=== PATIENT | male | born 1955 | race Caucasian/White ===

== ENCOUNTER 2017-08-08 20:40 | Inpatient (IN) | payer OTHER ==
[2017-08-08 21:00] VITALS: BP 143/86; PULSE 98; RESP 16; TEMP 98; O2SAT 95
[2017-08-08] MEDS: SODIUM CHLOR 0.9% 1000 ML INJ 1,000 ML IV SCH (21:39)
[2017-08-08] MEDS ORDERED: oxyCODONE/ACETAMINOPHEN 5 MG/325 MG TAB PO PRN (21:45)
[2017-08-08] MEDS ORDERED: ONDANSETRON HCL 4 MG/2 ML VIAL IV PUSH PRN (21:45)
[2017-08-08] MEDS ORDERED: SODIUM CHLORIDE 0.9% FLUSH 10 ML FLUSH IV FLUSH PRN (21:45)
[2017-08-08] MEDS ORDERED: SENNOSIDES 8.6 MG TAB PO PRN (21:45)
[2017-08-08] MEDS ORDERED: CHLORHEXIDINE GLUCONATE 2 % 1 PACK (2 CLOTHS) TOP PRN (21:45)
[2017-08-08] MEDS ORDERED: MAGNESIUM HYDROXIDE SUSP 30 ML CUP PO PRN (21:45)
[2017-08-08] MEDS ORDERED: RESP: ALBUTEROL 2.5 MG/IPRATROPIUM 0.5 MG NEB (PRN) INH (21:45)
[2017-08-08] MEDS ORDERED: METOCLOPRAMIDE HCL 10 MG/2 ML VIAL IV PUSH PRN (21:45)
[2017-08-08] MEDS ORDERED: MISCELLANEOUS NURSING INFORMATION XX SCH (21:45)
[2017-08-08] MEDS ORDERED: LACTULOSE SYRUP 20 GM/30 ML CUP PO PRN (21:45)
[2017-08-08 22:00] VITALS: PULSE 100
--- NOTE | 2017-08-08 22:28 | HHI.HP ---
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 Patient was just evaluated at [facility] on 08/05/17 and received Ktruda. He developed worsening weakness involving the left lower extremity since then over the next 3 days and presented to the ER at [facility] on 08/[address] without contrast revealed intracerebral hemorrhage involving right frontal parietal region with right subdural hemorrhage and minimal midline shift. [facility] was contacted however did not have any beds hence patient was accepted for transfer at [facility] and patient was transferred to the ICU at [place]. I evaluated the patient on being notified about his arrival. At that time he was complaining of a headache for out of 10 in intensity otherwise did not have any other complaints. He had just had a seizure prior to transfer around 4:30 PM for which she received 1 mg of Ativan IV as well as 1 g of IV Keppra at [facility]. Patient is on 3 anticonvulsants at home including Vimpat, Keppra, Dilantin. He gets at least one seizure once a week involving the left side of his body. He denies any fevers or chills. Denies any shortness of breath, nausea, vomiting, abdominal pain, melena or rectal bleeding. He has been having some dribbling of his urine for the last 1 week. Review of Systems ROS As per history of present illness Past Family Social History Allergies: Coded Allergies: No Known Drug Allergies (Verified Allergy, 08/08/17) Past Medical History Malignant Melanoma, seizures Past Surgical History Right parietal craniectomy for removal of metastatic lesion from melanoma on , lumbar discectomy, 11 inches of small bowel removed for malignancy with axillary lymph node removal. Reported Medications Dexamethasone 2 mg by mouth 3 times a day, Keppra 1500 mg by mouth twice a day, phenytoin 300 mg by mouth daily at bedtime, Vimpat 150 mg by mouth twice a day, potassium chloride 10 and V/Q by mouth daily Family History Noncontributory at this time Social History No history of tobacco abuse or any other substance abuse Physical Exam Vital Signs Vital Signs Date Time Temp Pulse Resp B/P (MAP) Pulse Ox O2 Delivery O2 Flow Rate FiO2 08/08/17 21:00 98 Room Air Physical Exam HEENT/Neuro: No pallor or icterus, tongue moist, VERONIKA, Awake alert oriented 3 , grade 0 power in left upper and lower extremity, grade 5 power right upper and lower extremity Neck: No JVD Chest/pulmonary: CTA bilaterally Cardiovascular: S1-S2 regular no gallop or murmur GI/abdomen: Soft, nontender, bowel sounds present Extremities: Warm bilaterally, no edema Laboratory Labs time at [facility] on 08/07/2017 at 1848 hrs. White count 8.7, hemoglobin 15.2, hematocrit 45.2, platelets 289 Sodium 144, potassium 3.4, chloride 105, bicarbonate 25, BUN 9, creatinine 0.64 , glucose 95 INR 1.0, PTT 28 seconds, calcium 9.6, magnesium 2.2, TSH 5.57, Imaging Head CT done on 07/09/2017: Large area of intracerebral hemorrhage and right frontal and parietal region with obliteration of cerebral sulci on the right side secondary to edema, minimal midline shift, compression of right lateral ventricle him a right frontal and temporal acute subdural hematomas Head CT done on 08/07/2017: Intracerebral hemorrhages in right frontal and parietal region, acute subdural hematoma than right frontal and temporal regions compression of right lateral ventricle and slight midline shift Caprini VTE Risk Assessment Caprini VTE Risk Assessment: Mod/High Risk (score >= 2) VTE Pharm Contraindication: Intracranial lesions Caprini Risk Assessment Model Point Value = 1 Point Value = 2 Point Value = 3 Point Value = 5 Age 41-60 Minor surgery BMI > 25 kg/m2 Swollen legs Varicose veins or History of unexplained or recurrent spontaneous Oral contraceptives or hormone replacement Sepsis (< 1 month) Serious lung disease, including pneumonia (< 1 month) Abnormal pulmonary function Acute myocardial infarction Congestive heart failure (< 1 month) History of inflammatory bowel disease Medical patient at bed rest Age 61-74 Arthroscopic surgery Major open surgery (> 45 min) Laparoscopic surgery (> 45 min) Malignancy Confined to bed (> 72 hours) Immobilizing plaster cast Central venous access Age >= 75 History of VTE Family history of VTE Factor V Leiden Prothrombin [id number] Lupus anticoagulant Anticardiolipin antibodies Elevated serum homocysteine Heparin-induced thrombocytopenia Other congenital or acquired thrombophilia Stroke (< 1 month) Elective arthroplasty Hip, pelvis, or leg fracture Acute spinal cord injury (< 1 month) Prophylaxis Regimen Total Risk Factor Score Risk Level Prophylaxis Regimen 0-1 Low Early ambulation 2 Moderate Order ONE of the following: *Sequential Compression Device (SCD) *Heparin 5000 units SQ BID 3-4 Higher Order ONE of the following medications: *Heparin 5000 units SQ TID *Enoxaparin/Lovenox 40 mg SQ daily (WT < 150 kg, CrCl > 30 mL/min) *Enoxaparin/Lovenox 30 mg SQ daily (WT < 150 kg, CrCl > 10-29 mL/min) *Enoxaparin/Lovenox 30 mg SQ BID (WT < 150 kg, CrCl > 30 mL/min) AND/OR *Sequential Compression Device (SCD) 5 or more Highest Order ONE of the following medications: *Heparin 5000 units SQ TID (Preferred with Epidurals) *Enoxaparin/Lovenox 40 mg SQ daily (WT < 150 kg, CrCl > 30 mL/min) *Enoxaparin/Lovenox 30 mg SQ daily (WT < 150 kg, CrCl > 10-29 mL/min) *Enoxaparin/Lovenox 30 mg SQ BID (WT < 150 kg, CrCl > 30 mL/min) AND *Sequential Compression Device (SCD) Assessment and Plan Assessment and Plan 62-year-old male with: Metastatic melanoma with brain metastases status post previous right parietal rhinectomy Right sided subdural hemorrhage with intracerebral hemorrhage and cerebral edema Seizures Left hemiplegia Hypertension Plan: Neuro: Continue neuro checks per ICU protocol. Neurosurgery consulted and discussed with Dr. Smalls. No emergent neurosurgical intervention indicated at this time following review of CAT scans done at [facility]. Plan to continue Decadron 4 mg IV every 6 hourly. Will change Keppra to 1500 mg IV every 12 hourly, Dilantin 150 mg IV every 12 hourly, continue by mouth Vimpat. Obtain MRI brain for further evaluation. Repeat head CT to be decided by neurosurgery. Seizure precautions. Ativan when necessary for breakthrough seizures as needed. Cardiovascular: Hydralazine 10 mg IV every 2 hourly when necessary for SBP greater than 150 mmHg. Pulmonary: Protecting airway adequately at this time. Supplemental O2 as needed. Bronchiolitis when necessary. GI/liver: By mouth diet as tolerated needed Renal/: IV hydration, strict intake output, monitor and replete electrolytes, follow BUN/creatinine. ID: No indication for antibiotics at this time Heme onc: Obtain medical records from [facility] regarding melanoma treatment and status. Consult oncology. Coags normal at [facility]. Endocrine: Watch for hyperglycemia, SSI for glycemic control if needed. Prophylaxis: Pepcid, SCDs. No subcutaneous heparin in view of intracerebral hemorrhage/subdural hemorrhage. Discussed with neurosurgery, discussed with patient and his at bedside. Condition critical. Patient at high risk for deterioration from worsening intracerebral hemorrhage and cerebral edema. Time spent on critical care excluding procedures 45 minutes Raf Carpenter MD Aug 08, 2017 22:27
[2017-08-08] MEDS ORDERED: DEXTROSE 50% IN WATER 50 ML VIAL(D50) IV PRN (22:30)
[2017-08-08] MEDS ORDERED: GLUCAGON 1 MG/ML VIAL IM/SQ PRN (22:30)
[2017-08-08] MEDS ORDERED: DEXA2TAB PO (22:48)
[2017-08-08] MEDS ORDERED: LEVE500T8 PO (22:48)
[2017-08-08] MEDS ORDERED: VIMP150T PO (22:48)
[2017-08-08] MEDS ORDERED: POTA10TA2 PO (22:48)
[2017-08-08] MEDS ORDERED: PHEN300C3 PO (22:48)
--- NOTE | 2017-08-08 23:19 | HHI.NSPN ---
History Chief Complaint: Left sided weakness Interval History 62-year-old male patient with history of melanoma metastatic to the brain. Transferred from [facility] because of intracranial hemorrhage patient reports increasing weakness on the left side System Review Comments See consult Exam Results Vital Signs Date Time Temp Pulse Resp B/P (MAP) Pulse Ox O2 Delivery O2 Flow Rate FiO2 08/08/17 22:00 100 08/08/17 21:58 21 08/08/17 21:00 98.0 16 143/86 (105) 95 08/08/17 21:00 Room Air Physical Examination Alert and awake follows commands well. Fluent speech. Oriented 3. Affect normal. Cranial nerves intact Motor exam left hemiparesis arm is 1+/5 leg is 2-3+/5 See consult for further details Lab, Micro, Other Results Review of CT from 08/07 shows evidence of acute subdural hematoma on the right, small, with extension along the falx. Evidence of a low-density lesion with hemorrhage in the right parietal area. Compression of the ventricle on the right. Marked edema. CT scan of 08/08 show similar appearance Medical Decision Making Impression and Plan Impression: Probable recurrent metastatic lesion. Acute subdural hematoma small. There is some information indicating that the lesion in the parietal area was present on a scan of June 2017 Recommendations: Continue Dilantin, Keppra and Vimpat Consider MRI of the brain with and without contrast Decadron 4 mg IV every 6 hours Seizure precautions Oncology consult Consider transfer to [facility] for further care Cezar Smalls MD Aug 08, 2017 23:19
[2017-08-08] MEDS: PHENYTOIN INJ 100 MG/2 ML VIAL IV PUSH SCH (23:22)
[2017-08-08] MEDS: DEXAMETHASONE SOD PHOS 4 MG/ML VIAL IV PUSH SCH (23:23)
[2017-08-09] VITALS (13 sets, daily range): BP systolic 133–167; BP diastolic 72–94; PULSE 83–130; RESP 15–24; TEMP 96.6–98.3; O2SAT 93–97
[2017-08-09] MEDS: CHLORHEXIDINE GLUCONATE 2 % 1 PACK (2 CLOTHS) TOP SCH (04:00)
[2017-08-09] MEDS ORDERED: LORazepam 2 MG/ML VIAL ONE (04:01)
[2017-08-09] MEDS: DEXAMETHASONE SOD PHOS 4 MG/ML VIAL IV PUSH SCH ×5 (04:07→23:12)
[2017-08-09] MEDS ORDERED: LORazepam 2 MG/ML VIAL IV PUSH ONE (04:15)
--- NOTE | 2017-08-09 04:29 | RADRPT ---
EXAM DATE/TIME: 08/09/2017 03:04 [facility] COMPARISON: No previous studies available for comparison. INDICATIONS : Evaluate for infiltrate MEDICAL HISTORY : None. SURGICAL HISTORY : None. ENCOUNTER: Initial ACUITY: 1 day PAIN SCORE: 7/10 LOCATION: Bilateral chest FINDINGS: A single view of the chest demonstrates mild basilar atelectasis. No effusion. No pneumothorax. Surgi leeann clips in left axillary region. Cardiomegaly. CONCLUSION: 1. Mild basilar atelectasis. No effusion or pneumothorax. Large calcified mediastinal lymph node. Liz gical clips left axilla. Charly Wagner MD on August 09, 2017 at 4:27 Board Certified Radiologist. This report was verified electronically.
[2017-08-09 04:35] LABS: AUTOMATED NEUTROPHIL # 7.8 TH/MM3 (1.8-7.7); BASOPHIL # 0.1 TH/MM3 (0-0.2); BASOPHIL % 0.5 % (0.0-2.0); EOSINOPHIL % 0.2 % (0.0-4.0); HEMATOCRIT 42.9 % (39.0-51.0); HEMOGLOBIN 14.9 GM/DL (13.0-17.0); LYMPH % 13.7 % (9.0-44.0); LYMPHOCYTE # 1.3 TH/MM3 (1.0-4.8); MEAN CELL VOLUME 85.6 FL (80.0-100.0); MEAN CORPUSCULAR HEMOGLOBIN 29.7 PG (27.0-34.0); MEAN CORPUSCULAR HGB CONC 34.7 % (32.0-36.0); MONO % 5.3 % (0.0-8.0); MONOCYTE # 0.5 TH/MM3 (0-0.9); NEUT % 80.3 % (16.0-70.0); PLATELET COUNT 294 TH/MM3 (150-450); RED BLOOD COUNT 5.01 MIL/MM3 (4.50-5.90); RED CELL DISTRIBUTION WIDTH 16.2 % (11.6-17.2); WHITE BLOOD COUNT 9.8 TH/MM3 (4.0-11.0)
[2017-08-09 05:00] LABS: ALBUMIN 3.8 GM/DL (3.4-5.0); AST (GOT) 20 U/L (15-37); BICARBONATE 25.8 MEQ/L (21.0-32.0); BLOOD UREA NITROGEN 13 MG/DL (7-18); CALCIUM 8.8 MG/DL (8.5-10.1); CHLORIDE 106 MEQ/L (98-107); CREATININE 0.75 MG/DL (0.60-1.30); GLOMERULAR FILTRATION RATE 105 ML/MIN (>89); GLUCOSE,RANDOM 113 MG/DL (74-106); MAGNESIUM 2.6 MG/DL (1.5-2.5); SODIUM (NA) 140 MEQ/L (136-145)
[2017-08-09 05:03] LABS: ALKALINE PHOSPHATASE 91 U/L (45-117); ALT (GPT) 29 U/L (12-78); TOTAL BILIRUBIN ADULT 0.4 MG/DL (0.2-1.0); TOTAL PROTEIN 6.7 GM/DL (6.4-8.2)
[2017-08-09] MEDS: hydrALAZINE HCL 20 MG/ML VIAL IV PUSH PRN (06:02)
--- NOTE | 2017-08-09 06:44 | MB ---
cc: CAROLANN NOVA MD DATE OF CONSULTATION: 08/08/2017 CHIEF COMPLAINT: Transfer from [facility] due to brain hemorrhage. HISTORY OF PRESENT ILLNESS: This is a 62 year-old male patient with history of malignant melanoma with metastasis to the brain. The patient initially was diagnosed in August of 2016 after small bowel resection. The patient was seen in [facility] where he was followed and eventually was noted to have a metastatic lesion to the brain which was treated with radiosurgery. The patient continued to have problems despite the treatment and in May of 2017 he underwent right parietal surgery with what appears to be incomplete resection of the lesion. He again was treated with radiation and was also receiving Keytruda for treatment of his systemic melanoma. Because of continued problems and because of continued weakness on the left side which pre-dated the initial surgery, the patient has been under observation. He was also noted to have intermittent seizures which he reports about a week to two weeks apart which initially involved the leg, and then the arm and leg as well. For the past few days, the patient noted increasing weakness on the left side and because of this, he presented to [facility] where CT scan of the brain was performed showing abnormal intercerebral hemorrhage and because of continued problems, they decided to transfer the patient to this center. The patient insists that he probably wants to return to [facility] for continued care but is willing to undergo treatment here if necessary. PAST MEDICAL HISTORY: 1. Seizures. 2. Malignant melanoma. PAST SURGICAL HISTORY: 1. Right parietal craniectomy with removal of metastatic lesion. 2. Past history of lumbar diskectomy with residual weakness and numbness of the left leg. PREVIOUS MEDICATIONS 1. Dexamethasone. 2. Keppra. 3. Diabetes mellitus. 4. Vimpat because of seizures. FAMILY HISTORY: Noncontributory. SOCIAL HISTORY: Reveals no history of tobacco abuse or any other substance abuse. PHYSICAL EXAMINATION: VITAL SIGNS: Saturation of 98, pulse 80, blood pressure of 140/80. HEENT: Shows evidence of a previous surgical procedure on the right parietal area. NECK: Supple with good carotid pulses bilaterally. CHEST: Symmetric. LUNGS: Clear. ABDOMEN: Soft, nontender. EXTREMITIES: Clear. NEUROLOGIC: The patient is alert and awake. He follows commands well. Speech is fluent. He tends to drift off at times. He is oriented x3. Cranial nerves II through XII intact. He appears to have mild ptosis on the left. Motor exam: 5+/5 on the right side. The left arm is about 1+/5, and the left leg is about 2+ to 3/5. Sensory exam shows decreased touch throughout the left arm and left leg, and facial area. Deep tendon reflexes are 1+ on the right side, trace in the left upper extremity and 1+ in the left leg. IMAGING STUDIES: Review of CT scan of the brain 08/07 shows what appears to be an acute small subdural hematoma on the right side with involvement of the falx. There also appears to be a large low density lesion in the right frontoparietal area with marked edema and compression of the ventricle on that side. CT on 08/08 is similar in appearance to the one on 08/07. OVERALL IMPRESSION: That of recurrent malignant melanoma with metastasis to the brain, acute subdural hematoma, small. RECOMMENDATIONS: Continue neurological observation. No surgical intervention is emergent at the present time. The patient should continue on his Keppra, Dilantin and Vimpat. Dilantin level should be performed. He should have an MRI of the brain with and without contrast to further delineate the lesion. Findings have been discussed with the patient and his . At this point they may want to return to [facility] for continued care and we will make sure that he is stable enough if they want to proceed. MD JUAN JOSE Walter/NIRALI /11:02 PM /6:23 AM CAROLYN
[2017-08-09] MEDS ORDERED: DEXMEDETOMIDINE INJ 200 MCG in SODIUM CHLORIDE 0.9% INJ 50 ML IV PRN (07:45)
[2017-08-09] MEDS ORDERED: LORazepam 2 MG/ML VIAL IV PUSH PRN (07:45)
[2017-08-09] MEDS: INSULIN ASPART SUPPLEMENTAL SCALE SQ SCH ×4 (08:00→20:24)
[2017-08-09] MEDS ORDERED: FOSPHENYTOIN SODIUM 100 MG PE/2 ML VIAL IV ONE (08:15)
--- NOTE | 2017-08-09 08:21 | HHI.CCPN ---
Subjective Remarks/Hospital Course 62-year-old male with a history of malignant melanoma metastasized to the brain status post right parietal craniectomy on June 09, 2017 at [facility] followed by 5 radiation treatments being followed by oncologist at [facility]. Patient was just evaluated at [facility] on 08/05/17 and received Ktruda. He developed worsening weakness involving the left lower extremity since then over the next 3 days and presented to the ER at [facility] on 08/[address] without contrast revealed intracerebral hemorrhage involving right frontal parietal region with right subdural hemorrhage and minimal midline shift. [facility] was contacted however did not have any beds hence patient was accepted for transfer at [facility] and patient was transferred to the ICU at [place]. I evaluated the patient on being notified about his arrival. At that time he was complaining of a headache for out of 10 in intensity otherwise did not have any other complaints. He had just had a seizure prior to transfer around 4:30 PM for which she received 1 mg of Ativan IV as well as 1 g of IV Keppra at [facility]. Patient is on 3 anticonvulsants at home including Vimpat, Keppra, Dilantin. He gets at least one seizure once a week involving the left side of his body. He denies any fevers or chills. Denies any shortness of breath, nausea, vomiting, abdominal pain, melena or rectal bleeding. He has been having some dribbling of his urine for the last 1 week. 08/09: Discussed in detail with patient and at the bedside. Left side weakness persists. Speech is clear, O X 3, conversant, alert. Dilantin level 6; will rebolus and continue 150 mg iv bid. Will continue to attempt transfer to [facility]. Objective Vital Signs Date Time Temp Pulse Resp B/P (MAP) Pulse Ox O2 Delivery O2 Flow Rate FiO2 08/09/17 06:00 97 08/09/17 04:00 98.0 21 167/94 (118) 94 08/08/17 21:58 21 08/08/17 21:00 Room Air Intake and Output 08/09/17 08/09/17 08/10/17 08:00 16:00 00:00 Intake Total 50 ml Output Total 400 ml Balance -350 ml Result Diagram: 08/09/17 0355 08/09/[address] done on 07/09/2017: Large area of intracerebral hemorrhage and right frontal and parietal region with obliteration of cerebral sulci on the right side secondary to edema, minimal midline shift, compression of right lateral ventricle him a right frontal and temporal acute subdural hematomas Head CT done on 08/07/2017: Intracerebral hemorrhages in right frontal and parietal region, acute subdural hematoma than right frontal and temporal regions compression of right lateral ventricle and slight midline shift Objective Remarks HEENT/Neuro: No pallor or icterus, tongue moist, VERONIKA, Awake alert oriented 3 , grade 0 power in left upper and lower extremity, grade 5 power right upper and lower extremity. Conversant. Speech clear. Neck: Airway widely patent. Chest/pulmonary: CTA bilaterally, comfortable pattern. No adventitious sounds. Cardiovascular: S1-S2 regular no gallop or murmur GI/abdomen: Soft, nontender, bowel sounds present. No guarding. Extremities: Warm bilaterally, no edema A/P Assessment and Plan 62-year-old male with: Metastatic melanoma with brain metastases status post previous right parietal rhinectomy Right sided subdural hemorrhage with intracerebral hemorrhage and cerebral edema Seizures Left hemiplegia Hypertension Plan: Neuro: Continue neuro checks per ICU protocol. Neurosurgery consulted and discussed with Dr. Smalls. No emergent neurosurgical intervention indicated at this time following review of CAT scans done at [facility]. Plan to continue Decadron 4 mg IV every 6 hourly. Will change Keppra to 1500 mg IV every 12 hourly, Dilantin 150 mg IV every 12 hourly, continue by mouth Vimpat. Obtain MRI brain for further evaluation. Repeat head CT to be decided by neurosurgery. Seizure precautions. Ativan when necessary for breakthrough seizures as needed. Cardiovascular: Hydralazine 10 mg IV every 2 hourly when necessary for SBP greater than 150 mmHg. Pulmonary: Protecting airway adequately at this time. Supplemental O2 as needed. Bronchiolitis when necessary. GI/liver: By mouth diet as tolerated needed Renal/: IV hydration, strict intake output, monitor and replete electrolytes, follow BUN/creatinine. ID: No indication for antibiotics at this time Heme onc: Obtain medical records from [facility] regarding melanoma treatment and status. Consult oncology. Coags normal at [facility]. Endocrine: Watch for hyperglycemia, SSI for glycemic control if needed. Prophylaxis: Pepcid, SCDs. No subcutaneous heparin in view of intracerebral hemorrhage/subdural hemorrhage. Discussed with neurosurgery, discussed with patient and his at bedside. Overall impression: Critically ill and at high risk for continued deterioration from intracerebral hemorrhage and cerebral edema. Critical Care 46 mins Feliciano Guidry MD Aug 09, 2017 08:21
[2017-08-09] MEDS: levETIRAcetam INJ 500 MG in SODIUM CHLORIDE 0.9% INJ 100 ML IV SCH ×2 (08:43→20:22)
[2017-08-09] MEDS: DOCUSATE SODIUM 50 MG/SENNA 8.6 MG TAB PO SCH ×2 (08:46→20:24)
[2017-08-09] MEDS: FAMOTIDINE 20 MG TAB PO SCH ×2 (08:46→20:23)
[2017-08-09] MEDS: SODIUM CHLORIDE 0.9% FLUSH 10 ML FLUSH IV FLUSH SCH ×2 (08:47→20:25)
[2017-08-09] MEDS: PHENYTOIN INJ 100 MG/2 ML VIAL IV PUSH SCH (08:47)
[2017-08-09] MEDS ORDERED: levETIRAcetam INJ 100 ML IV SCH (09:00)
[2017-08-09] MEDS: ACETAMINOPHEN 325 MG TAB PO PRN (10:54)
[2017-08-09] MEDS: LACOSAMIDE 50 MG TAB PO SCH ×2 (10:54→20:24)
--- NOTE | 2017-08-09 11:40 | HHI.NSPN ---
History Chief Complaint: Left sided weakness Interval History 62-year-old male patient with history of melanoma metastatic to the brain. Transferred from [facility] because of intracranial hemorrhage patient reports increasing weakness on the left side Patient has some seizure activity last night involving the legs. Controlled with Ativan. Patient has had seizures in the past Exam Results Vital Signs Date Time Temp Pulse Resp B/P (MAP) Pulse Ox O2 Delivery O2 Flow Rate FiO2 08/09/17 07:00 96 Room Air 08/09/17 06:00 97 08/09/17 04:00 98.0 21 167/94 (118) 08/08/17 21:58 21 Intake and Output 08/09/17 08/09/17 08/10/17 08:00 16:00 00:00 Intake Total 50 ml Output Total 400 ml Balance -350 ml Physical Examination Alert and awake follows commands well. Fluent speech. Oriented 3. Affect normal. Cranial nerves intact Motor exam left hemiparesis arm is 1+/5 leg is 2-3+/5 Lab, Micro, Other Results Dilantin level 6 Medical Decision Making Impression and Plan Impression: Probable recurrent metastatic lesion. Acute subdural hematoma small. There is some information indicating that the lesion in the parietal area was present on a scan of June 2017 Status again discussed with patient and . Possibility of surgical intervention discussed. They want to proceed with transfer to [facility]. Recommendations: Increase Dilantin to 200 mg twice a day because of low Dilantin level Consider PT and OT consult. Proceed with possible transfer to [facility] Cezar Smalls MD Aug 09, 2017 11:40
[2017-08-09] MEDS: traMADol HCL 50 MG TAB PO PRN (13:00)
--- NOTE | 2017-08-09 13:01 | RADRPT ---
EXAM DATE/TIME: 08/09/2017 11:43 [facility] COMPARISON: No previous studies available for comparison. INDICATIONS : Metastatic disease. Seizures. CONTRAST: 18 cc Omniscan (gadodiamide) IV MEDICAL HISTORY : Metastatic, brain. Carcinoma, colon. Seizures. Carcinoma, melanoma SURGICAL HISTORY : Craniotomy. Colon resection. Discectomy, lumbar. ENCOUNTER: Initial ACUITY: 1 week PAIN SCORE: 4/10 LOCATION: cranial TECHNIQUE: Multiplanar, multisequence MRI of the brain was performed both prior to and following the administrat ion of paramagnetic contrast. FINDINGS: CEREBRUM: There has been a right high parietal craniotomy with a significant amount of underlying vasogenic andrade ma. There is an area of low signal on the flair and T1 postcontrast images likely a residual hematoma the area measures 3.4 cm across. There is abnormal edema although a tooth within the flores matter vinita ng the edges of the craniotomy tract. WHITE MATTER: There is significant vasogenic edema throughout the right parietal lobe and frontal lobes. POSTERIOR FOSSA: The cerebellum and brainstem are intact. The 4th ventricle is midline. The cerebellopontine angle is unremarkable. The cerebellar tonsils are normal in position. DIFFUSION IMAGING: No focal areas of restricted diffusion are seen. No evidence of acute infarction. EXTRACRANIAL: The visualized portions of the orbits and paranasal sinuses are unremarkable. POST-CONTRAST: There is a minimal enhancement in the flores matter underneath craniotomy site. CONCLUSION: Status post right-sided carotid craniotomy with significant residual vasogenic edema and a 3.4 cm res idual postoperative parenchymal seroma. Slight mass effect upon the septum pellucidum from right to l eft. Marcos Beard MD on August 09, 2017 at 12:55 Board Certified Radiologist. This report was verified electronically.
[2017-08-09] MEDS ORDERED: GADODIAMIDE PF 287 MG/ML 20 ML VIAL (for RAD MRI) IVCONTRAST ONE (14:15)
--- NOTE | 2017-08-09 15:28 | MB ---
cc: EVARISTO TOLBERT MD, RUBY ANNE E. M.D. DATE OF CONSULTATION: 08/09/2017 REASON FOR CONSULTATION: Dr. Tolbert requested a consultation for Mr. Johnson with metastatic malignant melanoma to SOIL EXPERT with a new intracranial hemorrhage. REFERRING PHYSICIAN: Dr. Tolbert. HISTORY OF PRESENT ILLNESS Mr. Johnson is a 62-year-old man with history of metastatic malignant melanoma. He was diagnosed in the early part of last year. He was placed on Keytruda with good response. He was not aware of SOIL EXPERT metastatic disease. During the course of his treatment with the checkpoint inhibitor, he was noted to have a response. He has tolerated treatment well. He was noticing increasing fatigue. This prompted SOIL EXPERT evaluation, and he was found to have a right-sided metastatic lesion. He has been receiving his care at [facility]. He was referred to the radiation oncologist and neurosurgeon. They have elected to proceed with stereotactic radiosurgery on treatment to the lesion. He had no response and progressive symptoms. From the 's story, MRI shortly after the radiation therapy shows progression of disease. He was referred to neurosurgery for a definitive resection. He had SOIL EXPERT surgery in May of 2017. He had a right parietal craniotomy. He tolerated treatment well. He had post craniotomy radiation treatments of five doses to the surgical bed. He recovered very well. He was walking and was feeling well. On a consultation with the [facility] medical oncologist on 08/05/2017, he returned to receive Keytruda. Since then, he has had progressive symptoms of weakness of the left side. Initial evaluation at the local medical center at [place] showed CT without contrast showing intracranial hemorrhage involving the right frontoparietal region. There is a right subdural hemorrhage and minimal midline shift. He transferred to the [facility] ICU. He was evaluated by the spinning frame cleaner and neurosurgery. In the meantime, arrangements were made to transfer him to [facility]. Over the last 24 hours, Mr. Johnson noticed some progression. He has a twitching focalized seizure. He is on anti-seizure medications. He has noticed twitching on the right side as well. He has weakness on the left side, which was not improved. He has occasional headaches. His Decadron dose is 4 mg every 6 hours optimized from his previous dose of 2 mg every 12 hours. MRI at our center showed status post right-sided parotid craniotomy with significant residual vasogenic edema and a 3.4 cm residual postoperative parenchymal seroma. There is slight mass effect from right to left. Mr. Johnson and his have been discussing options for transfer with case management. He is intent on continuing his care at [facility]. The rest of his review of systems is negative. PAST MEDICAL HISTORY: 1. Metastatic malignant melanoma. 2. Intracranial hemorrhage. 3. Left-sided weakness. 4. Focal seizures. PAST SURGICAL HISTORY: 1. Right-sided craniotomy. 2. Lumbar discectomy. 3. Bowel surgery. 4. Axillary node surgery. FAMILY HISTORY: No family history of cancer. SOCIAL HISTORY: He is and lives with his who has breast cancer. He denies any tobacco, alcohol or illicit drug use. ALLERGIES: NO KNOWN DRUG ALLERGIES. CURRENT MEDICATIONS: 1. Famotidine. 2. Celena-Colace. 3. Keppra. 4. Vimpat. 5. Ultram. 6. Lorazepam. 7. Dilantin. 8. Decadron. 9. Hydralazine PRN. PHYSICAL EXAMINATION: VITAL SIGNS: Temperature is 98.0, heart rate 97, respiratory rate 21, blood pressure 167/94, saturation 96%. GENERAL: Mr. Johnson is a well-developed, well-nourished man lying in bed. His is at the bedside. He has left-sided weakness. HEAD, EYES, EARS, NOSE, THROAT: Pupils are round and reactive to light and accommodation. Oropharynx is clear. NECK: Neck is supple. LUNGS: Lungs were clear anteriorly. CARDIOVASCULAR: Exam reveals mild tachycardia. ABDOMEN: The abdomen is benign. EXTREMITIES: Lower extremities with weakness of the left leg. His right leg is moving freely. LABORATORY DATA: CBC and comprehensive metabolic panel are essentially normal. ASSESSMENT AND PLAN: Mr. Johnson is a 62-year-old man with metastatic malignant melanoma who developed SOIL EXPERT metastatic disease. He has had a recent craniotomy and radiation. He has recovered from that and resumed his checkpoint inhibitor treatment with Keytruda. I discussed with Mr. Johnson and his the possibility of an induced response post radiation therapy and checkpoint inhibitor. Nonetheless, the surgical management of his ____ is preferred at [facility] by the patient. He is well-known to their team. His transfer is being coordinated by case management. He has already been accepted by Dr. Padilla. EVAC form has been filled out. We await for a bed availability at [facility] to proceed with transfer. And Mrs. Johnson are eager to proceed there. In the meantime, he will be kept stable. He does not appear to have any other toxicity associated with his Keytruda. The most pressing issue is his SOIL EXPERT change, whether a postsurgical complication or induced by Keytruda. Mr. Johnson's questions were answered to his satisfaction. Ashley Stephens MD RAD/JCC /2:33 PM /3:10 PM
[2017-08-09] MEDS: PHENYTOIN INJ 250 MG/5 ML VIAL IV SCH (20:23)
[2017-08-09] MEDS: SODIUM CHLOR 0.9% 1000 ML INJ 1,000 ML IV SCH (21:56)
[2017-08-10] VITALS (13 sets, daily range): BP systolic 142–175; BP diastolic 73–92; PULSE 102–130; RESP 14–30; TEMP 98–99.2; O2SAT 92–97
[2017-08-10] MEDS: hydrALAZINE HCL 20 MG/ML VIAL IV PUSH PRN ×2 (00:49→03:25)
[2017-08-10] MEDS: LABETALOL HCL 100 MG/20 ML VIAL IV PUSH PRN (01:56)
[2017-08-10] MEDS: CHLORHEXIDINE GLUCONATE 2 % 1 PACK (2 CLOTHS) TOP SCH (03:44)
[2017-08-10] MEDS: ACETAMINOPHEN 325 MG TAB PO PRN ×2 (04:53→14:23)
[2017-08-10] MEDS: DEXAMETHASONE SOD PHOS 4 MG/ML VIAL IV PUSH SCH ×4 (05:16→23:46)
[2017-08-10 05:36] LABS: BICARBONATE 21.8 MEQ/L (21.0-32.0); CALCIUM 8.9 MG/DL (8.5-10.1); CREATININE 0.76 MG/DL (0.60-1.30)
[2017-08-10] MEDS: traMADol HCL 50 MG TAB PO PRN (05:52)
[2017-08-10] MEDS ORDERED: MAGNESIUM OXIDE 400 MG TAB PO PRN (06:30)
[2017-08-10] MEDS ORDERED: SODIUM PHOSPHATE INJ 30 MMOL in SODIUM CHLOR 0.9% 250 ML INJ 240 ML IV PRN (06:30)
[2017-08-10] MEDS ORDERED: MAGNESIUM SULFATE INJ 2 GM in SODIUM CHLORIDE 0.9% INJ 96 ML IV PRN (06:30)
[2017-08-10] MEDS ORDERED: MAGNESIUM SULFATE INJ 4 GM in SODIUM CHLORIDE 0.9% INJ 92 ML IV PRN (06:30)
[2017-08-10] MEDS ORDERED: POTASSIUM PHOSPHATE MONOBASIC 500 MG TAB PO PRN (06:30)
[2017-08-10] MEDS ORDERED: POTASSIUM PHOSPHATE MONOBASIC 500 MG TAB PO/TUBE PRN (06:30)
[2017-08-10] MEDS ORDERED: POTASSIUM CHLORIDE 25 MEQ EFFERVESCENT TAB PO PRN (06:30)
[2017-08-10] MEDS ORDERED: POTASSIUM CHLOR 40 MEQ PREMIX 100 ML IV PRN ×2 (06:30)
[2017-08-10] MEDS ORDERED: POTASSIUM PHOSPHATE INJ 30 MMOL in SODIUM CHLOR 0.9% 250 ML INJ 250 ML IV PRN (06:30)
[2017-08-10] MEDS ORDERED: POTASSIUM CHLOR 20 MEQ PREMIX 100 ML IV PRN (06:30)
[2017-08-10] MEDS: POTASSIUM CHLOR 20 MEQ PREMIX 100 ML IV PRN ×3 (06:31→12:34)
--- NOTE | 2017-08-10 06:59 | HHI.CCPN ---
Subjective Remarks/Hospital Course 62-year-old male with a history of malignant melanoma metastasized to the brain status post right parietal craniectomy on June 09, 2017 at [facility] followed by 5 radiation treatments being followed by oncologist at [facility]. Patient was just evaluated at [facility] on 08/05/17 and received Ktruda. He developed worsening weakness involving the left lower extremity since then over the next 3 days and presented to the ER at [facility] on 08/[address] without contrast revealed intracerebral hemorrhage involving right frontal parietal region with right subdural hemorrhage and minimal midline shift. [facility] was contacted however did not have any beds hence patient was accepted for transfer at [facility] and patient was transferred to the ICU at [place]. I evaluated the patient on being notified about his arrival. At that time he was complaining of a headache for out of 10 in intensity otherwise did not have any other complaints. He had just had a seizure prior to transfer around 4:30 PM for which she received 1 mg of Ativan IV as well as 1 g of IV Keppra at [facility]. Patient is on 3 anticonvulsants at home including Vimpat, Keppra, Dilantin. He gets at least one seizure once a week involving the left side of his body. He denies any fevers or chills. Denies any shortness of breath, nausea, vomiting, abdominal pain, melena or rectal bleeding. He has been having some dribbling of his urine for the last 1 week. 08/09: Discussed in detail with patient and at the bedside. Left side weakness persists. Speech is clear, O X 3, conversant, alert. Dilantin level 6; will re-bolus and continue 150 mg iv bid. Will continue to attempt transfer to [facility]. 08/10: MRI reveals a 3-4 cm seroma and diffuse edema (vasogenic and cytotoxic) involving the right hemisphere. Small subdural hematoma right side, superior location as well. Some twitching in facial and limb muscles. Dilantin re-bolused , continue vimpat and keppra. Will try low dose precedex to reduce his constant removal of leads and devices. Protects airway well. Continuing attempts to transfer to [facility] when a bed is available. Objective Vital Signs Date Time Temp Pulse Resp B/P (MAP) Pulse Ox O2 Delivery O2 Flow Rate FiO2 08/10/17 06:00 130 08/10/17 04:00 98.0 23 144/73 (96) 95 08/09/17 20:45 21 08/09/17 19:00 Room Air Intake and Output 08/10/17 08/10/17 08/11/17 08:00 16:00 00:00 Intake Total 480 ml Output Total 1050 ml Balance -570 ml Result Diagram: 08/09/17 0355 08/10/[address] done on 07/09/2017: Large area of intracerebral hemorrhage and right frontal and parietal region with obliteration of cerebral sulci on the right side secondary to edema, minimal midline shift, compression of right lateral ventricle him a right frontal and temporal acute subdural hematomas Head CT done on 08/07/2017: Intracerebral hemorrhages in right frontal and parietal region, acute subdural hematoma than right frontal and temporal regions compression of right lateral ventricle and slight midline shift Objective Remarks HEENT/Neuro: No pallor or icterus, tongue moist, VERONIKA, Awake alert oriented 3 , grade 0 power in left upper and lower extremity, grade 5 power right upper and lower extremity. Conversant. Speech clear. Fidgety. Neck: Airway widely patent. Swallows without choking. Chest/pulmonary: Clear bilaterally, comfortable pattern. No adventitious sounds. Cardiovascular: S1-S2 regular no gallop or murmur GI/abdomen: Soft, nontender, bowel sounds present. No guarding. Extremities: Warm bilaterally, no edema A/P Assessment and Plan 62-year-old male with: Metastatic melanoma with brain metastases status post previous right parietal rhinectomy Right sided subdural hemorrhage with intracerebral hemorrhage and cerebral edema Seizures Left hemiplegia Hypertension Plan: Neuro: Continue neuro checks per ICU protocol. Neurosurgery consulted and discussed with Dr. Smalls. No emergent neurosurgical intervention indicated at this time following review of CAT scans done at [facility]. Plan to continue Decadron 4 mg IV every 6 hourly. Will change Keppra to 1500 mg IV every 12 hourly, Dilantin 150 mg IV every 12 hourly, continue by mouth Vimpat. Obtain MRI brain for further evaluation. Repeat head CT to be decided by neurosurgery. Seizure precautions. Ativan when necessary for breakthrough seizures as needed. Cardiovascular: Hydralazine 10 mg IV every 2 hourly when necessary for SBP greater than 150 mmHg. Pulmonary: Protecting airway adequately at this time. Supplemental O2 as needed. Bronchiolitis when necessary. GI/liver: By mouth diet as tolerated needed Renal/: IV hydration, strict intake output, monitor and replete electrolytes, follow BUN/creatinine. ID: No indication for antibiotics at this time Heme onc: Obtain medical records from [facility] regarding melanoma treatment and status. Consult oncology. Coags normal at [facility]. Endocrine: Watch for hyperglycemia, SSI for glycemic control if needed. Prophylaxis: Pepcid, SCDs. No subcutaneous heparin in view of intracerebral hemorrhage/subdural hemorrhage. Discussed with neurosurgery, discussed with patient and his at bedside. Dr. Luong from Oncology has seen. Overall impression: Critically ill and at high risk for continued deterioration from intracerebral hemorrhage and cerebral edema. Critical Care 36 mins Feliciano Guidry MD Aug 10, 2017 06:59
[2017-08-10] MEDS ORDERED: HYDROmorphone HCL PF 2 MG/ML VIAL IV PUSH ONE (07:00)
[2017-08-10] MEDS ORDERED: DEXMEDETOMIDINE INJ 200 MCG in SODIUM CHLORIDE 0.9% INJ 50 ML IV SCH (07:45)
[2017-08-10] MEDS: INSULIN ASPART SUPPLEMENTAL SCALE SQ SCH ×4 (08:00→20:55)
[2017-08-10] MEDS: levETIRAcetam INJ 500 MG in SODIUM CHLORIDE 0.9% INJ 100 ML IV SCH ×2 (08:33→20:28)
[2017-08-10] MEDS: DOCUSATE SODIUM 50 MG/SENNA 8.6 MG TAB PO SCH ×2 (08:34→20:28)
[2017-08-10] MEDS: SODIUM CHLORIDE 0.9% FLUSH 10 ML FLUSH IV FLUSH SCH ×2 (08:34→20:54)
[2017-08-10] MEDS: FAMOTIDINE 20 MG TAB PO SCH ×2 (08:34→20:28)
[2017-08-10] MEDS: LACOSAMIDE 50 MG TAB PO SCH ×2 (08:34→20:28)
[2017-08-10] MEDS: POTASSIUM CHLORIDE 10 MEQ CONTROLLED RELEASE TAB PO SCH ×2 (08:34→21:05)
[2017-08-10] MEDS: PHENYTOIN INJ 250 MG/5 ML VIAL IV SCH ×2 (08:35→20:30)
[2017-08-10] MEDS: SODIUM CHLOR 0.9% 1000 ML INJ 1,000 ML IV SCH ×2 (08:36→22:26)
--- NOTE | 2017-08-10 11:39 | HHI.NSPN ---
(Fran Mcclelland) History Chief Complaint: Left sided weakness (Fran Mcclelland) Interval History 62-year-old male patient with history of melanoma metastatic to the brain. Transferred from [facility] because of intracranial hemorrhage patient reports increasing weakness on the left side Patient has some seizure activity last night involving the legs. Controlled with Ativan. Patient has had seizures in the past 08/10: Pt awakens to voice. Complains of frontal headaches and behind his eyes. He denies nausea this morning and states he is hungry. He has periods of confusion and disorientation. He has a dense left hemiparesis. Discussed with pt and his at bedside after chart reviewed. Pt has previously had surgery at [facility] for his right sided brain mass and would like to go back there for evaluation and treatment. Reportedly [facility] has not had any beds available and once they do pt will be transferred there per pt and family's request. Currently resting in bed and appears comfortable although some periods of confusion. (Fran Mcclelland) Review of Systems General: Negative for: fever, chills, insomnia Respiratory: Negative for: shortness of breath, cough, sputum Cardiovascular: Negative for: chest pain Gastrointestinal: Negative for: nausea, vomitting, diarrhea, constipation ( Fran Mcclelland) Exam Results Vital Signs Date Time Temp Pulse Resp B/P (MAP) Pulse Ox O2 Delivery O2 Flow Rate FiO2 08/10/17 10:00 118 08/10/17 08:00 98.6 20 142/85 (104) 92 08/10/17 07:00 Room Air 08/09/17 20:45 21 Intake and Output 08/10/17 08/10/17 08/11/17 08:00 16:00 00:00 Intake Total 480 ml Output Total 1050 ml Balance -570 ml (Fran Mcclelland) Physical Examination General: Pt resting in bed and appears comfortable with stable vitals. Eyes: Pupils equal and sclera anicteric. Resp: CTA bilaterally Heart: NSR no murmurs Abd: Soft positive bs Skin: No cyanosis or erythema. Muscle: Left dense hemiparesis. Moves right side well. Neuro: Pt awakens to voice. Pupils 3mm bilaterally reactive bilaterally. Follows commands well. Speech clear but has periods of confusion and disorientation. He has decreased sensation in the LUE and LLE to light touch compared to the right side. (Fran Mcclelland) Lab, Micro, Other Results Last Impressions Chest X-Ray 08/09/17 0000 Signed Impressions: Service Date/Time: Wednesday, August 09, 2017 03:04 - CONCLUSION: 1. Mild basilar atelectasis. No effusion or pneumothorax. Large calcified mediastinal lymph node. Surgical clips left axilla. Charly Wagner MD Brain MRI 08/09/17 0000 Signed Impressions: Service Date/Time: Wednesday, August 09, 2017 11:43 - CONCLUSION: Status post right-sided carotid craniotomy with significant residual vasogenic edema and a 3.4 cm residual postoperative parenchymal seroma. Slight mass effect upon the septum pellucidum from right to left. Marcos Beard MD Laboratory Tests Test 08/10/17 04:43 Blood Urea Nitrogen 10 MG/DL Creatinine 0.76 MG/DL Random Glucose 112 MG/DL Calcium Level 8.9 MG/DL Sodium Level 142 MEQ/L Potassium Level 3.1 MEQ/L Chloride Level 108 MEQ/L Carbon Dioxide Level 21.8 MEQ/L Anion Gap 12 MEQ/L Estimat Glomerular Filtration Rate 104 ML/MIN (Fran Mcclelland) Medical Decision Making Impression and Plan A: Per medical record, 62-year-old male with a history of malignant melanoma metastasized to the brain status post right parietal craniectomy on May at [facility] followed by 5 radiation treatments being followed by oncologist at [facility]. Patient was just evaluated at [facility] on and received Ktruda. He developed worsening weakness involving the left lower extremity since then over the next 3 days and presented to the ER at [facility] on 08/[address] without contrast revealed intracerebral hemorrhage involving right frontal parietal region with right subdural hemorrhage and minimal midline shift. [facility] was contacted however did not have any beds hence patient was accepted for transfer at [facility] and patient was transferred to the ICU at [place]. He also has a history of seizures and is on several antiepileptic medications. P: Continue with neuro checks. Pts family has stated they would like to be transferred to [facility] when they have a bed available for further evaluation. (Fran Mcclelland) Attending Statement The exam, history, and the medical decision-making described in the above note were completed with the assistance of the mid-level provider. I reviewed and agree with the findings presented. I attest that I had a [id number] encounter with the patient on the same day, and personally performed and documented my assessment and findings in the medical record. MRI scan the brain with postoperative changes. [facility] declined transfer as nothing urgent is needed per them. At this point if his seizures are controlled then he can be discharged to rehabilitation and follow up with neurology and a neurosurgeon at [facility] in outpatient setting. Discussed with the patient and were in agreement. Instructed director case to plan rehabilitation placement. Discussed with pulverizer feeder Dr. Guidry. (Paco Bland MD) Fran Mcclelland Aug 10, 2017 11:39 Paco Bland MD Aug 11, 2017 14:15
[2017-08-10] MEDS ORDERED: FUROSEMIDE 20 MG/2 ML VIAL IV PUSH ONE (16:45)
[2017-08-10] MEDS ORDERED: POTASSIUM CHLOR 20 MEQ PREMIX 100 ML IV ONE (17:00)
--- NOTE | 2017-08-10 18:23 | PD.CONS ---
Consult Service Palliative Care . Consult Requested By Dr. Guidry . Primary Care Physician Unknown . Reason for Consultation a. To assist with evaluation and management of symptoms including: headache ; confusion b. To assist medical decision maker(s) with: better understanding of current medical conditions; weighing benefits/burdens of medical treatment options; making medical treatment decisions. . HPI History of Present Illness Mr. Johnson is a 62-year-old male with known malignant melanoma metastatic to liver, lungs, and brain, who was transferred to this facility from [facility] in [facility], to have access to the neurosurgical service. The patient was first diagnosed with melanoma back in 2010 when a lesion was excised from his left shoulder. He had a positive node at the time of sentinel node biopsy and has been followed at the [facility] since that time. He was initially in a clinical trial and was in the placebo arm. He did well for approximately 4-1/2 years at which time he noted a number of gastrointestinal complaints area. Evaluation at that time revealed tumor in the small bowel, liver, and lung. He underwent a small bowel resection in 2016. He was started on Keytruda and apparently had a good response. He did reasonably well until early January 2017 when he began having headaches. Imaging revealed a brain lesion and he underwent a single radiation treatment on 02/17/2017. He had difficulty tolerating steroids post radiation. He stopped the Keytruda. He did reasonably well but became symptomatic again in early May. An MRI on 05/26/17 showed an enlarged brain lesion. He underwent right parietal craniotomy on 06/09/2017. The tumor apparently surrounded blood vessels and only a partial resection could take place. The patient was sent for 5 more radiation treatments which she tolerated well. He was ultimately placed back on the Keytruda. He missed June but received a treatment on 08/05/17. Within days, the patient noted increasing weakness on his left side and he became unable to walk or use his left arm. There were also increasing headaches. He was also noted to have increasing seizures that initially just involved the right side but ultimately now have involved the left. The patient presented to [facility]. There, CT imaging showed abnormal intracerebral hemorrhage. Family wanted to be transferred back to [facility] where he is known to the physicians. Unfortunately a bed was not available. He was transferred here to have access to our neurosurgical service. The patient was seen in neurosurgical consultation by Dr. Smalls on 08/08/17. He felt there was no reason for emergent surgical intervention and recommended ongoing medical treatment while continuing to wait for a bed to open up at [facility]. MRI ordered by Dr. Long showed evidence of the patient's recent right sided parietal craniotomy now with significant residual vasogenic edema and a 3.4 cm residual postoperative parenchymal seroma with slight mass effect from right to left. The patient was also seen by Dr. Stephens in medical oncology consultation. She did not feel any significant change in medical therapy was necessary at this time as we were waiting for bed availability at [facility]. At time of my visit, patient easily awakens to voice and exam. He is able to smile and joke with the examiner. He reports having some headache earlier on which responded well to 0.2 mg of parenteral hydromorphone. Nurses have noted pain levels in the #4 to #8 range, patient denies shortness of breath. . Function/Cognitive Trajectory Patient had some weakness on the left side since his craniotomy but has been able to ambulate. Up until the rapidly progressive left-sided weakness which began days before this hospitalization, patient was able to take care of all of his ADLs and get out of the house. . Review of Systems Constitutional: COMPLAINS OF: Fatigue, Change in appetite (appetite is been good probably due to steroids), Pain, DENIES: Fever, Weight gain, Weight loss Endocrine: DENIES: Polyuria, Polyphagia Eyes: DENIES: Eye pain, Vision loss Ears, nose, mouth, throat: DENIES: Hearing loss, Vertigo, Epistaxis Respiratory: DENIES: Apneas, Cough, Snoring, Hemoptysis, Sputum production Cardiovascular: COMPLAINS OF: Lower Extremity Edema, DENIES: Chest pain, Palpitations, Syncope, Dyspnea on Exertion, Claudication Gastrointestinal: DENIES: Abdominal pain, Black stools, Bloody stools, Constipation, Diarrhea, Nausea, Vomiting, Anorexia, Dyspepsia or heartburn Genitourinary: DENIES: Urinary frequency, Urinary incontinence, Urgency, Hematuria, Dysuria, Decreased stream Musculoskeletal: COMPLAINS OF: Muscle aches (reports some achiness from prolonged bedbound status), DENIES: Joint pain, Neck pain Integumentary: COMPLAINS OF: Tumors, DENIES: Rash Hematologic/Lymphatics: DENIES: Bruising, Lymphadenopathy Immunologic/Allergic: DENIES: Eczema Neurologic: COMPLAINS OF: Abnormal gait, Headache, Localized weakness, Seizures , DENIES: Tremor Psychiatric: COMPLAINS OF: Confusion, Agitation, DENIES: Anxiety, Depression Past Family Social History Coded Allergies: No Known Drug Allergies (Verified Allergy, Unknown, 08/08/17) Past Medical History * Malignant melanoma with known metastases to liver, lung, and brain. * Seizure disorder secondary to above * Lumbar disc disease . Past Surgical History * Lumbar disc surgery * Right parietal craniotomy * Small bowel resection for melanoma * Axillary node surgery for melanoma * Excision of melanoma lesion on right shoulder in 2010 . Reported Medications Prehospital medications included the following: * Dexamethasone 2 mg by mouth 3 times daily * Levetiracetam 1500 mg by mouth twice daily * Phenytoin 300 mg by mouth at bedtime * Vimpat 150 mg by mouth twice daily * Potassium chloride 10 mEq by mouth daily . Current Medications Medications (Trade) Dose Ordered Sig/Karina Route Start Time Stop Time Status Last Admin (NS Flush) 2 ml UNSCH PRN IV FLUSH 08/08/17 21:45 (NS Flush) 2 ml BID IV FLUSH 08/09/17 09:00 08/10/17 08:34 (Pepcid) 20 mg Q12HR PO 08/09/17 09:00 08/10/17 08:34 (Zofran Inj) 4 mg Q6H PRN IV PUSH 08/08/17 21:45 (Reglan Inj) 10 mg Q6H PRN IV PUSH 08/08/17 21:45 (Duoneb Neb) 1 ampule Q4HR NEB PRN INH 08/08/17 21:45 Miscellaneous Information 1 Q361D XX 08/08/17 21:45 (Chlorhexidine 2% Cloth) 3 pack Taper DAILY@04 TOP 08/09/17 04:00 08/05/18 03:59 (Chlorhexidine 2% Cloth) 3 pack UNSCH PRN TOP 08/08/17 21:45 (Celena-Colace) 1 tab BID PO 08/09/17 09:00 08/10/17 08:34 (Milk Of Magnesia Liq) 30 ml Q12H PRN PO 08/08/17 21:45 (Senokot) 17.2 mg Q12H PRN PO 08/08/17 21:45 (Lactulose Liq) 30 ml DAILY PRN PO 08/08/17 21:45 Levetriacetam 500 mg/Sodium Chloride 105 ml @ 420 mls/hr Q12HR IV 08/09/17 09:00 08/10/17 08:33 (Vimpat) 150 mg BID PO 08/09/17 09:00 08/10/17 08:34 (Apresoline Inj) 10 mg Q2HR PRN IV PUSH 08/08/17 22:30 08/10/17 03:25 (Trandate Inj) 10 mg Q4H PRN IV PUSH 08/08/17 22:30 08/10/17 01:56 (NovoLOG SUPPLEMENTAL SCALE) 1 ACHS SQ 08/09/17 08:00 (D50w (Vial) Inj) 25 ml UNSCH PRN IV 08/08/17 22:30 (Glucagon Inj) 1 mg UNSCH PRN IM/SQ 08/08/17 22:30 (Ativan Inj) 1 mg Q15M PRN IV PUSH 08/09/17 07:45 (Tylenol) 650 mg Q4H PRN PO 08/09/17 08:00 08/10/17 14:23 (Ultram) 50 mg Q6H PRN PO 08/09/17 08:15 08/10/17 05:52 (Dilantin Inj) 200 mg BID IV 08/09/17 21:00 08/10/17 08:35 Potassium Chloride 100 ml @ 50 mls/hr Q2H PRN IV 08/10/17 06:30 Potassium Chloride 100 ml @ 50 mls/hr Q2H PRN IV 08/10/17 06:30 08/10/17 12:34 (K-Lyte Cl Eff) 50 meq UNSCH PRN PO 08/10/17 06:30 Potassium Chloride 100 ml @ 25 mls/hr UNSCH PRN IV 08/10/17 06:30 Potassium Chloride 100 ml @ 50 mls/hr Q2H PRN IV 08/10/17 06:30 Magnesium Sulfate 4 gm/Sodium Chloride 100 ml @ 50 mls/hr UNSCH PRN IV 08/10/17 06:30 (Mag-Ox) 800 mg UNSCH PRN PO 08/10/17 06:30 Magnesium Sulfate 2 gm/Sodium Chloride 100 ml @ 50 mls/hr UNSCH PRN IV 08/10/17 06:30 (K-Phos) 2,000 mg Q4H PRN PO 08/10/17 06:30 Sodium Phosphate 30 mmol/Sodium Chloride 250 ml @ 42 mls/hr UNSCH PRN IV 08/10/17 06:30 (K-Phos) 2,000 mg UNSCH PRN PO/TUBE 08/10/17 06:30 Potassium Phosphate 30 mmol/ Sodium Chloride 260 ml @ 42 mls/hr UNSCH PRN IV 08/10/17 06:30 (KCl) 30 meq Q12HR PO 08/10/17 09:00 08/10/17 21:01 08/10/17 08:34 Dexmedetomidine HCl 200 mcg/ Sodium Chloride 52 ml @ 4.82 mls/hr TITRATE IV 08/10/17 07:45 (Ultram) 100 mg Q6H PRN PO 08/10/17 07:00 (Dilaudid Pf Inj) 0.2 mg Q4H PRN IV PUSH 08/10/17 12:15 (Decadron Inj) 6 mg Q6HR IV PUSH 08/10/17 18:00 08/10/17 17:26 Potassium Chloride 100 ml @ 50 mls/hr BOLUS ONCE IV 08/10/17 17:00 08/10/17 18:59 . Family History There is no family history of melanoma or other cancers. . Substance Use Tobacco: Patient smoked but quit in 1995. Alcohol: History of social alcohol consumption. No history of abuse. No alcohol consumption for approximately one year Prescription med abuse: No history of prescription medication abuse Illicits: No known use of illicits . Psychosocial History Patient is originally from [place], [place]. He has lived in [place] since 1957. Patient completed some college. 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 No experience. Patient has been twice. He has been to his current for 29 years. They raised 3 children together -- 2 were hers, one was his, all are daughters. One lives near them in [place], [place]. One lives in [place]. One lives in [facility]. . Spiritual/Cultural Factors Jainism and spirituality have not been an important part of her life. They do consider themselves more spiritual. They have never been confucianism goers. . Living Will: Never completed Health Care Surrogate: Never completed Durable Power of Oracle Applications Developer: Never completed Date completed: Advance directives have not been completed. . Health Care Surrogate(s): Patient has verbally designated his to be his health care surrogate. No written designation of a surrogate at this point. . Documented care wishes: No written documentation of healthcare wishes or preferences. . Today's verbally stated goals: Since patient had a good response to Keytruda in the past, he is hoping to survive this episode and get back on Keytruda. Patient and spouse let me know that their oncologists in [facility] feels he has a reasonable chance of having additional quality of life if he can back on the Keytruda. Patient wishes to have aggressive care for now. He indicates he would want cardiopulmonary resuscitation. However he tells me he and his that if he is resuscitated and on machines and the doctors do not feel he has a good chance of improving he would like to be allowed to . Family/friends goals: The patient's spouse is supportive of the patient's stated goals. . Ethical and Legal Issues At time of my visit patient is awake, alert, and has good insight into his own disease. However, there are periods of intermittent confusion. For that reason , I recommend shared decision-making with his spouse for major health care decisions. Patient has verbally designated his to be his health care surrogate. I am providing paperwork for them to complete to designate this in writing. No other known apical or legal issues. . Physical Exam Vital Signs Date Time Temp Pulse Resp B/P (MAP) Pulse Ox O2 Delivery O2 Flow Rate FiO2 08/10/17 16:00 99.2 104 19 175/88 (117) 93 08/10/17 16:00 104 08/10/17 14:00 110 08/10/17 12:03 92 08/10/17 12:00 105 08/10/17 12:00 98.6 105 14 161/86 (111) 92 08/10/17 10:00 118 08/10/17 08:00 114 08/10/17 08:00 98.6 115 20 142/85 (104) 92 08/10/17 07:00 92 Room Air 08/10/17 06:00 130 08/10/17 04:00 98.0 126 23 144/73 (96) 95 08/10/17 04:00 126 08/10/17 02:00 105 08/10/17 00:00 98.7 102 14 159/92 (114) 97 08/10/17 00:00 102 08/09/17 22:00 116 08/09/17 20:45 93 21 08/09/17 20:00 98.3 104 15 162/93 (116) 94 08/09/17 20:00 104 08/09/17 19:00 96 Room Air . Exam CONSTITUTIONAL/GENERAL: This is an adequately nourished patient, awake, alert, and able to smile in a surgical ICU bed. His left upper and lower extremity is flaccid. TUBES/LINES/DRAINS: Peripheral IV. SKIN: No jaundice, rashes, or lesions. No wounds seen anteriorly. Skin temperature appropriate. Not diaphoretic. HEAD: Atraumatic. Normocephalic. EYES: Pupils equal and round and reactive. Extraocular motions intact. No scleral icterus. No injection or drainage. Fundi not examined. ENT: Hearing grossly normal. Nose without bleeding or purulent drainage. Throat without visible erythema, exudates, masses, or lesions. NECK: Trachea midline. Supple, nontender. No palpable thyroid enlargement or nodularity. CARDIOVASCULAR: Regular rate and rhythm without murmurs, gallops, or rubs. No JVD. Peripheral pulses symmetric. RESPIRATORY/CHEST: Symmetric, unlabored respirations. Clear to auscultation. Breath sounds equal bilaterally. No wheezes, rales, or rhonchi. GASTROINTESTINAL: Abdomen soft, non-tender, nondistended. No hepato-splenomegaly , or palpable masses. No guarding. Bowel sounds present. GENITOURINARY: Without palpable bladder distension. MUSCULOSKELETAL: Extremities without clubbing, cyanosis. There is mild edema in the left sided extremities. No joint tenderness or effusion noted. No calf tenderness. No mottling . LYMPHATICS: No palpable cervical or supraclavicular adenopathy. NEUROLOGICAL: Awake and alert. Able to slightly move left lower extremity. No real movement in the right upper extremity. Cranial nerves appear intact. Follows commands. Cognitively sharp. No seizure activity noted at time of my visit. PSYCHIATRIC: No obvious anxiety/depression. No apparent hallucinations or other psychotic thought process. . Diagnostic Tests Laboratory Laboratory Tests Test 08/08/17 20:55 08/09/17 03:55 08/10/17 04:43 Nasal Screen MRSA (PCR) MRSA NOT DETECTED (NOT White Blood Count 9.8 TH/MM3 (4.0-11.0) Red Blood Count 5.01 MIL/MM3 (4.50-5.90) Hemoglobin 14.9 GM/DL (13.0-17.0) Hematocrit 42.9 % (39.0-51.0) Mean Corpuscular Volume 85.6 FL (80.0-100.0) Mean Corpuscular Hemoglobin 29.7 PG (27.0-34.0) Mean Corpuscular Hemoglobin Concent 34.7 % (32.0-36.0) Red Cell Distribution Width 16.2 % (11.6-17.2) Platelet Count 294 TH/MM3 (150-450) Mean Platelet Volume 7.0 FL (7.0-11.0) Neutrophils (%) (Auto) 80.3 % (16.0-70.0) Lymphocytes (%) (Auto) 13.7 % (9.0-44.0) Monocytes (%) (Auto) 5.3 % (0.0-8.0) Eosinophils (%) (Auto) 0.2 % (0.0-4.0) Basophils (%) (Auto) 0.5 % (0.0-2.0) Neutrophils # (Auto) 7.8 TH/MM3 (1.8-7.7) Lymphocytes # (Auto) 1.3 TH/MM3 (1.0-4.8) Monocytes # (Auto) 0.5 TH/MM3 (0-0.9) Eosinophils # (Auto) 0.0 TH/MM3 (0-0.4) Basophils # (Auto) 0.1 TH/MM3 (0-0.2) CBC Comment DIFF FINAL Differential Comment Blood Urea Nitrogen 13 MG/DL (7-18) 10 MG/DL (7-18) Creatinine 0.75 MG/DL (0.60-1.30) 0.76 MG/DL (0.60-1.30) Random Glucose 113 MG/DL (74-106) 112 MG/DL (74-106) Total Protein 6.7 GM/DL (6.4-8.2) Albumin 3.8 GM/DL (3.4-5.0) Calcium Level 8.8 MG/DL (8.5-10.1) 8.9 MG/DL (8.5-10.1) Phosphorus Level 4.0 MG/DL (2.5-4.9) Magnesium Level 2.6 MG/DL (1.5-2.5) Alkaline Phosphatase 91 U/L (45-117) Aspartate Amino Transf (AST/SGOT) 20 U/L (15-37) Alanine Aminotransferase (ALT/SGPT) 29 U/L (12-78) Total Bilirubin 0.4 MG/DL (0.2-1.0) Sodium Level 140 MEQ/L (136-145) 142 MEQ/L (136-145) Potassium Level 3.5 MEQ/L (3.5-5.1) 3.1 MEQ/L (3.5-5.1) Chloride Level 106 MEQ/L (98-107) 108 MEQ/L (98-107) Carbon Dioxide Level 25.8 MEQ/L (21.0-32.0) 21.8 MEQ/L (21.0-32.0) Anion Gap 8 MEQ/L (5-15) 12 MEQ/L (5-15) Estimat Glomerular Filtration Rate 105 ML/MIN (>89) 104 ML/MIN (>89) Phenytoin (Dilantin) Level 6.0 MCG/ML (10.0-20.0) . Result Diagram: 08/09/17 0355 08/10/17 0443 Imaging Last Impressions Chest X-Ray 08/09/17 0000 Signed Impressions: Service Date/Time: Wednesday, August 09, 2017 03:04 - CONCLUSION: 1. Mild basilar atelectasis. No effusion or pneumothorax. Large calcified mediastinal lymph node. Surgical clips left axilla. Charly Wagner MD Brain MRI 08/09/17 0000 Signed Impressions: Service Date/Time: Wednesday, August 09, 2017 11:43 - CONCLUSION: Status post right-sided carotid craniotomy with significant residual vasogenic edema and a 3.4 cm residual postoperative parenchymal seroma. Slight mass effect upon the septum pellucidum from right to left. Marcos Beard MD . Patient/Family Conference Present at Family Conference: Patient and spouse . Family Conference Time (mins): 45 Family Conference Location: Bedside Issues Discussed: * Palliative care role, purpose, approach * Additional medical, psychosocial, and spiritual history * Patients general health, functional status, and cognitive changes in the months leading up to the current hospitalization * Patient/family understanding of the current medical problems * Patient/family understanding of prognosis * Patients goals of care . * Current medical treatment options and benefits/burdens of those options * Questions answered to the best of my ability * Palliative care contact information provided . Assessment and Plan Disease Oriented Problem List: (1) Malignant melanoma (2) Metastatic melanoma to liver (3) Metastatic melanoma to lung (4) Malignant melanoma metastatic to brain (5) Seizure (6) Left-sided weakness (7) Intracranial hematoma Symptom Scale: (1) Pain 0-10 Scale: 0 Comment: Patient's pain is primarily headache. He also has some general muscle stiffness from prolonged bedbound status. Pain scores noted by nurses in the #4 to #8 range. Pain is relieved with parenteral hydromorphone. . (2) Confusion 0-10 Scale: 0 Comment: Confusion is intermittent and most likely due to the increased intracranial pressure. No particular exacerbating or mitigating factors. . Pertinent Non-Medical Issues Psychosocial: Very well supported by and daughters. Spiritual: Consider themselves spiritual but do not belong to a local vesta group. Legal: No written advance directives but they're wanting to complete those forms. Ethical issues impacting care: Patient appears capacitated to make his own healthcare decisions most of the time. Because of intermittent confusion recommend that there'll be shared decision making for major decisions with his spouse. . Important Contacts * Yaima Johnson (spouse) -- [phone] . Prognosis It is feasible based on his prior response to the medication that if he can safely get back on the Keytruda he might be able to gain some quality time. Until such time and even while on the Keytruda, he remains at very high risk of seizures, further intracranial bleeding, and declined. At this point, it is unclear to what extent the metastatic disease in the liver and lungs is an issue. Given the widespread nature of his metastatic disease, at such time that he no longer wants to seek aggressive cancer directed therapies, he would be quite appropriate for hospice care. . Code Status: Full Code Plan == Code Status : FULL CODE == Decision making: At time of my visit patient is awake, alert, and has good insight into his own disease. However, there are periods of intermittent confusion. For that reason, I recommend shared decision-making with his spouse for major health care decisions. Patient has verbally designated his to be his health care surrogate. I am providing paperwork for them to complete to designate this in writing. == Goals of medical treatment: Since patient had a good response to Keytruda in the past, he is hoping to survive this episode and get back on Keytruda. Patient and spouse let me know that their oncologists in [facility] feels he has a reasonable chance of having additional quality of life if he can back on the Keytruda. Patient wishes to have aggressive care for now. He indicates he would want cardiopulmonary resuscitation. However he tells me he and his that if he is resuscitated and on machines and the doctors do not feel he has a good chance of improving he would like to be allowed to . == Symptoms * Pain: As noted above, most of patient's pain is headache which is most likely due to the increased intracranial pressure. There are no particular exacerbating features. He is helped by the parenteral hydromorphone. He also has some generalized muscle aches/pains from his prolonged bedbound status. * Confusion: This is intermittent in nature. Once again this is probably due to the tumor and increased intracranial pressure. Patient is currently on high- dose dexamethasone which may be helping. * Seizures: Relatively well-controlled on multiple antiseizure meds per neurosurgery == Disposition: Patient wants to be transferred to [facility]. We await a bed opening. == I have ordered hydromorphone 0.2 mg IV every 4 hours as needed for pain or shortness of breath == Per family request, I am asking nurses to provide them with a living will form to complete. == Hopefully, a bed will open at [facility] shortly and patient can be transferred quickly. During the time here, palliative care we'll follow to help assist with symptom management and to further clarify goals of medical treatment as the clinical course evolves. . Time Spent Total Floor Time (mins): 80 (Total floor time included chart review; patient examination; review of imaging; and above referenced family conference at bedside.) Face to Face Time (mins): 60 >50% Counseling/Coord of Care: Yes Thank you for the opportunity to participate in the care of Mr. Johnson. . Attestation To help prompt me to consider important information that might be impacting today's encounter and assessment, information from prior notes written by myself or my colleagues may have been "brought forward" into today's note. My signature on this note, however, is an attestation that I personally performed the exam, history, and/or decision-making noted today, and, unless otherwise indicated, the interactions with patient, family, and staff as well as the review of records all occurred today. I also attest that the listed assessment and stated plan reflect my best clinical judgment today based on the combination of historical information, prior notes, and today's exam/ interactions. When time spent is documented, it refers only to time spent today by the signer, or if indicated, combined time spent today by collaborating physician/nurse practitioner. . Familia Jay MD Aug 10, 2017 18:22
[2017-08-10] MEDS: HYDROmorphone HCL PF 2 MG/ML VIAL IV PUSH PRN (20:29)
[2017-08-11] VITALS (10 sets, daily range): BP systolic 120–165; BP diastolic 62–88; PULSE 87–126; RESP 12–27; TEMP 98–98.9; O2SAT 93–95
[2017-08-11] MEDS: LABETALOL HCL 100 MG/20 ML VIAL IV PUSH PRN (00:15)
[2017-08-11] MEDS: hydrALAZINE HCL 20 MG/ML VIAL IV PUSH PRN (01:21)
[2017-08-11] MEDS: ACETAMINOPHEN 325 MG TAB PO PRN (01:33)
[2017-08-11] MEDS: CHLORHEXIDINE GLUCONATE 2 % 1 PACK (2 CLOTHS) TOP SCH (03:52)
[2017-08-11 04:31] LABS: BICARBONATE 22.1 MEQ/L (21.0-32.0); CALCIUM 8.7 MG/DL (8.5-10.1); CREATININE 0.67 MG/DL (0.60-1.30)
[2017-08-11 04:33] LABS: PHENYTOIN (DILANTIN) 7.1 MCG/ML (10.0-20.0)
[2017-08-11] MEDS: traMADol HCL 50 MG TAB PO PRN (05:29)
[2017-08-11] MEDS: DEXAMETHASONE SOD PHOS 4 MG/ML VIAL IV PUSH SCH ×2 (06:15→11:52)
[2017-08-11] MEDS: INSULIN ASPART SUPPLEMENTAL SCALE SQ SCH ×4 (08:00→21:00)
[2017-08-11] MEDS ORDERED: SODIUM CHLORIDE 0.9% INJ 50 ML ONE (08:49)
[2017-08-11] MEDS: HYDROmorphone HCL PF 2 MG/ML VIAL IV PUSH PRN ×3 (08:58→21:38)
[2017-08-11] MEDS: LACOSAMIDE 50 MG TAB PO SCH ×2 (08:58→21:38)
[2017-08-11] MEDS: DOCUSATE SODIUM 50 MG/SENNA 8.6 MG TAB PO SCH ×2 (09:00→21:39)
[2017-08-11] MEDS: FAMOTIDINE 20 MG TAB PO SCH ×2 (09:00→21:39)
[2017-08-11] MEDS: PHENYTOIN INJ 250 MG/5 ML VIAL IV SCH (09:00)
[2017-08-11] MEDS: levETIRAcetam INJ 500 MG in SODIUM CHLORIDE 0.9% INJ 100 ML IV SCH (09:01)
[2017-08-11] MEDS: SODIUM CHLORIDE 0.9% FLUSH 10 ML FLUSH IV FLUSH SCH ×2 (09:01→21:39)
--- NOTE | 2017-08-11 09:59 | HHI.CCPN ---
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 Patient was just evaluated at [facility] on 08/05/17 and received Ktruda. He developed worsening weakness involving the left lower extremity since then over the next 3 days and presented to the ER at [facility] on 08/[address] without contrast revealed intracerebral hemorrhage involving right frontal parietal region with right subdural hemorrhage and minimal midline shift. [facility] was contacted however did not have any beds hence patient was accepted for transfer at [facility] and patient was transferred to the ICU at [place]. I evaluated the patient on being notified about his arrival. At that time he was complaining of a headache for out of 10 in intensity otherwise did not have any other complaints. He had just had a seizure prior to transfer around 4:30 PM for which she received 1 mg of Ativan IV as well as 1 g of IV Keppra at [facility]. Patient is on 3 anticonvulsants at home including Vimpat, Keppra, Dilantin. He gets at least one seizure once a week involving the left side of his body. He denies any fevers or chills. Denies any shortness of breath, nausea, vomiting, abdominal pain, melena or rectal bleeding. He has been having some dribbling of his urine for the last 1 week. 08/09: Discussed in detail with patient and at the bedside. Left side weakness persists. Speech is clear, O X 3, conversant, alert. Dilantin level 6; will re-bolus and continue 150 mg iv bid. Will continue to attempt transfer to [facility]. 08/10: MRI reveals a 3-4 cm seroma and diffuse edema (vasogenic and cytotoxic) involving the right hemisphere. Small subdural hematoma right side, superior location as well. Some twitching in facial and limb muscles. Dilantin re-bolused , continue vimpat and keppra. Will try low dose precedex to reduce his constant removal of leads and devices. Protects airway well. Continuing attempts to transfer to [facility] when a bed is available. 08/11: Appreciate Palliative Care input. We won't be able to restart Keytruda monoclonal antibody therapy while he is on present high dose steroids. Dilantin level low after additional bolus; will increase dose tid. Patient is not returning to [facility]; looking at rehab placement. Objective Vital Signs Date Time Temp Pulse Resp B/P (MAP) Pulse Ox O2 Delivery O2 Flow Rate FiO2 08/11/17 08:00 123 08/11/17 08:00 98.6 14 146/88 (107) 94 08/11/17 07:00 Room Air 08/09/17 20:45 21 Intake and Output 08/11/17 08/11/17 08/12/17 08:00 16:00 00:00 Intake Total 820 ml Output Total 1900 ml Balance -1080 ml Result Diagram: 08/09/17 0355 08/11/[address] done on 07/09/2017: Large area of intracerebral hemorrhage and right frontal and parietal region with obliteration of cerebral sulci on the right side secondary to edema, minimal midline shift, compression of right lateral ventricle him a right frontal and temporal acute subdural hematomas Head CT done on 08/07/2017: Intracerebral hemorrhages in right frontal and parietal region, acute subdural hematoma than right frontal and temporal regions compression of right lateral ventricle and slight midline shift Objective Remarks HEENT/Neuro: No pallor or icterus, tongue moist, VERONIKA, Awake alert oriented 3 , grade 0 power in left upper and lower extremity, grade 5 power right upper and lower extremity. Conversant. Speech clear. Fidgety. Neck: Airway widely patent. Swallows without choking. Chest/pulmonary: Clear bilaterally, comfortable pattern. No adventitious sounds. Cardiovascular: S1-S2 regular no gallop or murmur GI/abdomen: Soft, nontender, bowel sounds present. No guarding. Extremities: Warm bilaterally, no edema A/P Assessment and Plan 62-year-old male with: Metastatic melanoma with brain metastases status post previous right parietal rhinectomy Right sided subdural hemorrhage with intracerebral hemorrhage and cerebral edema Seizures Left hemiplegia Hypertension Plan: Neuro: Neurosurgery consulted and discussed with Dr. Smalls. No emergent neurosurgical intervention indicated at this time following review of CAT scans done at [facility]. Plan to continue Decadron 4 mg po qid. Will change Keppra to 1500 mg IV every 12 hour, Dilantin 300 mg po every 12 hourly, continue by mouth Vimpat. Cardiovascular: Hydralazine 10 mg IV every 2 hourly when necessary for SBP greater than 150 mmHg. Pulmonary: Protecting airway adequately at this time. Supplemental O2 as needed. GI/liver: By mouth diet as tolerated needed Renal/: IV hydration, strict intake output, monitor and replete electrolytes, follow BUN/creatinine. ID: No indication for antibiotics at this time Heme onc: Coags normal at [facility]. Endocrine: Watch for hyperglycemia, SSI for glycemic control if needed. Prophylaxis: Pepcid, SCDs. No subcutaneous heparin in view of intracerebral hemorrhage/subdural hemorrhage. Discussed with neurosurgery, discussed with patient and his at bedside. Dr. Luong from Oncology has seen. Overall impression: New left sided weakness associated with vasogenic edema right hemisphere. No Oncologic or surgical interventions indicated at this time. Continue PO steroids and AEDs as ordered. Working on rehab placement. Feliciano Guidry MD Aug 11, 2017 09:59
[2017-08-11] MEDS: PHENYTOIN SODIUM 100 MG CAP PO SCH ×3 (11:00→21:39)
--- NOTE | 2017-08-11 12:00 | HHI.HCSW ---
Strickler Attendant Visit Advance Directive Palliative care supportive visit for follow-up regarding completion of advance directives and ongoing emotional/social support. Mr. Johnson is currently resting comfortably in bed, at bedside. RN in room providing care. inquires about transfer to [facility], requested CM speak with patient and family to provide update. Denies any other questions or concerns at this time. Gently discussed and reviewed health care surrogate and living will paperwork. states they will review and possibly complete while here at [place]. Provided palliative care contact information and contact information. Will continue to follow and obtain copies of advanced directives should Mr. Johnson wish to complete. . Rhianna Adames FOX FARMER, CORE CUTTER Aug 11, 2017 12:00
[2017-08-11] MEDS ORDERED: diphenhydrAMINE HCL 50 MG/ML VIAL IV PUSH PRN (15:15)
[2017-08-11] MEDS: DEXAMETHASONE 4 MG TAB PO SCH (16:57)
--- NOTE | 2017-08-11 18:47 | HHI.HCPN ---
Reason for visit a. To assist with evaluation and management of symptoms including: headache ; confusion b. To assist medical decision maker(s) with: better understanding of current medical conditions; weighing benefits/burdens of medical treatment options; making medical treatment decisions. . Subjective/Interval History Patient still having occasional headaches. Pain scores primarily in the #4 to # 8 range. He is using occasional tramadol and occasional hydromorphone (IV). He feels he gets approximately equal relief from both. We talked about using primarily the oral medications to help with the transition to rehab. Patient denies SOB, nausea. He has not noticed and improvement in left sided weakness. No seizure activity noted by patient or (who has been at bedside). Patient was transferred out of SICU to a med-surg floor today. Patient was declined by [facility] as they feel they have nothing to offer that won 't be offered here. Patient and are hoping they will be accepted by [place] for rehab.. They understand that they have to be able to taper down steroids before re-starting Keytruda. Palliative care social work case manager visited earlier today to assist with completion of advance directives. Patient and want to review documents again before completing. . Family/friend interactions at bedside. She asked questions about rehab. She expressed disappointment that [facility] would not accept her but was indicated she was very happy with the care her has been receiving here. . Advance Directives Living Will: Never completed Health Care Surrogate: Never completed Durable Power of Scrap Shear Operator: Never completed Advance Directive Specifics Date completed: Advance directives have not been completed. . Health Care Surrogate(s): Patient has verbally designated his to be his health care surrogate. No written designation of a surrogate at this point. . Documented care wishes: No written documentation of healthcare wishes or preferences. . Objective Vital Signs Date Time Temp Pulse Resp B/P (MAP) Pulse Ox O2 Delivery O2 Flow Rate FiO2 08/11/17 16:34 98.1 101 18 165/81 (109) 93 08/11/17 14:00 120 08/11/17 12:00 95 08/11/17 12:00 98.7 95 12 138/68 (91) 93 08/11/17 10:00 123 08/11/17 08:00 123 08/11/17 08:00 98.6 87 14 146/88 (107) 94 08/11/17 07:00 94 Room Air 08/11/17 06:00 108 08/11/17 04:00 98.9 96 14 154/85 (108) 94 08/11/17 04:00 96 08/11/17 02:00 111 08/11/17 00:00 126 08/11/17 00:00 98.3 94 27 120/62 (81) 95 08/10/17 22:00 128 08/10/17 20:00 98.3 122 30 142/87 (105) 92 08/10/17 20:00 122 08/10/17 19:00 93 Room Air Intake & Output 08/11/17 08/11/17 07:00 19:00 Intake Total 1925 ml Output Total 1900 ml Balance 25 ml Intake Oral 820 ml IV Total 1105 ml Output Urine Total 1900 ml # Bowel Movements 0 . Physical Exam CONSTITUTIONAL/GENERAL: This is an adequately nourished patient, awake, alert, and able to smile in a surgical ICU bed. His left upper and lower extremity is flaccid. TUBES/LINES/DRAINS: Peripheral IV. SKIN: Skin temperature appropriate. Not diaphoretic. HEAD: Atraumatic. Normocephalic. ENT: Hearing grossly normal. Nose without bleeding or purulent drainage. Throat without visible erythema, exudates, masses, or lesions. CARDIOVASCULAR: Regular rate and rhythm without murmurs, gallops, or rubs. No JVD. RESPIRATORY/CHEST: Symmetric, unlabored respirations. Clear to auscultation. GASTROINTESTINAL: Abdomen soft, non-tender, nondistended. No hepato-splenomegaly , or palpable masses. No guarding. Bowel sounds present. MUSCULOSKELETAL: Extremities without clubbing, cyanosis. There is mild edema in the left sided extremities. NEUROLOGICAL: Awake and alert. Able to slightly move left lower extremity. No real movement in the right upper extremity. Cranial nerves appear intact. Follows commands. Cognitively sharp. No seizure activity noted at time of my visit. PSYCHIATRIC: No obvious anxiety/depression. No apparent hallucinations or other psychotic thought process. . Diagnostic Tests Laboratory Laboratory Tests Test 08/08/17 20:55 08/09/17 03:55 08/10/17 04:43 08/10/17 17:52 Nasal Screen MRSA (PCR) MRSA NOT DETECTED (NOT White Blood Count 9.8 TH/MM3 (4.0-11.0) Red Blood Count 5.01 MIL/MM3 (4.50-5.90) Hemoglobin 14.9 GM/DL (13.0-17.0) Hematocrit 42.9 % (39.0-51.0) Mean Corpuscular Volume 85.6 FL (80.0-100.0) Mean Corpuscular Hemoglobin 29.7 PG (27.0-34.0) Mean Corpuscular Hemoglobin Concent 34.7 % (32.0-36.0) Red Cell Distribution Width 16.2 % (11.6-17.2) Platelet Count 294 TH/MM3 (150-450) Mean Platelet Volume 7.0 FL (7.0-11.0) Neutrophils (%) (Auto) 80.3 % (16.0-70.0) Lymphocytes (%) (Auto) 13.7 % (9.0-44.0) Monocytes (%) (Auto) 5.3 % (0.0-8.0) Eosinophils (%) (Auto) 0.2 % (0.0-4.0) Basophils (%) (Auto) 0.5 % (0.0-2.0) Neutrophils # (Auto) 7.8 TH/MM3 (1.8-7.7) Lymphocytes # (Auto) 1.3 TH/MM3 (1.0-4.8) Monocytes # (Auto) 0.5 TH/MM3 (0-0.9) Eosinophils # (Auto) 0.0 TH/MM3 (0-0.4) Basophils # (Auto) 0.1 TH/MM3 (0-0.2) CBC Comment DIFF FINAL Differential Comment Blood Urea Nitrogen 13 MG/DL (7-18) 10 MG/DL (7-18) Creatinine 0.75 MG/DL (0.60-1.30) 0.76 MG/DL (0.60-1.30) Random Glucose 113 MG/DL (74-106) 112 MG/DL (74-106) Total Protein 6.7 GM/DL (6.4-8.2) Albumin 3.8 GM/DL (3.4-5.0) Calcium Level 8.8 MG/DL (8.5-10.1) 8.9 MG/DL (8.5-10.1) Phosphorus Level 4.0 MG/DL (2.5-4.9) Magnesium Level 2.6 MG/DL (1.5-2.5) Alkaline Phosphatase 91 U/L (45-117) Aspartate Amino Transf (AST/SGOT) 20 U/L (15-37) Alanine Aminotransferase (ALT/SGPT) 29 U/L (12-78) Total Bilirubin 0.4 MG/DL (0.2-1.0) Sodium Level 140 MEQ/L (136-145) 142 MEQ/L (136-145) Potassium Level 3.5 MEQ/L (3.5-5.1) 3.1 MEQ/L (3.5-5.1) 3.7 MEQ/L (3.5-5.1) Chloride Level 106 MEQ/L (98-107) 108 MEQ/L (98-107) Carbon Dioxide Level 25.8 MEQ/L (21.0-32.0) 21.8 MEQ/L (21.0-32.0) Anion Gap 8 MEQ/L (5-15) 12 MEQ/L (5-15) Estimat Glomerular Filtration Rate 105 ML/MIN (>89) 104 ML/MIN (>89) Phenytoin (Dilantin) Level 6.0 MCG/ML (10.0-20.0) Test 08/11/17 03:48 Blood Urea Nitrogen 9 MG/DL (7-18) Creatinine 0.67 MG/DL (0.60-1.30) Random Glucose 116 MG/DL (74-106) Calcium Level 8.7 MG/DL (8.5-10.1) Sodium Level 140 MEQ/L (136-145) Potassium Level 3.7 MEQ/L (3.5-5.1) Chloride Level 108 MEQ/L (98-107) Carbon Dioxide Level 22.1 MEQ/L (21.0-32.0) Anion Gap 10 MEQ/L (5-15) Estimat Glomerular Filtration Rate 120 ML/MIN (>89) Phenytoin (Dilantin) Level 7.1 MCG/ML (10.0-20.0) . Result Diagram: 08/09/17 0355 08/11/17 0348 Imaging Last Impressions Chest X-Ray 08/09/17 0000 Signed Impressions: Service Date/Time: Wednesday, August 09, 2017 03:04 - CONCLUSION: 1. Mild basilar atelectasis. No effusion or pneumothorax. Large calcified mediastinal lymph node. Surgical clips left axilla. Charly Wagner MD Brain MRI 08/09/17 0000 Signed Impressions: Service Date/Time: Wednesday, August 09, 2017 11:43 - CONCLUSION: Status post right-sided carotid craniotomy with significant residual vasogenic edema and a 3.4 cm residual postoperative parenchymal seroma. Slight mass effect upon the septum pellucidum from right to left. Marcos Beard MD . Assessment and Plan Disease Oriented Problem List: (1) Malignant melanoma (2) Metastatic melanoma to liver (3) Metastatic melanoma to lung (4) Malignant melanoma metastatic to brain (5) Seizure (6) Left-sided weakness (7) Intracranial hematoma Symptom Scale: (1) Pain 0-10 Scale: 0 Comment: Patient's pain is primarily headache. He also has some general muscle stiffness from prolonged bedbound status. Pain is relieved with parenteral hydromorphone and/or tramadol . . (2) Confusion 0-10 Scale: 0 Comment: Confusion is intermittent and most likely due to the increased intracranial pressure. No particular exacerbating or mitigating factors. . Pertinent Non-Medical Issues Psychosocial: Very well supported by and daughters. Spiritual: Consider themselves spiritual but do not belong to a local vesta group. Legal: No written advance directives but they're wanting to complete those forms. Ethical issues impacting care: Patient appears capacitated to make his own healthcare decisions most of the time. Because of intermittent confusion recommend that there'll be shared decision making for major decisions with his spouse. . Important Contacts * Yaima Johnson (spouse) -- [phone] . Prognosis It is feasible based on his prior response to the medication that if he can safely get back on the Keytruda he might be able to gain some quality time. Until such time and even while on the Keytruda, he remains at very high risk of seizures, further intracranial bleeding, and decline. At this point, it is unclear to what extent the metastatic disease in the liver and lungs is an issue. Given the widespread nature of his metastatic disease, at such time that he no longer wants to seek aggressive cancer directed therapies, he would be quite appropriate for hospice care. . Code Status: Full Code Plan == Code Status : FULL CODE == Decision making: At time of my visit patient is awake, alert, and has good insight into his own disease. However, there are periods of intermittent confusion. For that reason, I recommend shared decision-making with his spouse for major health care decisions. Patient has verbally designated his to be his health care surrogate. I am providing paperwork for them to complete to designate this in writing. == Goals of medical treatment: Since patient had a good response to Keytruda in the past, he is hoping to survive this episode and get back on Keytruda. Patient and spouse let me know that their oncologists in [facility] feels he has a reasonable chance of having additional quality of life if he can back on the Keytruda. Patient wishes to have aggressive care for now. He indicates he would want cardiopulmonary resuscitation. However he tells me he and his that if he is resuscitated and on machines and the doctors do not feel he has a good chance of improving he would like to be allowed to . == Symptoms * Pain: As noted above, most of patient's pain is headache which is most likely due to the increased intracranial pressure. There are no particular exacerbating features. He is helped by the parenteral hydromorphone and tramadol. He also has some generalized muscle aches/pains from his prolonged bedbound status. * Confusion: This is intermittent in nature. Once again this is probably due to the tumor and increased intracranial pressure. Patient is currently on high- dose dexamethasone which may be helping. * Seizures: Relatively well-controlled on multiple anti-seizure meds per neurosurgery == Disposition: Patient had wanted to be transferred to [facility] [place] but [facility] declined to accept the patient. Plan now is to have patient go to rehab to try and gain strength. Once steroids can be safely tapered, they want to resume Keytruda. == I have urged patient to use primarily oral medications for pain going forward to help transition to rehab. == They will complete advance directives. Palliative care social work case manager will follow up. == Palliative care we'll follow to help assist with symptom management and to further clarify goals of medical treatment as the clinical course evolves. . Attestation To help prompt me to consider important information that might be impacting today's encounter and assessment, information from prior notes written by myself or my colleagues may have been "brought forward" into today's note. My signature on this note, however, is an attestation that I personally performed the exam, history, and/or decision-making noted today, and, unless otherwise indicated, the interactions with patient, family, and staff as well as the review of records all occurred today. I also attest that the listed assessment and stated plan reflect my best clinical judgment today based on the combination of historical information, prior notes, and today's exam/ interactions. When time spent is documented, it refers only to time spent today by the signer, or if indicated, combined time spent today by collaborating physician/nurse practitioner. Familia Jay MD Aug 11, 2017 18:47
--- NOTE | 2017-08-11 20:20 | HHI.PR ---
Subjective Remarks NOT SEEN Objective Vitals Vital Signs Date Time Temp Pulse Resp B/P (MAP) Pulse Ox O2 Delivery O2 Flow Rate FiO2 08/11/17 16:34 98.1 101 18 165/81 (109) 93 08/11/17 14:00 120 08/11/17 12:00 95 08/11/17 12:00 98.7 95 12 138/68 (91) 93 08/11/17 10:00 123 08/11/17 08:00 123 08/11/17 08:00 98.6 87 14 146/88 (107) 94 08/11/17 07:00 94 Room Air 08/11/17 06:00 108 08/11/17 04:00 98.9 96 14 154/85 (108) 94 08/11/17 04:00 96 08/11/17 02:00 111 08/11/17 00:00 126 08/11/17 00:00 98.3 94 27 120/62 (81) 95 08/10/17 22:00 128 I/O 08/10/17 08/10/17 08/10/17 08/11/17 08/11/17 08/11/17 07:00 15:00 23:00 07:00 15:00 23:00 Intake Total 480 ml 1585 ml 820 ml Output Total 1050 ml 700 ml 1900 ml Balance -570 ml 885 ml -1080 ml Intake Oral 480 ml 480 ml 820 ml IV Total 1105 ml Output Urine Total 1050 ml 700 ml 1900 ml # Bowel Movements 0 0 0 Result Diagram: 08/09/17 0355 08/11/17 0348 Imaging Last Impressions Chest X-Ray 08/09/17 0000 Signed Impressions: Service Date/Time: Wednesday, August 09, 2017 03:04 - CONCLUSION: 1. Mild basilar atelectasis. No effusion or pneumothorax. Large calcified mediastinal lymph node. Surgical clips left axilla. Charly Wagner MD Brain MRI 08/09/17 0000 Signed Impressions: Service Date/Time: Wednesday, August 09, 2017 11:43 - CONCLUSION: Status post right-sided carotid craniotomy with significant residual vasogenic edema and a 3.4 cm residual postoperative parenchymal seroma. Slight mass effect upon the septum pellucidum from right to left. Marcos Beard MD Procedures none A/P Problem List: (1) Malignant melanoma ICD Code: C43.9 - Malignant melanoma of skin, unspecified Status: Acute (2) Seizure ICD Code: R56.9 - Unspecified convulsions Status: Acute (3) Left-sided weakness ICD Code: R53.1 - Weakness Status: Acute Assessment and Plan 62-year-old male with: Right sided subdural hemorrhage with intracerebral hemorrhage and cerebral edema and left hemiplegia hx Metastatic melanoma with brain metastases status post previous right parietal craniectomy. Neurosurgery consulted. No emergent neurosurgical intervention indicated at this time following review of CAT scans done at [facility]. Continue Decadron 4 mg po qid Seizures. Sz precautions ct AED Keppra, DFilantin and Vimpat Hypertension. BP control Prophylaxis: Pepcid, SCDs. No chemical prophylaxis in view of intracerebral hemorrhage/subdural hemorrhage. Working on rehab placement. Darin Chanel MD Aug 11, 2017 20:20
[2017-08-11] MEDS: levETIRAcetam 500 MG TAB PO SCH (21:38)
[2017-08-12] VITALS (11 sets, daily range): BP systolic 157–179; BP diastolic 79–105; PULSE 82–126; RESP 18–24; TEMP 97.5–98.4; O2SAT 93–96
[2017-08-12] MEDS: CHLORHEXIDINE GLUCONATE 2 % 1 PACK (2 CLOTHS) TOP SCH (00:39)
[2017-08-12] MEDS: DEXAMETHASONE 4 MG TAB PO SCH ×4 (00:39→16:18)
[2017-08-12] MEDS ORDERED: cloNIDine HCL 0.1 MG TAB PO ONE (02:15)
[2017-08-12] MEDS ORDERED: cloNIDine HCL 0.1 MG TAB PO PRN (02:15)
[2017-08-12] MEDS: ACETAMINOPHEN 325 MG TAB PO PRN ×3 (06:13→14:01)
[2017-08-12] MEDS: INSULIN ASPART SUPPLEMENTAL SCALE SQ SCH ×4 (08:00→21:00)
[2017-08-12] MEDS ORDERED: ENALAPRILAT 1.25 MG/ML VIAL IV PUSH PRN (08:30)
[2017-08-12] MEDS: LACOSAMIDE 50 MG TAB PO SCH ×2 (09:37→20:36)
[2017-08-12] MEDS: levETIRAcetam 500 MG TAB PO SCH ×2 (09:38→20:40)
[2017-08-12] MEDS: FAMOTIDINE 20 MG TAB PO SCH ×2 (09:38→20:36)
[2017-08-12] MEDS: PHENYTOIN SODIUM 100 MG CAP PO SCH ×2 (09:38→20:36)
[2017-08-12] MEDS: DOCUSATE SODIUM 50 MG/SENNA 8.6 MG TAB PO SCH ×2 (09:38→20:36)
[2017-08-12] MEDS: SODIUM CHLORIDE 0.9% FLUSH 10 ML FLUSH IV FLUSH SCH ×2 (09:39→21:00)
[2017-08-12] MEDS: traMADol HCL 50 MG TAB PO PRN ×2 (10:08→20:40)
--- NOTE | 2017-08-12 11:07 | HHI.PR ---
Subjective Remarks Follow-up intracranial hemorrhage. Complaining of right-sided headaches 6 out of 10 which according to patient and is improving. Aware she is a risk with tramadol, patient not able to tolerate Dilaudid causing confusion, Percocet with itching and o hydrocodone with sedation. Discuss with neurology, increase Keppra to 1500 mg twice a day home dose stable for discharge to rehab when arranged Objective Vitals Vital Signs Date Time Temp Pulse Resp B/P (MAP) Pulse Ox O2 Delivery O2 Flow Rate FiO2 08/12/17 10:38 18 08/12/17 10:38 18 08/12/17 08:04 105 08/12/17 08:01 98.4 82 20 161/89 (113) 95 08/12/17 04:00 98.0 105 24 161/84 (109) 94 08/12/17 02:04 93 08/12/17 00:00 98.0 126 22 179/105 (129) 96 08/11/17 20:00 98.0 114 21 163/82 (109) 95 08/11/17 19:00 Room Air 21 08/11/17 16:34 98.1 101 18 165/81 (109) 93 08/11/17 14:00 120 08/11/17 12:00 95 08/11/17 12:00 98.7 95 12 138/68 (91) 93 I/O 08/11/17 08/11/17 08/11/17 08/12/17 08/12/17 08/12/17 07:00 15:00 23:00 07:00 15:00 23:00 Intake Total 820 ml Output Total 1900 ml Balance -1080 ml Intake Oral 820 ml Output Urine Total 1900 ml # Voids 1 # Bowel Movements 0 0 Result Diagram: 08/09/17 0355 08/11/17 0348 Imaging Last Impressions Chest X-Ray 08/09/17 0000 Signed Impressions: Service Date/Time: Wednesday, August 09, 2017 03:04 - CONCLUSION: 1. Mild basilar atelectasis. No effusion or pneumothorax. Large calcified mediastinal lymph node. Surgical clips left axilla. Charly Wagner MD Brain MRI 08/09/17 0000 Signed Impressions: Service Date/Time: Wednesday, August 09, 2017 11:43 - CONCLUSION: Status post right-sided carotid craniotomy with significant residual vasogenic edema and a 3.4 cm residual postoperative parenchymal seroma. Slight mass effect upon the septum pellucidum from right to left. Marcos Beard MD Objective Remarks GENERAL: Well-developed, well-nourished in no distress SKIN: Warm and dry. CARDIOVASCULAR: Regular rate and rhythm. RESPIRATORY: No accessory muscle use. Clear to auscultation. Breath sounds equal bilaterally. GASTROINTESTINAL: Abdomen soft, non-tender, nondistended. MUSCULOSKELETAL: Extremities without clubbing, cyanosis, or edema. No obvious deformities. NEUROLOGICAL: Awake and alert. Left-sided weakness with decreased sensation. Normal speech. PSYCHIATRIC: Appropriate mood and affect; insight and judgment normal. . Procedures none A/P Problem List: (1) Malignant melanoma ICD Code: C43.9 - Malignant melanoma of skin, unspecified Status: Acute (2) Seizure ICD Code: R56.9 - Unspecified convulsions Status: Acute (3) Left-sided weakness ICD Code: R53.1 - Weakness Status: Acute Assessment and Plan 62-year-old male with: Right sided subdural hemorrhage with intracerebral hemorrhage and cerebral edema and left hemiplegia hx Metastatic melanoma with brain metastases status post previous right parietal craniectomy. Neurosurgery consulted. No emergent neurosurgical intervention indicated at this time following review of CAT scans done at [facility]. Continue Decadron 4 mg po qid and pain management with tramadol. Seizures. Sz precautions ct AED Keppra, Dilantin and Vimpat. EEG repeated. Aware rates of seizure with tramadol however patient intolerant to narcotics ( Dilaudid, hydrocodone and oxycodone) Hypertension. BP control Prophylaxis: Pepcid, SCDs. No chemical prophylaxis in view of intracerebral hemorrhage/subdural hemorrhage. Working on rehab placement. Discharge Planning Stable for discharge to rehab when arranged Darin Chanel MD Aug 12, 2017 11:07
--- NOTE | 2017-08-12 11:08 | MB ---
cc: LAURITA DAILEY M.D. DATE OF CONSULTATION 08/12/2017 DATE OF 1955, [id number] REASON FOR CONSULTATION Seizure HISTORY The patient a pleasant 62-year-old man with a history of metastatic melanoma diagnosed in the earlier part of the year. He was placed on Keytruda at [facility] in [place]. I am asked to evaluate him for seizures. After surgery he had, what his describes as, myoclonus and was placed on Dilantin with the idea that after a month or so he was to get off of the medicine, but he had some residual possible seizures and was seen by an epileptologist who put him on Keppra 1500 mg twice a day and Vimpat 150 mg twice a day. He has had radiation treatment as well of the brain mass and stereotactic radiosurgery. I believe last week he had a Keytruda infusion, had been ambulatory and the next day he no longer could move his left arm or leg. He takes tramadol because he has post craniotomy pain and headache. He is very intolerant of any other medication causing him to be confused and sedated. He has some twitching that may be focal seizures as well. He is on Decadron 4 mg q. six. He did have an MRI of the brain that showed post right-sided craniotomy with residual edema of 3.4 cm, postop seroma and slight mass effect from the right to the left. PAST MEDICAL HISTORY Metastatic malignant melanoma with intracranial hemorrhage, left-sided weakness and focal seizures. PAST SURGICAL HISTORY 1. Lumbar diskectomy 2 Right craniotomy 3. Bowel surgery 4. Axillary nodes surgery FAMILY HISTORY Noncontributory SOCIAL HISTORY , lives with his . Denies any tobacco, drugs or alcohol. CURRENT MEDICINES 1. Keppra 2. Vimpat 3. Ultram 4. Dilantin 5. Decadron 6. Lorazepam 7. Famotidine 8. Colace 9. Hydralazine p.r.n. EXAMINATION VITAL SIGNS: His temperature is 98.4, heart rate 105, respiratory rate 16, blood pressure 161/89. GENERAL: He is awake and alert. NEUROLOGIC: Pupils are reactive. His visual epperson seem full to my confrontational exam. He does exhibit left hemiplegia. He can feel temperature and light touch on the left arm and leg, but he cannot move his arms nor leg on the left. He has sustained clonus on the left, nonsustained on the right. Left toe is upgoing. Right side is intact. Gait cannot be assessed. We will defer to PT. LABORATORY DATA Labs were reviewed. His CBC is really unremarkable. Chemistries, glucose 116. Toxicology, his Dilantin level yesterday was 7.1. IMAGING STUDIES Discussed IMPRESSION Seizure in a patient with right craniotomy for malignant melanoma. The last Dilantin level was low. His dosing was changed to 300 mg twice a day. Continue Dilantin 300 mg b.i.d. Monitor his levels, try not to get it above 15. His Vimpat should stay at 150 mg b.i.d. and change Keppra to 1500 mg b.i.d. we will get an EEG and I did discuss the issue of tramadol, however, we certainly could try another pain medication whatever he can tolerate due to the risk of seizures with tramadol. He is ready for rehab if no other issues and he is doing well today or tomorrow. Certainly rehab is an option at [facility]. MD PATY Hastings/FABRIZIO /10:40 AM /10:57 AM
--- NOTE | 2017-08-12 14:21 | HHI.HCPN ---
Supportive visit with Mr. Johnson and , Yaima, at bedside. Mr. Johnson is alert, oriented, and able to make his needs known. He appears comfortable, verbalizes headache (pain 2-3) nurse in providing meds. Yaima inquires about [facility] acceptance status. Per [facility] has not assessed patient yet, also working with insurance to determine coverage. Mr. Johnson appreciative of information and remains hopeful he will be accepted for inpatient rehab. Long- term goal is for Mr. Johnson to be able to get strong enough to go home with . Mr. Johnson inquires about medication change. He verbalizes desire to come off "harder" medications. Asks about extra strength Tylenol instead of Dilaudid and tramadol. Informed Dr. Jay of request. Mr. Johnson reports ice packs on his head have really helped with his headaches. Currently has one now. Mr. Johnson has not completed advanced directives at this time. Yaima reports they have not have time to really discuss it due to staff coming in and out of his room along with the demands of therapy assessments and medications making him drowsy. Plan to complete when he is more alert. In absence of advanced directives, health care proxy decision making would fall to , Yaima. Palliative care will continue to follow throughout hospitalization. Rhianna Adames, SHELL FISHERMAN Aug 12, 2017 14:21
[2017-08-12] MEDS ORDERED: DEXA4TAB PO (14:52)
[2017-08-12] MEDS ORDERED: FAMO20TA2 PO (14:52)
[2017-08-12] MEDS ORDERED: TRAM50 PO (14:52)
[2017-08-12] MEDS ORDERED: DILA100C PO (14:52)
--- NOTE | 2017-08-12 14:53 | HHI.DCPOC ---
Discharge Care Plan Diagnosis: (1) Left-sided weakness (2) Intracranial hematoma (3) Malignant melanoma Your Health Problems Are: Difficulty with ADL Exercise Tolerance Goals to Promote Your Health * To prevent worsening of your condition and complications * To maintain your health at the optimal level Directions to Meet Your Goals Take your medications as prescribed Follow your dietary instruction Follow activity as directed Keep your appointments as scheduled Take your immunizations and boosters as scheduled If your symptoms worsen call your PCP, if no PCP go to Urgent Care Center or Emergency Room Smoking is Dangerous to Your Health. Avoid second hand smoke Call the 24-hour hour crisis hotline for domestic abuse at Darin Chanel MD Aug 12, 2017 14:53
--- NOTE | 2017-08-12 18:46 | MG ---
cc: GINGER ZAMORA M.D. Sex: M REQUESTING PHYSICIAN: Dr. Hudson. DATE OF STUDY: 08/12/2017 INTRODUCTION: An EEG was obtained on this 62 year-old patient with history of right craniotomy for brain mets. MEDICATIONS: Vimpat. Dilantin. Keppra. DESCRIPTION: This EEG study shows continuous right hemisphere slower rhythms characterized by theta with some delta activity. There are beta rhythms bilaterally and more alpha on the left than right. Intermittently there is awakening and artifact and possible sharp discharges right frontotemporal. At times some of these EEG changes are almost rhythmic even raising the possibility of ongoing right hemisphere focal seizure. Photic stimulation was unremarkable. INTERPRETATION Abnormal EEG because of continuous right hemispheric slowing. There are some intermittent EEG changes almost rhythmic on the right that is not definitive but raises the possibility of being some focal seizure. Clinical correlation. Ginger Zamora MD [facility] /6:27 PM /6:35 PM
[2017-08-12] MEDS ORDERED: ACETAMINOPHEN 500 MG CPLT PO PRN (19:00)
--- NOTE | 2017-08-12 19:25 | HHI.HCPN ---
Reason for visit a. To assist with evaluation and management of symptoms including: headache ; confusion b. To assist medical decision maker(s) with: better understanding of current medical conditions; weighing benefits/burdens of medical treatment options; making medical treatment decisions. . Subjective/Interval History Headache has been less today and the pain has been managed with the acetaminophen and tramadol. They would like to Dc the order for hydromorphone. Patient participated in OT, PT today and sat up in bed and stood with assistance. He felt good that he was able to do this. However, no change in flaccid left side. No seizure activity reported. Appetite fair. Bowels moved today. No other complaints. Patient has been accepted by [facility], but waiting for insurance approval from [facility]. Depending on insurance, it appears he will either be here at [facility] or at a facility in [place]. . Family/friend interactions at [facility] and present for discussion. . Advance Directives Living Will: Never completed Health Care Surrogate: Never completed Durable Power of Geospatial Analyst: Never completed Advance Directive Specifics Date completed: Advance directives have not been completed. . Health Care Surrogate(s): Patient has verbally designated his to be his health care surrogate. No written designation of a surrogate at this point. . Documented care wishes: No written documentation of healthcare wishes or preferences. . Objective Vital Signs Date Time Temp Pulse Resp B/P (MAP) Pulse Ox O2 Delivery O2 Flow Rate FiO2 08/12/17 17:49 94 21 08/12/17 15:48 93 08/12/17 15:39 98.4 95 20 158/86 (110) 94 08/12/17 14:50 16 08/12/17 12:11 96 08/12/17 12:00 101 08/12/17 12:00 98.3 101 20 157/93 (114) 96 08/12/17 10:38 18 08/12/17 08:04 105 08/12/17 08:01 98.4 82 20 161/89 (113) 95 08/12/17 07:00 95 Room Air 08/12/17 04:00 98.0 105 24 161/84 (109) 94 08/12/17 02:04 93 08/12/17 00:00 98.0 126 22 179/105 (129) 96 08/11/17 20:00 98.0 114 21 163/82 (109) 95 . Physical Exam CONSTITUTIONAL/GENERAL: This is an adequately nourished patient, awake, alert, and able to smile in a med-surg bed. His left upper and lower extremity is flaccid. TUBES/LINES/DRAINS: Peripheral IV. SKIN: Skin temperature appropriate. Not diaphoretic. HEAD: Atraumatic. Normocephalic. ENT: Hearing grossly normal. Nose without bleeding or purulent drainage. Throat without visible erythema, exudates, masses, or lesions. CARDIOVASCULAR: Regular rate and rhythm without murmurs, gallops, or rubs. No JVD. RESPIRATORY/CHEST: Symmetric, unlabored respirations. Clear to auscultation. GASTROINTESTINAL: Abdomen soft, non-tender, nondistended. No hepato-splenomegaly , or palpable masses. No guarding. Bowel sounds present. MUSCULOSKELETAL: Extremities without clubbing, cyanosis. There is mild edema in the left sided extremities. NEUROLOGICAL: Awake and alert. . No real movement in the right upper or lower extremity. Cranial nerves appear intact. Follows commands. Cognitively sharp. No seizure activity noted at time of my visit. PSYCHIATRIC: No obvious anxiety/depression. No apparent hallucinations or other psychotic thought process. . Diagnostic Tests Laboratory Laboratory Tests Test 08/10/17 04:43 08/10/17 17:52 08/11/17 03:48 Blood Urea Nitrogen 10 MG/DL (7-18) 9 MG/DL (7-18) Creatinine 0.76 MG/DL (0.60-1.30) 0.67 MG/DL (0.60-1.30) Random Glucose 112 MG/DL (74-106) 116 MG/DL (74-106) Calcium Level 8.9 MG/DL (8.5-10.1) 8.7 MG/DL (8.5-10.1) Sodium Level 142 MEQ/L (136-145) 140 MEQ/L (136-145) Potassium Level 3.1 MEQ/L (3.5-5.1) 3.7 MEQ/L (3.5-5.1) 3.7 MEQ/L (3.5-5.1) Chloride Level 108 MEQ/L (98-107) 108 MEQ/L (98-107) Carbon Dioxide Level 21.8 MEQ/L (21.0-32.0) 22.1 MEQ/L (21.0-32.0) Anion Gap 12 MEQ/L (5-15) 10 MEQ/L (5-15) Estimat Glomerular Filtration Rate 104 ML/MIN (>89) 120 ML/MIN (>89) Phenytoin (Dilantin) Level 7.1 MCG/ML (10.0-20.0) . Result Diagram: 08/09/17 0355 08/11/17 0348 Imaging Last Impressions Chest X-Ray 08/09/17 0000 Signed Impressions: Service Date/Time: Wednesday, August 09, 2017 03:04 - CONCLUSION: 1. Mild basilar atelectasis. No effusion or pneumothorax. Large calcified mediastinal lymph node. Surgical clips left axilla. Charly Wagner MD Brain MRI 08/09/17 0000 Signed Impressions: Service Date/Time: Wednesday, August 09, 2017 11:43 - CONCLUSION: Status post right-sided carotid craniotomy with significant residual vasogenic edema and a 3.4 cm residual postoperative parenchymal seroma. Slight mass effect upon the septum pellucidum from right to left. Marcos Beard MD . Assessment and Plan Disease Oriented Problem List: (1) Malignant melanoma (2) Metastatic melanoma to liver (3) Metastatic melanoma to lung (4) Malignant melanoma metastatic to brain (5) Seizure (6) Left-sided weakness (7) Intracranial hematoma Symptom Scale: (1) Pain 0-10 Scale: 0 Comment: Patient's pain is primarily headache. He also has some general muscle stiffness from prolonged bedbound status. Pain is relieved with acetaminophen and tramadol. . (2) Confusion 0-10 Scale: 0 Comment: Confusion is intermittent and most likely due to the increased intracranial pressure. No particular exacerbating or mitigating factors. . Pertinent Non-Medical Issues Psychosocial: Very well supported by and daughters. Spiritual: Consider themselves spiritual but do not belong to a local vesta group. Legal: No written advance directives but they're wanting to complete those forms. Ethical issues impacting care: Patient appears capacitated to make his own healthcare decisions most of the time. Because of intermittent confusion recommend that there'll be shared decision making for major decisions with his spouse. . Important Contacts * Yaima Johnson (spouse) -- [phone] . Prognosis It is feasible based on his prior response to the medication that if he can safely get back on the Keytruda he might be able to gain some quality time. Until such time and even while on the Keytruda, he remains at very high risk of seizures, further intracranial bleeding, and decline. At this point, it is unclear to what extent the metastatic disease in the liver and lungs is an issue. Given the widespread nature of his metastatic disease, at such time that he no longer wants to seek aggressive cancer directed therapies, he would be quite appropriate for hospice care. . Code Status: Full Code Plan == Code Status : FULL CODE == Decision making: At time of my visit patient is awake, alert, and has good insight into his own disease. However, there are periods of intermittent confusion. For that reason, I recommend shared decision-making with his spouse for major health care decisions. Patient has verbally designated his to be his health care surrogate. I am providing paperwork for them to complete to designate this in writing. == Goals of medical treatment: Since patient had a good response to Keytruda in the past, he is hoping to survive this episode and get back on Keytruda. Patient and spouse let me know that their oncologists in [facility] feels he has a reasonable chance of having additional quality of life if he can back on the Keytruda. Patient wishes to have aggressive care for now. He indicates he would want cardiopulmonary resuscitation. However he tells me he and his that if he is resuscitated and on machines and the doctors do not feel he has a good chance of improving he would like to be allowed to . == Symptoms * Pain: As noted above, most of patient's pain is headache which is most likely due to the increased intracranial pressure. There are no particular exacerbating features. He is helped adequately now by acetaminophen and tramadol. He does not feel he needs parenteral opiates any longer. Neurologist has mentioned concern about tramadol possibly lowering seizure threshold. He also has some generalized muscle aches/pains from his prolonged bedbound status. * Confusion: This is intermittent in nature. Once again this is probably due to the tumor and increased intracranial pressure. Patient is currently on high- dose dexamethasone which may be helping. * Seizures: Relatively well-controlled on multiple anti-seizure meds per neurosurgery == Disposition: Patient had wanted to be transferred to [facility] but [facility] declined to accept the patient. Plan now is to have patient go to rehab to try and gain strength. Once steroids can be safely tapered and patient regains some strenth, they want to resume Keytruda. == I have urged patient to use primarily oral medications for pain going forward to help transition to rehab. They now want to discontinue parenteral hydromorphone. I will increase acetaminophen dosage to 1000mg. == They will complete advance directives. Palliative care high school social studies teacher will follow up. == Palliative care will follow to help assist with symptom management and to further clarify goals of medical treatment as the clinical course evolves. . Attestation To help prompt me to consider important information that might be impacting today's encounter and assessment, information from prior notes written by myself or my colleagues may have been "brought forward" into today's note. My signature on this note, however, is an attestation that I personally performed the exam, history, and/or decision-making noted today, and, unless otherwise indicated, the interactions with patient, family, and staff as well as the review of records all occurred today. I also attest that the listed assessment and stated plan reflect my best clinical judgment today based on the combination of historical information, prior notes, and today's exam/ interactions. When time spent is documented, it refers only to time spent today by the signer, or if indicated, combined time spent today by collaborating physician/nurse practitioner. Familia Jay MD Aug 12, 2017 19:25
[2017-08-13] VITALS (7 sets, daily range): BP systolic 149–161; BP diastolic 79–89; PULSE 85–99; RESP 18–20; TEMP 97.5–98.4; O2SAT 94–96
[2017-08-13] MEDS: traMADol HCL 50 MG TAB PO PRN ×3 (00:47→14:04)
[2017-08-13] MEDS: DEXAMETHASONE 4 MG TAB PO SCH ×3 (00:47→11:41)
[2017-08-13] MEDS: CHLORHEXIDINE GLUCONATE 2 % 1 PACK (2 CLOTHS) TOP SCH (02:06)
[2017-08-13] MEDS: INSULIN ASPART SUPPLEMENTAL SCALE SQ SCH ×2 (07:57→11:40)
[2017-08-13] MEDS: SODIUM CHLORIDE 0.9% FLUSH 10 ML FLUSH IV FLUSH SCH (07:58)
[2017-08-13] MEDS: levETIRAcetam 500 MG TAB PO SCH (07:59)
[2017-08-13] MEDS: PHENYTOIN SODIUM 100 MG CAP PO SCH (07:59)
[2017-08-13] MEDS: FAMOTIDINE 20 MG TAB PO SCH (08:00)
[2017-08-13] MEDS: LACOSAMIDE 50 MG TAB PO SCH (08:00)
[2017-08-13] MEDS: DOCUSATE SODIUM 50 MG/SENNA 8.6 MG TAB PO SCH (08:00)
--- NOTE | 2017-08-13 11:39 | HHI.DS ---
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 Patient was just evaluated at [facility] on 08/05/17 and received Ktruda. He developed worsening weakness involving the left lower extremity since then over the next 3 days and presented to the ER at [facility] on 08/[address] without contrast revealed intracerebral hemorrhage involving right frontal parietal region with right subdural hemorrhage and minimal midline shift. [facility] was contacted however did not have any beds hence patient was accepted for transfer at [facility] and patient was transferred to the ICU at [place]. I evaluated the patient on being notified about his arrival. At that time he was complaining of a headache for out of 10 in intensity otherwise did not have any other complaints. He had just had a seizure prior to transfer around 4:30 PM for which she received 1 mg of Ativan IV as well as 1 g of IV Keppra at [facility]. Patient is on 3 anticonvulsants at home including Vimpat, Keppra, Dilantin. He gets at least one seizure once a week involving the left side of his body. He denies any fevers or chills. Denies any shortness of breath, nausea, vomiting, abdominal pain, melena or rectal bleeding. He has been having some dribbling of his urine for the last 1 week. CBC/BMP: 08/09/17 0355 08/11/17 0348 Significant Findings Laboratory Tests Test 08/10/17 17:52 08/11/17 03:48 Random Glucose 116 MG/DL (74-106) Chloride Level 108 MEQ/L (98-107) Phenytoin (Dilantin) Level 7.1 MCG/ML (10.0-20.0) Imaging Last Impressions Chest X-Ray 08/09/17 0000 Signed Impressions: Service Date/Time: Wednesday, August 09, 2017 03:04 - CONCLUSION: 1. Mild basilar atelectasis. No effusion or pneumothorax. Large calcified mediastinal lymph node. Surgical clips left axilla. Charly Wagner MD Brain MRI 08/09/17 0000 Signed Impressions: Service Date/Time: Wednesday, August 09, 2017 11:43 - CONCLUSION: Status post right-sided carotid craniotomy with significant residual vasogenic edema and a 3.4 cm residual postoperative parenchymal seroma. Slight mass effect upon the septum pellucidum from right to left. Marcos Beard MD PE at Discharge GENERAL: Well-developed, well-nourished in no distress SKIN: Warm and dry. CARDIOVASCULAR: Regular rate and rhythm. RESPIRATORY: No accessory muscle use. Clear to auscultation. Breath sounds equal bilaterally. GASTROINTESTINAL: Abdomen soft, non-tender, nondistended. MUSCULOSKELETAL: Extremities without clubbing, cyanosis, or edema. No obvious deformities. NEUROLOGICAL: Awake and alert. Left-sided weakness with decreased sensation. Normal speech. PSYCHIATRIC: Appropriate mood and affect; insight and judgment normal. . Hospital Course 62-year-old male with: Right sided subdural hemorrhage with intracerebral hemorrhage and cerebral edema and left hemiplegia hx Metastatic melanoma with brain metastases status post previous right parietal craniectomy. Neurosurgery consulted. No emergent neurosurgical intervention indicated at this time following review of CAT scans done at [facility]. Continue Decadron 4 mg po qid and pain management with tramadol. Seizures. Sz precautions ct AED Keppra, Dilantin and Vimpat. Aware risk of seizure with tramadol however patient intolerant to narcotics (Dilaudid, hydrocodone and oxycodone) Hypertension. BP control Prophylaxis: Pepcid, SCDs. No chemical prophylaxis in view of intracerebral hemorrhage/subdural hemorrhage. Pt Condition on Discharge: Stable Discharge Disposition: Rehab Inpatient Discharge Time: > 30 minutes Discharge Instructions DIET: Follow Instructions for: Heart Healthy Diet Activities you can perform: Regular-No Restrictions Activities to Avoid: Driving Follow up Referrals: Neurology - 1 Week Neurosurgery - 1 Week Oncology - 1 Week PCP Follow-up - 1 Week New Medications: Dexamethasone (Dexamethasone) 4 Mg Tab 4 MG PO Q6HR for Control Inflammation, #100 TAB Famotidine (Famotidine) 20 Mg Tab 20 MG PO Q12HR for Manage Heartburn, #60 TAB Phenytoin Extended (Dilantin) 100 Mg Cap 300 MG PO BID for Control Seizures, #60 CAP Tramadol (Ultram) 50 Mg Tab 50 MG PO Q6H PRN for pain, #12 TAB Continued Medications: Lacosamide (Vimpat) 150 Mg Tab 150 MG PO BID for Control Seizures, #60 TAB 0 Refills Levetiracetam (Levetiracetam) 500 Mg Tab 1500 MG PO BID for Control Seizures, #60 TAB 0 Refills Potassium Chloride ER (Potassium Chloride ER) 10 Meq Tab 10 MEQ PO DAILY for Electrolyte Replacement, #30 TAB 0 Refills Discontinued Medications: Dexamethasone (Dexamethasone) 2 Mg Tab 2 MG PO TID, #60 TAB 0 Refills Phenytoin Extended (Phenytoin Extended) 300 Mg Cap 300 MG PO HS for Control Seizures, #90 CAP 0 Refills Darin Chanel MD Aug 13, 2017 11:39
[2017-08-14] MEDS ORDERED: HYDR-3799 PO (19:58)
[2017-08-14] MEDS ORDERED: PERI PO (19:58)
[2017-08-14] MEDS ORDERED: CLON.1 PO (19:58)
== END 2017-08-13 15:39 | DRG 64 ==
LOC: N03B 20:40 → OBSVTOIN 21:50 → N05B 08-11 16:12
PROVIDERS: ADMIT Internal Medicine; ATTEND Internal Medicine
DX: I62.01 Nontraumatic acute subdural hemorrhage (principal); G93.6 Cerebral edema; C78.00 Secondary malignant neoplasm of unspecified lung; C78.7 Secondary malignant neoplasm of liver and intrahepatic bile duct; C79.31 Secondary malignant neoplasm of brain; G81.91 Hemiplegia, unspecified affecting right dominant side; G40.89 Other seizures; I61.9 Nontraumatic intracerebral hemorrhage, unspecified; Z79.52 Long term (current) use of systemic steroids; I10 Essential (primary) hypertension; Z85.820 Personal history of malignant melanoma of skin; Z92.3 Personal history of irradiation; Z87.891 Personal history of nicotine dependence
CPT/HCPCS: 70553; 71045; 76937; 80048; 80053; 80185; 82948; 83735; 84100; 84132; 85025; 87641; 95819; A9579; J0360; J1100; J1165; J1170; J1200; J1940; J1953; J2060; J2405; J3480; J7030; J8540; Q2009

== ENCOUNTER 2017-08-14 20:25 | Inpatient (IN) | payer OTHER ==
[~2017-08-14] VITALS: Ht 180.3 cm; Wt 98.0 kg
[~2017-08-14 20:25] MED LIST: CLON.1 PO; DEXA4TAB PO; DILA100C PO; FAMO20TA2 PO; HYDR-3799 PO; LEVE500T8 PO; PERI PO; POTA10TA2 PO; TRAM50 PO; VIMP150T PO
[2017-08-14 21:00] VITALS: BP 161/76; PULSE 89; RESP 14; TEMP 98.5; O2SAT 93
[2017-08-14 22:00] VITALS: PULSE 89
[2017-08-14] MEDS: HYDROmorphone HCL PF 2 MG/ML VIAL IV PRN (22:39)
[2017-08-14] MEDS: DEXAMETHASONE 4 MG TAB PO SCH (22:40)
[2017-08-14] MEDS ORDERED: MAGNESIUM HYDROXIDE SUSP 30 ML CUP PO PRN (23:15)
[2017-08-14] MEDS ORDERED: LACTULOSE SYRUP 20 GM/30 ML CUP PO PRN (23:15)
[2017-08-14] MEDS ORDERED: CHLORHEXIDINE GLUCONATE 2 % 1 PACK (2 CLOTHS) TOP PRN (23:15)
[2017-08-14] MEDS ORDERED: TEMAZEPAM 15 MG CAP PO PRN (23:15)
[2017-08-14] MEDS ORDERED: MISCELLANEOUS NURSING INFORMATION XX SCH (23:15)
[2017-08-14] MEDS ORDERED: BISACODYL 10 MG SUPP RECTAL PRN (23:15)
[2017-08-14] MEDS ORDERED: ONDANSETRON HCL 4 MG/2 ML VIAL IV PUSH PRN (23:15)
[2017-08-14] MEDS ORDERED: SODIUM CHLORIDE 0.9% FLUSH 10 ML FLUSH IV FLUSH PRN (23:15)
[2017-08-14] MEDS ORDERED: ACETAMINOPHEN 325 MG TAB PO PRN (23:15)
[2017-08-14] MEDS ORDERED: SENNOSIDES 8.6 MG TAB PO PRN (23:15)
--- NOTE | 2017-08-14 23:22 | HHI.HP ---
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 Patient was just evaluated at [facility] on 08/05/17 and received Ktruda. He developed worsening weakness involving the left lower extremity since then over the next 3 days and presented to the ER at [facility] on 08/[address] without contrast revealed intracerebral hemorrhage involving right frontal parietal region with right subdural hemorrhage and minimal midline shift. [facility] was contacted however did not have any beds hence patient was accepted for transfer at [facility] and patient was transferred to the ICU at [place]. He was treated neurosurgically with decompression and clot evacuation and was transferred to [facility]. Just after the transfer patient became more weak on the left side and the MRI brain was performed that showed postsurgical features of right high parietal craniotomy with enlarging hematoma in the operative bed now measuring approximately 5 cm in comparison to 3.4 cm on prior exam, and also interval development of small subdural collection measuring up to 8 mm in the anterior right frontal region. This results in increased [id number] subfalcine shift. For this the patient has been transferred back to the ICU under critical care service admission. Review of Systems Constitutional: DENIES: Diaphoretic episodes, Fatigue, Fever, Weight gain, Weight loss, Chills, Dizziness, Change in appetite, Night Sweats Endocrine: DENIES: Heat/cold intolerance, Polydipsia, Polyuria, Polyphagia Eyes: DENIES: Blurred vision, Diplopia, Eye inflammation, Eye pain, Vision loss , Photosensitivity, Double Vision Ears, nose, mouth, throat: DENIES: Tinnitus, Hearing loss, Vertigo, Nasal discharge, Oral lesions, Throat pain, Hoarseness, Ear Pain, Running Nose, Epistaxis, Sinus Pain, Toothache, Odynophagia Respiratory: DENIES: Apneas, Cough, Snoring, Wheezing, Hemoptysis, Sputum production, Shortness of breath Cardiovascular: DENIES: Chest pain, Palpitations, Syncope, Dyspnea on Exertion , PND, Lower Extremity Edema, Orthopnea, Claudication Gastrointestinal: DENIES: Abdominal pain, Black stools, Bloody stools, Constipation, Diarrhea, Nausea, Vomiting, Difficulty Swallowing, Anorexia Genitourinary: DENIES: Sexual dysfunction, Urinary frequency, Urinary incontinence, Urgency, Hematuria, Dysuria, Nocturia, Penile Discharge, Testicular Pain, Testicular Swelling Musculoskeletal: DENIES: Joint pain, Muscle aches, Stiffness, Joint Swelling, Back pain, Neck pain Integumentary: DENIES: Abnormal pigmentation, Nail changes, Pruritus, Rash Hematologic/lymphatic: DENIES: Bruising, Lymphadenopathy Immunologic/allergic: DENIES: Eczema, Urticaria Neurologic: COMPLAINS OF: Localized weakness, DENIES: Abnormal gait, Headache, Paresthesias, Seizures, Speech Problems, Tremor, Poor Balance Psychiatric: DENIES: Anxiety, Confusion, Mood changes, Depression, Hallucinations, Agitation, Suicidal Ideation, Homicidal Ideation, Delusions Past Family Social History Allergies: Coded Allergies: No Known Drug Allergies (Verified Allergy, Unknown, 08/08/17) Past Medical History Malignant Melanoma, seizures Past Surgical History Right parietal craniectomy for removal of metastatic lesion from melanoma on , lumbar discectomy, 11 inches of small bowel removed for malignancy with axillary lymph node removal. Reported Medications Reported Meds & Active Scripts Active Catapres (Clonidine) 0.1 Mg Tab 0.1 Mg PO Q6H PRN Hydralazine HCl 25 Mg Tablet 25 Mg PO Q8HR Gnp Senna Plus 8.6-50 mg (Sennosides-Docusate Sodium) 8.6 Mg-50 Mg Tab 1 Tab PO BID 1 Days Dexamethasone 4 Mg Tab 4 Mg PO Q6HR Famotidine 20 Mg Tab 20 Mg PO Q12HR Dilantin (Phenytoin Extended) 100 Mg Cap 300 Mg PO BID Ultram (Tramadol HCl) 50 Mg Tab 50 Mg PO Q6H PRN Reported Potassium Chloride ER (Potassium Chloride) 10 Meq Tab 10 Meq PO DAILY Levetiracetam 500 Mg Tab 1,500 Mg PO BID Vimpat (Lacosamide) 150 Mg Tab 150 Mg PO BID Active Ordered Medications Current Medications Medications (Trade) Dose Ordered Sig/Karina Route PRN Reason Start Time Stop Time Status Last Admin Dose Admin Hydromorphone HCl (Dilaudid Pf Inj) 1 mg Q4H PRN IV PAIN SCALE 5 TO 10 08/14/17:45 08/14/17 22:39 Clonidine (Catapres) 0.1 mg Q6H PRN PO SBP>180, DBP>110 08/14/17 22:30 Dexamethasone (Decadron) 4 mg Q6HR PO 08/15/17 00:00 08/14/17 22:40 Hydralazine HCl (Apresoline) 25 mg Q8HR PO 08/15/17 06:00 Lacosamide (Vimpat) 150 mg BID PO 08/15/17 09:00 Levetriacetam (Keppra) 1,500 mg BID PO 08/15/17 09:00 Phenytoin (Dilantin) 300 mg BID PO 08/15/17 09:00 Sodium Chloride 1,000 ml @ 84 mls/hr [id number] IV 08/14/17 23:14 08/15/17 00:28 Sodium Chloride (NS Flush) 2 ml UNSCH PRN IV FLUSH FLUSH AFTER USING IV ACCESS 08/14/17 23:15 Sodium Chloride (NS Flush) 2 ml BID IV FLUSH 08/15/17 09:00 Acetaminophen (Tylenol) 650 mg Q6H PRN PO PAIN 1-4 AND/OR FEVER >101F 08/14/17 23:15 Famotidine (Pepcid Inj) 20 mg Q12HR IV PUSH 08/15/17 09:00 Ondansetron HCl (Zofran Inj) 4 mg Q6H PRN IV PUSH NAUSEA OR VOMITING 08/14/17 23:15 Temazepam (Restoril) 15 mg HS PRN PO INSOMNIA 08/14/17 23:15 Albuterol/ Ipratropium (Duoneb Neb) 1 ampule Q2HR NEB PRN INH WHEEZING 08/14/17 23:15 Miscellaneous Information 1 [id number] XX 08/14/17 23:15 Chlorhexidine Gluconate (Chlorhexidine 2% Cloth) 3 pack Taper DAILY@04 TOP 08/15/17 04:00 08/11/18 03:59 Chlorhexidine Gluconate (Chlorhexidine 2% Cloth) 3 pack UNSCH PRN TOP HYGIENIC CARE 08/14/17 23:15 Senna/Docusate Sodium (Celena-Colace) 1 tab BID PO 08/15/17 09:00 Magnesium Hydroxide (Milk Of Magnesia Liq) 30 ml Q12H PRN PO Mild constipation 08/14/17 23:15 Sennosides (Senokot) 17.2 mg Q12H PRN PO Moderate constipation 08/14/17 23:15 Bisacodyl (Dulcolax Supp) 10 mg DAILY PRN RECTAL SEVERE CONSITIPATION 08/14/17 23:15 Lactulose (Lactulose Liq) 30 ml DAILY PRN PO SEVERE CONSITIPATION 08/14/17 23:15 Family History No family history significant of malignancy Social History No history of tobacco abuse or any other substance abuse Physical Exam Physical Exam GENERAL: Well-nourished, well-developed patient. SKIN: Warm and dry. HEAD: Normocephalic. EYES: No scleral icterus. No injection or drainage. NECK: Supple, trachea midline. No JVD or lymphadenopathy. CARDIOVASCULAR: Regular rate and rhythm without murmurs, gallops, or rubs. RESPIRATORY: Breath sounds equal bilaterally. No accessory muscle use. GASTROINTESTINAL: Abdomen soft, non-tender, nondistended. MUSCULOSKELETAL: No cyanosis, or edema. BACK: Nontender without obvious deformity. NEURO EXAM: GCS: 15; Awake alert oriented 3, grade 0 power in left upper and lower extremity, grade 5 power right upper and lower extremity Imaging 1. Redemonstration of postsurgical features of right high parietal craniotomy with enlarging hematoma in the operative bed now measuring approximately 5 cm in comparison to 3.4 cm on prior exam. There has also been interval development of small subdural collection measuring up to 8 mm in the anterior right frontal region. This results in increased [id number] subfalcine shift of approximately 1.4 cm in comparison to 8 cm in prior exam. No evidence for downward herniation at this time. Septic Shock Reassessment Septic shock perfusion: reassessment completed Caprini VTE Risk Assessment Caprini VTE Risk Assessment: Mod/High Risk (score >= 2) VTE Pharm Contraindication: Hemorrhage Caprini Risk Assessment Model Point Value = 1 Point Value = 2 Point Value = 3 Point Value = 5 Age 41-60 Minor surgery BMI > 25 kg/m2 Swollen legs Varicose veins or History of unexplained or recurrent spontaneous Oral contraceptives or hormone replacement Sepsis (< 1 month) Serious lung disease, including pneumonia (< 1 month) Abnormal pulmonary function Acute myocardial infarction Congestive heart failure (< 1 month) History of inflammatory bowel disease Medical patient at bed rest Age 61-74 Arthroscopic surgery Major open surgery (> 45 min) Laparoscopic surgery (> 45 min) Malignancy Confined to bed (> 72 hours) Immobilizing plaster cast Central venous access Age >= 75 History of VTE Family history of VTE Factor V Leiden Prothrombin [id number] Lupus anticoagulant Anticardiolipin antibodies Elevated serum homocysteine Heparin-induced thrombocytopenia Other congenital or acquired thrombophilia Stroke (< 1 month) Elective arthroplasty Hip, pelvis, or leg fracture Acute spinal cord injury (< 1 month) Prophylaxis Regimen Total Risk Factor Score Risk Level Prophylaxis Regimen 0-1 Low Early ambulation 2 Moderate Order ONE of the following: *Sequential Compression Device (SCD) *Heparin 5000 units SQ BID 3-4 Higher Order ONE of the following medications: *Heparin 5000 units SQ TID *Enoxaparin/Lovenox 40 mg SQ daily (WT < 150 kg, CrCl > 30 mL/min) *Enoxaparin/Lovenox 30 mg SQ daily (WT < 150 kg, CrCl > 10-29 mL/min) *Enoxaparin/Lovenox 30 mg SQ BID (WT < 150 kg, CrCl > 30 mL/min) AND/OR *Sequential Compression Device (SCD) 5 or more Highest Order ONE of the following medications: *Heparin 5000 units SQ TID (Preferred with Epidurals) *Enoxaparin/Lovenox 40 mg SQ daily (WT < 150 kg, CrCl > 30 mL/min) *Enoxaparin/Lovenox 30 mg SQ daily (WT < 150 kg, CrCl > 10-29 mL/min) *Enoxaparin/Lovenox 30 mg SQ BID (WT < 150 kg, CrCl > 30 mL/min) AND *Sequential Compression Device (SCD) Assessment and Plan Assessment and Plan Subdural hematoma Intraparenchymal bleed Metastatic disease - Continue neuro checks per ICU protocol - Neurosurgery consulted and discussed with Dr. Smalls - continue Decadron 4 mg IV every 6 hourly - Continue Keppra to 1500 mg IV every 12 hourly, Dilantin 150 mg IV every 12 hourly, continue by mouth Vimpat. - Seizure precautions - Ativan when necessary for breakthrough seizures as needed - Further per neurosurgery Hypertension - Hydralazine 10 mg IV every 2 hourly when necessary for SBP greater than 150 mmHg Melanoma - Prostatic disease - Palliative care consultation DVT GI prophylaxis - Teds SCDs - No pharmacological DVT prophylaxis due to ICH - Pepcid Critical Care: The total critical care time was 35 minutes. Time to perform other separately billable procedures was not included in the critical care time. Tiago Saunders MD Aug 14, 2017 11:22 pm
[2017-08-15] VITALS (12 sets, daily range): BP systolic 158–204; BP diastolic 73–95; PULSE 61–104; RESP 14–18; TEMP 98.2–99; O2SAT 93–97
[2017-08-15] MEDS: SODIUM CHLOR 0.9% 1000 ML INJ 1,000 ML IV SCH ×3 (00:28→23:04)
[2017-08-15 00:55] LABS: AUTOMATED NEUTROPHIL # 8.1 TH/MM3 (1.8-7.7); BASOPHIL % 0.5 % (0.0-2.0); EOSINOPHIL # 0.1 TH/MM3 (0-0.4); HEMATOCRIT 42.8 % (39.0-51.0); HEMOGLOBIN 14.6 GM/DL (13.0-17.0); LYMPH % 14.1 % (9.0-44.0); LYMPHOCYTE # 1.5 TH/MM3 (1.0-4.8); MEAN CELL VOLUME 85.8 FL (80.0-100.0); MEAN CORPUSCULAR HEMOGLOBIN 29.3 PG (27.0-34.0); MEAN CORPUSCULAR HGB CONC 34.2 % (32.0-36.0); MEAN PLATELET VOLUME 6.9 FL (7.0-11.0); MONO % 9.1 % (0.0-8.0); NEUT % 75.3 % (16.0-70.0); PLATELET COUNT 286 TH/MM3 (150-450); RED BLOOD COUNT 4.99 MIL/MM3 (4.50-5.90); RED CELL DISTRIBUTION WIDTH 15.9 % (11.6-17.2); WHITE BLOOD COUNT 10.8 TH/MM3 (4.0-11.0)
[2017-08-15 01:17] LABS: ALBUMIN 3.5 GM/DL (3.4-5.0); ALT (GPT) 36 U/L (12-78); AST (GOT) 20 U/L (15-37); BICARBONATE 25.2 MEQ/L (21.0-32.0); BLOOD UREA NITROGEN 13 MG/DL (7-18); CALCIUM 8.7 MG/DL (8.5-10.1); CHLORIDE 107 MEQ/L (98-107); CREATININE 0.61 MG/DL (0.60-1.30); GLOMERULAR FILTRATION RATE 134 ML/MIN (>89); GLUCOSE,RANDOM 96 MG/DL (74-106); MAGNESIUM 2.4 MG/DL (1.5-2.5); PHOSPHORUS 3.6 MG/DL (2.5-4.9); SODIUM (NA) 140 MEQ/L (136-145)
[2017-08-15 01:20] LABS: ALKALINE PHOSPHATASE 98 U/L (45-117); TOTAL BILIRUBIN ADULT 0.3 MG/DL (0.2-1.0); TOTAL PROTEIN 6.5 GM/DL (6.4-8.2)
[2017-08-15 01:35] LABS: PROTHROMBIN TIME - PATIENT 10.3 SEC (9.8-11.6)
[2017-08-15] MEDS: HYDROmorphone HCL PF 2 MG/ML VIAL IV PRN ×2 (02:11→02:12)
[2017-08-15] MEDS: CHLORHEXIDINE GLUCONATE 2 % 1 PACK (2 CLOTHS) TOP SCH (04:00)
[2017-08-15] MEDS: hydrALAZINE HCL 25 MG TAB PO SCH ×3 (04:59→20:23)
[2017-08-15] MEDS: DEXAMETHASONE 4 MG TAB PO SCH ×2 (04:59→11:42)
[2017-08-15] MEDS: SODIUM CHLORIDE 0.9% FLUSH 10 ML FLUSH IV FLUSH SCH ×2 (09:00→21:19)
[2017-08-15] MEDS: PHENYTOIN SODIUM 100 MG CAP PO SCH ×2 (09:21→20:27)
[2017-08-15] MEDS: cloNIDine HCL 0.1 MG TAB PO PRN ×2 (09:21→21:19)
[2017-08-15] MEDS: levETIRAcetam 500 MG TAB PO SCH ×2 (09:21→20:27)
[2017-08-15] MEDS: DOCUSATE SODIUM 50 MG/SENNA 8.6 MG TAB PO SCH ×2 (09:21→20:27)
[2017-08-15] MEDS: FAMOTIDINE 20 MG/2 ML VIAL IV PUSH SCH ×2 (09:22→20:23)
--- NOTE | 2017-08-15 11:25 | HHI.CCPN ---
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 Patient was just evaluated at [facility] on 08/05/17 and received Ktruda. He developed worsening weakness involving the left lower extremity since then over the next 3 days and presented to the ER at [facility] on 08/[address] without contrast revealed intracerebral hemorrhage involving right frontal parietal region with right subdural hemorrhage and minimal midline shift. [facility] was contacted however did not have any beds hence patient was accepted for transfer at [facility] and patient was transferred to the ICU at [place]. He was treated non-surgically with decadron and was transferred to [facility]. Just after the transfer patient became more weak on the left side and the MRI brain was performed that showed postsurgical features of right high parietal craniotomy with enlarging hematoma in the operative bed now measuring approximately 5 cm in comparison to 3.4 cm on prior exam, and also interval development of small subdural collection measuring up to 8 mm in the anterior right frontal region. This results in increased [id number]-[id number] subfalcine shift. For this the patient has been transferred back to the ICU under critical care service admission. Objective Vital Signs Date Time Temp Pulse Resp B/P (MAP) Pulse Ox O2 Delivery O2 Flow Rate FiO2 08/15/17 10:00 71 08/15/17 08:00 98.5 14 194/92 (126) 96 08/15/17 07:00 Room Air 08/15/17 00:00 2.00 Intake and Output 08/15/17 08/15/17 08/16/17 08:00 16:00 00:00 Intake Total 60 ml Balance 60 ml Result Diagram: 08/15/17 0044 08/15/17 0044 Imaging 1. Redemonstration of postsurgical features of right high parietal craniotomy with enlarging hematoma in the operative bed now measuring approximately 5 cm in comparison to 3.4 cm on prior exam. There has also been interval development of small subdural collection measuring up to 8 mm in the anterior right frontal region. This results in increased xaxfw-pr-[id number] subfalcine shift of approximately 1.4 cm in comparison to 8 cm in prior exam. No evidence for downward herniation at this time. Objective Remarks GENERAL: Well-nourished, well-developed patient. SKIN: Warm and dry. HEAD: Normocephalic. EYES: No scleral icterus. No injection or drainage. NECK: Supple, trachea midline. Airway widely patent. CARDIOVASCULAR: Regular rate and rhythm without murmurs, gallops, or rubs. No JVD. RESPIRATORY: Breath sounds equal bilaterally. Clear, no adventitious sounds. GASTROINTESTINAL: Abdomen soft, non-tender, nondistended. MUSCULOSKELETAL: No cyanosis, or edema. Well perfused. NEURO EXAM: GCS: 15; Awake alert oriented 3, grade 0/5 power in left upper and lower extremity, grade 5/5 power right upper and lower extremity A/P Assessment and Plan Subdural hematoma Intraparenchymal bleed Metastatic disease - Continue neuro checks per ICU protocol - Neurosurgery consulted and discussed - continue Decadron 4 mg IV every 6 hourly - Continue Keppra to 1500 mg IV every 12 hourly, Dilantin 150 mg IV every 12 hourly, continue by mouth Vimpat. - Seizure precautions - Ativan when necessary for breakthrough seizures as needed - Further per neurosurgery Hypertension - Hydralazine 10 mg IV every 2 hourly when necessary for SBP greater than 150 mmHg Melanoma - Prostatic disease - Palliative care consultation DVT GI prophylaxis - Teds SCDs - No pharmacological DVT prophylaxis due to ICH - Pepcid Overall impression: Stable respiratory and hemodynamic function. Feliciano Guidry MD Aug 15, 2017 11:25
[2017-08-15] MEDS: LACOSAMIDE 50 MG TAB PO SCH ×2 (11:42→20:23)
[2017-08-15 12:39] LABS: BASOPHIL % 0.2 % (0.0-2.0); EOSINOPHIL % 0.4 % (0.0-4.0); HEMATOCRIT 43.1 % (39.0-51.0); HEMOGLOBIN 14.7 GM/DL (13.0-17.0); LYMPHOCYTE # 1.4 TH/MM3 (1.0-4.8); MEAN CELL VOLUME 85.6 FL (80.0-100.0); MEAN CORPUSCULAR HEMOGLOBIN 29.1 PG (27.0-34.0); MEAN PLATELET VOLUME 7.1 FL (7.0-11.0); MONO % 7.7 % (0.0-8.0); NEUT % 80.7 % (16.0-70.0); PLATELET COUNT 293 TH/MM3 (150-450); RED BLOOD COUNT 5.04 MIL/MM3 (4.50-5.90); RED CELL DISTRIBUTION WIDTH 15.7 % (11.6-17.2); WHITE BLOOD COUNT 12.4 TH/MM3 (4.0-11.0)
[2017-08-15 13:00] LABS: ALBUMIN 3.5 GM/DL (3.4-5.0); ALT (GPT) 32 U/L (12-78); AST (GOT) 24 U/L (15-37); BICARBONATE 24.2 MEQ/L (21.0-32.0); BLOOD UREA NITROGEN 12 MG/DL (7-18); CALCIUM 8.4 MG/DL (8.5-10.1); CHLORIDE 106 MEQ/L (98-107); CREATININE 0.53 MG/DL (0.60-1.30); GLOMERULAR FILTRATION RATE 157 ML/MIN (>89); GLUCOSE,RANDOM 90 MG/DL (74-106); MAGNESIUM 2.2 MG/DL (1.5-2.5); PHOSPHORUS 3.3 MG/DL (2.5-4.9); SODIUM (NA) 141 MEQ/L (136-145)
[2017-08-15 13:03] LABS: ALKALINE PHOSPHATASE 96 U/L (45-117); TOTAL BILIRUBIN ADULT 0.4 MG/DL (0.2-1.0); TOTAL PROTEIN 6.4 GM/DL (6.4-8.2)
--- NOTE | 2017-08-15 13:09 | HHI.NSPN ---
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 He underwent right craniotomy for motor cortex metastatic melanoma resection at [facility] in [place] in May 2016 with subsequent 5 rounds of radiation treatment to the brain which he completed in early July. Transferred from [facility] because of intracranial hemorrhage patient reports increasing weakness on the left side. Patient has some seizure activity last night involving the legs. Controlled with Ativan and anticonvulsants with neurology following. Patient has had seizures in the past. Initially patient and wanted to be transferred to [facility] but they did not accept the patient and related that the he could be treated locally. He was transferred to acute rehabilitation facility but complained of nausea and worsening headaches with initiation of therapy. Follow-up MRI scan of the brain was obtained which reveals postoperative changes with a moderate right subdural hemorrhage as well as cystic hemorrhagic component and posterior frontal parietal lobe at the resection site. There has been increase in the intracerebral and subdural hemorrhage with edema and midline shift despite being on Decadron 4 mg every 6 since the MRI scan from last week. He was readmitted to the intensive surgical care unit to [facility] and the librarian head and neurosurgical consultation requested. The patient and his relate that there would like to pursue further treatment locally. Review of Systems General: Negative for: fever, chills, insomnia Respiratory: Negative for: shortness of breath, cough, sputum Cardiovascular: Negative for: chest pain, palpitations, orthopnea Gastrointestinal: Positive for: nausea Genitourinary: Negative for: urinary burning, urinary frequency, urinary urgency Exam Results Vital Signs Date Time Temp Pulse Resp B/P (MAP) Pulse Ox O2 Delivery O2 Flow Rate FiO2 08/15/17 10:00 71 08/15/17 08:00 98.5 14 194/92 (126) 96 08/15/17 07:00 Room Air 08/15/17 00:00 2.00 Intake and Output 08/15/17 08/15/17 08/16/17 08:00 16:00 00:00 Intake Total 60 ml Balance 60 ml Physical Examination GENERAL: Well-nourished, well-developed patient laying in bed in no acute distress. SKIN: Warm and dry. HEAD: Normocephalic with well-healed right craniotomy incision. EYES: No scleral icterus. No injection or drainage. NECK: Supple, trachea midline. Airway widely patent. CARDIOVASCULAR: Regular rate and rhythm without murmurs, gallops, or rubs. No JVD. RESPIRATORY: Breath sounds equal bilaterally. GASTROINTESTINAL: Abdomen soft, non-tender, nondistended. No hepatosplenomegaly MUSCULOSKELETAL: No cyanosis, or edema. Well perfused. NEURO EXAM: GCS: 15; Awake alert oriented 3, speech is fluent, strength 0/5 in left upper and lower extremity, grade 5/5 strength in right upper and lower extremity. Lab, Micro, Other Results Laboratory Tests Test 08/15/17 00:44 08/15/17 11:44 White Blood Count 10.8 12.4 Red Blood Count 4.99 5.04 Hemoglobin 14.6 14.7 Hematocrit 42.8 43.1 Mean Corpuscular Volume 85.8 85.6 Mean Corpuscular Hemoglobin 29.3 29.1 Mean Corpuscular Hemoglobin Concent 34.2 34.0 Red Cell Distribution Width 15.9 15.7 Platelet Count 286 293 Mean Platelet Volume 6.9 7.1 Neutrophils (%) (Auto) 75.3 80.7 Lymphocytes (%) (Auto) 14.1 11.0 Monocytes (%) (Auto) 9.1 7.7 Eosinophils (%) (Auto) 1.0 0.4 Basophils (%) (Auto) 0.5 0.2 Neutrophils # (Auto) 8.1 10.0 Lymphocytes # (Auto) 1.5 1.4 Monocytes # (Auto) 1.0 1.0 Eosinophils # (Auto) 0.1 0.0 Basophils # (Auto) 0.0 0.0 CBC Comment DIFF FINAL DIFF FINAL Differential Comment Prothrombin Time 10.3 Prothromb Time International Ratio 1.0 Blood Urea Nitrogen 13 12 Creatinine 0.61 0.53 Random Glucose 96 90 Total Protein 6.5 6.4 Albumin 3.5 3.5 Calcium Level 8.7 8.4 Phosphorus Level 3.6 3.3 Magnesium Level 2.4 2.2 Alkaline Phosphatase 98 96 Aspartate Amino Transf (AST/SGOT) 20 24 Alanine Aminotransferase (ALT/SGPT) 36 32 Total Bilirubin 0.3 0.4 Sodium Level 140 141 Potassium Level 4.2 3.5 Chloride Level 107 106 Carbon Dioxide Level 25.2 24.2 Anion Gap 8 11 Estimat Glomerular Filtration Rate 134 157 Medical Decision Making Impression and Plan 62-year-old gentleman with a history of right motor cortex metastatic melanoma resection in May 2016 at [facility] in [place] with subsequent radiation treatment and chemotherapy. Unfortunately he has a left hemiplegia and recurrent seizures which is this point are controlled with antiepileptic medications. Postoperative imaging studies reveals a right small subdural hemorrhage with hematoma in the evacuation bed and possible residual/recurrent disease along with edema and mass effect/midline shift. These areas of intraparenchymal and associated edema along with subdural hemorrhage have progressed since the MRI scan last week despite steroid use. also relates that he doesn't usually complain of headaches and is now complaining of worsening headaches. Accordingly we will increase his Decadron to 6 mg every 6 hours and continue with antiepileptic medications along with resuming rehabilitation as tolerated. Follow-up CT scan the head tomorrow morning. We discussed the option of redo right craniotomy for subdural hemorrhage and intraparenchymal hemorrhage evacuation if the follow-up imaging studies do not show any improvement and they are in agreement. Paco Bland MD Aug 15, 2017 13:09
[2017-08-15] MEDS: DEXMEDETOMIDINE INJ 200 MCG in SODIUM CHLORIDE 0.9% INJ 50 ML IV PRN (14:14)
[2017-08-15] MEDS ORDERED: traMADol HCL 50 MG TAB PO PRN (14:15)
[2017-08-15] MEDS: DEXAMETHASONE 6 MG TAB PO SCH ×2 (17:32→23:24)
[2017-08-15] MEDS: traMADol HCL 50 MG TAB PO PRN (17:32)
[2017-08-15] MEDS: LABETALOL HCL 100 MG/20 ML VIAL IV PRN (20:47)
[2017-08-15] MEDS: niCARdipine 25 MG/NS 250 ML Vial2Bag or IV room IV PRN ×2 (23:26)
[2017-08-16] VITALS (20 sets, daily range): BP systolic 112–156; BP diastolic 64–82; PULSE 85–120; RESP 14–29; TEMP 97.4–97.8; O2SAT 95–100
[2017-08-16] MEDS ORDERED: MIDAZOLAM HCL 5 MG/ML VIAL (1 ML) ONE (00:56)
[2017-08-16] MEDS: PROPOFOL 1000 MG/100 ML IV PRN ×4 (01:10→12:32)
[2017-08-16] MEDS ORDERED: PROPOFOL 1000 MG/100 ML INJ 100 ML ONE (01:10)
--- NOTE | 2017-08-16 02:17 | RADRPT ---
EXAM DATE/TIME: 08/16/2017 00:45 [place] COMPARISON: MRI BRAIN W/O CONTRAST, August 14, 2017, 17:42. INDICATIONS : Follow up subdural hematoma. Neuro status change. RADIATION DOSE: 69.15 CTDIvol (mGy) MEDICAL HISTORY : Metastatic, brain. Metastatic, liver. Metastatic, colon. Melanoma SURGICAL HISTORY : Colon resection. Craniotomy.Discectomy, lumbar. ENCOUNTER: Subsequent ACUITY: 1 day PAIN SCALE: 0/10 LOCATION: cranial TECHNIQUE: Multiple contiguous axial images were obtained of the head. Using automated exposure control and adj ustment of the mA and/or kV according to patient size, radiation dose was kept as low as reasonably a chievable to obtain optimal diagnostic quality images. DICOM format image data is available electro nically for review and comparison. FINDINGS: Right posterior parietal craniotomy changes are noted. Multiloculated intraparenchymal hemorrhage see n in the right parietal lobe measuring approximately 4.5 x 6.1 cm in greatest transaxial dimension. A t least some of the blood appears acute or subacute in age. There is a surrounding area of cerebral e polo measuring 7.2 x 9.9 cm across and contributing to 16 mm of leftward midline shift and is similar to my measurement on the comparison MRI. An acute or subacute appearing right frontal subdural hematoma is present measuring approximatel y 7 mm in maximal thickness. No left-sided bleed or mass lesion. No evidence of an acute ischemic event. CONCLUSION: 1. Large parenchymal hemorrhage and surrounding cerebral edema the right parietal lobe with 16 mm of midline shift again noted and not significantly changed from the MRI. 2. Right frontal acute/subacute subdural hematoma measures approximate 7 mm in maximal thickness, als o not significantly changed. Omar Noland MD on August 16, 2017 at 1:00 Board Certified Radiologist. This report was verified electronically.
[2017-08-16] MEDS: CHLORHEXIDINE GLUCONATE 2 % 1 PACK (2 CLOTHS) TOP SCH (04:00)
[2017-08-16] MEDS ORDERED: MIDAZOLAM HCL 2 MG/2 ML VIAL IV ONE (05:15)
[2017-08-16] MEDS ORDERED: SUCCINYLCHOLINE CHLORIDE 200 MG/10 ML VIAL IV PUSH ONE (05:15)
[2017-08-16] MEDS ORDERED: SUCCINYLCHOLINE CHLORIDE 100 MG/5 ML SYRINGE IV PUSH ONE (05:15)
[2017-08-16] MEDS: hydrALAZINE HCL 25 MG TAB PO SCH ×4 (05:33→21:59)
[2017-08-16] MEDS: DEXAMETHASONE 6 MG TAB PO SCH ×3 (05:33→18:21)
[2017-08-16] MEDS: traMADol HCL 50 MG TAB PO PRN (05:33)
[2017-08-16] MEDS: levETIRAcetam 500 MG TAB PO SCH ×3 (08:28→20:50)
[2017-08-16] MEDS: FAMOTIDINE 20 MG/2 ML VIAL IV PUSH SCH ×3 (08:28→20:50)
[2017-08-16] MEDS: SODIUM CHLORIDE 0.9% FLUSH 10 ML FLUSH IV FLUSH SCH ×2 (08:29→20:51)
[2017-08-16] MEDS: DOCUSATE SODIUM 50 MG/SENNA 8.6 MG TAB PO SCH ×3 (08:29→20:50)
[2017-08-16] MEDS: PHENYTOIN SODIUM 100 MG CAP PO SCH ×3 (08:29→20:50)
[2017-08-16] MEDS: LACOSAMIDE 50 MG TAB PO SCH ×3 (08:29→20:50)
[2017-08-16] MEDS ORDERED: MANNITOL INJ 50 ML ONE (08:39)
[2017-08-16] MEDS ORDERED: MANNITOL 12.5 GM/50 ML VIAL IV ONE (08:45)
[2017-08-16] MEDS ORDERED: THROMBIN (TOPICAL) 5,000 UNIT VIAL ONE (08:55)
[2017-08-16] MEDS ORDERED: BUPIVACAINE/EPINEPHRINE 0.5% PF 30 ML VIAL ONE (08:56)
[2017-08-16] MEDS ORDERED: GELFOAM SIZE 100 ONE (08:56)
[2017-08-16] MEDS ORDERED: GENTAMICIN SULFATE 80 MG/2 ML VIAL ONE (08:56)
[2017-08-16] MEDS ORDERED: VANCOMYCIN HCL 1000 MG VIAL ONE (08:58)
[2017-08-16] MEDS ORDERED: SODIUM CHLOR 0.9% 250 ML INJ 250 ML ONE (08:59)
--- NOTE | 2017-08-16 09:34 | HHI.NSPN ---
History Chief Complaint: Intubated and sedated. 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 He underwent right craniotomy for motor cortex metastatic melanoma resection at [facility] in [place] in May 2016 with subsequent 5 rounds of radiation treatment to the brain which he completed in early July. Transferred from [facility] because of intracranial hemorrhage patient reports increasing weakness on the left side. Patient has some seizure activity last night involving the legs. Controlled with Ativan and anticonvulsants with neurology following. Patient has had seizures in the past. Initially patient and wanted to be transferred to [facility] but they did not accept the patient and related that the he could be treated locally. He was transferred to acute rehabilitation facility but complained of nausea and worsening headaches with initiation of therapy. Follow-up MRI scan of the brain was obtained which reveals postoperative changes with a moderate right subdural hemorrhage as well as cystic hemorrhagic component and posterior frontal parietal lobe at the resection site. There has been increase in the intracerebral and subdural hemorrhage with edema and midline shift despite being on Decadron 4 mg every 6 since the MRI scan from last week. He was readmitted to the intensive surgical care unit to [facility] and the data governance analyst and neurosurgical consultation requested. The patient and his relate that there would like to pursue further treatment locally. 08/16/17: Pt sedated and intubated. Pt now with acute pupil changes. Discussed with RN no new medication started that would cause pupillary changes and pupils had been 3 or 4 mm overnight. With pain in upper chest pt flexes right side and extending left side. Neurosurgeon called. Pt given Mannitol 50grams and instructed to get pt ready to go to OR for emergent right crani for hematoma evacuation. Called pts and updated her and she gave me consent over the phone that was witnessed by Anika Godwin RN. Exam Results Vital Signs Date Time Temp Pulse Resp B/P (MAP) Pulse Ox O2 Delivery O2 Flow Rate FiO2 08/16/17 07:31 96 30 08/16/17 06:00 116 08/16/17 06:00 170/87 08/16/17 04:00 97.8 14 08/15/17 19:00 Room Air 08/15/17 00:00 2.00 Intake and Output 08/16/17 08/16/17 08/17/17 08:00 16:00 00:00 Intake Total 135 ml Output Total 525 ml Balance -390 ml Physical Examination GENERAL: Pt is sedated and intubated. HEAD: Normocephalic with well-healed right craniotomy incision. EYES: Initially right pupil 6 left 7mm NR bilaterally. Rechecked after call and right 6mm left 3. CARDIOVASCULAR: Regular rate and rhythm without murmurs, gallops, or rubs. No JVD. RESPIRATORY: Breath sounds equal bilaterally. GASTROINTESTINAL: Abdomen soft, non-tender, nondistended. No hepatosplenomegaly MUSCULOSKELETAL: No cyanosis, or edema. Well perfused. NEURO: Pt sedated and intubated. Not opening eyes. Right pupil 6mm NR left 4mm NR. Pt flexes on right and extends on left. Not following commands. Lab, Micro, Other Results Last Impressions Head CT 08/16/17 0600 Signed Impressions: Service Date/Time: Wednesday, August 16, 2017 00:45 - CONCLUSION: 1. Large parenchymal hemorrhage and surrounding cerebral edema the right parietal lobe with 16 mm of midline shift again noted and not significantly changed from the MRI. 2. Right frontal acute/subacute subdural hematoma measures approximate 7 mm in maximal thickness, also not significantly changed. Omar Noland MD Laboratory Tests Test 08/15/17 11:44 08/16/17 05:53 White Blood Count 12.4 TH/MM3 Red Blood Count 5.04 MIL/MM3 Hemoglobin 14.7 GM/DL Hematocrit 43.1 % Mean Corpuscular Volume 85.6 FL Mean Corpuscular Hemoglobin 29.1 PG Mean Corpuscular Hemoglobin Concent 34.0 % Red Cell Distribution Width 15.7 % Platelet Count 293 TH/MM3 Mean Platelet Volume 7.1 FL Neutrophils (%) (Auto) 80.7 % Lymphocytes (%) (Auto) 11.0 % Monocytes (%) (Auto) 7.7 % Eosinophils (%) (Auto) 0.4 % Basophils (%) (Auto) 0.2 % Neutrophils # (Auto) 10.0 TH/MM3 Lymphocytes # (Auto) 1.4 TH/MM3 Monocytes # (Auto) 1.0 TH/MM3 Eosinophils # (Auto) 0.0 TH/MM3 Basophils # (Auto) 0.0 TH/MM3 CBC Comment DIFF FINAL Differential Comment Blood Urea Nitrogen 12 MG/DL Creatinine 0.53 MG/DL Random Glucose 90 MG/DL Total Protein 6.4 GM/DL Albumin 3.5 GM/DL Calcium Level 8.4 MG/DL Phosphorus Level 3.3 MG/DL Magnesium Level 2.2 MG/DL Alkaline Phosphatase 96 U/L Aspartate Amino Transf (AST/SGOT) 24 U/L Alanine Aminotransferase (ALT/SGPT) 32 U/L Total Bilirubin 0.4 MG/DL Sodium Level 141 MEQ/L Potassium Level 3.5 MEQ/L Chloride Level 106 MEQ/L Carbon Dioxide Level 24.2 MEQ/L Anion Gap 11 MEQ/L Estimat Glomerular Filtration Rate 157 ML/MIN Blood Gas Puncture Site RT RADIAL Blood Gas Patient Temperature 98.6 Blood Gas HCO3 25 mmol/L Blood Gas Base Excess 1.4 mmol/L Blood Gas Oxygen Saturation 98 % Arterial Blood pH 7.47 Arterial Blood Partial Pressure CO2 34 mmHg Arterial Blood Partial Pressure O2 223 mmHg Arterial Blood Oxygen Content 20.1 Vol % Arterial Blood Carboxyhemoglobin 1.1 % Arterial Blood Methemoglobin 0.8 % Blood Gas Hemoglobin 14.2 G/DL Oxygen Delivery Device VENTILATOR Blood Gas Ventilator Setting PRVC/AC Blood Gas Inspired Oxygen 50 % Medical Decision Making Impression and Plan A: 62-year-old gentleman with a history of right motor cortex metastatic melanoma resection in May 2016 at [facility] in [place] with subsequent radiation treatment and chemotherapy. Unfortunately he has a left hemiplegia and recurrent seizures which is this point are controlled with antiepileptic medications. Postoperative imaging studies reveals a right small subdural hemorrhage with hematoma in the evacuation bed and possible residual/ recurrent disease along with edema and mass effect/midline shift. These areas of intraparenchymal and associated edema along with subdural hemorrhage have progressed since the MRI scan last week despite steroid use. also relates that he doesn't usually complain of headaches and is now complaining of worsening headaches. Accordingly we will increase his Decadron to 6 mg every 6 hours and continue with antiepileptic medications along with resuming rehabilitation as tolerated. Follow-up CT scan the head tomorrow morning. We discussed the option of redo right craniotomy for subdural hemorrhage and intraparenchymal hemorrhage evacuation if the follow-up imaging studies do not show any improvement and they are in agreement. CT head was stable this morning but pt clinically had signs of impending herniation with pupillary changes and decorticate posturing on the right and decerebrate posturing on the left. P: Pt emergently being taken to the OR. He was given Mannitol 50grams IV stat. Pts was called and updated on his acute changes. She gave phone consent for the right craniotomy for hematoma evacuation which was witnessed by Anika Godwin RN. I informed her that this was potentially a life saving procedure given his changes and there are no guarantees. Risks of surgery include but not limited to bleeding, infection, seizures, increased brain edema , among others but he is actively herniating and without surgery he will likely not survive. Even despite surgery there is a possibly he may not survive and she understands this and gives informed consent. Fran Mcclelland Aug 16, 2017 9:33 am
[2017-08-16] MEDS ORDERED: PHENYTOIN INJ 100 MG/2 ML VIAL ONE (09:38)
[2017-08-16] MEDS ORDERED: levETIRAcetam 500 MG/5 ML VIAL IV ONE (09:45)
[2017-08-16] MEDS ORDERED: PHENYTOIN INJ 250 MG/5 ML VIAL IV ONE (09:45)
[2017-08-16] MEDS ORDERED: PHENYTOIN INJ 1,000 MG in SODIUM CHLORIDE 0.9% INJ 100 ML IV ONE (10:00)
[2017-08-16] MEDS ORDERED: levETIRAcetam INJ 1,500 MG in SODIUM CHLORIDE 0.9% INJ 100 ML IV ONE (10:00)
[2017-08-16 10:13] LABS: AUTOMATED NEUTROPHIL # 16.3 TH/MM3 (1.8-7.7); BASOPHIL % 0.2 % (0.0-2.0); EOSINOPHIL % 0.1 % (0.0-4.0); HEMATOCRIT 40.9 % (39.0-51.0); HEMOGLOBIN 14.2 GM/DL (13.0-17.0); LYMPH % 5.7 % (9.0-44.0); LYMPHOCYTE # 1.1 TH/MM3 (1.0-4.8); MEAN CELL VOLUME 84.7 FL (80.0-100.0); MEAN CORPUSCULAR HEMOGLOBIN 29.5 PG (27.0-34.0); MEAN CORPUSCULAR HGB CONC 34.8 % (32.0-36.0); MEAN PLATELET VOLUME 7.3 FL (7.0-11.0); MONO % 8.1 % (0.0-8.0); MONOCYTE # 1.6 TH/MM3 (0-0.9); NEUT % 85.9 % (16.0-70.0); PLATELET COUNT 303 TH/MM3 (150-450); RED BLOOD COUNT 4.83 MIL/MM3 (4.50-5.90); RED CELL DISTRIBUTION WIDTH 15.9 % (11.6-17.2)
[2017-08-16] MEDS ORDERED: VECURONIUM BROMIDE 20 MG VIAL ONE (10:23)
[2017-08-16 10:29] LABS: PROTHROMBIN TIME - PATIENT 10.6 SEC (9.8-11.6)
[2017-08-16 10:48] LABS: BICARBONATE 26.8 MEQ/L (21.0-32.0); CREATININE 0.45 MG/DL (0.60-1.30); PHENYTOIN (DILANTIN) 4.6 MCG/ML (10.0-20.0)
[2017-08-16] MEDS ORDERED: POTASSIUM CHLOR 20 MEQ PREMIX 200 ML ONE (10:53)
--- NOTE | 2017-08-16 10:58 | HHI.CCPN ---
Subjective Remarks/Hospital Course 62-year-old male with a history of malignant melanoma metastasized to the brain status post right parietal craniectomy on June 09, 2017 at [facility] followed by 5 radiation treatments being followed by oncologist at [facility]. Patient was just evaluated at [facility] on 08/05/17 and received Ktruda. He developed worsening weakness involving the left lower extremity since then over the next 3 days and presented to the ER at [facility] on 08/[address] without contrast revealed intracerebral hemorrhage involving right frontal parietal region with right subdural hemorrhage and minimal midline shift. [facility] was contacted however did not have any beds hence patient was accepted for transfer at [facility] and patient was transferred to the ICU at [place]. He was treated non-surgically with decadron and was transferred to [facility]. Just after the transfer patient became more weak on the left side and the MRI brain was performed that showed postsurgical features of right high parietal craniotomy with enlarging hematoma in the operative bed now measuring approximately 5 cm in comparison to 3.4 cm on prior exam, and also interval development of small subdural collection measuring up to 8 mm in the anterior right frontal region. This results in increased [id number] subfalcine shift. For this the patient has been transferred back to the ICU under critical care service admission. 08/16: Clinical deterioration overnight requiring intubation and mechanical ventilation. Left pupil has dilated and right remains enlarged. He has known intraparenchymal hematoma/seroma which has expanded. He received mannitol bolus and was taken straight to the OR for decompression/evacuation hematoma. Objective Vital Signs Date Time Temp Pulse Resp B/P (MAP) Pulse Ox O2 Delivery O2 Flow Rate FiO2 08/16/17 07:31 96 30 08/16/17 07:15 Mechanical Ventilator 08/16/17 06:00 116 08/16/17 06:00 170/87 08/16/17 04:00 97.8 14 08/15/17 00:00 2.00 Intake and Output 08/16/17 08/16/17 08/17/17 08:00 16:00 00:00 Intake Total 135 ml Output Total 525 ml Balance -390 ml Result Diagram: 08/16/17 0932 08/15/17 1144 Other Results Laboratory Tests Test 08/16/17 05:53 08/16/17 09:47 Blood Gas Puncture Site RT RADIAL DRAWN IN OR Blood Gas Patient Temperature 98.6 98.6 Blood Gas HCO3 25 mmol/L (22-26) 24 mmol/L (22-26) Blood Gas Base Excess 1.4 mmol/L (-2-2) 0.0 mmol/L (-2-2) Blood Gas Oxygen Saturation 98 % (90-100) 97 % (90-100) Arterial Blood pH 7.47 (7.380-7.420) 7.38 (7.380-7.420) Arterial Blood Partial Pressure CO2 34 mmHg (38-42) 42 mmHg (38-42) Arterial Blood Partial Pressure O2 223 mmHg (61-120) 178 mmHg (61-120) Arterial Blood Oxygen Content 20.1 Vol % (12.0-20.0) 19.2 Vol % (12.0-20.0) Arterial Blood Carboxyhemoglobin 1.1 % (0-4) 1.1 % (0-4) Arterial Blood Methemoglobin 0.8 % (0-2) 1.4 % (0-2) Blood Gas Hemoglobin 14.2 G/DL (12.0-16.0) 13.9 G/DL (12.0-16.0) Oxygen Delivery Device VENTILATOR OR Blood Gas Ventilator Setting PRVC/AC Blood Gas Inspired Oxygen 50 % Imaging 1. Redemonstration of postsurgical features of right high parietal craniotomy with enlarging hematoma in the operative bed now measuring approximately 5 cm in comparison to 3.4 cm on prior exam. There has also been interval development of small subdural collection measuring up to 8 mm in the anterior right frontal region. This results in increased [id number]-tf-[id number] subfalcine shift of approximately 1.4 cm in comparison to 8 cm in prior exam. No evidence for downward herniation at this time. Objective Remarks GENERAL: Well-nourished, well-developed patient. SKIN: Warm and dry. HEAD: Normocephalic. EYES: No scleral icterus. No injection or drainage. NECK: Supple, trachea midline. Orally intubated. CARDIOVASCULAR: Regular rate and rhythm without murmurs, gallops, or rubs. No JVD. RESPIRATORY: Breath sounds equal bilaterally. Clear, no adventitious sounds. GASTROINTESTINAL: Abdomen soft, non-tender, nondistended. No guarding. MUSCULOSKELETAL: No cyanosis, or edema. Well perfused. NEURO EXAM: Unresponsive. Pupils dilated, right about 6, left about 7. Overall impression:Decreased LOC requiring intubation and mechanical ventilation caused by expansion of brain parenchymal hematoma and vasogenic edema. He is critically ill and undergoing emergency craniotomy shortly. Critical care 37 mins A/P Assessment and Plan Subdural hematoma Intraparenchymal bleed Metastatic disease - Continue neuro checks per ICU protocol - Neurosurgery consulted and discussed - continue Decadron 4 mg IV every 6 hourly - Continue Keppra to 1500 mg IV every 12 hourly, Dilantin 150 mg IV every 12 hourly, continue by mouth Vimpat. - Seizure precautions - Ativan when necessary for breakthrough seizures as needed - Further per neurosurgery Hypertension - Hydralazine 10 mg IV every 2 hourly when necessary for SBP greater than 150 mmHg Melanoma - Prostatic disease - Palliative care consultation DVT GI prophylaxis - Teds SCDs - No pharmacological DVT prophylaxis due to ICH - Pepcid Overall impression: Stable respiratory and hemodynamic function. Feliciano Guidry MD Aug 16, 2017 10:58
--- NOTE | 2017-08-16 11:26 | PD.OP ---
Operative Report Date of Surgery: Aug 16, 2017 Preoperative Diagnosis: Right frontoparietal lobe hemorrhage with right frontal small subdural hemorrhage; history of metastatic melanoma resection with associated edema Postoperative Diagnosis: Same Procedure: Right frontotemporal parietal craniotomy for cerebral and subdural hemorrhage evacuation; right decompressive hemicraniectomy with expansive patch graft duraplasty; right frontal ventriculostomy placement; microsurgical technique Anesthesia: Gen. endotracheal by Sona saravia Surgeon: Paco Bland M.D. Loan Administrator(s): Tushar Weldon Operation and Findings: Following initiation of a general endotracheal anesthesia the patient had invasive lines and Phipps catheter in place along with the sequential compression device. A gram of vancomycin, Keppra 1500 mg and Dilantin 1000 mg was administered intravenously and he was positioned supine and head secured on a horseshoe headrest and turned 45 to the left side. The right frontal temporal and parietal areas shaved and prepped with ChloraPrep and sterilely draped in the usual sterile fashion. Previous right parietal incision was evident with a 2 cm area of eschar and wound dehiscence was debrided. A curvilinear reverse question kriss incision site was then made after infiltrating the scalp was 0.5% Marcaine with epinephrine solution a skin incision made extending onto the galea. Emmanuel clips were used at the scalp edges for hemostasis and the flap retracted with fishhooks. With an automated automotive technician kj hole was made and with the craniotome the bone flap elevated along with removal of the previous right parietal bur hole covers and miniplates along with bone flap. The dura was opened in a cruciate format and significant brain swelling was noted. The right posterior frontal parietal lobe corticectomy was evident with Gelfoam and partially clotted and partially liquefied intraparenchymal blood was also evident which was evacuated and hemostasis she with bipolar cautery and Gelfoam and thrombin. A frontal subdural hemorrhage was also noted and evacuated. No active bleeding was noted. There is moderate persistent brain swelling noted in the bone flap was left out in a sterile container in the freezer and temporal decompressive craniectomy also undertaken. A ventriculostomy catheter was then passed into the right frontal horn and a depth of 7 cm clear CSF was encountered. The distal end was tunneled under the scalp and secured the exit site with a 2-0 nylon stitch. A 7 mm drain under the galea was also placed which was exited through a separate site and secured to the scalp. The durotomy was then covered with a large piece of DuraGen to allow for the brain swelling. The temporalis muscle and fascia along with the galea was then approximated using 2- 0 Vicryl Sutures and final scalp closure was with juanita. A sterile non- pressure dressing was then applied and the patient taken back to the intensive care unit. There were no intraoperative complications and all sponge and needle count was correct at the end of the procedure. Estimated blood loss about 200 cc. Paco Bland MD Aug 16, 2017 11:26
[2017-08-16] MEDS ORDERED: SODIUM CHLORID 0.9% 500 ML INJ 500 ML IV ONE (12:00)
[2017-08-16] MEDS ORDERED: PROPOFOL 200 MG/20 ML AMP IV ONE (12:00)
[2017-08-16] MEDS ORDERED: VECURONIUM BROMIDE 20 MG VIAL IV ONE (12:00)
[2017-08-16] MEDS ORDERED: PHENYLEPH/NS 1000 MCG/10 ML SYR IV ONE (12:00)
[2017-08-16] MEDS ORDERED: DEXAMETHASONE SOD PHOS 4 MG/ML VIAL IV ONE (12:00)
[2017-08-16] MEDS ORDERED: KETOROLAC TROMETHAMINE 30 MG/ML (IVP) VIAL IV PUSH ONE (12:00)
[2017-08-16] MEDS ORDERED: ROCURONIUM INJ 50 MG/5 ML SYRINGE IV PUSH ONE (12:00)
[2017-08-16] MEDS ORDERED: PHENYLEPHRINE HCL 10 MG/ML VIAL IV ONE (12:00)
[2017-08-16] MEDS ORDERED: ePHEDrine/NS 25 MG/5 ML SYRINGE IV ONE (12:00)
[2017-08-16] MEDS ORDERED: SODIUM CHLOR 0.9% 250 ML INJ 750 ML IV ONE (12:00)
[2017-08-16] MEDS: SODIUM CHLOR 0.9% 1000 ML INJ 1,000 ML IV SCH ×4 (13:00→23:46)
--- NOTE | 2017-08-16 13:47 | MB ---
cc: GINGER BOGGS M.D. DATE OF CONSULTATION: 08/16/2017. REASON FOR CONSULTATION: He is a 62-year-old seen in neurological consultation in regards to a seizure. HISTORY OF PRESENT ILLNESS: The patient was admitted on the . The history and physical describes all the history. I was unable to get any information as the patient is sedated "paralyzed". Neurology consult was called apparently because of a seizure yesterday and the patient had a follow up CT brain that showed increasing mass effect from hemorrhage. This is a hemorrhagic event causing a right subdural and also right intracranial parenchymal hemorrhage. 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 He has a history of parietal craniectomy in June 09, 2017 at [facility] followed by five radiation treatments. On 08/05/2017, he received Keytruda. He developed weakness of the left lower extremity. CT brain on 08/07 at [facility] showed intracerebral hemorrhage with subdural hematoma. He was transferred here to [place] and treated with decompression and clot evacuation and [facility] where he developed worsening of weakness yesterday. I saw him just a short period of time ago. He was just back from the OR where a decompression was again carried out. MEDICATIONS: He is on Keppra, dilantin and Vimpat. EXAMINATION: The exam is very limited as he is sedated and paralyzed. Exam is very limited, sedated and paralyzed. He is on Keppra, dilantin and Vimpat. The right pupil is still slightly larger than the left and both are poorly reactive at this point. Essentially flaccid throughout. Reflexes were trace at the knees, absent at the ankles, plantar responses none. ASSESSMENT: Large parenchymal hemorrhage with edema in the right parietal lobe and midline shift along with right frontal acute / subacute subdural hematoma. Seizure yesterday. He went back to the OR today and just came back to the unit where he was seen. RECOMMENDATIONS: 1. Continue the anticonvulsants. 2. We will follow the neurological course. 3. When more stable, obtain EEG. Thank you for asking us to assist in his care. Ginger Boggs MD [facility] /1:20 PM /1:37 PM
--- NOTE | 2017-08-16 14:34 | OTSOAPIP ---
TIME SESSION COMPLETED: TREATMENT TIME: 0 MINS. CHART REVIEWED. PATIENT WAS NOT AVAILABLE DUE TO BEING INVOLVED IN SURGICAL PROCEDURE FOR RIGHT FRONTOPARIETAL LOBE HEMORRHAGE WITH RIGHT FRONTAL SMALL SUBDURAL HEMORRHAGE. PLAN WILL SEE PATIENT NEXT TREATMENT DAY Therapist: RUPERT FRAGOSO/Cynthia Signature on file
[2017-08-16] MEDS: fentaNYL DRIP 250 ML IV PRN (14:51)
[2017-08-16] MEDS: 3% SALINE INJ 500 ML IV SCH (16:47)
[2017-08-16] MEDS: CHLORHEXIDINE 0.12% (ORAL KIT) 15 ML CUP MT SCH (20:51)
[2017-08-17] VITALS (17 sets, daily range): BP systolic 120–157; BP diastolic 53–61; PULSE 69–97; RESP 12–14; TEMP 97.2–99.3; O2SAT 94–100
[2017-08-17] MEDS: DEXAMETHASONE 6 MG TAB PO SCH ×4 (00:22→17:18)
[2017-08-17] MEDS: PROPOFOL 1000 MG/100 ML IV PRN ×4 (00:24→21:44)
[2017-08-17] MEDS ORDERED: NOREPINEPHRINE 4 MG/4 ML AMP ONE (00:42)
[2017-08-17] MEDS ORDERED: POTASSIUM PHOSPHATE MONOBASIC 500 MG TAB PO PRN (02:15)
[2017-08-17] MEDS ORDERED: POTASSIUM CHLOR 20 MEQ PREMIX 100 ML IV PRN ×2 (02:15)
[2017-08-17] MEDS ORDERED: POTASSIUM PHOSPHATE MONOBASIC 500 MG TAB PO/TUBE PRN (02:15)
[2017-08-17] MEDS ORDERED: POTASSIUM PHOSPHATE INJ 30 MMOL in SODIUM CHLOR 0.9% 250 ML INJ 250 ML IV PRN (02:15)
[2017-08-17] MEDS ORDERED: MAGNESIUM SULFATE INJ 2 GM in SODIUM CHLORIDE 0.9% INJ 96 ML IV PRN (02:15)
[2017-08-17] MEDS ORDERED: SODIUM PHOSPHATE INJ 30 MMOL in SODIUM CHLOR 0.9% 250 ML INJ 240 ML IV PRN (02:15)
[2017-08-17] MEDS ORDERED: POTASSIUM CHLORIDE 25 MEQ EFFERVESCENT TAB PO PRN (02:15)
[2017-08-17] MEDS: SODIUM CHLOR 0.9% 1000 ML INJ 1,000 ML IV ONE ×4 (02:15→03:03)
[2017-08-17] MEDS ORDERED: MAGNESIUM OXIDE 400 MG TAB PO PRN (02:15)
[2017-08-17] MEDS ORDERED: MAGNESIUM SULFATE INJ 4 GM in SODIUM CHLORIDE 0.9% INJ 92 ML IV PRN (02:15)
[2017-08-17] MEDS: CHLORHEXIDINE GLUCONATE 2 % 1 PACK (2 CLOTHS) TOP SCH (03:04)
[2017-08-17] MEDS ORDERED: SODIUM CHLORIDE 23.4% INJ 240 MEQ in SYRINGE/BAG 1 EA IV ONE (05:30)
[2017-08-17] MEDS: hydrALAZINE HCL 25 MG TAB PO SCH ×3 (05:42→22:00)
[2017-08-17] MEDS ORDERED: PHENYLEPHRINE INJ 40 MG in SODIUM CHLORID 0.9% 500 ML INJ 496 ML IV PRN (05:45)
[2017-08-17] MEDS ORDERED: TERBUTALINE INJ 1 MG/ML AMP SQ PRN ×2 (05:45→07:30)
[2017-08-17 05:53] LABS: PHOSPHORUS 2.4 MG/DL (2.5-4.9)
[2017-08-17] MEDS: NOREPINEPHRINE INJ 4 MG in SODIUM CHLOR 0.9% 250 ML INJ 246 ML IV PRN (07:00)
--- NOTE | 2017-08-17 07:25 | HHI.CCPN ---
Subjective Remarks/Hospital Course 62-year-old male with a history of malignant melanoma metastasized to the brain status post right parietal craniectomy on June 09, 2017 at [facility] followed by 5 radiation treatments being followed by oncologist at [facility]. Patient was just evaluated at [facility] on 08/05/17 and received Ktruda. He developed worsening weakness involving the left lower extremity since then over the next 3 days and presented to the ER at [facility] on 08/[address] without contrast revealed intracerebral hemorrhage involving right frontal parietal region with right subdural hemorrhage and minimal midline shift. [facility] was contacted however did not have any beds hence patient was accepted for transfer at [facility] and patient was transferred to the ICU at [place]. He was treated non-surgically with decadron and was transferred to [facility]. Just after the transfer patient became more weak on the left side and the MRI brain was performed that showed postsurgical features of right high parietal craniotomy with enlarging hematoma in the operative bed now measuring approximately 5 cm in comparison to 3.4 cm on prior exam, and also interval development of small subdural collection measuring up to 8 mm in the anterior right frontal region. This results in increased huhyc-fl-dmdm subfalcine shift. For this the patient has been transferred back to the ICU under critical care service admission. 08/16: Clinical deterioration overnight requiring intubation and mechanical ventilation. Left pupil has dilated and right remains enlarged. He has known intraparenchymal hematoma/seroma which has expanded. He received mannitol bolus and was taken straight to the OR for decompression/evacuation hematoma. 08/17: Back from OR last night, seen on arrival. ICP well controlled. Due to neurological instability he will be kept sedated and ventilated for 48 hours while efforts continue to control edema and ICP. Objective Vital Signs Date Time Temp Pulse Resp B/P (MAP) Pulse Ox O2 Delivery O2 Flow Rate FiO2 08/17/17 06:00 85 08/17/17 04:00 30 08/17/17 04:00 97 08/17/17 04:00 97.2 14 129/60 (83) 08/16/17 19:00 Mechanical Ventilator 08/15/17 00:00 2.00 Intake and Output 08/17/17 08/17/17 08/18/17 08:00 16:00 00:00 Intake Total 2000 ml Output Total 479 ml Balance 1521 ml Result Diagram: 08/16/17 0932 08/17/17 0518 Other Results Laboratory Tests Test 08/16/17 09:47 08/17/17 04:00 08/17/17 06:55 Blood Gas Puncture Site DRAWN IN OR RT RADIAL ART LINE Blood Gas Patient Temperature 98.6 98.6 98.6 Blood Gas HCO3 24 mmol/L (22-26) 17 mmol/L (22-26) 17 mmol/L (22-26) Blood Gas Base Excess 0.0 mmol/L (-2-2) -6.6 mmol/L (-2-2) -6.9 mmol/L (-2-2) Blood Gas Oxygen Saturation 97 % (90-100) 95 % (90-100) 95 % (90-100) Arterial Blood pH 7.38 (7.380-7.420) 7.43 (7.380-7.420) 7.39 (7.380-7.420) Arterial Blood Partial Pressure CO2 42 mmHg (38-42) 26 mmHg (38-42) 29 mmHg (38-42) Arterial Blood Partial Pressure O2 178 mmHg (61-120) 89 mmHg (61-120) 93 mmHg (61-120) Arterial Blood Oxygen Content 19.2 Vol % (12.0-20.0) 13.6 Vol % (12.0-20.0) 15.3 Vol % (12.0-20.0) Arterial Blood Carboxyhemoglobin 1.1 % (0-4) 1.4 % (0-4) 1.3 % (0-4) Arterial Blood Methemoglobin 1.4 % (0-2) 0.8 % (0-2) 0.8 % (0-2) Blood Gas Hemoglobin 13.9 G/DL (12.0-16.0) 10.1 G/DL (12.0-16.0) 11.3 G/DL (12.0-16.0) Oxygen Delivery Device OR VENT VENTILATOR Blood Gas Ventilator Setting SEE COMMENTS Blood Gas Inspired Oxygen 30 % 30 % Imaging 1. Redemonstration of postsurgical features of right high parietal craniotomy with enlarging hematoma in the operative bed now measuring approximately 5 cm in comparison to 3.4 cm on prior exam. There has also been interval development of small subdural collection measuring up to 8 mm in the anterior right frontal region. This results in increased csbid-ru-jyew subfalcine shift of approximately 1.4 cm in comparison to 8 cm in prior exam. No evidence for downward herniation at this time. Objective Remarks GENERAL: Well-nourished, well-developed patient. SKIN: Warm and dry. HEAD: Normocephalic. EYES: No scleral icterus. No injection or drainage. NECK: Supple, trachea midline. Orally intubated. CARDIOVASCULAR: Bradycardia, regular rate and rhythm without murmurs, gallops, or rubs. No JVD. RESPIRATORY: Breath sounds equal bilaterally. Clear, no adventitious sounds. GASTROINTESTINAL: Abdomen soft, non-tender, nondistended. No guarding. MUSCULOSKELETAL: No cyanosis, or edema. Well perfused. NEURO EXAM: Unresponsive. Pupils dilated, right about 6, left about 7. Overall impression: Decreased LOC requiring intubation and mechanical ventilation caused by expansion of brain parenchymal hematoma and vasogenic edema. He is critically ill and underwent emergency craniotomy for decompression and evacuation of blood. Remains unstable. Critical care 39 mins A/P Assessment and Plan Subdural hematoma Intraparenchymal bleed Metastatic disease - Continue neuro checks per ICU protocol - Neurosurgery consulted and discussed - continue Decadron 4 mg IV every 6 hourly - Continue Keppra to 1500 mg IV every 12 hourly, Dilantin 150 mg IV every 12 hourly, continue by mouth Vimpat. - Seizure precautions - Ativan when necessary for breakthrough seizures as needed - Further per neurosurgery Hypertension - Hydralazine 10 mg IV every 2 hourly when necessary for SBP greater than 150 mmHg Melanoma - Prostatic disease - Palliative care consultation DVT GI prophylaxis - Teds SCDs - No pharmacological DVT prophylaxis due to ICH - Pepcid Overall impression: Stable respiratory and hemodynamic function. Feliciano Guidry MD Aug 17, 2017 07:25
[2017-08-17] MEDS ORDERED: SODIUM BICARBONATE 8.4% INJ 50 MEQ/50 ML SYR IV PUSH ONE (08:00)
[2017-08-17] MEDS: CHLORHEXIDINE 0.12% (ORAL KIT) 15 ML CUP MT SCH ×2 (08:15→20:16)
[2017-08-17] MEDS: 3% SALINE INJ 500 ML IV SCH (09:16)
[2017-08-17] MEDS: SODIUM CHLORIDE 0.9% FLUSH 10 ML FLUSH IV FLUSH SCH ×2 (09:16→20:34)
[2017-08-17] MEDS: levETIRAcetam 500 MG TAB PO SCH ×2 (09:17→20:34)
[2017-08-17] MEDS: LACOSAMIDE 50 MG TAB PO SCH ×2 (09:17→20:34)
[2017-08-17] MEDS: PHENYTOIN SODIUM 100 MG CAP PO SCH ×2 (09:17→20:34)
[2017-08-17] MEDS: FAMOTIDINE 20 MG/2 ML VIAL IV PUSH SCH ×2 (09:17→20:34)
[2017-08-17] MEDS: DOCUSATE SODIUM 50 MG/SENNA 8.6 MG TAB PO SCH ×2 (09:18→20:34)
--- NOTE | 2017-08-17 11:02 | RADRPT ---
EXAM DATE/TIME: 08/17/2017 09:49 [place] COMPARISON: CT BRAIN W/O CONTRAST, August 16, 2017, 0:45. INDICATIONS : Evaluate intracerebral Hemorrhage RADIATION DOSE: 56.35 CTDIvol (mGy) ; Tabletop CT Head MEDICAL HISTORY : Non-responsive. SURGICAL HISTORY : Non-responsive. ENCOUNTER: Subsequent ACUITY: 1 day PAIN SCALE: Non-responsive LOCATION: cranial TECHNIQUE: Multiple contiguous axial images were obtained of the head. Using automated exposure control and adj ustment of the mA and/or kV according to patient size, radiation dose was kept as low as reasonably a chievable to obtain optimal diagnostic quality images. DICOM format image data is available electro nically for review and comparison. FINDINGS: There has been interval surgery with a right frontoparietal craniectomy. There is a drain along the c raniectomy defect with overlying skin juanita and there is a right frontal ventricular catheter in pl rod which traverses the ventricles and terminates in the region of the left thalamus and posterior li mb of the internal capsule. There is a right frontal parietal intra-axial area and there is extra-axial air in the right frontal area anteriorly. Scattered blood products are present in the right parietal high convexity with the l argest collection measuring 2.2 x 1.8 centimeters, significantly decreased from the prior examination . There is persistent surrounding vasogenic edema causing right to left midline shift measuring appro ximately 7 mm. This compares to 16 mm of midline shift previously. There is a small amount of extra-a xial fluid and blood products on the right. CONCLUSION: Interval right craniectomy with decreased amount of intra-axial blood products. There are persistent blood products and vasogenic edema in the right frontoparietal region. However, there is less midline shift currently measuring 7 mm compared to 16 mm previously. The right frontal ventricular catheter terminates in the region of the right thalamus. Omar Mariscal MD on August 17, 2017 at 10:55 Board Certified Radiologist. This report was verified electronically.
--- NOTE | 2017-08-17 11:24 | PD.CONS ---
Consult Service Palliative Care Consult Requested By Dr. Saunders . Primary Care Physician Unknown . Reason for Consultation a. To assist with evaluation and management of symptoms including: Encephalopathy, pain, seizures b. To assist medical decision maker(s) with: better understanding of current medical conditions; weighing benefits/burdens of medical treatment options; making medical treatment decisions. . HPI History of Present Illness This 62-year-old male was found to have a melanoma on his right shoulder in 2010 and had it excised. The patient has had excision of metastatic melanoma from his axilla, from small bowel, and was noted to have a good response to Keytruda treatment. Then in May 2017 he had radiosurgery and an operative subtotal resection of tumor in brain, and was able to return home to [place]. He presented to the emergency department in [place] on 08/08/17 with headache and neurologic symptoms and was noted to have intracerebral hemorrhage and subdural. [facility], where he had been receiving treatment, did not have a bed for him and he was transferred here to [facility], where the decision was made to treat him conservatively. He was noted to have a flaccid left arm and leg at that time, but he was alert and was determined to try to improve. He was transferred to [facility] on 08/13/17. However, the following day he had worsening headache and worsening neurologic symptoms, and he was transferred back to our [facility]. MRI at that time revealed an enlarging hematoma in the operative bed, and additional subdural hematoma with an increased right to left shift that was now 1.4 cm. The patient's neurologic condition continued to decline, he developed signs of impending herniation with an enlarged left pupil and decorticate posturing, and he was taken emergently to the operating room on 08/16/17. He underwent a craniotomy with right decompressive craniectomy and ventriculostomy. He has been mechanically ventilated and sedated since then. During his previous hospitalization here, Palliative Care had seen the patient and his , in the goals were aggressive at that time. Palliative Care was consulted now to evaluate and assist with symptom management, and to again enter into discussions with the patient/ regarding his current condition, the prognosis, and the benefits and burdens of the various treatment choices. . Function/Cognitive Trajectory The patient had a flaccid left arm and leg prior to the current hospitalization , but with assistance he had been able to stand a couple days before this admission here. He had some intermittent confusion, but was fairly clearheaded most of the time. . Review of Systems ROS Limitations: Clinical Condition (information from nursing staff and from ), Intubated Constitutional: COMPLAINS OF: Fatigue Endocrine: DENIES: Polyuria Eyes: DENIES: Eye inflammation Ears, nose, mouth, throat: DENIES: Epistaxis Respiratory: DENIES: Cough, Shortness of breath Cardiovascular: DENIES: Lower Extremity Edema Gastrointestinal: DENIES: Bloody stools, Vomiting, Vomiting blood Genitourinary: DENIES: Hematuria Musculoskeletal: DENIES: Joint Swelling Integumentary: DENIES: Rash Hematologic/Lymphatics: COMPLAINS OF: Bruising (arms) Immunologic/Allergic: DENIES: Urticaria Neurologic: COMPLAINS OF: Localized weakness (left side), Seizures Psychiatric: COMPLAINS OF: Confusion (intermittent in recent days) Past Family Social History Coded Allergies: No Known Drug Allergies (Verified Allergy, Unknown, 08/08/17) Past Medical History * Craniotomy/craniectomy for recurrent/worsening hemorrhage 08/16/17 * Melanoma, metastatic * Intracranial hemorrhage, subdural hematoma * History of glucose intolerance * Seizures . Past Surgical History * Lumbar disc surgery years ago * Right shoulder melanoma 2010 * Small bowel resection (melanoma) * Axillary node excision (melanoma) * Right craniotomy and subtotal resection of tumor 06/09/17 * Craniotomy/craniectomy/ventriculostomy 08/16/17 * . Reported Medications Reported Meds & Active Scripts Active Catapres (Clonidine) 0.1 Mg Tab 0.1 Mg PO Q6H PRN Hydralazine HCl 25 Mg Tablet 25 Mg PO Q8HR Gnp Senna Plus 8.6-50 mg (Sennosides-Docusate Sodium) 8.6 Mg-50 Mg Tab 1 Tab PO BID 1 Days Dexamethasone 4 Mg Tab 4 Mg PO Q6HR Famotidine 20 Mg Tab 20 Mg PO Q12HR Dilantin (Phenytoin Extended) 100 Mg Cap 300 Mg PO BID Ultram (Tramadol HCl) 50 Mg Tab 50 Mg PO Q6H PRN Reported Potassium Chloride ER (Potassium Chloride) 10 Meq Tab 10 Meq PO DAILY Levetiracetam 500 Mg Tab 1,500 Mg PO BID Vimpat (Lacosamide) 150 Mg Tab 150 Mg PO BID . Current Medications Medications (Trade) Dose Ordered Sig/Karina Route Start Time Stop Time Status Last Admin (Catapres) 0.1 mg Q6H PRN PO 08/14/17 22:30 08/15/17 21:19 (Apresoline) 25 mg Q8HR PO 08/15/17 06:00 08/16/17 14:51 (Vimpat) 150 mg BID PO 08/15/17 09:00 08/17/17 09:17 (Keppra) 1,500 mg BID PO 08/15/17 09:00 08/17/17 09:17 (Dilantin) 300 mg BID PO 08/15/17 09:00 08/17/17 09:17 Sodium Chloride 1,000 ml @ 84 mls/hr [id number] IV 08/14/17 23:14 08/16/17 22:45 (NS Flush) 2 ml UNSCH PRN IV FLUSH 08/14/17 23:15 (NS Flush) 2 ml BID IV FLUSH 08/15/17 09:00 08/17/17 09:16 (Pepcid Inj) 20 mg Q12HR IV PUSH 08/15/17 09:00 08/17/17 09:17 (Zofran Inj) 4 mg Q6H PRN IV PUSH 08/14/17 23:15 (Restoril) 15 mg HS PRN PO 08/14/17 23:15 08/15/17 21:19 (Duoneb Neb) 1 ampule Q2HR NEB PRN INH 08/14/17 23:15 Miscellaneous Information 1 [id number] XX 08/14/17 23:15 (Chlorhexidine 2% Cloth) 3 pack Taper DAILY@04 TOP 08/15/17 04:00 08/11/18 03:59 (Chlorhexidine 2% Cloth) 3 pack UNSCH PRN TOP 08/14/17 23:15 (Celena-Colace) 1 tab BID PO 08/15/17 09:00 08/17/17 09:18 (Milk Of Magnesia Liq) 30 ml Q12H PRN PO 08/14/17 23:15 (Senokot) 17.2 mg Q12H PRN PO 08/14/17 23:15 (Dulcolax Supp) 10 mg DAILY PRN RECTAL 08/14/17 23:15 (Lactulose Liq) 30 ml DAILY PRN PO 08/14/17 23:15 (Decadron) 6 mg Q6HR PO 08/15/17 18:00 08/17/17 06:30 Dexmedetomidine HCl 200 mcg/ Sodium Chloride 52 ml @ 4.62 mls/hr TITRATE PRN IV 08/15/17 13:45 08/15/17 14:14 (Ultram) 50 mg Q6H PRN PO 08/15/17 14:15 (Ultram) 100 mg Q6H PRN PO 08/15/17 14:15 08/16/17 05:33 (Tylenol) 650 mg Q6H PRN PO 08/15/17 14:15 (Trandate Inj) 20 mg Q4H PRN IV 08/15/17 18:45 08/15/17 20:47 Nicardipine HCl 25 mg/Sodium Chloride 250 ml @ 50 mls/hr TITRATE PRN IV 08/15/17 23:15 08/15/17 23:26 Propofol 100 ml @ 2.667 mls/ hr TITRATE PRN IV 08/16/17 04:45 08/17/17 05:00 (Peridex 0.12% Liq) 15 ml BID@08,20 MT 08/16/17 20:00 08/17/17 08:15 (fentaNYL INJ) 100 mcg Q2H PRN IV PUSH 08/16/17 14:45 Fentanyl Citrate 250 ml @ 5 mls/hr TITRATE PRN IV 08/16/17 14:45 08/16/17 14:51 Sodium Chloride 500 ml @ 30 mls/hr UNSCH IV 08/16/17 14:45 08/21/17 14:44 08/17/17 09:16 Potassium Chloride 100 ml @ 50 mls/hr Q2H PRN IV 08/17/17 02:15 Potassium Chloride 100 ml @ 50 mls/hr Q2H PRN IV 08/17/17 02:15 (K-Lyte Cl Eff) 50 meq UNSCH PRN PO 08/17/17 02:15 Potassium Chloride 100 ml @ 25 mls/hr UNSCH PRN IV 08/17/17 02:15 Potassium Chloride 100 ml @ 50 mls/hr Q2H PRN IV 08/17/17 02:15 Magnesium Sulfate 4 gm/Sodium Chloride 100 ml @ 50 mls/hr UNSCH PRN IV 08/17/17 02:15 (Mag-Ox) 800 mg UNSCH PRN PO 08/17/17 02:15 Magnesium Sulfate 2 gm/Sodium Chloride 100 ml @ 50 mls/hr UNSCH PRN IV 08/17/17 02:15 (K-Phos) 2,000 mg Q4H PRN PO 08/17/17 02:15 Sodium Phosphate 30 mmol/Sodium Chloride 250 ml @ 42 mls/hr UNSCH PRN IV 08/17/17 02:15 (K-Phos) 2,000 mg UNSCH PRN PO/TUBE 08/17/17 02:15 Potassium Phosphate 30 mmol/ Sodium Chloride 260 ml @ 42 mls/hr UNSCH PRN IV 08/17/17 02:15 Phenylephrine HCl 40 mg/Sodium Chloride 500 ml @ 30 mls/hr TITRATE PRN IV 08/17/17 05:45 (Brethine Inj) 1 mg UNSCH PRN SQ 08/17/17 05:45 Norepinephrine Bitartrate 4 mg/ Sodium Chloride 250 ml @ 7.5 mls/hr TITRATE PRN IV 08/17/17 07:30 08/17/17 07:00 (Brethine Inj) 1 mg UNSCH PRN SQ 08/17/17 07:30 Family History The patient's mother is alive at 87 years old, uses a walker for ambulation. His sister is living. The patient's father of complications of dementia. There is no family history of melanoma. . Substance Use Tobacco: None Alcohol: None Prescription med abuse: None Illicits: None . Psychosocial History The patient was originally from [place], [place], and moved to [place] in 8. He has been twice, currently for 29 years. Between the 2 of them they have 3 children, 2 of hers and one of his. 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 . Spiritual/Cultural Factors The patient is somewhat spiritual, but not connected with a particular denomination or taoist. . Living Will: Never completed Health Care Surrogate: Never completed Durable Power of Supervisor Spinning: Never completed Family/friends goals: At this time, the patient's is allowing some time to pass for healing from the surgery and for a hopeful decrease in edema, and wants to continue aggressive care. She understands that the patient would not want to "just be kept alive on machines" but she does note that he has always been very determined and motivated to try to get better. . Ethical and Legal Issues There are no ethical issues that would impact her care or decision-making at this time. At this time, the patient lacks capacity for decision-making, and it is uncertain as to whether he will regain that capacity. He had previously indicated that he would want his to be his surrogate decision maker, and she is serving as decision making proxy at this time. . Physical Exam Vital Signs Date Time Temp Pulse Resp B/P (MAP) Pulse Ox O2 Delivery O2 Flow Rate FiO2 08/17/17 09:40 100 100 08/17/17 07:27 96 30 08/17/17 07:00 65 140/56 08/17/17 06:00 85 08/17/17 04:00 30 08/17/17 04:00 97 30 08/17/17 04:00 85 08/17/17 04:00 97.2 69 14 129/60 (83) 97 08/17/17 02:00 87 08/17/17 00:00 98.8 87 14 120/53 (75) 97 08/17/17 00:00 30 08/17/17 00:00 87 08/16/17 23:40 99 30 08/16/17 22:00 98 08/16/17 20:50 97 30 08/16/17 20:00 35 08/16/17 20:00 98 08/16/17 20:00 97.7 98 14 132/65 (87) 96 08/16/17 19:00 97 Mechanical Ventilator 30 08/16/17 18:00 100 08/16/17 16:33 98 30 08/16/17 16:00 97.6 96 14 130/68 (88) 100 08/16/17 16:00 96 08/16/17 16:00 35 08/16/17 14:00 98 08/16/17 13:02 95 30 08/16/17 12:00 94 08/16/17 12:00 35 08/16/17 12:00 97.4 94 14 112/64 (80) 100 08/16/17 11:32 100 30 2/26/18 2/27/18 19:00 07:00 Intake Total 1284 ml Output Total 200 ml Balance 1084 ml IV Total 1284 ml Estimated Blood Loss 200 ml Exam CONSTITUTIONAL/GENERAL: This is an adequately nourished patient, in no apparent distress. Sedated, mechanically ventilated. TUBES/LINES/DRAINS: Endotracheal tube, drain from recent neurosurgery SKIN: No jaundice, rashes, or lesions. Ecchymoses on upper extremities bilateral. No wounds seen anteriorly. Skin temperature appropriate. Not diaphoretic. HEAD: Atraumatic. Normocephalic. EYES: Pupils equal and round but only about 1.5 mm and I can't tell if they are reactive. No scleral icterus. No injection or drainage. Fundi not examined. ENT: Nose without bleeding or purulent drainage. NECK: Trachea midline. Supple, nontender. No palpable thyroid enlargement or nodularity. CARDIOVASCULAR: Regular rate and rhythm without murmurs, gallops, or rubs. No JVD. Peripheral pulses symmetric. RESPIRATORY/CHEST: Symmetric, unlabored respirations. Clear to auscultation. Breath sounds equal bilaterally. No wheezes, rales, or rhonchi. GASTROINTESTINAL: Abdomen soft, non-tender, nondistended. No hepato-splenomegaly , or palpable masses. No guarding. Bowel sounds present. GENITOURINARY: Without palpable bladder distension. Phipps catheter in place. MUSCULOSKELETAL: Extremities without clubbing, cyanosis, or edema. No joint tenderness or effusion noted. No calf tenderness. No mottling or clubbing. LYMPHATICS: No palpable cervical or supraclavicular adenopathy. NEUROLOGICAL: Occasional spontaneous movement of right arm and foot, no movement on the left. Sedated and not awake or following commands PSYCHIATRIC: Unable to assess due to clinical condition . Diagnostic Tests Laboratory Laboratory Tests Test 08/15/17 00:44 08/15/17 11:44 08/16/17 05:53 08/16/17 09:32 White Blood Count 10.8 TH/MM3 (4.0-11.0) 12.4 TH/MM3 (4.0-11.0) 19.0 TH/MM3 (4.0-11.0) Red Blood Count 4.99 MIL/MM3 (4.50-5.90) 5.04 MIL/MM3 (4.50-5.90) 4.83 MIL/MM3 (4.50-5.90) Hemoglobin 14.6 GM/DL (13.0-17.0) 14.7 GM/DL (13.0-17.0) 14.2 GM/DL (13.0-17.0) Hematocrit 42.8 % (39.0-51.0) 43.1 % (39.0-51.0) 40.9 % (39.0-51.0) Mean Corpuscular Volume 85.8 FL (80.0-100.0) 85.6 FL (80.0-100.0) 84.7 FL (80.0-100.0) Mean Corpuscular Hemoglobin 29.3 PG (27.0-34.0) 29.1 PG (27.0-34.0) 29.5 PG (27.0-34.0) Mean Corpuscular Hemoglobin Concent 34.2 % (32.0-36.0) 34.0 % (32.0-36.0) 34.8 % (32.0-36.0) Red Cell Distribution Width 15.9 % (11.6-17.2) 15.7 % (11.6-17.2) 15.9 % (11.6-17.2) Platelet Count 286 TH/MM3 (150-450) 293 TH/MM3 (150-450) 303 TH/MM3 (150-450) Mean Platelet Volume 6.9 FL (7.0-11.0) 7.1 FL (7.0-11.0) 7.3 FL (7.0-11.0) Neutrophils (%) (Auto) 75.3 % (16.0-70.0) 80.7 % (16.0-70.0) 85.9 % (16.0-70.0) Lymphocytes (%) (Auto) 14.1 % (9.0-44.0) 11.0 % (9.0-44.0) 5.7 % (9.0-44.0) Monocytes (%) (Auto) 9.1 % (0.0-8.0) 7.7 % (0.0-8.0) 8.1 % (0.0-8.0) Eosinophils (%) (Auto) 1.0 % (0.0-4.0) 0.4 % (0.0-4.0) 0.1 % (0.0-4.0) Basophils (%) (Auto) 0.5 % (0.0-2.0) 0.2 % (0.0-2.0) 0.2 % (0.0-2.0) Neutrophils # (Auto) 8.1 TH/MM3 (1.8-7.7) 10.0 TH/MM3 (1.8-7.7) 16.3 TH/MM3 (1.8-7.7) Lymphocytes # (Auto) 1.5 TH/MM3 (1.0-4.8) 1.4 TH/MM3 (1.0-4.8) 1.1 TH/MM3 (1.0-4.8) Monocytes # (Auto) 1.0 TH/MM3 (0-0.9) 1.0 TH/MM3 (0-0.9) 1.6 TH/MM3 (0-0.9) Eosinophils # (Auto) 0.1 TH/MM3 (0-0.4) 0.0 TH/MM3 (0-0.4) 0.0 TH/MM3 (0-0.4) Basophils # (Auto) 0.0 TH/MM3 (0-0.2) 0.0 TH/MM3 (0-0.2) 0.0 TH/MM3 (0-0.2) CBC Comment DIFF FINAL DIFF FINAL DIFF FINAL Differential Comment Prothrombin Time 10.3 SEC (9.8-11.6) 10.6 SEC (9.8-11.6) Prothromb Time International Ratio 1.0 RATIO 1.0 RATIO Blood Urea Nitrogen 13 MG/DL (7-18) 12 MG/DL (7-18) 9 MG/DL (7-18) Creatinine 0.61 MG/DL (0.60-1.30) 0.53 MG/DL (0.60-1.30) 0.45 MG/DL (0.60-1.30) Random Glucose 96 MG/DL (74-106) 90 MG/DL (74-106) 113 MG/DL (74-106) Total Protein 6.5 GM/DL (6.4-8.2) 6.4 GM/DL (6.4-8.2) Albumin 3.5 GM/DL (3.4-5.0) 3.5 GM/DL (3.4-5.0) Calcium Level 8.7 MG/DL (8.5-10.1) 8.4 MG/DL (8.5-10.1) 8.0 MG/DL (8.5-10.1) Phosphorus Level 3.6 MG/DL (2.5-4.9) 3.3 MG/DL (2.5-4.9) Magnesium Level 2.4 MG/DL (1.5-2.5) 2.2 MG/DL (1.5-2.5) 2.0 MG/DL (1.5-2.5) Alkaline Phosphatase 98 U/L (45-117) 96 U/L (45-117) Aspartate Amino Transf (AST/SGOT) 20 U/L (15-37) 24 U/L (15-37) Alanine Aminotransferase (ALT/SGPT) 36 U/L (12-78) 32 U/L (12-78) Total Bilirubin 0.3 MG/DL (0.2-1.0) 0.4 MG/DL (0.2-1.0) Sodium Level 140 MEQ/L (136-145) 141 MEQ/L (136-145) 136 MEQ/L (136-145) Potassium Level 4.2 MEQ/L (3.5-5.1) 3.5 MEQ/L (3.5-5.1) 2.7 MEQ/L (3.5-5.1) Chloride Level 107 MEQ/L (98-107) 106 MEQ/L (98-107) 101 MEQ/L (98-107) Carbon Dioxide Level 25.2 MEQ/L (21.0-32.0) 24.2 MEQ/L (21.0-32.0) 26.8 MEQ/L (21.0-32.0) Anion Gap 8 MEQ/L (5-15) 11 MEQ/L (5-15) 8 MEQ/L (5-15) Estimat Glomerular Filtration Rate 134 ML/MIN (>89) 157 ML/MIN (>89) 190 ML/MIN (>89) Blood Gas Puncture Site RT RADIAL Blood Gas Patient Temperature 98.6 Blood Gas HCO3 25 mmol/L (22-26) Blood Gas Base Excess 1.4 mmol/L (-2-2) Blood Gas Oxygen Saturation 98 % (90-100) Arterial Blood pH 7.47 (7.380-7.420) Arterial Blood Partial Pressure CO2 34 mmHg (38-42) Arterial Blood Partial Pressure O2 223 mmHg (61-120) Arterial Blood Oxygen Content 20.1 Vol % (12.0-20.0) Arterial Blood Carboxyhemoglobin 1.1 % (0-4) Arterial Blood Methemoglobin 0.8 % (0-2) Blood Gas Hemoglobin 14.2 G/DL (12.0-16.0) Oxygen Delivery Device VENTILATOR Blood Gas Ventilator Setting PRVC/AC Blood Gas Inspired Oxygen 50 % Activated Partial Thromboplast Time 22.3 SEC (24.3-30.1) Phenytoin (Dilantin) Level 4.6 MCG/ML (10.0-20.0) Test 08/16/17 09:47 08/16/17 14:40 08/16/17 16:46 08/16/17 20:15 Blood Gas Puncture Site DRAWN IN OR Blood Gas Patient Temperature 98.6 Blood Gas HCO3 24 mmol/L (22-26) Blood Gas Base Excess 0.0 mmol/L (-2-2) Blood Gas Oxygen Saturation 97 % (90-100) Arterial Blood pH 7.38 (7.380-7.420) Arterial Blood Partial Pressure CO2 42 mmHg (38-42) Arterial Blood Partial Pressure O2 178 mmHg (61-120) Arterial Blood Oxygen Content 19.2 Vol % (12.0-20.0) Arterial Blood Carboxyhemoglobin 1.1 % (0-4) Arterial Blood Methemoglobin 1.4 % (0-2) Blood Gas Hemoglobin 13.9 G/DL (12.0-16.0) Oxygen Delivery Device OR Nasal Screen MRSA (PCR) MRSA NOT DETECTED (NOT Sodium Level 146 MEQ/L (136-145) Serum Osmolality 296 MOSM/KG (275-295) Test 08/16/17 23:30 08/17/17 04:00 08/17/17 05:18 08/17/17 06:55 Sodium Level 147 MEQ/L (136-145) 150 MEQ/L (136-145) Potassium Level 3.2 MEQ/L (3.5-5.1) Serum Osmolality 298 MOSM/KG (275-295) 302 MOSM/KG (275-295) Blood Gas Puncture Site RT RADIAL ART LINE Blood Gas Patient Temperature 98.6 98.6 Blood Gas HCO3 17 mmol/L (22-26) 17 mmol/L (22-26) Blood Gas Base Excess -6.6 mmol/L (-2-2) -6.9 mmol/L (-2-2) Blood Gas Oxygen Saturation 95 % (90-100) 95 % (90-100) Arterial Blood pH 7.43 (7.380-7.420) 7.39 (7.380-7.420) Arterial Blood Partial Pressure CO2 26 mmHg (38-42) 29 mmHg (38-42) Arterial Blood Partial Pressure O2 89 mmHg (61-120) 93 mmHg (61-120) Arterial Blood Oxygen Content 13.6 Vol % (12.0-20.0) 15.3 Vol % (12.0-20.0) Arterial Blood Carboxyhemoglobin 1.4 % (0-4) 1.3 % (0-4) Arterial Blood Methemoglobin 0.8 % (0-2) 0.8 % (0-2) Blood Gas Hemoglobin 10.1 G/DL (12.0-16.0) 11.3 G/DL (12.0-16.0) Oxygen Delivery Device VENT VENTILATOR Blood Gas Ventilator Setting SEE COMMENTS Blood Gas Inspired Oxygen 30 % 30 % Phosphorus Level 2.4 MG/DL (2.5-4.9) Result Diagram: 08/16/17 0932 08/17/17 0518 Imaging Last Impressions Head CT 08/16/17 0600 Signed Impressions: Service Date/Time: Wednesday, August 16, 2017 00:45 - CONCLUSION: 1. Large parenchymal hemorrhage and surrounding cerebral edema the right parietal lobe with 16 mm of midline shift again noted and not significantly changed from the MRI. 2. Right frontal acute/subacute subdural hematoma measures approximate 7 mm in maximal thickness, also not significantly changed. Omar Noland MD Procedures * INTUBATION 08/15/17 * Emergency craniotomy/craniectomy/ventriculostomy 08/16/17 . Patient/Family Conference Present at Family Conference: Patient's . Family Conference Time (mins): 39 Family Conference Location: Telephone Issues Discussed: * Palliative care role, purpose, approach * Additional medical, psychosocial, and spiritual history * Patients general health, functional status, and cognitive changes in the months leading up to the current hospitalization * Patient/family understanding of the current medical problems * Patient/family understanding of prognosis * Patients goals of care as best understood from advance directives and/or conversations and/or values * Current medical treatment options and benefits/burdens of those options * Likely scenarios comparing ongoing aggressive care with a transition to comfort measures only * Questions answered to the best of my ability * Palliative care contact information provided At this time, the patient's wants to continue aggressive goals. The ultimate hope is that he will recover enough to be able to return to [facility] to restart the Keytruda. She does say that he made her aware in recent weeks that he would not "just want to be kept alive indefinitely on machines." . 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 Spiritual: Somewhat spiritual but not affiliated with any taoist or denomination Legal: At this time, the patient lacks capacity for decision-making, and it is uncertain as to whether he will regain that capacity. He had previously indicated that he would want his to be his surrogate decision maker, and she is serving as decision making proxy at this time. Ethical issues impacting care: None . Important Contacts : Yaima Johnson, . Prognosis Overall, the patient's prognosis is guarded, as he has ongoing metastatic melanoma. . Code Status: Full Code Plan * FULL CODE * DECISION-MAKING: At this time, the patient lacks capacity for decision-making , and it is uncertain as to whether he will regain that capacity. He had previously indicated that he would want his to be his surrogate decision maker, and she is serving as decision making proxy at this time. * GOALS: At this time, the patient's wants to continue aggressive goals. The ultimate hope is that he will recover enough to be able to return to [facility] to restart the Keytruda. She does say that he made her aware in recent weeks that he would not "just want to be kept alive indefinitely on machines." * SYMPTOMS: At this time, pain and dyspnea are being managed with sedation and mechanical ventilation, and he remains on multiple antiseizure medications. I have no additional medication recommendations at this time. * The patient's is "taking care of lots of things at home that have been postponed in recent weeks," and she is planning on returning back up here in the day or 2. * Palliative Care will continue to follow the patient during this hospitalization. . Time Spent Total Floor Time (mins): 83 Face to Face Time (mins): 25 >50% Counseling/Coord of Care: Yes (d/w Dr. Guidry and with RN) Thank you for the opportunity to participate in the care of Mr. Johnson. Olive Garcia MD Aug 17, 2017 11:24
[2017-08-17 12:12] LABS: BICARBONATE 24.3 MEQ/L (21.0-32.0); CALCIUM 7.9 MG/DL (8.5-10.1); CREATININE 0.46 MG/DL (0.60-1.30); PHOSPHORUS 2.8 MG/DL (2.5-4.9)
--- NOTE | 2017-08-17 12:45 | HHI.NSPN ---
(Fran Mcclelland) The exam, history, and the medical decision-making described in the above note were completed with the assistance of the mid-level provider. I reviewed and agree with the findings presented. I attest that I had a [id number] encounter with the patient on the same day, and personally performed and documented my assessment and findings in the medical record. Follow-up CT scan with improved the mass effect and midline shift and ICPs remained normal. We' ll start weaning sedation and ventilator tomorrow morning if ICP stable overnight. (Paco Bland MD) History Chief Complaint: Intubated and sedated. 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 He underwent right craniotomy for motor cortex metastatic melanoma resection at [facility] in [place] in May 2016 with subsequent 5 rounds of radiation treatment to the brain which he completed in early July. Transferred from [facility] because of intracranial hemorrhage patient reports increasing weakness on the left side. Patient has some seizure activity last night involving the legs. Controlled with Ativan and anticonvulsants with neurology following. Patient has had seizures in the past. Initially patient and wanted to be transferred to [facility] but they did not accept the patient and related that the he could be treated locally. He was transferred to acute rehabilitation facility but complained of nausea and worsening headaches with initiation of therapy. Follow-up MRI scan of the brain was obtained which reveals postoperative changes with a moderate right subdural hemorrhage as well as cystic hemorrhagic component and posterior frontal parietal lobe at the resection site. There has been increase in the intracerebral and subdural hemorrhage with edema and midline shift despite being on Decadron 4 mg every 6 since the MRI scan from last week. He was readmitted to the intensive surgical care unit to [facility] and the obstetrics tech and neurosurgical consultation requested. The patient and his relate that there would like to pursue further treatment locally. 08/16/17: Pt sedated and intubated. Pt now with acute pupil changes. Discussed with RN no new medication started that would cause pupillary changes and pupils had been 3 or 4 mm overnight. With pain in upper chest pt flexes right side and extending left side. Neurosurgeon called. Pt given Mannitol 50grams and instructed to get pt ready to go to OR for emergent right crani for hematoma evacuation. Called pts and updated her and she gave me consent over the phone that was witnessed by Anika Godwin RN. 08/17/17: Pt sedated on Diprivan and Fentanyl drips. Intubated. Pupls now 3mm bilaterally slight reaction bilaterally. Not following commands. Ventriculostomy drain in place ICP 8. (Fran Mcclelland) System Review Comments Not able to obtain given clinical condition (Fran Mcclelland) Exam Results Vital Signs Date Time Temp Pulse Resp B/P (MAP) Pulse Ox O2 Delivery O2 Flow Rate FiO2 08/17/17 11:46 97 30 08/17/17 07:00 65 140/56 08/17/17 04:00 97.2 14 08/16/17 19:00 Mechanical Ventilator 08/15/17 00:00 2.00 Intake and Output 08/17/17 08/17/17 08/18/17 08:00 16:00 00:00 Intake Total 2284 ml 1000 ml Output Total 479 ml 200 ml Balance 1805 ml 800 ml (Fran Mcclelland) Physical Examination GENERAL: Pt is sedated and intubated. HEAD: Bandaged. Dry. EYES: Pupils 3mm bilaterally with slight reaction bilaterally. Sclera anicteric. CARDIOVASCULAR: Regular rate and rhythm without murmurs, gallops, or rubs. No JVD. RESPIRATORY: Intubated. Pressure controlled. FiO2 30%. Rate 12. Peep 5. CTA bilaterally. GASTROINTESTINAL: Abdomen soft, non-tender, nondistended. No hepatosplenomegaly. Diminished bs. Obese. MUSCULOSKELETAL: Not following commands for muscle testing. When sedation decreased he moves the right side some but not the left. NEURO: Pt sedated on Diprivan and Fentanyl drips. Not opening eyes. Pupils 3mm bilaterally with slight reaction bilaterally. Pt is no longer posturing to deep pain in upper chest. Not following commands. (Fran Mcclelland) Lab, Micro, Other Results Last Impressions Head CT 08/16/17 0600 Signed Impressions: Service Date/Time: Wednesday, August 16, 2017 00:45 - CONCLUSION: 1. Large parenchymal hemorrhage and surrounding cerebral edema the right parietal lobe with 16 mm of midline shift again noted and not significantly changed from the MRI. 2. Right frontal acute/subacute subdural hematoma measures approximate 7 mm in maximal thickness, also not significantly changed. Omar Noland MD Laboratory Tests Test 08/16/17 14:40 08/16/17 16:46 08/16/17 20:15 08/16/17 23:30 Nasal Screen MRSA (PCR) MRSA NOT DETECTED Sodium Level 146 MEQ/L 147 MEQ/L Serum Osmolality 296 MOSM/KG 298 MOSM/KG Potassium Level 3.2 MEQ/L Test 08/17/17 04:00 08/17/17 05:18 08/17/17 06:55 08/17/17 11:00 Blood Gas Puncture Site RT RADIAL ART LINE Blood Gas Patient Temperature 98.6 98.6 Blood Gas HCO3 17 mmol/L 17 mmol/L Blood Gas Base Excess -6.6 mmol/L -6.9 mmol/L Blood Gas Oxygen Saturation 95 % 95 % Arterial Blood pH 7.43 7.39 Arterial Blood Partial Pressure CO2 26 mmHg 29 mmHg Arterial Blood Partial Pressure O2 89 mmHg 93 mmHg Arterial Blood Oxygen Content 13.6 Vol % 15.3 Vol % Arterial Blood Carboxyhemoglobin 1.4 % 1.3 % Arterial Blood Methemoglobin 0.8 % 0.8 % Blood Gas Hemoglobin 10.1 G/DL 11.3 G/DL Oxygen Delivery Device VENT VENTILATOR Blood Gas Ventilator Setting SEE COMMENTS Blood Gas Inspired Oxygen 30 % 30 % Sodium Level 150 MEQ/L 157 MEQ/L Serum Osmolality 302 MOSM/KG 319 MOSM/KG Phosphorus Level 2.4 MG/DL 2.8 MG/DL Blood Urea Nitrogen 8 MG/DL Creatinine 0.46 MG/DL Random Glucose 92 MG/DL Calcium Level 7.9 MG/DL Magnesium Level 2.0 MG/DL Potassium Level 2.9 MEQ/L Chloride Level 125 MEQ/L Carbon Dioxide Level 24.3 MEQ/L Anion Gap 8 MEQ/L Estimat Glomerular Filtration Rate 185 ML/MIN 08/17/17 08/17/17 08/18/17 15:00 23:00 07:00 Intake Total 1284 ml Output Total 200 ml Balance 1084 ml IV Total 1284 ml Estimated Blood Loss 200 ml (Fran Mcclelland) Medical Decision Making Impression and Plan A: 62-year-old gentleman with a history of right motor cortex metastatic melanoma resection in May 2016 at [facility] in [place] with subsequent radiation treatment and chemotherapy. Unfortunately he has a left hemiplegia and recurrent seizures which is this point are controlled with antiepileptic medications. Postoperative imaging studies reveals a right small subdural hemorrhage with hematoma in the evacuation bed and possible residual/ recurrent disease along with edema and mass effect/midline shift. These areas of intraparenchymal and associated edema along with subdural hemorrhage have progressed since the MRI scan last week despite steroid use. Pt was complaining of worsening headaches. A follow up CT head was stable but pt had acute pupillary changes with posturing. He was taken emergently to the OR for a right frontotemporal parietal craniotomy for cerebral and subdural hemorrhage evacuation; right decompressive hemicraniectomy with expansive patch graft duraplasty; right frontal ventriculostomy placement on 08/16/17. P: Continue to monitor neuro exam Continue with critical care. (Fran Mcclelland) Fran Mcclelland Aug 17, 2017 12:45 Paco Bland MD Aug 17, 2017 17:55
[2017-08-17] MEDS: POTASSIUM CHLOR 40 MEQ PREMIX 100 ML IV PRN ×2 (13:19→15:19)
--- NOTE | 2017-08-17 15:58 | RADRPT ---
EXAM DATE/TIME: 08/16/2017 01:38 [place] COMPARISON: No previous studies available for comparison. INDICATIONS : ET tube and OG tube placement. MEDICAL HISTORY : Metastatic, brain. Metastatic, liver. Metastatic, colon. Melanoma SURGICAL HISTORY : Colon resection. Craniotomy.Discectomy, lumbar. ENCOUNTER: Initial ACUITY: 1 day PAIN SCORE: Non-responsive. LOCATION: Bilateral chest FINDINGS: A single view of the chest demonstrates the lungs to be symmetrically aerated without evidence of mas s, infiltrate or effusion. The cardiomediastinal contours are unremarkable. Osseous structures are intact. Endotracheal tube tip is approximately 11 mm above the angeles. There is a nasogastric tube coiled in the stomach. CONCLUSION: 1. No acute cardiopulmonary disease demonstrated. 2. Endotracheal tube tip is close to the angeles. 3. Nasogastric tube coiled in the stomach. Omar Noland MD on August 16, 2017 at 2:04 Board Certified Radiologist. This report was verified electronically.
[2017-08-17] MEDS: LABETALOL HCL 100 MG/20 ML VIAL IV PRN ×2 (16:28→19:59)
[2017-08-17] MEDS: SODIUM CHLOR 0.9% 1000 ML INJ 1,000 ML IV SCH (17:25)
[2017-08-17 18:33] LABS: BICARBONATE 23.5 MEQ/L (21.0-32.0); CALCIUM 8.2 MG/DL (8.5-10.1); CREATININE 0.47 MG/DL (0.60-1.30)
[2017-08-18] VITALS (18 sets, daily range): BP systolic 111–150; BP diastolic 56–69; PULSE 77–91; RESP 10–15; TEMP 98.8–99.5; O2SAT 94–98
[2017-08-18] MEDS: LABETALOL HCL 100 MG/20 ML VIAL IV PRN
[2017-08-18] MEDS: DEXAMETHASONE 6 MG TAB PO SCH ×5 (00:02→23:14)
[2017-08-18] MEDS ORDERED: FOSPHENYTOIN INJ 1,000 MGPE in SODIUM CHLORIDE 0.9% INJ 50 ML IV ONE (02:15)
[2017-08-18] MEDS: PROPOFOL 1000 MG/100 ML IV PRN ×4 (02:34→21:50)
[2017-08-18] MEDS: fentaNYL DRIP 250 ML IV PRN ×2 (03:21→12:30)
[2017-08-18] MEDS: CHLORHEXIDINE GLUCONATE 2 % 1 PACK (2 CLOTHS) TOP SCH (04:00)
[2017-08-18] MEDS: SODIUM CHLOR 0.9% 1000 ML INJ 1,000 ML IV SCH ×3 (04:15→16:38)
[2017-08-18 04:31] LABS: AUTOMATED NEUTROPHIL # 11.3 TH/MM3 (1.8-7.7); BASOPHIL # 0.1 TH/MM3 (0-0.2); BASOPHIL % 0.4 % (0.0-2.0); EOSINOPHIL % 0.2 % (0.0-4.0); HEMATOCRIT 32.7 % (39.0-51.0); HEMOGLOBIN 10.9 GM/DL (13.0-17.0); LYMPH % 9.5 % (9.0-44.0); LYMPHOCYTE # 1.3 TH/MM3 (1.0-4.8); MEAN CELL VOLUME 87.2 FL (80.0-100.0); MEAN CORPUSCULAR HGB CONC 33.2 % (32.0-36.0); MEAN PLATELET VOLUME 7.5 FL (7.0-11.0); MONO % 9.2 % (0.0-8.0); MONOCYTE # 1.3 TH/MM3 (0-0.9); NEUT % 80.7 % (16.0-70.0); PLATELET COUNT 249 TH/MM3 (150-450); RED BLOOD COUNT 3.75 MIL/MM3 (4.50-5.90)
[2017-08-18 04:55] LABS: BICARBONATE 21.8 MEQ/L (21.0-32.0); CALCIUM 8.4 MG/DL (8.5-10.1); CREATININE 0.5 MG/DL (0.60-1.30)
[2017-08-18] MEDS: POTASSIUM CHLOR 40 MEQ PREMIX 100 ML IV PRN (05:06)
[2017-08-18] MEDS: hydrALAZINE HCL 25 MG TAB PO SCH ×3 (05:06→21:19)
[2017-08-18] MEDS: CHLORHEXIDINE 0.12% (ORAL KIT) 15 ML CUP MT SCH ×2 (08:00→20:00)
[2017-08-18] MEDS: FAMOTIDINE 20 MG/2 ML VIAL IV PUSH SCH ×2 (08:15→20:16)
[2017-08-18] MEDS: DOCUSATE SODIUM 50 MG/SENNA 8.6 MG TAB PO SCH ×2 (08:15→20:15)
[2017-08-18] MEDS: SODIUM CHLORIDE 0.9% FLUSH 10 ML FLUSH IV FLUSH SCH ×2 (08:15→20:16)
[2017-08-18] MEDS: levETIRAcetam 500 MG TAB PO SCH ×2 (08:15→20:15)
[2017-08-18] MEDS: PHENYTOIN SODIUM 100 MG CAP PO SCH ×2 (08:15→20:15)
[2017-08-18] MEDS: LACOSAMIDE 50 MG TAB PO SCH ×2 (08:15→20:15)
--- NOTE | 2017-08-18 08:31 | HHI.CCPN ---
Subjective Remarks/Hospital Course 62-year-old male with a history of malignant melanoma metastasized to the brain status post right parietal craniectomy on June 09, 2017 at [facility] followed by 5 radiation treatments being followed by oncologist at [facility]. Patient was just evaluated at [facility] on 08/05/17 and received Ktruda. He developed worsening weakness involving the left lower extremity since then over the next 3 days and presented to the ER at [facility] on 08/[address] without contrast revealed intracerebral hemorrhage involving right frontal parietal region with right subdural hemorrhage and minimal midline shift. [facility] was contacted however did not have any beds hence patient was accepted for transfer at [facility] and patient was transferred to the ICU at [place]. He was treated non-surgically with decadron and was transferred to [facility]. Just after the transfer patient became more weak on the left side and the MRI brain was performed that showed postsurgical features of right high parietal craniotomy with enlarging hematoma in the operative bed now measuring approximately 5 cm in comparison to 3.4 cm on prior exam, and also interval development of small subdural collection measuring up to 8 mm in the anterior right frontal region. This results in increased [id number] subfalcine shift. For this the patient has been transferred back to the ICU under critical care service admission. 08/16: Clinical deterioration overnight requiring intubation and mechanical ventilation. Left pupil has dilated and right remains enlarged. He has known intraparenchymal hematoma/seroma which has expanded. He received mannitol bolus and was taken straight to the OR for decompression/evacuation hematoma. 08/17: Back from OR last night, seen on arrival. ICP well controlled. Due to neurological instability he will be kept sedated and ventilated for 48 hours while efforts continue to control edema and ICP. 08/18: S/P decompressive craniectomy right side and evacuation of parenchymal hematoma. Ventilator dependent. Objective Vital Signs Date Time Temp Pulse Resp B/P (MAP) Pulse Ox O2 Delivery O2 Flow Rate FiO2 08/18/17 08:05 95 30 08/18/17 06:00 84 08/18/17 04:00 98.8 12 128/62 (84) 08/17/17 19:00 Mechanical Ventilator 08/15/17 00:00 2.00 Intake and Output 08/18/17 08/18/17 08/19/17 08:00 16:00 00:00 Intake Total 350 ml Output Total 854 ml Balance -504 ml Result Diagram: 08/18/17 0400 08/18/17 0400 Other Results Laboratory Tests Test 08/18/17 05:44 Blood Gas Puncture Site ART LINE Blood Gas Patient Temperature 98.6 Blood Gas HCO3 19 mmol/L (22-26) Blood Gas Base Excess -5.0 mmol/L (-2-2) Blood Gas Oxygen Saturation 95 % (90-100) Arterial Blood pH 7.41 (7.380-7.420) Arterial Blood Partial Pressure CO2 31 mmHg (38-42) Arterial Blood Partial Pressure O2 88 mmHg (61-120) Arterial Blood Oxygen Content 14.1 Vol % (12.0-20.0) Arterial Blood Carboxyhemoglobin 1.4 % (0-4) Arterial Blood Methemoglobin 0.9 % (0-2) Blood Gas Hemoglobin 10.5 G/DL (12.0-16.0) Oxygen Delivery Device VENTILATOR Blood Gas Ventilator Setting Blood Gas Inspired Oxygen 30 % Imaging 1. Redemonstration of postsurgical features of right high parietal craniotomy with enlarging hematoma in the operative bed now measuring approximately 5 cm in comparison to 3.4 cm on prior exam. There has also been interval development of small subdural collection measuring up to 8 mm in the anterior right frontal region. This results in increased gcxwl-[id number] subfalcine shift of approximately 1.4 cm in comparison to 8 cm in prior exam. No evidence for downward herniation at this time. Objective Remarks GENERAL: Well-nourished, well-developed patient. SKIN: Warm and dry. HEAD: Normocephalic. EYES: No scleral icterus. No injection or drainage. NECK: Supple, trachea midline. Orally intubated. CARDIOVASCULAR: NL S1S2, regular rate and rhythm without murmurs, gallops, or rubs. No JVD. RESPIRATORY: Breath sounds equal bilaterally. Clear, no adventitious sounds. GASTROINTESTINAL: Abdomen soft, non-tender, nondistended. No guarding. BS present. MUSCULOSKELETAL: No cyanosis, or edema. Well perfused. NEURO EXAM: Unresponsive. Sedated, ventilated. Overall impression: Decreased LOC requiring intubation and mechanical ventilation caused by expansion of brain parenchymal hematoma and vasogenic edema. He is critically ill following emergency craniotomy for decompression and evacuation of blood. Remains unstable; attempt to lighten sedation soon. Critical care 35 mins A/P Assessment and Plan Subdural hematoma Intraparenchymal bleed Metastatic disease - Continue neuro checks per ICU protocol - Neurosurgery consulted and discussed - continue Decadron 4 mg IV every 6 hourly - Continue Keppra to 1500 mg IV every 12 hourly, Dilantin every 12 hourly, continue by mouth Vimpat. - Seizure precautions - Ativan when necessary for breakthrough seizures as needed - Further per neurosurgery Hypertension - Hydralazine 10 mg IV every 2 hourly when necessary for SBP greater than 150 mmHg Melanoma - Prostatic disease - Palliative care consultation DVT GI prophylaxis - Teds SCDs - No pharmacological DVT prophylaxis due to ICH - Pepcid Overall impression: Stable respiratory and hemodynamic function. Neuro status critical. Feliciano Guidry MD Aug 18, 2017 08:31
--- NOTE | 2017-08-18 10:47 | HHI.NSPN ---
(Fran Mcclelland) History Chief Complaint: Intubated and sedated. 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 He underwent right craniotomy for motor cortex metastatic melanoma resection at [facility] in [place] in May 2016 with subsequent 5 rounds of radiation treatment to the brain which he completed in early July. Transferred from [facility] because of intracranial hemorrhage patient reports increasing weakness on the left side. Patient has some seizure activity last night involving the legs. Controlled with Ativan and anticonvulsants with neurology following. Patient has had seizures in the past. Initially patient and wanted to be transferred to [facility] but they did not accept the patient and related that the he could be treated locally. He was transferred to acute rehabilitation facility but complained of nausea and worsening headaches with initiation of therapy. Follow-up MRI scan of the brain was obtained which reveals postoperative changes with a moderate right subdural hemorrhage as well as cystic hemorrhagic component and posterior frontal parietal lobe at the resection site. There has been increase in the intracerebral and subdural hemorrhage with edema and midline shift despite being on Decadron 4 mg every 6 since the MRI scan from last week. He was readmitted to the intensive surgical care unit to [facility] and the vocational nursing instructor and neurosurgical consultation requested. The patient and his relate that there would like to pursue further treatment locally. 08/16/17: Pt sedated and intubated. Pt now with acute pupil changes. Discussed with RN no new medication started that would cause pupillary changes and pupils had been 3 or 4 mm overnight. With pain in upper chest pt flexes right side and extending left side. Neurosurgeon called. Pt given Mannitol 50grams and instructed to get pt ready to go to OR for emergent right crani for hematoma evacuation. Called pts and updated her and she gave me consent over the phone that was witnessed by Anika Godwin RN. 08/17/17: Pt sedated on Diprivan and Fentanyl drips. Intubated. Pupils now 3mm bilaterally slight reaction bilaterally. Not following commands. Ventriculostomy drain in place ICP 8. 2/27/18: Pt sedated on Diprivan and Fentanyl drips. Intubated. Pupils 3mm bilaterally reactive bilaterally. Ventriculostomy drain in place draining well. (Fran Mcclelland) System Review Comments Not able to obtain given clinical condition. (Fran Mcclelland) Exam Results Vital Signs Date Time Temp Pulse Resp B/P (MAP) Pulse Ox O2 Delivery O2 Flow Rate FiO2 08/18/17 08:05 95 30 08/18/17 08:00 91 08/18/17 08:00 99.0 15 150/69 (96) 08/18/17 07:00 Mechanical Ventilator 08/15/17 00:00 2.00 Intake and Output 08/18/17 08/18/17 08/19/17 08:00 16:00 00:00 Intake Total 350 ml Output Total 854 ml Balance -504 ml (Fran Mcclelland) Physical Examination GENERAL: Pt is sedated and intubated. EYES: Pupils 3mm bilaterally with slight brisk reaction bilaterally. Sclera anicteric. CARDIOVASCULAR: Regular rate and rhythm without murmurs, gallops, or rubs. No JVD. RESPIRATORY: Intubated. Pressure controlled. FiO2 30%. Rate 12. Peep 5. CTA bilaterally. GASTROINTESTINAL: Abdomen soft, non-tender, nondistended. No hepatosplenomegaly. Diminished bs. Obese. SKIN: Incision clean and dry. No signs of infection. Craniectomy site full. MUSCULOSKELETAL: Not following commands for muscle testing. Keeping pt sedated this morning ICPs 18. NEURO: Pt sedated on Diprivan and Fentanyl drips. Not opening eyes. Pupils 3mm bilaterally with slight brisk reaction bilaterally. Pt is no longer posturing to deep pain in upper chest. Not following commands. Ventriculostomy drain in place at [id number] draining clear CSF. ICP 16-19 range. (Fran Mcclelland) Lab, Micro, Other Results Last Impressions Head CT 08/17/17 0600 Signed Impressions: Service Date/Time: Thursday, August 17, 2017 09:49 - CONCLUSION: Interval right craniectomy with decreased amount of intra-axial blood products. There are persistent blood products and vasogenic edema in the right frontoparietal region. However, there is less midline shift currently measuring 7 mm compared to 16 mm previously. The right frontal ventricular catheter terminates in the region of the right thalamus. Omar Mariscal MD Chest X-Ray 08/16/17 0000 Signed Impressions: Service Date/Time: Wednesday, August 16, 2017 01:38 - CONCLUSION: 1. No acute cardiopulmonary disease demonstrated. 2. Endotracheal tube tip is close to the angeles. 3. Nasogastric tube coiled in the stomach. Omar Noland MD Laboratory Tests Test 08/17/17 11:00 08/17/17 17:30 08/17/17 22:00 08/18/17 04:00 Blood Urea Nitrogen 8 MG/DL 8 MG/DL 8 MG/DL Creatinine 0.46 MG/DL 0.47 MG/DL 0.50 MG/DL Random Glucose 92 MG/DL 87 MG/DL 108 MG/DL Calcium Level 7.9 MG/DL 8.2 MG/DL 8.4 MG/DL Phosphorus Level 2.8 MG/DL Magnesium Level 2.0 MG/DL Sodium Level 157 MEQ/L 157 MEQ/L 154 MEQ/L 151 MEQ/L Potassium Level 2.9 MEQ/L 3.8 MEQ/L 3.3 MEQ/L Chloride Level 125 MEQ/L 126 MEQ/L 120 MEQ/L Carbon Dioxide Level 24.3 MEQ/L 23.5 MEQ/L 21.8 MEQ/L Anion Gap 8 MEQ/L 8 MEQ/L 9 MEQ/L Estimat Glomerular Filtration Rate 185 ML/MIN 180 ML/MIN 168 ML/MIN Serum Osmolality 319 MOSM/KG 315 MOSM/KG 308 MOSM/KG 310 MOSM/KG White Blood Count 14.0 TH/MM3 Red Blood Count 3.75 MIL/MM3 Hemoglobin 10.9 GM/DL Hematocrit 32.7 % Mean Corpuscular Volume 87.2 FL Mean Corpuscular Hemoglobin 29.0 PG Mean Corpuscular Hemoglobin Concent 33.2 % Red Cell Distribution Width 16.0 % Platelet Count 249 TH/MM3 Mean Platelet Volume 7.5 FL Neutrophils (%) (Auto) 80.7 % Lymphocytes (%) (Auto) 9.5 % Monocytes (%) (Auto) 9.2 % Eosinophils (%) (Auto) 0.2 % Basophils (%) (Auto) 0.4 % Neutrophils # (Auto) 11.3 TH/MM3 Lymphocytes # (Auto) 1.3 TH/MM3 Monocytes # (Auto) 1.3 TH/MM3 Eosinophils # (Auto) 0.0 TH/MM3 Basophils # (Auto) 0.1 TH/MM3 CBC Comment DIFF FINAL Differential Comment Test 08/18/17 05:44 Blood Gas Puncture Site ART LINE Blood Gas Patient Temperature 98.6 Blood Gas HCO3 19 mmol/L Blood Gas Base Excess -5.0 mmol/L Blood Gas Oxygen Saturation 95 % Arterial Blood pH 7.41 Arterial Blood Partial Pressure CO2 31 mmHg Arterial Blood Partial Pressure O2 88 mmHg Arterial Blood Oxygen Content 14.1 Vol % Arterial Blood Carboxyhemoglobin 1.4 % Arterial Blood Methemoglobin 0.9 % Blood Gas Hemoglobin 10.5 G/DL Oxygen Delivery Device VENTILATOR Blood Gas Ventilator Setting Blood Gas Inspired Oxygen 30 % (Fran Mcclelland) Medical Decision Making Impression and Plan A: 62-year-old gentleman with a history of right motor cortex metastatic melanoma resection in May 2016 at [facility] in [place] with subsequent radiation treatment and chemotherapy. Unfortunately he has a left hemiplegia and recurrent seizures which is this point are controlled with antiepileptic medications. Postoperative imaging studies reveals a right small subdural hemorrhage with hematoma in the evacuation bed and possible residual/ recurrent disease along with edema and mass effect/midline shift. These areas of intraparenchymal and associated edema along with subdural hemorrhage have progressed since the MRI scan last week despite steroid use. Pt was complaining of worsening headaches. A follow up CT head was stable but pt had acute pupillary changes with posturing. He was taken emergently to the OR for a right frontotemporal parietal craniotomy for cerebral and subdural hemorrhage evacuation; right decompressive hemicraniectomy with expansive patch graft duraplasty; right frontal ventriculostomy placement on 08/16/17. P: Continue to monitor neuro exam Continue with critical care. ICPs controlled with current treatment, continue to monitor. Addendum: The harpal exit site was cleaned with betadine. Lidocaine 2% with epi 2cc was used for local anesthesia. The suction was released on grenade. HARPLA was removed. 2 juanita were placed. There was no further drainage noted. Sterile technique was used. (Fran Mcclelland) Attending Statement The exam, history, and the medical decision-making described in the above note were completed with the assistance of the mid-level provider. I reviewed and agree with the findings presented. I attest that I had a [id number] encounter with the patient on the same day, and personally performed and documented my assessment and findings in the medical record. Neuro exam unchanged. ICPs normal. We will challenge ventriculostomy and wean sedation as tolerated. Discussed with nursing staff. (Paco Bland MD) Fran Mcclelland Aug 18, 2017 10:47 am Paco Bland MD Aug 18, 2017 12:42 pm
--- NOTE | 2017-08-18 11:01 | MG ---
cc: July Hudson MD EEG NUMBER: [id number] REFERRING PHYSICIAN: Dr. Bland TECHNIQUE: Room 1309, intubated on fentanyl 75 mcg, Diprivan 50 mcg with photic gun. Some eye fluttering by the restorative care technician noted and rhythmic shoulder movement per hourly shift manager. EEG 08/12 shows abnormality in the right hemisphere due to slowing. INDICATIONS: This is a 62-year-old male with a right frontotemporoparietal craniotomy for subdural hemorrhage. I believe he has a history of malignant melanoma and was on Keytruda. Currently antiepileptics are Vimpat, Keppra and Dilantin. DESCRIPTION OF RECORD: The patient exhibits background slowing predominantly of 2 hertz. Slower activity is seen on the right compared to the left, however between 1 to 2 hertz background activity. The Diprivan is at 50 mcg and fentanyl is at 75 mcg noted by restorative care technician. There is no epileptic activity. Photic stimulation, no driving response. IMPRESSION: Abnormal EEG due to moderately severe slowing, may be consistent with medication effect. The patient is on fentanyl and Diprivan; however, no epileptiform features are noted. Clinical correlation. July Hudson MD DF/DL/rr , 08:28 AM , 09:38 AM
[2017-08-18] MEDS ORDERED: LIDOCAINE 2%/EPINEPHrine 1:100,000 20ML MDV INFIL ONE (12:00)
[2017-08-18] MEDS: NOREPINEPHRINE INJ 4 MG in SODIUM CHLOR 0.9% 250 ML INJ 246 ML IV PRN (12:30)
--- NOTE | 2017-08-18 13:35 | HHI.HCPN ---
Reason for visit a. To assist with evaluation and management of symptoms including: Encephalopathy, pain, seizures b. To assist medical decision maker(s) with: better understanding of current medical conditions; weighing benefits/burdens of medical treatment options; making medical treatment decisions. . Subjective/Interval History INTERVAL NOTE: The patient remains sedated, mechanically ventilated. During some time of flight and sedation last night, the patient had some posturing but did not respond otherwise. The repeat CT scan revealed less blood, and less midline shift. There is apparently no plan for lightening sedation today . Family/friend interactions Discussed at length with patient's via telephone, updated, questions answered. . Advance Directives Living Will: Never completed Health Care Surrogate: Never completed Durable Power of Manager Of Pmo: Never completed Objective Vital Signs Date Time Temp Pulse Resp B/P (MAP) Pulse Ox O2 Delivery O2 Flow Rate FiO2 08/18/17 12:30 77 141/65 08/18/17 11:27 97 30 08/18/17 10:00 77 08/18/17 08:05 95 30 08/18/17 08:00 91 08/18/17 08:00 30 08/18/17 08:00 99.0 87 15 150/69 (96) 94 08/18/17 07:00 95 Mechanical Ventilator 30 08/18/17 06:00 84 08/18/17 04:00 30 08/18/17 04:00 79 08/18/17 04:00 98.8 78 12 128/62 (84) 98 08/18/17 03:10 96 30 08/18/17 02:00 85 08/18/17 00:32 97 30 08/18/17 00:00 30 08/18/17 00:00 99.1 81 12 117/61 (79) 97 08/18/17 00:00 79 08/17/17 22:00 97 08/17/17 20:00 89 08/17/17 20:00 30 08/17/17 20:00 99.3 86 12 144/61 (88) 94 08/17/17 19:53 95 30 08/17/17 19:00 96 Mechanical Ventilator 30 08/17/17 18:00 88 08/17/17 16:00 98.8 90 12 143/59 (87) 95 08/17/17 16:00 30 2/26/18 16:00 90 08/17/17 15:33 94 30 08/17/17 14:00 86 Intake & Output 08/18/17 08/18/17 07:00 19:00 Intake Total 450 ml Output Total 854 ml Balance -404 ml IV Total 270 ml Other 180 ml Output Urine Total 700 ml Gastric Drainage Total 50 ml Drainage Total 104 ml Physical Exam CONSTITUTIONAL/GENERAL: This is an adequately nourished patient, in no apparent distress. Sedated, mechanically ventilated. TUBES/LINES/DRAINS: Endotracheal tube, drain from recent neurosurgery EYES: Pupils equal and round but only about 1.5 mm and I can't tell if they are reactive. No scleral icterus. No injection or drainage. Fundi not examined. ENT: Nose without bleeding or purulent drainage. NECK: Trachea midline. Supple, nontender. No palpable thyroid enlargement or nodularity. CARDIOVASCULAR: Regular rate and rhythm without murmurs, gallops, or rubs. No JVD. Peripheral pulses symmetric. RESPIRATORY/CHEST: Symmetric, unlabored respirations. Clear to auscultation. Breath sounds equal bilaterally. No wheezes, rales, or rhonchi. GASTROINTESTINAL: Abdomen soft, non-tender, nondistended. No hepato-splenomegaly , or palpable masses. No guarding. Bowel sounds present. GENITOURINARY: Without palpable bladder distension. Phipps catheter in place. MUSCULOSKELETAL: Extremities without clubbing, cyanosis, or edema. No joint tenderness or effusion noted. No calf tenderness. No mottling or clubbing. LYMPHATICS: No palpable cervical or supraclavicular adenopathy. NEUROLOGICAL: Sedated, unresponsive. Pupils are 2 mm and react slightly PSYCHIATRIC: Unable to assess due to clinical condition . Diagnostic Tests Laboratory Laboratory Tests Test 08/16/17 05:53 08/16/17 09:32 08/16/17 09:47 08/16/17 14:40 Blood Gas Puncture Site RT RADIAL DRAWN IN OR Blood Gas Patient Temperature 98.6 98.6 Blood Gas HCO3 25 mmol/L (22-26) 24 mmol/L (22-26) Blood Gas Base Excess 1.4 mmol/L (-2-2) 0.0 mmol/L (-2-2) Blood Gas Oxygen Saturation 98 % (90-100) 97 % (90-100) Arterial Blood pH 7.47 (7.380-7.420) 7.38 (7.380-7.420) Arterial Blood Partial Pressure CO2 34 mmHg (38-42) 42 mmHg (38-42) Arterial Blood Partial Pressure O2 223 mmHg (61-120) 178 mmHg (61-120) Arterial Blood Oxygen Content 20.1 Vol % (12.0-20.0) 19.2 Vol % (12.0-20.0) Arterial Blood Carboxyhemoglobin 1.1 % (0-4) 1.1 % (0-4) Arterial Blood Methemoglobin 0.8 % (0-2) 1.4 % (0-2) Blood Gas Hemoglobin 14.2 G/DL (12.0-16.0) 13.9 G/DL (12.0-16.0) Oxygen Delivery Device VENTILATOR OR Blood Gas Ventilator Setting PRVC/AC Blood Gas Inspired Oxygen 50 % White Blood Count 19.0 TH/MM3 (4.0-11.0) Red Blood Count 4.83 MIL/MM3 (4.50-5.90) Hemoglobin 14.2 GM/DL (13.0-17.0) Hematocrit 40.9 % (39.0-51.0) Mean Corpuscular Volume 84.7 FL (80.0-100.0) Mean Corpuscular Hemoglobin 29.5 PG (27.0-34.0) Mean Corpuscular Hemoglobin Concent 34.8 % (32.0-36.0) Red Cell Distribution Width 15.9 % (11.6-17.2) Platelet Count 303 TH/MM3 (150-450) Mean Platelet Volume 7.3 FL (7.0-11.0) Neutrophils (%) (Auto) 85.9 % (16.0-70.0) Lymphocytes (%) (Auto) 5.7 % (9.0-44.0) Monocytes (%) (Auto) 8.1 % (0.0-8.0) Eosinophils (%) (Auto) 0.1 % (0.0-4.0) Basophils (%) (Auto) 0.2 % (0.0-2.0) Neutrophils # (Auto) 16.3 TH/MM3 (1.8-7.7) Lymphocytes # (Auto) 1.1 TH/MM3 (1.0-4.8) Monocytes # (Auto) 1.6 TH/MM3 (0-0.9) Eosinophils # (Auto) 0.0 TH/MM3 (0-0.4) Basophils # (Auto) 0.0 TH/MM3 (0-0.2) CBC Comment DIFF FINAL Differential Comment Prothrombin Time 10.6 SEC (9.8-11.6) Prothromb Time International Ratio 1.0 RATIO Activated Partial Thromboplast Time 22.3 SEC (24.3-30.1) Blood Urea Nitrogen 9 MG/DL (7-18) Creatinine 0.45 MG/DL (0.60-1.30) Random Glucose 113 MG/DL (74-106) Calcium Level 8.0 MG/DL (8.5-10.1) Magnesium Level 2.0 MG/DL (1.5-2.5) Sodium Level 136 MEQ/L (136-145) Potassium Level 2.7 MEQ/L (3.5-5.1) Chloride Level 101 MEQ/L (98-107) Carbon Dioxide Level 26.8 MEQ/L (21.0-32.0) Anion Gap 8 MEQ/L (5-15) Estimat Glomerular Filtration Rate 190 ML/MIN (>89) Phenytoin (Dilantin) Level 4.6 MCG/ML (10.0-20.0) Test 08/16/17 16:46 08/16/17 20:15 08/16/17 23:30 08/17/17 04:00 Nasal Screen MRSA (PCR) MRSA NOT DETECTED (NOT Sodium Level 146 MEQ/L (136-145) 147 MEQ/L (136-145) Serum Osmolality 296 MOSM/KG (275-295) 298 MOSM/KG (275-295) Potassium Level 3.2 MEQ/L (3.5-5.1) Blood Gas Puncture Site RT RADIAL Blood Gas Patient Temperature 98.6 Blood Gas HCO3 17 mmol/L (22-26) Blood Gas Base Excess -6.6 mmol/L (-2-2) Blood Gas Oxygen Saturation 95 % (90-100) Arterial Blood pH 7.43 (7.380-7.420) Arterial Blood Partial Pressure CO2 26 mmHg (38-42) Arterial Blood Partial Pressure O2 89 mmHg (61-120) Arterial Blood Oxygen Content 13.6 Vol % (12.0-20.0) Arterial Blood Carboxyhemoglobin 1.4 % (0-4) Arterial Blood Methemoglobin 0.8 % (0-2) Blood Gas Hemoglobin 10.1 G/DL (12.0-16.0) Oxygen Delivery Device VENT Blood Gas Ventilator Setting SEE COMMENTS Blood Gas Inspired Oxygen 30 % Test 08/17/17 05:18 08/17/17 06:55 08/17/17 11:00 08/17/17 17:30 Sodium Level 150 MEQ/L (136-145) 157 MEQ/L (136-145) 157 MEQ/L (136-145) Serum Osmolality 302 MOSM/KG (275-295) 319 MOSM/KG (275-295) 315 MOSM/KG (275-295) Phosphorus Level 2.4 MG/DL (2.5-4.9) 2.8 MG/DL (2.5-4.9) Blood Gas Puncture Site ART LINE Blood Gas Patient Temperature 98.6 Blood Gas HCO3 17 mmol/L (22-26) Blood Gas Base Excess -6.9 mmol/L (-2-2) Blood Gas Oxygen Saturation 95 % (90-100) Arterial Blood pH 7.39 (7.380-7.420) Arterial Blood Partial Pressure CO2 29 mmHg (38-42) Arterial Blood Partial Pressure O2 93 mmHg (61-120) Arterial Blood Oxygen Content 15.3 Vol % (12.0-20.0) Arterial Blood Carboxyhemoglobin 1.3 % (0-4) Arterial Blood Methemoglobin 0.8 % (0-2) Blood Gas Hemoglobin 11.3 G/DL (12.0-16.0) Oxygen Delivery Device VENTILATOR Blood Gas Ventilator Setting Blood Gas Inspired Oxygen 30 % Blood Urea Nitrogen 8 MG/DL (7-18) 8 MG/DL (7-18) Creatinine 0.46 MG/DL (0.60-1.30) 0.47 MG/DL (0.60-1.30) Random Glucose 92 MG/DL (74-106) 87 MG/DL (74-106) Calcium Level 7.9 MG/DL (8.5-10.1) 8.2 MG/DL (8.5-10.1) Magnesium Level 2.0 MG/DL (1.5-2.5) Potassium Level 2.9 MEQ/L (3.5-5.1) 3.8 MEQ/L (3.5-5.1) Chloride Level 125 MEQ/L (98-107) 126 MEQ/L (98-107) Carbon Dioxide Level 24.3 MEQ/L (21.0-32.0) 23.5 MEQ/L (21.0-32.0) Anion Gap 8 MEQ/L (5-15) 8 MEQ/L (5-15) Estimat Glomerular Filtration Rate 185 ML/MIN (>89) 180 ML/MIN (>89) Test 08/17/17 22:00 08/18/17 04:00 08/18/17 05:44 08/18/17 12:00 Sodium Level 154 MEQ/L (136-145) 151 MEQ/L (136-145) Serum Osmolality 308 MOSM/KG (275-295) 310 MOSM/KG (275-295) 305 MOSM/KG (275-295) White Blood Count 14.0 TH/MM3 (4.0-11.0) Red Blood Count 3.75 MIL/MM3 (4.50-5.90) Hemoglobin 10.9 GM/DL (13.0-17.0) Hematocrit 32.7 % (39.0-51.0) Mean Corpuscular Volume 87.2 FL (80.0-100.0) Mean Corpuscular Hemoglobin 29.0 PG (27.0-34.0) Mean Corpuscular Hemoglobin Concent 33.2 % (32.0-36.0) Red Cell Distribution Width 16.0 % (11.6-17.2) Platelet Count 249 TH/MM3 (150-450) Mean Platelet Volume 7.5 FL (7.0-11.0) Neutrophils (%) (Auto) 80.7 % (16.0-70.0) Lymphocytes (%) (Auto) 9.5 % (9.0-44.0) Monocytes (%) (Auto) 9.2 % (0.0-8.0) Eosinophils (%) (Auto) 0.2 % (0.0-4.0) Basophils (%) (Auto) 0.4 % (0.0-2.0) Neutrophils # (Auto) 11.3 TH/MM3 (1.8-7.7) Lymphocytes # (Auto) 1.3 TH/MM3 (1.0-4.8) Monocytes # (Auto) 1.3 TH/MM3 (0-0.9) Eosinophils # (Auto) 0.0 TH/MM3 (0-0.4) Basophils # (Auto) 0.1 TH/MM3 (0-0.2) CBC Comment DIFF FINAL Differential Comment Blood Urea Nitrogen 8 MG/DL (7-18) Creatinine 0.50 MG/DL (0.60-1.30) Random Glucose 108 MG/DL (74-106) Calcium Level 8.4 MG/DL (8.5-10.1) Potassium Level 3.3 MEQ/L (3.5-5.1) Chloride Level 120 MEQ/L (98-107) Carbon Dioxide Level 21.8 MEQ/L (21.0-32.0) Anion Gap 9 MEQ/L (5-15) Estimat Glomerular Filtration Rate 168 ML/MIN (>89) Blood Gas Puncture Site ART LINE Blood Gas Patient Temperature 98.6 Blood Gas HCO3 19 mmol/L (22-26) Blood Gas Base Excess -5.0 mmol/L (-2-2) Blood Gas Oxygen Saturation 95 % (90-100) Arterial Blood pH 7.41 (7.380-7.420) Arterial Blood Partial Pressure CO2 31 mmHg (38-42) Arterial Blood Partial Pressure O2 88 mmHg (61-120) Arterial Blood Oxygen Content 14.1 Vol % (12.0-20.0) Arterial Blood Carboxyhemoglobin 1.4 % (0-4) Arterial Blood Methemoglobin 0.9 % (0-2) Blood Gas Hemoglobin 10.5 G/DL (12.0-16.0) Oxygen Delivery Device VENTILATOR Blood Gas Ventilator Setting Blood Gas Inspired Oxygen 30 % Result Diagram: 08/18/17 0400 08/18/17 0400 Imaging Last Impressions Head CT 08/17/17 0600 Signed Impressions: Service Date/Time: Thursday, August 17, 2017 09:49 - CONCLUSION: Interval right craniectomy with decreased amount of intra-axial blood products. There are persistent blood products and vasogenic edema in the right frontoparietal region. However, there is less midline shift currently measuring 7 mm compared to 16 mm previously. The right frontal ventricular catheter terminates in the region of the right thalamus. Omar Mariscal MD Chest X-Ray 08/16/17 0000 Signed Impressions: Service Date/Time: Wednesday, August 16, 2017 01:38 - CONCLUSION: 1. No acute cardiopulmonary disease demonstrated. 2. Endotracheal tube tip is close to the [place]. 3. Nasogastric tube coiled in the stomach. Omar Noland MD Procedures * INTUBATION 08/15/17 * Emergency craniotomy/craniectomy/ventriculostomy 08/16/17 . 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 Spiritual: Somewhat spiritual but not affiliated with any protestant or denomination Legal: At this time, the patient lacks capacity for decision-making, and it is uncertain as to whether he will regain that capacity. He had previously indicated that he would want his to be his surrogate decision maker, and she is serving as decision making proxy at this time. Ethical issues impacting care: None . Important Contacts : Yaima Johnson, . Prognosis Overall, the patient's prognosis is guarded, as he has ongoing metastatic melanoma. . Code Status: Full Code Plan * FULL CODE * DECISION-MAKING: At this time, the patient lacks capacity for decision-making , and it is uncertain as to whether he will regain that capacity. He had previously indicated that he would want his to be his surrogate decision maker, and she is serving as decision making proxy at this time. * GOALS: At this time, the patient's wants to continue aggressive goals. The ultimate hope is that he will recover enough to be able to return to [facility] to restart the [facility]. She does say that he made her aware in recent weeks that he would not "just want to be kept alive indefinitely on machines." * SYMPTOMS: At this time, pain and dyspnea are being managed with sedation and mechanical ventilation, and he remains on multiple antiseizure medications. I have no additional medication recommendations at this time. * The patient's is "taking care of lots of things at home that have been postponed in recent weeks," and she is planning on returning back up here in the day or 2. * Palliative Care will continue to follow the patient during this hospitalization. . Time Spent Total Floor Time (mins): 39 Face to Face Time (mins): 13 >50% Counseling/Coord of Care: Yes Attestation To help prompt me to consider important information that might be impacting today's encounter and assessment, information from prior notes written by myself or my colleagues may have been "brought forward" into today's note. My signature on this note, however, is an attestation that I personally performed the exam, history, and/or decision-making noted today, and, unless otherwise indicated, the interactions with patient, family, and staff as well as the review of records all occurred today. I also attest that the listed assessment and stated plan reflect my best clinical judgment today based on the combination of historical information, prior notes, and today's exam/ interactions. When time spent is documented, it refers only to time spent today by the signer, or if indicated, combined time spent today by collaborating physician/nurse practitioner. Olive Garcia MD Aug 18, 2017 13:35
--- NOTE | 2017-08-18 17:18 | HHI.PR ---
Review/Management Daily Summary 08/18 no seoizures sedated diprivan and fentanyl monitor neuro after sedation d/félix Subjective Subjective Comments ventilator Active Medications Current Medications Medications (Trade) Dose Ordered Sig/Karina Route Start Time Stop Time Status Last Admin (Catapres) 0.1 mg Q6H PRN PO 08/14/17 22:30 08/15/17 21:19 (Apresoline) 25 mg Q8HR PO 08/15/17 06:00 08/18/17 14:00 (Vimpat) 150 mg BID PO 08/15/17 09:00 08/18/17 08:15 (Keppra) 1,500 mg BID PO 08/15/17 09:00 08/18/17 08:15 (Dilantin) 300 mg BID PO 08/15/17 09:00 08/18/17 08:15 Sodium Chloride 1,000 ml @ 84 mls/hr [id number] IV 08/14/17 23:14 08/18/17 16:38 (NS Flush) 2 ml UNSCH PRN IV FLUSH 08/14/17 23:15 (NS Flush) 2 ml BID IV FLUSH 08/15/17 09:00 08/18/17 08:15 (Pepcid Inj) 20 mg Q12HR IV PUSH 08/15/17 09:00 08/18/17 08:15 (Zofran Inj) 4 mg Q6H PRN IV PUSH 08/14/17 23:15 (Restoril) 15 mg HS PRN PO 08/14/17 23:15 08/15/17 21:19 (Duoneb Neb) 1 ampule Q2HR NEB PRN INH 08/14/17 23:15 Miscellaneous Information 1 [id number] XX 08/14/17 23:15 (Chlorhexidine 2% Cloth) 3 pack Taper DAILY@04 TOP 08/15/17 04:00 08/11/18 03:59 (Chlorhexidine 2% Cloth) 3 pack UNSCH PRN TOP 08/14/17 23:15 (Celena-Colace) 1 tab BID PO 08/15/17 09:00 08/18/17 08:15 (Milk Of Magnesia Liq) 30 ml Q12H PRN PO 08/14/17 23:15 (Senokot) 17.2 mg Q12H PRN PO 08/14/17 23:15 (Dulcolax Supp) 10 mg DAILY PRN RECTAL 08/14/17 23:15 (Lactulose Liq) 30 ml DAILY PRN PO 08/14/17 23:15 (Decadron) 6 mg Q6HR PO 08/15/17 18:00 08/18/17 12:00 Dexmedetomidine HCl 200 mcg/ Sodium Chloride 52 ml @ 4.62 mls/hr TITRATE PRN IV 08/15/17 13:45 08/15/17 14:14 (Ultram) 50 mg Q6H PRN PO 08/15/17 14:15 (Ultram) 100 mg Q6H PRN PO 08/15/17 14:15 08/16/17 05:33 (Tylenol) 650 mg Q6H PRN PO 08/15/17 14:15 (Trandate Inj) 20 mg Q4H PRN IV 08/15/17 18:45 08/18/17 00:00 Nicardipine HCl 25 mg/Sodium Chloride 250 ml @ 50 mls/hr TITRATE PRN IV 08/15/17 23:15 08/15/17 23:26 Propofol 100 ml @ 2.667 mls/ hr TITRATE PRN IV 08/16/17 04:45 08/18/17 15:15 (Peridex 0.12% Liq) 15 ml BID@08,20 MT 08/16/17 20:00 08/18/17 08:00 (fentaNYL INJ) 100 mcg Q2H PRN IV PUSH 08/16/17 14:45 Fentanyl Citrate 250 ml @ 5 mls/hr TITRATE PRN IV 08/16/17 14:45 08/18/17 12:30 Sodium Chloride 500 ml @ 30 mls/hr UNSCH IV 08/16/17 14:45 08/21/17 14:44 08/17/17 09:16 Potassium Chloride 100 ml @ 50 mls/hr Q2H PRN IV 08/17/17 02:15 08/17/17 15:19 Potassium Chloride 100 ml @ 50 mls/hr Q2H PRN IV 08/17/17 02:15 (K-Lyte Cl Eff) 50 meq UNSCH PRN PO 08/17/17 02:15 Potassium Chloride 100 ml @ 25 mls/hr UNSCH PRN IV 08/17/17 02:15 08/18/17 05:06 Potassium Chloride 100 ml @ 50 mls/hr Q2H PRN IV 08/17/17 02:15 Magnesium Sulfate 4 gm/Sodium Chloride 100 ml @ 50 mls/hr UNSCH PRN IV 08/17/17 02:15 (Mag-Ox) 800 mg UNSCH PRN PO 08/17/17 02:15 Magnesium Sulfate 2 gm/Sodium Chloride 100 ml @ 50 mls/hr UNSCH PRN IV 08/17/17 02:15 (K-Phos) 2,000 mg Q4H PRN PO 08/17/17 02:15 Sodium Phosphate 30 mmol/Sodium Chloride 250 ml @ 42 mls/hr UNSCH PRN IV 08/17/17 02:15 (K-Phos) 2,000 mg UNSCH PRN PO/TUBE 08/17/17 02:15 Potassium Phosphate 30 mmol/ Sodium Chloride 260 ml @ 42 mls/hr UNSCH PRN IV 08/17/17 02:15 Phenylephrine HCl 40 mg/Sodium Chloride 500 ml @ 30 mls/hr TITRATE PRN IV 08/17/17 05:45 (Brethine Inj) 1 mg UNSCH PRN SQ 08/17/17 05:45 Norepinephrine Bitartrate 4 mg/ Sodium Chloride 250 ml @ 7.5 mls/hr TITRATE PRN IV 08/17/17 07:30 08/18/17 12:30 (Brethine Inj) 1 mg UNSCH PRN SQ 08/17/17 07:30 Allergies Allergies Coded Allergies No Known Drug Allergies (Verified Allergy, Unknown, 08/08/17) Exam I&O / VS Vital Signs Date Time Temp Pulse Resp B/P (MAP) Pulse Ox O2 Delivery O2 Flow Rate FiO2 08/18/17 16:00 30 08/18/17 16:00 99.3 86 12 126/56 (79) 97 08/18/17 16:00 86 08/18/17 15:37 96 30 08/18/17 14:00 88 08/18/17 12:30 77 141/65 08/18/17 12:00 77 08/18/17 12:00 99.3 77 12 141/65 (90) 96 08/18/17 12:00 30 08/18/17 11:27 97 30 08/18/17 10:00 77 2/27/18 08:05 95 30 08/18/17 08:00 91 08/18/17 08:00 30 08/18/17 08:00 99.0 87 15 150/69 (96) 94 08/18/17 07:00 95 Mechanical Ventilator 30 08/18/17 06:00 84 08/18/17 04:00 30 08/18/17 04:00 79 08/18/17 04:00 98.8 78 12 128/62 (84) 98 08/18/17 03:10 96 30 08/18/17 02:00 85 08/18/17 00:32 97 30 08/18/17 00:00 30 08/18/17 00:00 99.1 81 12 117/61 (79) 97 08/18/17 00:00 79 08/17/17 22:00 97 08/17/17 20:00 89 08/17/17 20:00 30 08/17/17 20:00 99.3 86 12 144/61 (88) 94 08/17/17 19:53 95 30 08/17/17 19:00 96 Mechanical Ventilator 30 08/17/17 18:00 88 Respiratory: Lungs CTA, Non-labored respirations Cardiology: Normal rate, No edema, Regular Rhythm Musculoskeletal: No calf tenderness Objective Micro and Labs Laboratory Tests Test 08/17/17 17:30 08/17/17 22:00 08/18/17 04:00 08/18/17 05:44 Blood Urea Nitrogen 8 8 Creatinine 0.47 0.50 Random Glucose 87 108 Calcium Level 8.2 8.4 Sodium Level 157 154 151 Potassium Level 3.8 3.3 Chloride Level 126 120 Carbon Dioxide Level 23.5 21.8 Anion Gap 8 9 Estimat Glomerular Filtration Rate 180 168 Serum Osmolality 315 308 310 White Blood Count 14.0 Red Blood Count 3.75 Hemoglobin 10.9 Hematocrit 32.7 Mean Corpuscular Volume 87.2 Mean Corpuscular Hemoglobin 29.0 Mean Corpuscular Hemoglobin Concent 33.2 Red Cell Distribution Width 16.0 Platelet Count 249 Mean Platelet Volume 7.5 Neutrophils (%) (Auto) 80.7 Lymphocytes (%) (Auto) 9.5 Monocytes (%) (Auto) 9.2 Eosinophils (%) (Auto) 0.2 Basophils (%) (Auto) 0.4 Neutrophils # (Auto) 11.3 Lymphocytes # (Auto) 1.3 Monocytes # (Auto) 1.3 Eosinophils # (Auto) 0.0 Basophils # (Auto) 0.1 CBC Comment DIFF FINAL Differential Comment Blood Gas Puncture Site ART LINE Blood Gas Patient Temperature 98.6 Blood Gas HCO3 19 Blood Gas Base Excess -5.0 Blood Gas Oxygen Saturation 95 Arterial Blood pH 7.41 Arterial Blood Partial Pressure CO2 31 Arterial Blood Partial Pressure O2 88 Arterial Blood Oxygen Content 14.1 Arterial Blood Carboxyhemoglobin 1.4 Arterial Blood Methemoglobin 0.9 Blood Gas Hemoglobin 10.5 Oxygen Delivery Device VENTILATOR Blood Gas Ventilator Setting Blood Gas Inspired Oxygen 30 Test 08/18/17 12:00 Serum Osmolality 305 Melanie Boggs MD Aug 18, 2017 17:17
[2017-08-18] MEDS: ACETAMINOPHEN 325 MG TAB PO PRN (23:14)
[2017-08-19] VITALS (19 sets, daily range): BP systolic 108–159; BP diastolic 55–72; PULSE 70–100; RESP 10–20; TEMP 98–100; O2SAT 95–100
[2017-08-19] MEDS: fentaNYL DRIP 250 ML IV PRN (02:27)
[2017-08-19] MEDS: PROPOFOL 1000 MG/100 ML IV PRN ×3 (02:28→20:25)
[2017-08-19] MEDS: CHLORHEXIDINE GLUCONATE 2 % 1 PACK (2 CLOTHS) TOP SCH (04:00)
[2017-08-19] MEDS: DEXAMETHASONE 6 MG TAB PO SCH ×4 (05:31→23:50)
[2017-08-19] MEDS: hydrALAZINE HCL 25 MG TAB PO SCH ×3 (06:00→20:26)
--- NOTE | 2017-08-19 07:43 | HHI.CCPN ---
Subjective Remarks/Hospital Course 62-year-old male with a history of malignant melanoma metastasized to the brain status post right parietal craniectomy on June 09, 2017 at [facility] followed by 5 radiation treatments being followed by oncologist at [facility]. Patient was just evaluated at [facility] on 08/05/17 and received Ktruda. He developed worsening weakness involving the left lower extremity since then over the next 3 days and presented to the ER at [facility] on 08/[address] without contrast revealed intracerebral hemorrhage involving right frontal parietal region with right subdural hemorrhage and minimal midline shift. [facility] was contacted however did not have any beds hence patient was accepted for transfer at [facility] and patient was transferred to the ICU at [place]. He was treated non-surgically with decadron and was transferred to [facility]. Just after the transfer patient became more weak on the left side and the MRI brain was performed that showed postsurgical features of right high parietal craniotomy with enlarging hematoma in the operative bed now measuring approximately 5 cm in comparison to 3.4 cm on prior exam, and also interval development of small subdural collection measuring up to 8 mm in the anterior right frontal region. This results in increased [id number] subfalcine shift. For this the patient has been transferred back to the ICU under critical care service admission. 08/16: Clinical deterioration overnight requiring intubation and mechanical ventilation. Left pupil has dilated and right remains enlarged. He has known intraparenchymal hematoma/seroma which has expanded. He received mannitol bolus and was taken straight to the OR for decompression/evacuation hematoma. 08/17: Back from OR last night, seen on arrival. ICP well controlled. Due to neurological instability he will be kept sedated and ventilated for 48 hours while efforts continue to control edema and ICP. 08/18: S/P decompressive craniectomy right side and evacuation of parenchymal hematoma. Ventilator dependent. 08/19: ICP controlled. CSF drainage clear. Check ABG against EtCO2, confirm accuracy. Objective Vital Signs Date Time Temp Pulse Resp B/P (MAP) Pulse Ox O2 Delivery O2 Flow Rate FiO2 08/19/17 06:00 79 08/19/17 04:22 100 30 08/19/17 04:00 98.4 10 131/58 (82) 08/18/17 19:00 Mechanical Ventilator Intake and Output 08/19/17 08/19/17 08/20/17 08:00 16:00 00:00 Intake Total 100 ml Output Total 525 ml Balance -425 ml Result Diagram: 08/18/17 0400 08/19/17 0421 Imaging 1. Redemonstration of postsurgical features of right high parietal craniotomy with enlarging hematoma in the operative bed now measuring approximately 5 cm in comparison to 3.4 cm on prior exam. There has also been interval development of small subdural collection measuring up to 8 mm in the anterior right frontal region. This results in increased [id number] subfalcine shift of approximately 1.4 cm in comparison to 8 cm in prior exam. No evidence for downward herniation at this time. Objective Remarks GENERAL: Well-nourished, well-developed patient. SKIN: Warm and dry. HEAD: Normocephalic. EYES: No scleral icterus. No injection or drainage. NECK: Supple, trachea midline. Orally intubated. CARDIOVASCULAR: NL S1S2, regular rate and rhythm without murmurs, gallops, or rubs. No JVD. RESPIRATORY: Breath sounds equal bilaterally. Clear, no adventitious sounds. GASTROINTESTINAL: Abdomen soft, non-tender, nondistended. No guarding. BS present. MUSCULOSKELETAL: No cyanosis, or edema. Well perfused. NEURO EXAM: Unresponsive. Sedated, ventilated. A/P Assessment and Plan Subdural hematoma Intraparenchymal bleed Metastatic disease - Continue neuro checks per ICU protocol - Neurosurgery consulted and discussed - continue Decadron 4 mg IV every 6 hourly - Continue Keppra to 1500 mg IV every 12 hourly, Dilantin every 12 hourly, continue by mouth Vimpat. - Seizure precautions - Ativan when necessary for breakthrough seizures as needed - Further per neurosurgery Hypertension - Hydralazine 10 mg IV every 2 hourly when necessary for SBP greater than 150 mmHg Melanoma - Prostatic disease - Palliative care consultation DVT GI prophylaxis - Teds SCDs - No pharmacological DVT prophylaxis due to ICH - Pepcid Overall impression: Decreased LOC requiring intubation and mechanical ventilation caused by expansion of brain parenchymal hematoma and vasogenic edema. He remains critically ill following emergency craniotomy for decompression and evacuation of blood. Remains unstable; attempt to lighten sedation soon if we can control ICP, seizures. Check dilantin level. Critical care 39 mins Feliciano Guidry MD Aug 19, 2017 07:43
[2017-08-19] MEDS ORDERED: 3% SALINE INJ 250 ML IV ONE (07:45)
[2017-08-19] MEDS: levETIRAcetam 500 MG TAB PO SCH ×2 (08:28→20:26)
[2017-08-19] MEDS: DOCUSATE SODIUM 50 MG/SENNA 8.6 MG TAB PO SCH ×2 (08:28→20:26)
[2017-08-19] MEDS: LACOSAMIDE 50 MG TAB PO SCH ×2 (08:28→20:26)
[2017-08-19] MEDS: FAMOTIDINE 20 MG/2 ML VIAL IV PUSH SCH ×2 (08:28→20:25)
[2017-08-19] MEDS: PHENYTOIN SODIUM 100 MG CAP PO SCH ×2 (08:29→20:26)
[2017-08-19] MEDS: CHLORHEXIDINE 0.12% (ORAL KIT) 15 ML CUP MT SCH ×2 (08:29→20:27)
[2017-08-19] MEDS: LABETALOL HCL 100 MG/20 ML VIAL IV PRN ×3 (08:36→18:02)
[2017-08-19] MEDS: SODIUM CHLORIDE 0.9% FLUSH 10 ML FLUSH IV FLUSH SCH ×2 (10:04→20:27)
--- NOTE | 2017-08-19 10:28 | HHI.HCPN ---
Reason for visit a. To assist with evaluation and management of symptoms including: Encephalopathy, pain, seizures b. To assist medical decision maker(s) with: better understanding of current medical conditions; weighing benefits/burdens of medical treatment options; making medical treatment decisions. . Subjective/Interval History INTERVAL NOTE: The patient remains sedated, mechanically ventilated.....but the sedation has been turned down a bit and may be decreased again later today. His blood pressure is a little bit higher, systolic in the 150s, with the sedation turned down a step. Discussed with , see below . Family/friend interactions I discussed this again with the patient's by telephone. She is back at work again today, trying to keep her mind occupied and not wanting to just sit in the room while he is sedated. She will check with the nurse in a couple hours to see how the decreasing sedation is or is not affecting the patient. . Advance Directives Living Will: Never completed Health Care Surrogate: Never completed Durable Power of Grocery Clerk: Never completed Objective Vital Signs Date Time Temp Pulse Resp B/P (MAP) Pulse Ox O2 Delivery O2 Flow Rate FiO2 08/19/17 07:46 99 30 08/19/17 06:00 79 08/19/17 04:22 100 30 08/19/17 04:00 98.4 76 10 131/58 (82) 99 08/19/17 04:00 76 08/19/17 04:00 30 08/19/17 02:00 83 08/19/17 01:06 98 30 08/19/17 01:06 98 30 08/19/17 00:00 100.0 83 11 130/70 (90) 95 08/19/17 00:00 30 08/19/17 00:00 83 08/18/17 22:00 87 08/18/17 20:00 30 08/18/17 20:00 99.5 84 10 111/67 (82) 97 08/18/17 20:00 85 08/18/17 19:18 96 30 08/18/17 19:00 96 Mechanical Ventilator 30 08/18/17 18:00 84 08/18/17 16:00 30 08/18/17 16:00 99.3 86 12 126/56 (79) 97 08/18/17 16:00 86 08/18/17 15:37 96 30 08/18/17 14:00 88 2/27/18 12:30 77 141/65 08/18/17 12:00 77 08/18/17 12:00 99.3 77 12 141/65 (90) 96 08/18/17 12:00 30 08/18/17 11:27 97 30 Intake & Output 08/19/17 08/19/17 07:00 19:00 Intake Total 100 ml Output Total 525 ml Balance -425 ml Tube Irrigant 100 ml Output Urine Total 500 ml Gastric Drainage Total 0 ml Drainage Total 25 ml # Bowel Movements 0 Physical Exam CONSTITUTIONAL/GENERAL: This is an adequately nourished patient, in no apparent distress. Sedated, mechanically ventilated. TUBES/LINES/DRAINS: Endotracheal tube, drain from recent neurosurgery EYES: Pupils equal and round but only about 1.5 mm and I can't tell if they are reactive. No scleral icterus. No injection or drainage. Fundi not examined. ENT: Nose without bleeding or purulent drainage. NECK: Trachea midline. Supple, nontender. No palpable thyroid enlargement or nodularity. CARDIOVASCULAR: Regular rate and rhythm without murmurs, gallops, or rubs. No JVD. Peripheral pulses symmetric. RESPIRATORY/CHEST: Symmetric, unlabored respirations. Clear to auscultation. Breath sounds equal bilaterally. No wheezes, rales, or rhonchi. GASTROINTESTINAL: Abdomen soft, non-tender, nondistended. No hepato-splenomegaly , or palpable masses. No guarding. Bowel sounds present. GENITOURINARY: Without palpable bladder distension. Phipps catheter in place. MUSCULOSKELETAL: Extremities without clubbing, cyanosis, or edema. No joint tenderness or effusion noted. No calf tenderness. No mottling or clubbing. LYMPHATICS: No palpable cervical or supraclavicular adenopathy. NEUROLOGICAL: Sedated, unresponsive. Pupils are 2 mm and react slightly PSYCHIATRIC: Unable to assess due to clinical condition . Diagnostic Tests Laboratory Laboratory Tests Test 08/16/17 14:40 08/16/17 16:46 08/16/17 20:15 08/16/17 23:30 Nasal Screen MRSA (PCR) MRSA NOT DETECTED (NOT Sodium Level 146 MEQ/L (136-145) 147 MEQ/L (136-145) Serum Osmolality 296 MOSM/KG (275-295) 298 MOSM/KG (275-295) Potassium Level 3.2 MEQ/L (3.5-5.1) Test 08/17/17 04:00 08/17/17 05:18 08/17/17 06:55 08/17/17 11:00 Blood Gas Puncture Site RT RADIAL ART LINE Blood Gas Patient Temperature 98.6 98.6 Blood Gas HCO3 17 mmol/L (22-26) 17 mmol/L (22-26) Blood Gas Base Excess -6.6 mmol/L (-2-2) -6.9 mmol/L (-2-2) Blood Gas Oxygen Saturation 95 % (90-100) 95 % (90-100) Arterial Blood pH 7.43 (7.380-7.420) 7.39 (7.380-7.420) Arterial Blood Partial Pressure CO2 26 mmHg (38-42) 29 mmHg (38-42) Arterial Blood Partial Pressure O2 89 mmHg (61-120) 93 mmHg (61-120) Arterial Blood Oxygen Content 13.6 Vol % (12.0-20.0) 15.3 Vol % (12.0-20.0) Arterial Blood Carboxyhemoglobin 1.4 % (0-4) 1.3 % (0-4) Arterial Blood Methemoglobin 0.8 % (0-2) 0.8 % (0-2) Blood Gas Hemoglobin 10.1 G/DL (12.0-16.0) 11.3 G/DL (12.0-16.0) Oxygen Delivery Device VENT VENTILATOR Blood Gas Ventilator Setting SEE COMMENTS Blood Gas Inspired Oxygen 30 % 30 % Sodium Level 150 MEQ/L (136-145) 157 MEQ/L (136-145) Serum Osmolality 302 MOSM/KG (275-295) 319 MOSM/KG (275-295) Phosphorus Level 2.4 MG/DL (2.5-4.9) 2.8 MG/DL (2.5-4.9) Blood Urea Nitrogen 8 MG/DL (7-18) Creatinine 0.46 MG/DL (0.60-1.30) Random Glucose 92 MG/DL (74-106) Calcium Level 7.9 MG/DL (8.5-10.1) Magnesium Level 2.0 MG/DL (1.5-2.5) Potassium Level 2.9 MEQ/L (3.5-5.1) Chloride Level 125 MEQ/L (98-107) Carbon Dioxide Level 24.3 MEQ/L (21.0-32.0) Anion Gap 8 MEQ/L (5-15) Estimat Glomerular Filtration Rate 185 ML/MIN (>89) Test 08/17/17 17:30 08/17/17 22:00 08/18/17 04:00 08/18/17 05:44 Blood Urea Nitrogen 8 MG/DL (7-18) 8 MG/DL (7-18) Creatinine 0.47 MG/DL (0.60-1.30) 0.50 MG/DL (0.60-1.30) Random Glucose 87 MG/DL (74-106) 108 MG/DL (74-106) Calcium Level 8.2 MG/DL (8.5-10.1) 8.4 MG/DL (8.5-10.1) Sodium Level 157 MEQ/L (136-145) 154 MEQ/L (136-145) 151 MEQ/L (136-145) Potassium Level 3.8 MEQ/L (3.5-5.1) 3.3 MEQ/L (3.5-5.1) Chloride Level 126 MEQ/L (98-107) 120 MEQ/L (98-107) Carbon Dioxide Level 23.5 MEQ/L (21.0-32.0) 21.8 MEQ/L (21.0-32.0) Anion Gap 8 MEQ/L (5-15) 9 MEQ/L (5-15) Estimat Glomerular Filtration Rate 180 ML/MIN (>89) 168 ML/MIN (>89) Serum Osmolality 315 MOSM/KG (275-295) 308 MOSM/KG (275-295) 310 MOSM/KG (275-295) White Blood Count 14.0 TH/MM3 (4.0-11.0) Red Blood Count 3.75 MIL/MM3 (4.50-5.90) Hemoglobin 10.9 GM/DL (13.0-17.0) Hematocrit 32.7 % (39.0-51.0) Mean Corpuscular Volume 87.2 FL (80.0-100.0) Mean Corpuscular Hemoglobin 29.0 PG (27.0-34.0) Mean Corpuscular Hemoglobin Concent 33.2 % (32.0-36.0) Red Cell Distribution Width 16.0 % (11.6-17.2) Platelet Count 249 TH/MM3 (150-450) Mean Platelet Volume 7.5 FL (7.0-11.0) Neutrophils (%) (Auto) 80.7 % (16.0-70.0) Lymphocytes (%) (Auto) 9.5 % (9.0-44.0) Monocytes (%) (Auto) 9.2 % (0.0-8.0) Eosinophils (%) (Auto) 0.2 % (0.0-4.0) Basophils (%) (Auto) 0.4 % (0.0-2.0) Neutrophils # (Auto) 11.3 TH/MM3 (1.8-7.7) Lymphocytes # (Auto) 1.3 TH/MM3 (1.0-4.8) Monocytes # (Auto) 1.3 TH/MM3 (0-0.9) Eosinophils # (Auto) 0.0 TH/MM3 (0-0.4) Basophils # (Auto) 0.1 TH/MM3 (0-0.2) CBC Comment DIFF FINAL Differential Comment Blood Gas Puncture Site ART LINE Blood Gas Patient Temperature 98.6 Blood Gas HCO3 19 mmol/L (22-26) Blood Gas Base Excess -5.0 mmol/L (-2-2) Blood Gas Oxygen Saturation 95 % (90-100) Arterial Blood pH 7.41 (7.380-7.420) Arterial Blood Partial Pressure CO2 31 mmHg (38-42) Arterial Blood Partial Pressure O2 88 mmHg (61-120) Arterial Blood Oxygen Content 14.1 Vol % (12.0-20.0) Arterial Blood Carboxyhemoglobin 1.4 % (0-4) Arterial Blood Methemoglobin 0.9 % (0-2) Blood Gas Hemoglobin 10.5 G/DL (12.0-16.0) Oxygen Delivery Device VENTILATOR Blood Gas Ventilator Setting Blood Gas Inspired Oxygen 30 % Test 08/18/17 12:00 08/18/17 21:20 08/19/17 04:21 08/19/17 08:00 Serum Osmolality 305 MOSM/KG (275-295) 299 MOSM/KG (275-295) Sodium Level 148 MEQ/L (136-145) 149 MEQ/L (136-145) Phenytoin (Dilantin) Level 14.9 MCG/ML (10.0-20.0) Result Diagram: 08/18/17 0400 08/19/17 0421 Procedures * INTUBATION 08/15/17 * Emergency craniotomy/craniectomy/ventriculostomy 08/16/17 . 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 Spiritual: Somewhat spiritual but not affiliated with any temple or denomination Legal: At this time, the patient lacks capacity for decision-making, and it is uncertain as to whether he will regain that capacity. He had previously indicated that he would want his to be his surrogate decision maker, and she is serving as decision making proxy at this time. Ethical issues impacting care: None . Important Contacts : Yaima Johnson, . Prognosis Overall, the patient's prognosis is guarded, as he has ongoing metastatic melanoma. . Code Status: Full Code Plan * FULL CODE * DECISION-MAKING: At this time, the patient lacks capacity for decision-making , and it is uncertain as to whether he will regain that capacity. He had previously indicated that he would want his to be his surrogate decision maker, and she is serving as decision making proxy at this time. * GOALS: At this time, the patient's wants to continue aggressive goals. The ultimate hope is that he will recover enough to be able to return to [facility] to restart the Keytruda. She does say that he made her aware in recent weeks that he would not "just want to be kept alive indefinitely on machines." * SYMPTOMS: At this time, pain and dyspnea are being managed with sedation and mechanical ventilation, and he remains on multiple antiseizure medications. I have no additional medication recommendations at this time. * The patient's is back at work for a day or 2, and she is planning on returning back up here in the day or 2, or immediately if anything changes. * Palliative Care will continue to follow the patient during this hospitalization. . Time Spent Total Floor Time (mins): 38 Face to Face Time (mins): 14 >50% Counseling/Coord of Care: Yes (d/w RN) Attestation To help prompt me to consider important information that might be impacting today's encounter and assessment, information from prior notes written by myself or my colleagues may have been "brought forward" into today's note. My signature on this note, however, is an attestation that I personally performed the exam, history, and/or decision-making noted today, and, unless otherwise indicated, the interactions with patient, family, and staff as well as the review of records all occurred today. I also attest that the listed assessment and stated plan reflect my best clinical judgment today based on the combination of historical information, prior notes, and today's exam/ interactions. When time spent is documented, it refers only to time spent today by the signer, or if indicated, combined time spent today by collaborating physician/nurse practitioner. Olive Garcia MD Aug 19, 2017 10:28
[2017-08-19] MEDS: BENEPROTEIN POWDER 1 PACK G-TUBE SCH ×3 (10:45→18:02)
[2017-08-19] MEDS: SODIUM CHLOR 0.9% 1000 ML INJ 1,000 ML IV SCH (12:33)
--- NOTE | 2017-08-19 13:12 | HHI.NSPN ---
(Fran Mcclelland) History Chief Complaint: Intubated and sedated. 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 He underwent right craniotomy for motor cortex metastatic melanoma resection at [facility] in [place] in May 2016 with subsequent 5 rounds of radiation treatment to the brain which he completed in early July. Transferred from [facility] because of intracranial hemorrhage patient reports increasing weakness on the left side. Patient has some seizure activity last night involving the legs. Controlled with Ativan and anticonvulsants with neurology following. Patient has had seizures in the past. Initially patient and wanted to be transferred to [facility] but they did not accept the patient and related that the he could be treated locally. He was transferred to acute rehabilitation facility but complained of nausea and worsening headaches with initiation of therapy. Follow-up MRI scan of the brain was obtained which reveals postoperative changes with a moderate right subdural hemorrhage as well as cystic hemorrhagic component and posterior frontal parietal lobe at the resection site. There has been increase in the intracerebral and subdural hemorrhage with edema and midline shift despite being on Decadron 4 mg every 6 since the MRI scan from last week. He was readmitted to the intensive surgical care unit to [facility] and the title i assistant and neurosurgical consultation requested. The patient and his relate that there would like to pursue further treatment locally. 08/16/17: Pt sedated and intubated. Pt now with acute pupil changes. Discussed with RN no new medication started that would cause pupillary changes and pupils had been 3 or 4 mm overnight. With pain in upper chest pt flexes right side and extending left side. Neurosurgeon called. Pt given Mannitol 50grams and instructed to get pt ready to go to OR for emergent right crani for hematoma evacuation. Called pts and updated her and she gave me consent over the phone that was witnessed by Anika Godwin RN. 08/17/17: Pt sedated on Diprivan and Fentanyl drips. Intubated. Pupils now 3mm bilaterally slight reaction bilaterally. Not following commands. Ventriculostomy drain in place ICP 8. 2/27/18: Pt sedated on Diprivan and Fentanyl drips. Intubated. Pupils 3mm bilaterally reactive bilaterally. Ventriculostomy drain in place draining well. 08/19/17: Pt sedated on Diprivan and Fentanyl drips. He is intubated. Pupils are 3mm bilaterally reactive bilaterally. Ventriculostomy drain at 20cm H20 ICP 15. (Fran Mcclelland) System Review Comments Not able to obtain given level of alertness. (Fran Mcclelland) Exam Results Vital Signs Date Time Temp Pulse Resp B/P (MAP) Pulse Ox O2 Delivery O2 Flow Rate FiO2 08/19/17 12:46 30 08/19/17 12:39 96 08/19/17 12:00 78 08/19/17 12:00 99.2 14 129/63 (85) 08/19/17 08:00 Mechanical Ventilator Intake and Output 08/19/17 08/19/17 08/20/17 08:00 16:00 00:00 Intake Total 100 ml Output Total 525 ml Balance -425 ml (Fran Mcclelland) Physical Examination GENERAL: Pt is sedated and intubated. EYES: Pupils 3mm bilaterally with slight brisk reaction bilaterally. Sclera anicteric. CARDIOVASCULAR: Regular rate and rhythm without murmurs, gallops, or rubs. No JVD. RESPIRATORY: Intubated. Pressure controlled. FiO2 30%. Rate 12. Peep 5. CTA bilaterally. GASTROINTESTINAL: Abdomen soft, non-tender, nondistended. No hepatosplenomegaly. Diminished bs. Obese. SKIN: Incision clean and dry. No signs of infection. Craniectomy site full. MUSCULOSKELETAL: Not following commands for muscle testing. NEURO: Pt sedated on Diprivan and Fentanyl drips. Not opening eyes. Pupils 3mm bilaterally with slight brisk reaction bilaterally. Pt is no longer posturing to deep pain in upper chest. Not following commands. Ventriculostomy drain in place at [id number] draining clear CSF. ICP 15 range. (Fran Mcclelland) Lab, Micro, Other Results Last Impressions Head CT 08/17/17 0600 Signed Impressions: Service Date/Time: Thursday, August 17, 2017 09:49 - CONCLUSION: Interval right craniectomy with decreased amount of intra-axial blood products. There are persistent blood products and vasogenic edema in the right frontoparietal region. However, there is less midline shift currently measuring 7 mm compared to 16 mm previously. The right frontal ventricular catheter terminates in the region of the right thalamus. Omar Mariscal MD Chest X-Ray 08/16/17 0000 Signed Impressions: Service Date/Time: Wednesday, August 16, 2017 01:38 - CONCLUSION: 1. No acute cardiopulmonary disease demonstrated. 2. Endotracheal tube tip is close to the angeles. 3. Nasogastric tube coiled in the stomach. Omar Noland MD Laboratory Tests Test 08/18/17 21:20 08/19/17 04:21 08/19/17 08:00 Sodium Level 148 MEQ/L 149 MEQ/L Serum Osmolality 299 MOSM/KG Phenytoin (Dilantin) Level 14.9 MCG/ML (Fran Mcclelland) Medical Decision Making Impression and Plan A: 62-year-old gentleman with a history of right motor cortex metastatic melanoma resection in May 2016 at [facility] in [place] with subsequent radiation treatment and chemotherapy. Unfortunately he has a left hemiplegia and recurrent seizures which is this point are controlled with antiepileptic medications. Postoperative imaging studies reveals a right small subdural hemorrhage with hematoma in the evacuation bed and possible residual/ recurrent disease along with edema and mass effect/midline shift. These areas of intraparenchymal and associated edema along with subdural hemorrhage have progressed since the MRI scan last week despite steroid use. Pt was complaining of worsening headaches. A follow up CT head was stable but pt had acute pupillary changes with posturing. He was taken emergently to the OR for a right frontotemporal parietal craniotomy for cerebral and subdural hemorrhage evacuation; right decompressive hemicraniectomy with expansive patch graft duraplasty; right frontal ventriculostomy placement on 08/16/17. P: Continue to monitor neuro exam Continue with critical care. ICPs controlled with current treatment, continue to monitor. Wean sedation as tolerated and ICP allows. (Fran Mcclelland) Attending Statement The exam, history, and the medical decision-making described in the above note were completed with the assistance of the mid-level provider. I reviewed and agree with the findings presented. I attest that I had a [id number] encounter with the patient on the same day, and personally performed and documented my assessment and findings in the medical record. (Paco Bland MD) Fran Mcclelland Aug 19, 2017 13:12 Paco Bland MD Aug 19, 2017 18:16
[2017-08-19] MEDS: ACETAMINOPHEN 325 MG TAB PO PRN (15:20)
[2017-08-20] VITALS (20 sets, daily range): BP systolic 114–151; BP diastolic 60–91; PULSE 83–122; RESP 14–25; TEMP 99.3–101.5; O2SAT 93–100
[2017-08-20] MEDS: CHLORHEXIDINE GLUCONATE 2 % 1 PACK (2 CLOTHS) TOP SCH (04:00)
[2017-08-20] MEDS: PROPOFOL 1000 MG/100 ML IV PRN (04:55)
[2017-08-20] MEDS: fentaNYL DRIP 250 ML IV PRN (04:56)
[2017-08-20] MEDS: hydrALAZINE HCL 25 MG TAB PO SCH (05:33)
[2017-08-20] MEDS: DEXAMETHASONE 6 MG TAB PO SCH ×4 (05:33→23:01)
[2017-08-20 07:08] LABS: AUTOMATED NEUTROPHIL # 7.4 TH/MM3 (1.8-7.7); BASOPHIL % 0.4 % (0.0-2.0); BICARBONATE 26.9 MEQ/L (21.0-32.0); CALCIUM 7.9 MG/DL (8.5-10.1); CREATININE 0.44 MG/DL (0.60-1.30); EOSINOPHIL # 0.1 TH/MM3 (0-0.4); EOSINOPHIL % 0.7 % (0.0-4.0); HEMATOCRIT 31.1 % (39.0-51.0); HEMOGLOBIN 10.7 GM/DL (13.0-17.0); LYMPH % 15.4 % (9.0-44.0); LYMPHOCYTE # 1.5 TH/MM3 (1.0-4.8); MEAN CELL VOLUME 85.9 FL (80.0-100.0); MEAN CORPUSCULAR HEMOGLOBIN 29.5 PG (27.0-34.0); MEAN CORPUSCULAR HGB CONC 34.4 % (32.0-36.0); MEAN PLATELET VOLUME 7.4 FL (7.0-11.0); MONO % 8.5 % (0.0-8.0); MONOCYTE # 0.8 TH/MM3 (0-0.9); PLATELET COUNT 207 TH/MM3 (150-450); RED BLOOD COUNT 3.62 MIL/MM3 (4.50-5.90); RED CELL DISTRIBUTION WIDTH 15.4 % (11.6-17.2); WHITE BLOOD COUNT 9.8 TH/MM3 (4.0-11.0)
[2017-08-20] MEDS: CHLORHEXIDINE 0.12% (ORAL KIT) 15 ML CUP MT SCH ×2 (08:11→20:51)
[2017-08-20] MEDS: SODIUM CHLOR 0.9% 1000 ML INJ 1,000 ML IV SCH (08:11)
[2017-08-20] MEDS: FAMOTIDINE 20 MG/2 ML VIAL IV PUSH SCH ×2 (08:12→20:50)
[2017-08-20] MEDS: BENEPROTEIN POWDER 1 PACK G-TUBE SCH ×3 (08:12→17:37)
[2017-08-20] MEDS: SODIUM CHLORIDE 0.9% FLUSH 10 ML FLUSH IV FLUSH SCH ×2 (08:12→20:51)
[2017-08-20] MEDS: PHENYTOIN SODIUM 100 MG CAP PO SCH ×2 (08:13→20:49)
[2017-08-20] MEDS: levETIRAcetam 500 MG TAB PO SCH ×2 (08:14→20:50)
[2017-08-20] MEDS: DOCUSATE SODIUM 50 MG/SENNA 8.6 MG TAB PO SCH ×2 (08:16→20:49)
[2017-08-20] MEDS: LACOSAMIDE 50 MG TAB PO SCH ×2 (08:16→20:50)
--- NOTE | 2017-08-20 08:38 | HHI.CCPN ---
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 Patient was just evaluated at [facility] on 08/05/17 and received Ktruda. He developed worsening weakness involving the left lower extremity since then over the next 3 days and presented to the ER at [facility] on 08/[address] without contrast revealed intracerebral hemorrhage involving right frontal parietal region with right subdural hemorrhage and minimal midline shift. [facility] was contacted however did not have any beds hence patient was accepted for transfer at [facility] and patient was transferred to the ICU at [facility]. He was treated non-surgically with decadron and was transferred to [facility]. Just after the transfer patient became more weak on the left side and the MRI brain was performed that showed postsurgical features of right high parietal craniotomy with enlarging hematoma in the operative bed now measuring approximately 5 cm in comparison to 3.4 cm on prior exam, and also interval development of small subdural collection measuring up to 8 mm in the anterior right frontal region. This results in increased [id number] subfalcine shift. For this the patient has been transferred back to the ICU under critical care service admission. 08/16: Clinical deterioration overnight requiring intubation and mechanical ventilation. Left pupil has dilated and right remains enlarged. He has known intraparenchymal hematoma/seroma which has expanded. He received mannitol bolus and was taken straight to the OR for decompression/evacuation hematoma. 08/17: Back from OR last night, seen on arrival. ICP well controlled. Due to neurological instability he will be kept sedated and ventilated for 48 hours while efforts continue to control edema and ICP. 08/18: S/P decompressive craniectomy right side and evacuation of parenchymal hematoma. Ventilator dependent. 08/19: ICP controlled. CSF drainage clear. Check ABG against EtCO2, confirm accuracy. 08/20: Tolerating SBTs with acceptable ICP. Will increase hydralazine and add lopressor for better BP control. Objective Vital Signs Date Time Temp Pulse Resp B/P (MAP) Pulse Ox O2 Delivery O2 Flow Rate FiO2 08/20/17 07:43 99 30 08/20/17 06:00 103 08/20/17 04:00 99.3 14 130/60 (83) 08/19/17 19:00 Mechanical Ventilator Intake and Output 08/20/17 08/20/17 08/21/17 08:00 16:00 00:00 Intake Total 1174 ml Output Total 2020 ml Balance -846 ml Result Diagram: 08/20/17 0615 08/20/17 0615 Other Results Laboratory Tests Test 08/19/17 13:08 Blood Gas Puncture Site ART LINE Blood Gas Patient Temperature 98.6 Blood Gas HCO3 20 mmol/L (22-26) Blood Gas Base Excess -3.3 mmol/L (-2-2) Blood Gas Oxygen Saturation 94 % (90-100) Arterial Blood pH 7.43 (7.380-7.420) Arterial Blood Partial Pressure CO2 31 mmHg (38-42) Arterial Blood Partial Pressure O2 79 mmHg (61-120) Arterial Blood Oxygen Content 13.1 Vol % (12.0-20.0) Arterial Blood Carboxyhemoglobin 1.5 % (0-4) Arterial Blood Methemoglobin 0.9 % (0-2) Blood Gas Hemoglobin 9.8 G/DL (12.0-16.0) Oxygen Delivery Device VENTILATOR Blood Gas Liter Flow 30 L/M Blood Gas Ventilator Setting PRVC/12/550/+5/IT1.0 Imaging 1. Redemonstration of postsurgical features of right high parietal craniotomy with enlarging hematoma in the operative bed now measuring approximately 5 cm in comparison to 3.4 cm on prior exam. There has also been interval development of small subdural collection measuring up to 8 mm in the anterior right frontal region. This results in increased gyhbh-ei-nazx subfalcine shift of approximately 1.4 cm in comparison to 8 cm in prior exam. No evidence for downward herniation at this time. Objective Remarks GENERAL: Well-nourished, well-developed patient. SKIN: Warm and dry. HEAD: Normocephalic. EYES: No scleral icterus. No injection or drainage. NECK: Supple, trachea midline. Orally intubated. CARDIOVASCULAR: NL S1S2, regular rate and rhythm without murmurs, gallops, or rubs. No JVD. RESPIRATORY: Breath sounds equal bilaterally. Clear, no adventitious sounds. GASTROINTESTINAL: Abdomen soft, non-tender, nondistended. No guarding. BS present. MUSCULOSKELETAL: No cyanosis, or edema. Well perfused. NEURO EXAM: Opens eyes to voice. Moves right arm and leg to stimulation. Sedated , ventilated. A/P Assessment and Plan Subdural hematoma Intraparenchymal bleed Metastatic disease - Continue neuro checks per ICU protocol - Neurosurgery consulted and discussed - continue Decadron 4 mg IV every 6 hourly - Continue Keppra to 1500 mg IV every 12 hourly, Dilantin every 12 hourly, continue by mouth Vimpat. - Seizure precautions - Ativan when necessary for breakthrough seizures as needed - Further per neurosurgery Hypertension - Hydralazine 10 mg IV every 2 hourly when necessary for SBP greater than 150 mmHg - Hydralazine 50 po tid, add lopressor 50 BID. Melanoma - Prostatic disease - Palliative care consultation DVT GI prophylaxis - Teds SCDs - No pharmacological DVT prophylaxis due to ICH - Pepcid Overall impression: Stable respiratory and hemodynamic function. Neuro status improving. Start weaning trials. He remains critically ill following emergency craniotomy for decompression and evacuation of blood; attempt to lighten sedation soon if we can control ICP, seizures. Check dilantin level. Critical care 39 mins Feliciano Guidry MD Aug 20, 2017 08:38
[2017-08-20] MEDS ORDERED: FUROSEMIDE 40 MG/4 ML VIAL IV PUSH ONE (08:45)
[2017-08-20] MEDS ORDERED: niCARdipine INJ 25 MG in SODIUM CHLOR 0.9% 250 ML INJ 240 ML IV PRN (08:45)
[2017-08-20] MEDS: POTASSIUM CHLOR 40 MEQ PREMIX 100 ML IV SCH ×2 (09:18→12:53)
[2017-08-20] MEDS: METOPROLOL TARTRATE 50 MG TAB PO SCH ×2 (09:18→20:49)
[2017-08-20] MEDS: niCARdipine 25 MG/NS 250 ML Vial2Bag or IV room IV PRN ×2 (09:19)
[2017-08-20] MEDS: DEXMEDETOMIDINE INJ 200 MCG in SODIUM CHLORIDE 0.9% INJ 50 ML IV PRN ×2 (09:20→18:41)
--- NOTE | 2017-08-20 10:17 | HHI.NSPN ---
(Fran Mcclelland) History Chief Complaint: Intubated and sedated. 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 He underwent right craniotomy for motor cortex metastatic melanoma resection at [facility] in [place] in May 2016 with subsequent 5 rounds of radiation treatment to the brain which he completed in early July. Transferred from [facility] because of intracranial hemorrhage patient reports increasing weakness on the left side. Patient has some seizure activity last night involving the legs. Controlled with Ativan and anticonvulsants with neurology following. Patient has had seizures in the past. Initially patient and wanted to be transferred to [facility] but they did not accept the patient and related that the he could be treated locally. He was transferred to acute rehabilitation facility but complained of nausea and worsening headaches with initiation of therapy. Follow-up MRI scan of the brain was obtained which reveals postoperative changes with a moderate right subdural hemorrhage as well as cystic hemorrhagic component and posterior frontal parietal lobe at the resection site. There has been increase in the intracerebral and subdural hemorrhage with edema and midline shift despite being on Decadron 4 mg every 6 since the MRI scan from last week. He was readmitted to the intensive surgical care unit to [facility] and the pool manager and neurosurgical consultation requested. The patient and his relate that there would like to pursue further treatment locally. 08/16/17: Pt sedated and intubated. Pt now with acute pupil changes. Discussed with RN no new medication started that would cause pupillary changes and pupils had been 3 or 4 mm overnight. With pain in upper chest pt flexes right side and extending left side. Neurosurgeon called. Pt given Mannitol 50grams and instructed to get pt ready to go to OR for emergent right crani for hematoma evacuation. Called pts and updated her and she gave me consent over the phone that was witnessed by Anika Godwin RN. 08/17/17: Pt sedated on Diprivan and Fentanyl drips. Intubated. Pupils now 3mm bilaterally slight reaction bilaterally. Not following commands. Ventriculostomy drain in place ICP 8. 2/27/18: Pt sedated on Diprivan and Fentanyl drips. Intubated. Pupils 3mm bilaterally reactive bilaterally. Ventriculostomy drain in place draining well. 08/19/17: Pt sedated on Diprivan and Fentanyl drips. He is intubated. Pupils are 3mm bilaterally reactive bilaterally. Ventriculostomy drain at 20cm H20 ICP 15. 08/20/17: Pt sedated on Diprivan and Fentanyl drips being weaned and converted to Precedex. He is intubated on CPAP. (Fran Mcclelland) System Review Comments Not able to obtain given clinical condition. (Fran Mcclelland) Exam Results Vital Signs Date Time Temp Pulse Resp B/P (MAP) Pulse Ox O2 Delivery O2 Flow Rate FiO2 08/20/17 10:00 122 08/20/17 09:19 191/76 08/20/17 08:58 98 30 08/20/17 08:00 100.0 15 08/20/17 07:00 Mechanical Ventilator Intake and Output 08/20/17 08/20/17 08/20/17 07:59 15:59 23:59 Intake Total 1174 ml Output Total 2020 ml Balance -846 ml (Fran Mcclelland) Physical Examination GENERAL: Pt is sedated and intubated. EYES: Pupils 3mm bilaterally with slight brisk reaction bilaterally. Sclera anicteric. CARDIOVASCULAR: Regular rate and rhythm without murmurs, gallops, or rubs. No JVD. RESPIRATORY: Intubated. CPAP. CTA bilaterally. GASTROINTESTINAL: Abdomen soft, non-tender, nondistended. No hepatosplenomegaly. Diminished bs. Obese. SKIN: Incision clean and dry. No signs of infection. Craniectomy site full. MUSCULOSKELETAL: Tail Edger hand and moves toes on right side. Left dense hemiparesis. NEURO: Pt sedated on Diprivan and Fentanyl drips. Not opening eyes. Pupils 3mm bilaterally with slight brisk reaction bilaterally. He kiss setter hand the RUE and moves toes RLE to command. Dense left hemiparesis. Ventriculostomy drain in place at [id number] draining clear CSF. ICP 15-18 range. (Fran Mcclelland) Lab, Micro, Other Results Last Impressions Head CT 08/17/17 0600 Signed Impressions: Service Date/Time: Thursday, August 17, 2017 09:49 - CONCLUSION: Interval right craniectomy with decreased amount of intra-axial blood products. There are persistent blood products and vasogenic edema in the right frontoparietal region. However, there is less midline shift currently measuring 7 mm compared to 16 mm previously. The right frontal ventricular catheter terminates in the region of the right thalamus. Omar Mariscal MD Chest X-Ray 08/16/17 0000 Signed Impressions: Service Date/Time: Wednesday, August 16, 2017 01:38 - CONCLUSION: 1. No acute cardiopulmonary disease demonstrated. 2. Endotracheal tube tip is close to the [place]. 3. Nasogastric tube coiled in the stomach. Omar Noland MD Laboratory Tests Test 08/19/17 13:08 08/19/17 21:10 08/20/17 06:15 Blood Gas Puncture Site ART LINE Blood Gas Patient Temperature 98.6 Blood Gas HCO3 20 mmol/L Blood Gas Base Excess -3.3 mmol/L Blood Gas Oxygen Saturation 94 % Arterial Blood pH 7.43 Arterial Blood Partial Pressure CO2 31 mmHg Arterial Blood Partial Pressure O2 79 mmHg Arterial Blood Oxygen Content 13.1 Vol % Arterial Blood Carboxyhemoglobin 1.5 % Arterial Blood Methemoglobin 0.9 % Blood Gas Hemoglobin 9.8 G/DL Oxygen Delivery Device VENTILATOR Blood Gas Liter Flow 30 L/M Blood Gas Ventilator Setting PRVC/12/550/+5/IT1.0 Sodium Level 145 MEQ/L 145 MEQ/L White Blood Count 9.8 TH/MM3 Red Blood Count 3.62 MIL/MM3 Hemoglobin 10.7 GM/DL Hematocrit 31.1 % Mean Corpuscular Volume 85.9 FL Mean Corpuscular Hemoglobin 29.5 PG Mean Corpuscular Hemoglobin Concent 34.4 % Red Cell Distribution Width 15.4 % Platelet Count 207 TH/MM3 Mean Platelet Volume 7.4 FL Neutrophils (%) (Auto) 75.0 % Lymphocytes (%) (Auto) 15.4 % Monocytes (%) (Auto) 8.5 % Eosinophils (%) (Auto) 0.7 % Basophils (%) (Auto) 0.4 % Neutrophils # (Auto) 7.4 TH/MM3 Lymphocytes # (Auto) 1.5 TH/MM3 Monocytes # (Auto) 0.8 TH/MM3 Eosinophils # (Auto) 0.1 TH/MM3 Basophils # (Auto) 0.0 TH/MM3 CBC Comment DIFF FINAL Differential Comment Blood Urea Nitrogen 7 MG/DL Creatinine 0.44 MG/DL Random Glucose 94 MG/DL Calcium Level 7.9 MG/DL Potassium Level 3.3 MEQ/L Chloride Level 110 MEQ/L Carbon Dioxide Level 26.9 MEQ/L Anion Gap 8 MEQ/L Estimat Glomerular Filtration Rate 195 ML/MIN (Fran Mcclelland) Medical Decision Making Impression and Plan A: 62-year-old gentleman with a history of right motor cortex metastatic melanoma resection in May 2016 at [facility] in [place] with subsequent radiation treatment and chemotherapy. Unfortunately he has a left hemiplegia and recurrent seizures which is this point are controlled with antiepileptic medications. Postoperative imaging studies reveals a right small subdural hemorrhage with hematoma in the evacuation bed and possible residual/ recurrent disease along with edema and mass effect/midline shift. These areas of intraparenchymal and associated edema along with subdural hemorrhage have progressed since the MRI scan last week despite steroid use. Pt was complaining of worsening headaches. A follow up CT head was stable but pt had acute pupillary changes with posturing. He was taken emergently to the OR for a right frontotemporal parietal craniotomy for cerebral and subdural hemorrhage evacuation; right decompressive hemicraniectomy with expansive patch graft duraplasty; right frontal ventriculostomy placement on 08/16/17. P: Continue to monitor neuro exam Continue with critical care. ICPs controlled, will try to wean off Diprivan and Dilaudid drips and use Precedex if needed as ICP allows. Discussed with critical care. (Fran Mcclelland) Attending Statement The exam, history, and the medical decision-making described in the above note were completed with the assistance of the mid-level provider. I reviewed and agree with the findings presented. I attest that I had a [id number] encounter with the patient on the same day, and personally performed and documented my assessment and findings in the medical record. ICPs are normal with the ventriculostomy at 20 cm level. He does not open his eyes but has spontaneous right upper and lower extremity movements noted. We'll clamp ventriculostomy and if ICP remains normal overnight then D/C ventriculostomy drain. Continue weaning ventilator as tolerated. (Paco Bland MD) Fran Mcclelland Aug 20, 2017 10:17 Paco Bland MD Aug 20, 2017 15:41
[2017-08-20] MEDS: ACETAMINOPHEN 325 MG TAB PO PRN (11:29)
--- NOTE | 2017-08-20 11:30 | HHI.HCPN ---
Reason for visit a. To assist with evaluation and management of symptoms including: Encephalopathy, pain, seizures b. To assist medical decision maker(s) with: better understanding of current medical conditions; weighing benefits/burdens of medical treatment options; making medical treatment decisions. . Subjective/Interval History INTERVAL NOTE: The patient remains mechanically ventilated, but did undergo some CPAP trials yesterday. He got a bit hypoxic and more O2 was supplied. His sedation was weaned off yesterday, and he is now just on some lower dose Precedex Tmax 100.0 core this morning. Blood pressure being controlled with hydralazine and beta-polina. ICPs stable. He has been following simple command since yesterday, but does not seem to track. Discussed with , see below . Family/friend interactions Telephone , updated her, answered questions. She was here last evening and did have him squeeze her hand, and she is encouraged by some neurologic improvements. However, the fact that his left side has been flaccid now since remains quite concerning for her. . Advance Directives Living Will: Never completed Health Care Surrogate: Never completed Durable Power of Closing Manager: Never completed Objective Vital Signs Date Time Temp Pulse Resp B/P (MAP) Pulse Ox O2 Delivery O2 Flow Rate FiO2 08/20/17 10:00 122 08/20/17 09:19 110 191/76 08/20/17 08:58 98 30 08/20/17 08:25 30 08/20/17 08:00 92 08/20/17 08:00 100.0 92 15 151/69 (96) 98 08/20/17 08:00 30 08/20/17 07:43 99 30 08/20/17 07:00 99 Mechanical Ventilator 30 08/20/17 06:00 103 08/20/17 04:01 96 30 08/20/17 04:00 99.3 83 14 130/60 (83) 96 08/20/17 04:00 30 08/20/17 02:00 100 08/20/17 01:04 98 30 08/20/17 01:04 98 30 08/20/17 00:00 99 08/20/17 00:00 99.5 99 16 147/69 (95) 97 08/20/17 00:00 30 08/19/17 22:00 96 08/19/17 20:00 98.0 97 20 108/72 (84) 100 08/19/17 20:00 90 08/19/17 20:00 30 08/19/17 19:41 97 30 08/19/17 19:00 99 Mechanical Ventilator 30 08/19/17 18:00 84 08/19/17 17:16 99.0 94 17 144/55 (84) 99 08/19/17 16:45 30 08/19/17 16:00 30 08/19/17 16:00 100 08/19/17 15:53 96 30 08/19/17 14:00 94 08/19/17 12:46 30 08/19/17 12:39 96 30 08/19/17 12:00 78 08/19/17 12:00 99.2 89 14 129/63 (85) 99 Intake & Output 08/20/17 08/20/17 07:00 19:00 Intake Total 1174 ml Output Total 2020 ml Balance -846 ml IV Total 350 ml Tube Feeding 524 ml Tube Irrigant 300 ml Output Urine Total 2000 ml Drainage Total 20 ml # Bowel Movements 0 Physical Exam CONSTITUTIONAL/GENERAL: This is an adequately nourished patient, in no apparent distress. Squeezes with right hand and wiggles right toes on command. No spontaneous eye opening, does not track when eyes held open. NECK: Trachea midline. Supple, nontender. No palpable thyroid enlargement or nodularity. CARDIOVASCULAR: Regular rate and rhythm without murmurs, gallops, or rubs. No JVD. Peripheral pulses symmetric. RESPIRATORY/CHEST: Symmetric, unlabored respirations. Clear to auscultation. Breath sounds equal bilaterally. No wheezes, rales, or rhonchi. GASTROINTESTINAL: Abdomen soft, non-tender, nondistended. No hepato-splenomegaly , or palpable masses. No guarding. Bowel sounds present. GENITOURINARY: Without palpable bladder distension. Phipps catheter in place. MUSCULOSKELETAL: Extremities without clubbing, cyanosis, or edema. No joint tenderness or effusion noted. No calf tenderness. No mottling or clubbing. NEUROLOGICAL: Pupils are equal. Follows simple commands with right side, left side is flaccid. When eyes are held open he does not track. PSYCHIATRIC: Seems to have some restlessness with moving his right arm and leg at times . Diagnostic Tests Laboratory Laboratory Tests Test 08/17/17 17:30 08/17/17 22:00 08/18/17 04:00 08/18/17 05:44 Blood Urea Nitrogen 8 MG/DL (7-18) 8 MG/DL (7-18) Creatinine 0.47 MG/DL (0.60-1.30) 0.50 MG/DL (0.60-1.30) Random Glucose 87 MG/DL (74-106) 108 MG/DL (74-106) Calcium Level 8.2 MG/DL (8.5-10.1) 8.4 MG/DL (8.5-10.1) Sodium Level 157 MEQ/L (136-145) 154 MEQ/L (136-145) 151 MEQ/L (136-145) Potassium Level 3.8 MEQ/L (3.5-5.1) 3.3 MEQ/L (3.5-5.1) Chloride Level 126 MEQ/L (98-107) 120 MEQ/L (98-107) Carbon Dioxide Level 23.5 MEQ/L (21.0-32.0) 21.8 MEQ/L (21.0-32.0) Anion Gap 8 MEQ/L (5-15) 9 MEQ/L (5-15) Estimat Glomerular Filtration Rate 180 ML/MIN (>89) 168 ML/MIN (>89) Serum Osmolality 315 MOSM/KG (275-295) 308 MOSM/KG (275-295) 310 MOSM/KG (275-295) White Blood Count 14.0 TH/MM3 (4.0-11.0) Red Blood Count 3.75 MIL/MM3 (4.50-5.90) Hemoglobin 10.9 GM/DL (13.0-17.0) Hematocrit 32.7 % (39.0-51.0) Mean Corpuscular Volume 87.2 FL (80.0-100.0) Mean Corpuscular Hemoglobin 29.0 PG (27.0-34.0) Mean Corpuscular Hemoglobin Concent 33.2 % (32.0-36.0) Red Cell Distribution Width 16.0 % (11.6-17.2) Platelet Count 249 TH/MM3 (150-450) Mean Platelet Volume 7.5 FL (7.0-11.0) Neutrophils (%) (Auto) 80.7 % (16.0-70.0) Lymphocytes (%) (Auto) 9.5 % (9.0-44.0) Monocytes (%) (Auto) 9.2 % (0.0-8.0) Eosinophils (%) (Auto) 0.2 % (0.0-4.0) Basophils (%) (Auto) 0.4 % (0.0-2.0) Neutrophils # (Auto) 11.3 TH/MM3 (1.8-7.7) Lymphocytes # (Auto) 1.3 TH/MM3 (1.0-4.8) Monocytes # (Auto) 1.3 TH/MM3 (0-0.9) Eosinophils # (Auto) 0.0 TH/MM3 (0-0.4) Basophils # (Auto) 0.1 TH/MM3 (0-0.2) CBC Comment DIFF FINAL Differential Comment Blood Gas Puncture Site ART LINE Blood Gas Patient Temperature 98.6 Blood Gas HCO3 19 mmol/L (22-26) Blood Gas Base Excess -5.0 mmol/L (-2-2) Blood Gas Oxygen Saturation 95 % (90-100) Arterial Blood pH 7.41 (7.380-7.420) Arterial Blood Partial Pressure CO2 31 mmHg (38-42) Arterial Blood Partial Pressure O2 88 mmHg (61-120) Arterial Blood Oxygen Content 14.1 Vol % (12.0-20.0) Arterial Blood Carboxyhemoglobin 1.4 % (0-4) Arterial Blood Methemoglobin 0.9 % (0-2) Blood Gas Hemoglobin 10.5 G/DL (12.0-16.0) Oxygen Delivery Device VENTILATOR Blood Gas Ventilator Setting Blood Gas Inspired Oxygen 30 % Test 08/18/17 12:00 08/18/17 21:20 08/19/17 04:21 08/19/17 08:00 Serum Osmolality 305 MOSM/KG (275-295) 299 MOSM/KG (275-295) Sodium Level 148 MEQ/L (136-145) 149 MEQ/L (136-145) Phenytoin (Dilantin) Level 14.9 MCG/ML (10.0-20.0) Test 08/19/17 13:08 08/19/17 21:10 08/20/17 06:15 Blood Gas Puncture Site ART LINE Blood Gas Patient Temperature 98.6 Blood Gas HCO3 20 mmol/L (22-26) Blood Gas Base Excess -3.3 mmol/L (-2-2) Blood Gas Oxygen Saturation 94 % (90-100) Arterial Blood pH 7.43 (7.380-7.420) Arterial Blood Partial Pressure CO2 31 mmHg (38-42) Arterial Blood Partial Pressure O2 79 mmHg (61-120) Arterial Blood Oxygen Content 13.1 Vol % (12.0-20.0) Arterial Blood Carboxyhemoglobin 1.5 % (0-4) Arterial Blood Methemoglobin 0.9 % (0-2) Blood Gas Hemoglobin 9.8 G/DL (12.0-16.0) Oxygen Delivery Device VENTILATOR Blood Gas Liter Flow 30 L/M Blood Gas Ventilator Setting PRVC/12/550/+5/IT1.0 Sodium Level 145 MEQ/L (136-145) 145 MEQ/L (136-145) White Blood Count 9.8 TH/MM3 (4.0-11.0) Red Blood Count 3.62 MIL/MM3 (4.50-5.90) Hemoglobin 10.7 GM/DL (13.0-17.0) Hematocrit 31.1 % (39.0-51.0) Mean Corpuscular Volume 85.9 FL (80.0-100.0) Mean Corpuscular Hemoglobin 29.5 PG (27.0-34.0) Mean Corpuscular Hemoglobin Concent 34.4 % (32.0-36.0) Red Cell Distribution Width 15.4 % (11.6-17.2) Platelet Count 207 TH/MM3 (150-450) Mean Platelet Volume 7.4 FL (7.0-11.0) Neutrophils (%) (Auto) 75.0 % (16.0-70.0) Lymphocytes (%) (Auto) 15.4 % (9.0-44.0) Monocytes (%) (Auto) 8.5 % (0.0-8.0) Eosinophils (%) (Auto) 0.7 % (0.0-4.0) Basophils (%) (Auto) 0.4 % (0.0-2.0) Neutrophils # (Auto) 7.4 TH/MM3 (1.8-7.7) Lymphocytes # (Auto) 1.5 TH/MM3 (1.0-4.8) Monocytes # (Auto) 0.8 TH/MM3 (0-0.9) Eosinophils # (Auto) 0.1 TH/MM3 (0-0.4) Basophils # (Auto) 0.0 TH/MM3 (0-0.2) CBC Comment DIFF FINAL Differential Comment Blood Urea Nitrogen 7 MG/DL (7-18) Creatinine 0.44 MG/DL (0.60-1.30) Random Glucose 94 MG/DL (74-106) Calcium Level 7.9 MG/DL (8.5-10.1) Potassium Level 3.3 MEQ/L (3.5-5.1) Chloride Level 110 MEQ/L (98-107) Carbon Dioxide Level 26.9 MEQ/L (21.0-32.0) Anion Gap 8 MEQ/L (5-15) Estimat Glomerular Filtration Rate 195 ML/MIN (>89) Result Diagram: 08/20/17 0615 08/20/17 0615 Procedures * INTUBATION 08/15/17 * Emergency craniotomy/craniectomy/ventriculostomy 08/16/17 . 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 Spiritual: Somewhat spiritual but not affiliated with any anabaptism or denomination Legal: At this time, the patient lacks capacity for decision-making, and it is uncertain as to whether he will regain that capacity. He had previously indicated that he would want his to be his surrogate decision maker, and she is serving as decision making proxy at this time. Ethical issues impacting care: None . Important Contacts : Yaima Johnson, . Prognosis Overall, the patient's prognosis is guarded, as he has ongoing metastatic melanoma. . Code Status: Full Code Plan * FULL CODE * DECISION-MAKING: At this time, the patient lacks capacity for decision-making , and it is uncertain as to whether he will regain that capacity. He had previously indicated that he would want his to be his surrogate decision maker, and she is serving as decision making proxy at this time. * GOALS: At this time, the patient's wants to continue aggressive goals. Her ultimate hope is that he will recover enough to be able to return to [facility] to restart the Keytruda; his eligibility for that is yet to be determined. She does say that he made her aware in recent weeks that he would not "just want to be kept alive indefinitely on machines." The patient has had flaccidity of his left arm and leg since 08/07/17, and he is not tracking with his eyes at this time; that remains concerning. * SYMPTOMS: At this time, pain and dyspnea are being managed with sedation and mechanical ventilation, and he remains on multiple antiseizure medications. I have no additional medication recommendations at this time. * The patient's is back at work for a day or 2, and she is planning on returning back up here in the day or 2, or immediately if anything changes. * Palliative Care will continue to follow the patient during this hospitalization. . Time Spent Total Floor Time (mins): 41 Face to Face Time (mins): 21 >50% Counseling/Coord of Care: Yes (d/w RN and w Dr. Guidry) Attestation To help prompt me to consider important information that might be impacting today's encounter and assessment, information from prior notes written by myself or my colleagues may have been "brought forward" into today's note. My signature on this note, however, is an attestation that I personally performed the exam, history, and/or decision-making noted today, and, unless otherwise indicated, the interactions with patient, family, and staff as well as the review of records all occurred today. I also attest that the listed assessment and stated plan reflect my best clinical judgment today based on the combination of historical information, prior notes, and today's exam/ interactions. When time spent is documented, it refers only to time spent today by the signer, or if indicated, combined time spent today by collaborating physician/nurse practitioner. Olive Garcia MD Aug 20, 2017 11:30
[2017-08-20] MEDS: hydrALAZINE HCL 50 MG TAB PO SCH ×2 (14:00→22:54)
--- NOTE | 2017-08-20 15:28 | RADRPT ---
EXAM DATE/TIME: 08/20/2017 15:07 [place] COMPARISON: No previous studies available for comparison. INDICATIONS : Short of breath. MEDICAL HISTORY : Metastatic, brain. Metastatic, liver. Metastatic, colon. Melanoma. SURGICAL HISTORY : Colon resection. Craniotomy. Discectomy, lumbar. ENCOUNTER: Subsequent ACUITY: 2 weeks PAIN SCORE: Non-responsive. LOCATION: Bilateral chest FINDINGS: A single view of the chest demonstrates the lungs to be symmetrically aerated without evidence of mas s, infiltrate or effusion except for minimal atelectasis left lung base. Small infiltrate right media l lung base The endotracheal tube, nasogastric tube and right IJ central line are in good position T he cardiomediastinal contours are unremarkable. Osseous structures are intact. CONCLUSION: Middle atelectasis left lung base. Small posteromedial right lower lobe. ET tube in good position. Marcos Beard MD on August 20, 2017 at 15:26 Board Certified Radiologist. This report was verified electronically.
[2017-08-20] MEDS: ALBUMIN 25% INJ 100 ML IV SCH (16:25)
[2017-08-21] VITALS (17 sets, daily range): BP systolic 94–147; BP diastolic 50–70; PULSE 98–122; RESP 16–30; TEMP 100.2–101.1; O2SAT 95–98
[2017-08-21] MEDS: DEXMEDETOMIDINE INJ 200 MCG in SODIUM CHLORIDE 0.9% INJ 50 ML IV PRN ×5 (00:40→22:55)
[2017-08-21] MEDS: ALBUMIN 25% INJ 100 ML IV SCH ×2 (03:46→15:19)
[2017-08-21] MEDS: CHLORHEXIDINE GLUCONATE 2 % 1 PACK (2 CLOTHS) TOP SCH (04:00)
[2017-08-21] MEDS: hydrALAZINE HCL 50 MG TAB PO SCH ×3 (05:21→22:53)
[2017-08-21] MEDS: DEXAMETHASONE 6 MG TAB PO SCH ×4 (05:21→23:31)
[2017-08-21 05:47] LABS: MAGNESIUM 1.8 MG/DL (1.5-2.5); PHOSPHORUS 1.7 MG/DL (2.5-4.9)
[2017-08-21 05:49] LABS: BICARBONATE 28.5 MEQ/L (21.0-32.0); CALCIUM 8.3 MG/DL (8.5-10.1)
[2017-08-21 06:17] LABS: CREATININE 0.47 MG/DL (0.60-1.30)
[2017-08-21] MEDS: POTASSIUM CHLOR 40 MEQ PREMIX 100 ML IV PRN ×2 (06:57→10:59)
--- NOTE | 2017-08-21 08:13 | HHI.CCPN ---
Subjective Remarks/Hospital Course 62-year-old male with a history of malignant melanoma metastasized to the brain status post right parietal craniectomy on June 09, 2017 at [facility] followed by 5 radiation treatments being followed by oncologist at [facility]. Patient was just evaluated at [facility] on 08/05/17 and received Ktruda. He developed worsening weakness involving the left lower extremity since then over the next 3 days and presented to the ER at [facility] on 08/[address] without contrast revealed intracerebral hemorrhage involving right frontal parietal region with right subdural hemorrhage and minimal midline shift. [facility] was contacted however did not have any beds hence patient was accepted for transfer at [facility] and patient was transferred to the ICU at [place]. He was treated non-surgically with decadron and was transferred to [facility]. Just after the transfer patient became more weak on the left side and the MRI brain was performed that showed postsurgical features of right high parietal craniotomy with enlarging hematoma in the operative bed now measuring approximately 5 cm in comparison to 3.4 cm on prior exam, and also interval development of small subdural collection measuring up to 8 mm in the anterior right frontal region. This results in increased [id number]-ni-[id number] subfalcine shift. For this the patient has been transferred back to the ICU under critical care service admission. 08/16: Clinical deterioration overnight requiring intubation and mechanical ventilation. Left pupil has dilated and right remains enlarged. He has known intraparenchymal hematoma/seroma which has expanded. He received mannitol bolus and was taken straight to the OR for decompression/evacuation hematoma. 08/17: Back from OR last night, seen on arrival. ICP well controlled. Due to neurological instability he will be kept sedated and ventilated for 48 hours while efforts continue to control edema and ICP. 08/18: S/P decompressive craniectomy right side and evacuation of parenchymal hematoma. Ventilator dependent. 08/19: ICP controlled. CSF drainage clear. Check ABG against EtCO2, confirm accuracy. 08/20: Tolerating SBTs with acceptable ICP. Will increase hydralazine and add lopressor for better BP control. 08/21: Good respons eto diuretic yesterday, continue today. ICP kev during SBTs on vent, proceed slowly while controlling BP.Moved right arm and leg to command, opened eyes. Small infiltrate/atelectasis and persistent fever. Will culture sputum and start abx. Objective Vital Signs Date Time Temp Pulse Resp B/P (MAP) Pulse Ox O2 Delivery O2 Flow Rate FiO2 08/21/17 08:04 97 50 08/21/17 07:00 Mechanical Ventilator 08/21/17 06:00 113 08/21/17 04:00 101.1 22 134/63 (86) Intake and Output 08/21/17 08/21/17 08/22/17 08:00 16:00 00:00 Intake Total 789 ml Output Total 2510 ml Balance -1721 ml Result Diagram: 08/20/17 0615 08/21/17 0510 Imaging 1. Redemonstration of postsurgical features of right high parietal craniotomy with enlarging hematoma in the operative bed now measuring approximately 5 cm in comparison to 3.4 cm on prior exam. There has also been interval development of small subdural collection measuring up to 8 mm in the anterior right frontal region. This results in increased [id number] subfalcine shift of approximately 1.4 cm in comparison to 8 cm in prior exam. No evidence for downward herniation at this time. Objective Remarks GENERAL: Calm SKIN: Warm and dry. HEAD: Normocephalic. EYES: No scleral icterus. No injection or drainage. NECK: Supple, trachea midline. Orally intubated. CARDIOVASCULAR: NL S1S2, regular rate and rhythm without murmurs, gallops, or rubs. No JVD. RESPIRATORY: Breath sounds equal bilaterally. Clear, no adventitious sounds. GASTROINTESTINAL: Abdomen soft, non-tender, nondistended. No guarding. BS present. MUSCULOSKELETAL: No cyanosis, or edema. Well perfused. NEURO EXAM: Moves right side to command when light sedation. Opens eyes. Improved vigor during breathing trials. Sedated, ventilated. A/P Assessment and Plan Subdural hematoma Intraparenchymal bleed Metastatic disease - Continue neuro checks per ICU protocol - Neurosurgery consulted and discussed - continue Decadron 4 mg IV every 6 hourly - Continue Keppra to 1500 mg IV every 12 hourly, Dilantin every 12 hourly, continue by mouth Vimpat. - Seizure precautions - Ativan when necessary for breakthrough seizures as needed - Further per neurosurgery Hypertension - Hydralazine 10 mg IV every 2 hourly when necessary for SBP greater than 150 mmHg Melanoma - Prostatic disease - Palliative care consultation DVT GI prophylaxis - Teds SCDs - No pharmacological DVT prophylaxis due to ICH - Pepcid Overall impression: Decreased LOC requiring intubation and mechanical ventilation caused by expansion of brain parenchymal hematoma and vasogenic edema. He remains critically ill following emergency craniotomy for decompression and evacuation of blood. Remains unstable; attempt to lighten sedation soon if we can control ICP, seizures. Check dilantin level. Critical care 39 mins Feliciano Guidry MD Aug 21, 2017 08:13
[2017-08-21] MEDS: BENEPROTEIN POWDER 1 PACK G-TUBE SCH ×3 (09:00→18:00)
[2017-08-21] MEDS: FAMOTIDINE 20 MG/2 ML VIAL IV PUSH SCH ×2 (09:28→20:09)
[2017-08-21] MEDS: LACOSAMIDE 50 MG TAB PO SCH ×2 (09:28→20:09)
[2017-08-21] MEDS: DOCUSATE SODIUM 50 MG/SENNA 8.6 MG TAB PO SCH ×2 (09:28→20:08)
[2017-08-21] MEDS: PHENYTOIN SODIUM 100 MG CAP PO SCH ×2 (09:29→20:08)
[2017-08-21] MEDS: SODIUM CHLORIDE 0.9% FLUSH 10 ML FLUSH IV FLUSH SCH ×2 (09:29→20:09)
[2017-08-21] MEDS: levETIRAcetam 500 MG TAB PO SCH ×2 (09:29→20:09)
[2017-08-21] MEDS: METOPROLOL TARTRATE 50 MG TAB PO SCH ×2 (09:29→20:09)
[2017-08-21] MEDS: CHLORHEXIDINE 0.12% (ORAL KIT) 15 ML CUP MT SCH ×2 (09:29→20:10)
--- NOTE | 2017-08-21 09:29 | HHI.NSPN ---
(Fran Mcclelland) History Chief Complaint: Intubated and sedated. 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 He underwent right craniotomy for motor cortex metastatic melanoma resection at [facility] in [place] in May 2016 with subsequent 5 rounds of radiation treatment to the brain which he completed in early July. Transferred from [facility] because of intracranial hemorrhage patient reports increasing weakness on the left side. Patient has some seizure activity last night involving the legs. Controlled with Ativan and anticonvulsants with neurology following. Patient has had seizures in the past. Initially patient and wanted to be transferred to [facility] but they did not accept the patient and related that the he could be treated locally. He was transferred to acute rehabilitation facility but complained of nausea and worsening headaches with initiation of therapy. Follow-up MRI scan of the brain was obtained which reveals postoperative changes with a moderate right subdural hemorrhage as well as cystic hemorrhagic component and posterior frontal parietal lobe at the resection site. There has been increase in the intracerebral and subdural hemorrhage with edema and midline shift despite being on Decadron 4 mg every 6 since the MRI scan from last week. 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 The patient and his relate that there would like to pursue further treatment locally. 08/16/17: Pt sedated and intubated. Pt now with acute pupil changes. Discussed with RN no new medication started that would cause pupillary changes and pupils had been 3 or 4 mm overnight. With pain in upper chest pt flexes right side and extending left side. Neurosurgeon called. Pt given Mannitol 50grams and instructed to get pt ready to go to OR for emergent right crani for hematoma evacuation. Called pts and updated her and she gave me consent over the phone that was witnessed by Anika Godwin RN. 08/17/17: Pt sedated on Diprivan and Fentanyl drips. Intubated. Pupils now 3mm bilaterally slight reaction bilaterally. Not following commands. Ventriculostomy drain in place ICP 8. 2/27/18: Pt sedated on Diprivan and Fentanyl drips. Intubated. Pupils 3mm bilaterally reactive bilaterally. Ventriculostomy drain in place draining well. 08/19/17: Pt sedated on Diprivan and Fentanyl drips. He is intubated. Pupils are 3mm bilaterally reactive bilaterally. Ventriculostomy drain at 20cm H20 ICP 15. 08/20/17: Pt sedated on Diprivan and Fentanyl drips being weaned and converted to Precedex. He is intubated on CPAP. 08/21/17: Pt sedated on Precedex. Follows simple commands right side. Pupils 4mm bilaterally. Not opening eyes to voice but does to pain. (Fran Mcclelland) System Review Comments Not able to obtain given clinical condition. (Fran Mcclelland) Exam Results Vital Signs Date Time Temp Pulse Resp B/P (MAP) Pulse Ox O2 Delivery O2 Flow Rate FiO2 08/21/17 08:04 97 50 08/21/17 08:00 122 08/21/17 08:00 100.2 22 143/70 (94) 08/21/17 07:00 Mechanical Ventilator Intake and Output 08/21/17 08/21/17 08/22/17 08:00 16:00 00:00 Intake Total 789 ml Output Total 2510.0 ml Balance -1721.0 ml (Fran Mcclelland) Physical Examination GENERAL: Pt is sedated and intubated. EYES: Pupils 4mm bilaterally with slight brisk reaction bilaterally. Sclera anicteric. CARDIOVASCULAR: Regular rate and rhythm without murmurs, gallops, or rubs. RESPIRATORY: Intubated. CPAP. CTA bilaterally. GASTROINTESTINAL: Abdomen soft, non-tender, nondistended. No hepatosplenomegaly. Diminished bs. Obese. SKIN: Incision clean and dry. No signs of infection. Craniectomy site full. 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 Left dense hemiparesis. NEURO: Pt sedated on Precedex. Not opening eyes. Pupils 4mm bilaterally with brisk reaction bilaterally. He lathe tender the RUE and moves toes RLE to command. Dense left hemiparesis. Ventriculostomy drain in place at [id number] clamped this morning ICP 9 (Fran Mcclelland) Lab, Micro, Other Results Last Impressions Chest X-Ray 08/20/17 0000 Signed Impressions: Service Date/Time: August 15:07 - CONCLUSION: Middle atelectasis left lung base. Small posteromedial right lower lobe. ET tube in good position. Marcos Beard MD Head CT 08/17/17 0600 Signed Impressions: Service Date/Time: Thursday, August 17, 2017 09:49 - CONCLUSION: Interval right craniectomy with decreased amount of intra-axial blood products. There are persistent blood products and vasogenic edema in the right frontoparietal region. However, there is less midline shift currently measuring 7 mm compared to 16 mm previously. The right frontal ventricular catheter terminates in the region of the right thalamus. Omar Mariscal MD Laboratory Tests Test 08/21/17 05:10 Blood Urea Nitrogen 9 MG/DL Creatinine 0.47 MG/DL Random Glucose 108 MG/DL Calcium Level 8.3 MG/DL Sodium Level 143 MEQ/L Potassium Level 3.1 MEQ/L Chloride Level 107 MEQ/L Carbon Dioxide Level 28.5 MEQ/L Anion Gap 8 MEQ/L Estimat Glomerular Filtration Rate 180 ML/MIN Phosphorus Level 1.7 MG/DL Magnesium Level 1.8 MG/DL 08/21/17 08/21/17 08/22/17 15:00 23:00 07:00 Output Total 0 ml Balance 0 ml Tube Feeding Residual Discard 0 ml (Fran Mcclelland) Medical Decision Making Impression and Plan A: 62-year-old gentleman with a history of right motor cortex metastatic melanoma resection in May 2016 at [facility] in [place] with subsequent radiation treatment and chemotherapy. Unfortunately he has a left hemiplegia and recurrent seizures which is this point are controlled with antiepileptic medications. Postoperative imaging studies reveals a right small subdural hemorrhage with hematoma in the evacuation bed and possible residual/ recurrent disease along with edema and mass effect/midline shift. These areas of intraparenchymal and associated edema along with subdural hemorrhage have progressed since the MRI scan last week despite steroid use. Pt was complaining of worsening headaches. A follow up CT head was stable but pt had acute pupillary changes with posturing. He was taken emergently to the OR for a right frontotemporal parietal craniotomy for cerebral and subdural hemorrhage evacuation; right decompressive hemicraniectomy with expansive patch graft duraplasty; right frontal ventriculostomy placement on 08/16/17. P: Continue to monitor neuro exam Continue with critical care. ICPs controlled, will d/c ventriculostomy pr Dr. Bland (Fran Mcclelland) Attending Statement The exam, history, and the medical decision-making described in the above note were completed with the assistance of the mid-level provider. I reviewed and agree with the findings presented. I attest that I had a [id number] encounter with the patient on the same day, and personally performed and documented my assessment and findings in the medical record. (Paco Bland MD) Fran Mcclelland Aug 21, 2017 09:29 Paco Bland MD Aug 21, 2017 18:46
[2017-08-21] MEDS ORDERED: Vancomycin Consult Pharmacy 1 EA OTHER SCH (10:30)
[2017-08-21] MEDS ORDERED: PIPERACIL-TAZO 4.5 GM PREMIX 100 ML IV SCH (11:00)
[2017-08-21] MEDS ORDERED: LIDOCAINE 2%/EPINEPHrine 1:100,000 20ML MDV INFIL ONE (11:00)
[2017-08-21] MEDS ORDERED: VANCOMYCIN 1,500 MG/NS 500 ML IV ONE ×2 (11:30)
[2017-08-21] MEDS: PIPERACIL-TAZO 3.375 GM PREMIX 50 ML IV SCH ×3 (11:44→22:53)
--- NOTE | 2017-08-21 14:02 | HHI.HCPN ---
Reason for visit a. To assist with evaluation and management of symptoms including: Encephalopathy, pain, seizures b. To assist medical decision maker(s) with: better understanding of current medical conditions; weighing benefits/burdens of medical treatment options; making medical treatment decisions. . Subjective/Interval History INTERVAL NOTE: The patient remains mechanically ventilated, he remains on some lower dose Precedex He has had fever fairly consistently the past 24 hours, and blood and sputum cultures have been obtained; vancomycin plus pipracil-guillermo have been started. He has been following simple commands, but still does not seem to track. His functional status remains poor, and I have had conversations with oncologists Dr. Stephens and Dr. Covarrubias ([facility]) today. Dr. Stephens offered her opinion regarding any future cancer directed treatment, indicating that Keytruda would not likely be used at this point. I spoke at length with the patient's [facility] oncologist, Dr. Covarrubias ([phone]): Given the patient's poor functional status and the confirmation of continued malignant melanoma cells from the pathology of his surgery here 5 days ago, he is of the opinion that additional immunotherapy or even a B-JOLENE inhibitor (the patient does have the mutation) may not be useful at this point in time. Even if the patient's functional status was better, the B-JOLENE inhibitor generally may get a response of only about 5 months. He will be calling the patient's today to discuss this and give his opinion on any further treatment. He told me that he concurs that it may be time to focus on palliative measures, comfort measures , hospice services. Discussed with , see below . Family/friend interactions I spoke with the again by telephone at 1:30 PM. She had not yet heard from Dr. Covarrubias, and I shared with her some of what he and I had discussed. I encouraged her to wait for his call to get his final thoughts after he had had a chance to review everything. I told her that if his opinion is that no further aggressive care is available or appropriate, then it would be time to consider transitioning to comfort measures, hospice services in the upcoming days....she agrees. . Advance Directives Living Will: Never completed Health Care Surrogate: Never completed Durable Power of Teacher Kindergarten: Never completed Objective Vital Signs Date Time Temp Pulse Resp B/P (MAP) Pulse Ox O2 Delivery O2 Flow Rate FiO2 08/21/17 12:45 50 08/21/17 12:00 100.8 98 30 94/50 (65) 97 08/21/17 12:00 50 08/21/17 12:00 98 08/21/17 11:24 98 50 08/21/17 10:45 50 08/21/17 10:40 50 08/21/17 10:00 107 08/21/17 08:04 97 50 08/21/17 08:02 97 50 08/21/17 08:00 122 08/21/17 08:00 50 08/21/17 08:00 100.2 122 22 143/70 (94) 95 08/21/17 07:00 97 Mechanical Ventilator 50 08/21/17 06:00 113 08/21/17 04:36 97 50 08/21/17 04:00 101.1 110 22 134/63 (86) 97 08/21/17 04:00 101.1 110 18 126/64 (84) 96 08/21/17 04:00 110 08/21/17 04:00 50 08/21/17 00:00 100.8 122 25 141/70 (93) 96 08/21/17 00:00 50 08/21/17 00:00 100.4 103 22 134/63 (86) 97 08/20/17 23:45 100 50 08/20/17 22:00 103 08/20/17 20:00 96 Mechanical Ventilator 50 08/20/17 20:00 100.8 122 25 141/70 (93) 96 08/20/17 20:00 108 08/20/17 20:00 50 08/20/17 19:43 99 50 08/20/17 18:00 95 08/20/17 16:00 30 08/20/17 16:00 121 08/20/17 16:00 101.1 122 25 114/91 (99) 96 08/20/17 15:56 96 50 08/20/17 14:00 109 Intake & Output 08/21/17 08/21/17 07:00 19:00 Intake Total 789 ml Output Total 2510 ml 0 ml Balance -1721 ml 0 ml IV Total 200 ml Tube Irrigant 439 ml Other 150 ml Output Urine Total 2500 ml Gastric Drainage Total 0 ml Tube Feeding Residual Discard 0 ml Drainage Total 10 ml # Bowel Movements 0 Physical Exam CONSTITUTIONAL/GENERAL: This is an adequately nourished patient, in no apparent distress. Squeezes with right hand and wiggles right toes on command. No spontaneous eye opening, does not track when eyes held open. CARDIOVASCULAR: Regular rate and rhythm without murmurs, gallops, or rubs. No JVD. Peripheral pulses symmetric. RESPIRATORY/CHEST: Symmetric, unlabored respirations. Clear to auscultation. Breath sounds equal bilaterally. No wheezes, rales, or rhonchi. GASTROINTESTINAL: Abdomen soft, non-tender, nondistended. No hepato-splenomegaly , or palpable masses. No guarding. Bowel sounds present. GENITOURINARY: Without palpable bladder distension. Phipps catheter in place. MUSCULOSKELETAL: Extremities without clubbing, cyanosis, or edema. No joint tenderness or effusion noted. No calf tenderness. No mottling or clubbing. NEUROLOGICAL: Pupils are equal. Follows simple commands with right side, left side is flaccid. When eyes are held open he does not track or focus. PSYCHIATRIC: Seems to have some restlessness with moving his right arm and leg at times . Diagnostic Tests Laboratory Laboratory Tests Test 08/18/17 21:20 08/19/17 04:21 08/19/17 08:00 08/19/17 13:08 Sodium Level 148 MEQ/L (136-145) 149 MEQ/L (136-145) Serum Osmolality 299 MOSM/KG (275-295) Phenytoin (Dilantin) Level 14.9 MCG/ML (10.0-20.0) Blood Gas Puncture Site ART LINE Blood Gas Patient Temperature 98.6 Blood Gas HCO3 20 mmol/L (22-26) Blood Gas Base Excess -3.3 mmol/L (-2-2) Blood Gas Oxygen Saturation 94 % (90-100) Arterial Blood pH 7.43 (7.380-7.420) Arterial Blood Partial Pressure CO2 31 mmHg (38-42) Arterial Blood Partial Pressure O2 79 mmHg (61-120) Arterial Blood Oxygen Content 13.1 Vol % (12.0-20.0) Arterial Blood Carboxyhemoglobin 1.5 % (0-4) Arterial Blood Methemoglobin 0.9 % (0-2) Blood Gas Hemoglobin 9.8 G/DL (12.0-16.0) Oxygen Delivery Device VENTILATOR Blood Gas Liter Flow 30 L/M Blood Gas Ventilator Setting [facility]/12/550/+5/IT1.0 Test 08/19/17 21:10 08/20/17 06:15 08/21/17 05:10 Sodium Level 145 MEQ/L (136-145) 145 MEQ/L (136-145) 143 MEQ/L (136-145) White Blood Count 9.8 TH/MM3 (4.0-11.0) Red Blood Count 3.62 MIL/MM3 (4.50-5.90) Hemoglobin 10.7 GM/DL (13.0-17.0) Hematocrit 31.1 % (39.0-51.0) Mean Corpuscular Volume 85.9 FL (80.0-100.0) Mean Corpuscular Hemoglobin 29.5 PG (27.0-34.0) Mean Corpuscular Hemoglobin Concent 34.4 % (32.0-36.0) Red Cell Distribution Width 15.4 % (11.6-17.2) Platelet Count 207 TH/MM3 (150-450) Mean Platelet Volume 7.4 FL (7.0-11.0) Neutrophils (%) (Auto) 75.0 % (16.0-70.0) Lymphocytes (%) (Auto) 15.4 % (9.0-44.0) Monocytes (%) (Auto) 8.5 % (0.0-8.0) Eosinophils (%) (Auto) 0.7 % (0.0-4.0) Basophils (%) (Auto) 0.4 % (0.0-2.0) Neutrophils # (Auto) 7.4 TH/MM3 (1.8-7.7) Lymphocytes # (Auto) 1.5 TH/MM3 (1.0-4.8) Monocytes # (Auto) 0.8 TH/MM3 (0-0.9) Eosinophils # (Auto) 0.1 TH/MM3 (0-0.4) Basophils # (Auto) 0.0 TH/MM3 (0-0.2) CBC Comment DIFF FINAL Differential Comment Blood Urea Nitrogen 7 MG/DL (7-18) 9 MG/DL (7-18) Creatinine 0.44 MG/DL (0.60-1.30) 0.47 MG/DL (0.60-1.30) Random Glucose 94 MG/DL (74-106) 108 MG/DL (74-106) Calcium Level 7.9 MG/DL (8.5-10.1) 8.3 MG/DL (8.5-10.1) Potassium Level 3.3 MEQ/L (3.5-5.1) 3.1 MEQ/L (3.5-5.1) Chloride Level 110 MEQ/L (98-107) 107 MEQ/L (98-107) Carbon Dioxide Level 26.9 MEQ/L (21.0-32.0) 28.5 MEQ/L (21.0-32.0) Anion Gap 8 MEQ/L (5-15) 8 MEQ/L (5-15) Estimat Glomerular Filtration Rate 195 ML/MIN (>89) 180 ML/MIN (>89) Phosphorus Level 1.7 MG/DL (2.5-4.9) Magnesium Level 1.8 MG/DL (1.5-2.5) Result Diagram: 08/20/17 0615 08/21/17 0510 Microbiology Microbiology Date/Time Source Procedure Growth Status 08/21/17 12:10 Blood Peripheral Aerobic Blood Culture Pending Received 08/21/17 12:10 Blood Peripheral Anaerobic Blood Culture Pending Received 08/21/17 11:57 Blood Peripheral Aerobic Blood Culture Pending Received 08/21/17 11:57 Blood Peripheral Anaerobic Blood Culture Pending Received 08/21/17 10:45 Sputum Endotracheal Gram Stain Pending Received 08/21/17 10:45 Sputum Endotracheal Sputum Culture Pending Received Imaging Last Impressions Chest X-Ray 08/20/17 0000 Signed Impressions: Service Date/Time: August 15:07 - CONCLUSION: Middle atelectasis left lung base. Small posteromedial right lower lobe. ET tube in good position. Marcos Beard MD Head CT 08/17/17 0600 Signed Impressions: Service Date/Time: Thursday, August 17, 2017 09:49 - CONCLUSION: Interval right craniectomy with decreased amount of intra-axial blood products. There are persistent blood products and vasogenic edema in the right frontoparietal region. However, there is less midline shift currently measuring 7 mm compared to 16 mm previously. The right frontal ventricular catheter terminates in the region of the right thalamus. Omar Mariscal MD Procedures * INTUBATION 08/15/17 * Emergency craniotomy/craniectomy/ventriculostomy 08/16/17 . 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 Spiritual: Somewhat spiritual but not affiliated with any worship or denomination Legal: At this time, the patient lacks capacity for decision-making, and it is uncertain as to whether he will regain that capacity. He had previously indicated that he would want his to be his surrogate decision maker, and she is serving as decision making proxy at this time. Ethical issues impacting care: None . Important Contacts : Yaima Johnson, . Prognosis Overall, the patient's prognosis is guarded, as he has ongoing metastatic melanoma. . Code Status: Full Code Plan * FULL CODE * DECISION-MAKING: At this time, the patient lacks capacity for decision-making , and it seems unlikely that he will regain that capacity. He had previously indicated that he would want his to be his surrogate decision maker, and she is serving as decision making proxy at this time. * GOALS: At this time, the patient's wants to continue aggressive goals. The patient has had flaccidity of his left arm and leg since 08/07/17, and he is not tracking with his eyes at this time; that remains concerning. * I spoke at length with the patient's [facility] oncologist, Dr. Covarrubias ([phone]): Given the patient's poor functional status and the confirmation of continued malignant melanoma cells from the pathology report of his surgery here 5 days ago, he is of the opinion that additional immunotherapy or even a B- JOLENE inhibitor (the patient does have the mutation) may not be useful at this point in time. Even if the patient's functional status was better, the B-JOLENE inhibitor generally may get a brief response of only about 5 months. He will be calling the patient's today to discuss this and give his opinion on any further treatment. He told me that he tends to concur that it may be time to focus on palliative measures, comfort measures, hospice services. The patient' s will speak with the rest of the family after her discussion with Dr. Covarrubias. * SYMPTOMS: At this time, pain and dyspnea are being managed with sedation and mechanical ventilation, and he remains on multiple antiseizure medications. I have no additional medication recommendations at this time. * Palliative Care will continue to follow the patient during this hospitalization. . Time Spent Total Floor Time (mins): 49 Face to Face Time (mins): 14 >50% Counseling/Coord of Care: Yes (d/w Dr. Moore and w Dr. Covarrubias) Attestation To help prompt me to consider important information that might be impacting today's encounter and assessment, information from prior notes written by myself or my colleagues may have been "brought forward" into today's note. My signature on this note, however, is an attestation that I personally performed the exam, history, and/or decision-making noted today, and, unless otherwise indicated, the interactions with patient, family, and staff as well as the review of records all occurred today. I also attest that the listed assessment and stated plan reflect my best clinical judgment today based on the combination of historical information, prior notes, and today's exam/ interactions. When time spent is documented, it refers only to time spent today by the signer, or if indicated, combined time spent today by collaborating physician/nurse practitioner. Olive Garcia MD Aug 21, 2017 14:02
[2017-08-21 14:14] LABS: AMORPHOUS SEDIMENT, URINE RARE; BACTERIA, URINE RARE /hpf; BILIRUBIN, URINE NEG (NEG); BLOOD, URINE NEG (NEG); GLUCOSE,URINE NEG (NEG); KETONE, URINE 10 mg/dL (NEG); MUCUS URINE FEW /lpf (OCC); NITRITE,URINE NEG (NEG); PH, URINE 8.5 (5.0-8.5); SQUAMOUS EPITHELIAL CELL URINE 1 /hpf (0-5); URINE COLOR YELLOW (YELLW/STRAW); URINE LEUKOCYTE ESTERASE TRACE (NEG)
[2017-08-21] MEDS ORDERED: SODIUM CHLORIDE 0.9% INJ 50 ML ONE (21:06)
[2017-08-21] MEDS: VANCOMYCIN INJ 2,000 MG in SODIUM CHLORID 0.9% 500 ML INJ 500 ML IV SCH (23:32)
[2017-08-22] VITALS (17 sets, daily range): BP systolic 99–153; BP diastolic 51–78; PULSE 87–108; RESP 10–24; TEMP 99.4–100.9; O2SAT 97–99
[2017-08-22] MEDS: DEXMEDETOMIDINE INJ 200 MCG in SODIUM CHLORIDE 0.9% INJ 50 ML IV PRN ×4 (02:28→22:59)
[2017-08-22] MEDS: CHLORHEXIDINE GLUCONATE 2 % 1 PACK (2 CLOTHS) TOP SCH (04:00)
[2017-08-22] MEDS: PIPERACIL-TAZO 3.375 GM PREMIX 50 ML IV SCH ×2 (04:37→10:49)
[2017-08-22] MEDS: DEXAMETHASONE 6 MG TAB PO SCH ×4 (05:20→22:58)
[2017-08-22] MEDS: hydrALAZINE HCL 50 MG TAB PO SCH ×3 (05:20→21:18)
[2017-08-22 05:48] LABS: AUTOMATED NEUTROPHIL # 9.9 TH/MM3 (1.8-7.7); BASOPHIL # 0.1 TH/MM3 (0-0.2); BASOPHIL % 0.4 % (0.0-2.0); EOSINOPHIL # 0.2 TH/MM3 (0-0.4); EOSINOPHIL % 1.3 % (0.0-4.0); HEMATOCRIT 28.8 % (39.0-51.0); HEMOGLOBIN 9.9 GM/DL (13.0-17.0); LYMPH % 8.3 % (9.0-44.0); MEAN CELL VOLUME 85.1 FL (80.0-100.0); MEAN CORPUSCULAR HEMOGLOBIN 29.3 PG (27.0-34.0); MEAN CORPUSCULAR HGB CONC 34.5 % (32.0-36.0); MEAN PLATELET VOLUME 7.4 FL (7.0-11.0); MONO % 9.8 % (0.0-8.0); MONOCYTE # 1.2 TH/MM3 (0-0.9); NEUT % 80.2 % (16.0-70.0); PLATELET COUNT 227 TH/MM3 (150-450); RED BLOOD COUNT 3.39 MIL/MM3 (4.50-5.90); RED CELL DISTRIBUTION WIDTH 15.5 % (11.6-17.2); WHITE BLOOD COUNT 12.4 TH/MM3 (4.0-11.0)
[2017-08-22 06:09] LABS: BICARBONATE 27.9 MEQ/L (21.0-32.0); CALCIUM 8.3 MG/DL (8.5-10.1); CREATININE 0.49 MG/DL (0.60-1.30); PHOSPHORUS 1.7 MG/DL (2.5-4.9)
[2017-08-22] MEDS: SODIUM CHLORIDE 0.9% FLUSH 10 ML FLUSH IV FLUSH SCH ×2 (08:39→19:57)
[2017-08-22] MEDS: BENEPROTEIN POWDER 1 PACK G-TUBE SCH ×3 (08:39→17:37)
[2017-08-22] MEDS: CHLORHEXIDINE 0.12% (ORAL KIT) 15 ML CUP MT SCH ×2 (08:39→19:57)
[2017-08-22] MEDS: FAMOTIDINE 20 MG/2 ML VIAL IV PUSH SCH ×2 (08:40→19:57)
[2017-08-22] MEDS: PHENYTOIN SODIUM 100 MG CAP PO SCH ×2 (08:40→19:57)
[2017-08-22] MEDS: METOPROLOL TARTRATE 50 MG TAB PO SCH ×2 (08:41→19:57)
[2017-08-22] MEDS: DOCUSATE SODIUM 50 MG/SENNA 8.6 MG TAB PO SCH ×2 (08:41→19:57)
[2017-08-22] MEDS: LACOSAMIDE 50 MG TAB PO SCH ×2 (08:41→19:56)
[2017-08-22] MEDS: levETIRAcetam 500 MG TAB PO SCH ×2 (08:41→19:56)
--- NOTE | 2017-08-22 09:02 | HHI.CCPN ---
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 Patient was just evaluated at [facility] on 08/05/17 and received Ktruda. He developed worsening weakness involving the left lower extremity since then over the next 3 days and presented to the ER at [facility] on 08/[address] without contrast revealed intracerebral hemorrhage involving right frontal parietal region with right subdural hemorrhage and minimal midline shift. [facility] was contacted however did not have any beds hence patient was accepted for transfer at [facility] and patient was transferred to the ICU at [place]. He was treated non-surgically with decadron and was transferred to [facility]. Just after the transfer patient became more weak on the left side and the MRI brain was performed that showed postsurgical features of right high parietal craniotomy with enlarging hematoma in the operative bed now measuring approximately 5 cm in comparison to 3.4 cm on prior exam, and also interval development of small subdural collection measuring up to 8 mm in the anterior right frontal region. This results in increased vbwoq-jz-wsmg subfalcine shift. For this the patient has been transferred back to the ICU under critical care service admission. 08/16: Clinical deterioration overnight requiring intubation and mechanical ventilation. Left pupil has dilated and right remains enlarged. He has known intraparenchymal hematoma/seroma which has expanded. He received mannitol bolus and was taken straight to the OR for decompression/evacuation hematoma. 08/17: Back from OR last night, seen on arrival. ICP well controlled. Due to neurological instability he will be kept sedated and ventilated for 48 hours while efforts continue to control edema and ICP. 08/18: S/P decompressive craniectomy right side and evacuation of parenchymal hematoma. Ventilator dependent. 08/19: ICP controlled. CSF drainage clear. Check ABG against EtCO2, confirm accuracy. 08/20: Tolerating SBTs with acceptable ICP. Will increase hydralazine and add lopressor for better BP control. 08/21: Good response to diuretic yesterday, continue today. ICP kev during SBTs on vent, proceed slowly while controlling BP.Moved right arm and leg to command, opened eyes. Small infiltrate/atelectasis and persistent fever. Will culture sputum and start abx. 08/22: Continued good diuresis. Some purposeful activity right side. Continue to wean vent. [facility] On[facility] states patient is not a candidate for repeat Keytruda Rx at this time; no other options. Objective Vital Signs Date Time Temp Pulse Resp B/P (MAP) Pulse Ox O2 Delivery O2 Flow Rate FiO2 08/22/17 08:22 97 50 08/22/17 06:00 108 08/22/17 04:00 100.9 24 153/66 (95) 08/21/17 20:00 Mechanical Ventilator Intake and Output 08/22/17 08/22/17 08/23/17 08:00 16:00 00:00 Intake Total 1295 ml Output Total 1000 ml Balance 295 ml Result Diagram: 08/22/17 0525 08/22/17 0525 Imaging 1. Redemonstration of postsurgical features of right high parietal craniotomy with enlarging hematoma in the operative bed now measuring approximately 5 cm in comparison to 3.4 cm on prior exam. There has also been interval development of small subdural collection measuring up to 8 mm in the anterior right frontal region. This results in increased ttyez-xs-hjcu subfalcine shift of approximately 1.4 cm in comparison to 8 cm in prior exam. No evidence for downward herniation at this time. Objective Remarks GENERAL: Calm SKIN: Warm and dry. HEAD: Normocephalic. EYES: No scleral icterus. No injection or drainage. NECK: Supple, trachea midline. Orally intubated. CARDIOVASCULAR: NL S1S2, regular rate and rhythm without murmurs, gallops, or rubs. No JVD. RESPIRATORY: Breath sounds equal bilaterally. Few mobile secretions., no adventitious sounds. GASTROINTESTINAL: Abdomen soft, non-tender, nondistended. No guarding. BS present. MUSCULOSKELETAL: No cyanosis, or edema. Well perfused. NEURO EXAM: Moves right side to command when light sedation. Opens eyes. Improved vigor during breathing trials. Lightly sedated, ventilated. A/P Assessment and Plan Subdural hematoma Intraparenchymal bleed Metastatic disease - Continue neuro checks per ICU protocol - Neurosurgery consulted and discussed - continue Decadron 4 mg IV every 6 hourly - Continue Keppra to 1500 mg IV every 12 hourly, Dilantin every 12 hourly, continue by mouth Vimpat. - Seizure precautions - Ativan when necessary for breakthrough seizures as needed Hypertension - Hydralazine 10 mg IV every 2 hourly when necessary for SBP greater than 150 mmHg - Add oral meds. Melanoma - Prostatic disease - Palliative care consultation ID - ESBL E. coli in blood, persistent fever - Switch to meropenem DVT GI prophylaxis - Teds SCDs - No pharmacological DVT prophylaxis due to ICH - Pepcid Overall impression: He remains critically ill following emergency craniotomy for decompression and evacuation of blood. Remains unstable; attempt to lighten sedation if we can control ICP, seizures. Prognosis poor, no options for treatment at this time. Critical care 36 mins Feliciano Guidry MD Aug 22, 2017 09:02
[2017-08-22] MEDS: POTASSIUM CHLOR 40 MEQ PREMIX 100 ML IV PRN (10:50)
--- NOTE | 2017-08-22 10:56 | HHI.NSPN ---
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 He underwent right craniotomy for motor cortex metastatic melanoma resection at [facility] in [place] in May 2016 with subsequent 5 rounds of radiation treatment to the brain which he completed in early July. Transferred from [facility] because of intracranial hemorrhage patient reports increasing weakness on the left side. Patient has some seizure activity last night involving the legs. Controlled with Ativan and anticonvulsants with neurology following. Patient has had seizures in the past. Initially patient and wanted to be transferred to [facility] but they did not accept the patient and related that the he could be treated locally. He was transferred to acute rehabilitation facility but complained of nausea and worsening headaches with initiation of therapy. Follow-up MRI scan of the brain was obtained which reveals postoperative changes with a moderate right subdural hemorrhage as well as cystic hemorrhagic component and posterior frontal parietal lobe at the resection site. There has been increase in the intracerebral and subdural hemorrhage with edema and midline shift despite being on Decadron 4 mg every 6 since the MRI scan from last week. He was readmitted to the intensive surgical care unit to [facility] and the production planning manager and neurosurgical consultation requested. The patient and his relate that there would like to pursue further treatment locally. 08/16/17: Pt sedated and intubated. Pt now with acute pupil changes. Discussed with RN no new medication started that would cause pupillary changes and pupils had been 3 or 4 mm overnight. With pain in upper chest pt flexes right side and extending left side. Neurosurgeon called. Pt given Mannitol 50grams and instructed to get pt ready to go to OR for emergent right crani for hematoma evacuation. Called pts and updated her and she gave me consent over the phone that was witnessed by Anika Gowdin RN. 08/17/17: Pt sedated on Diprivan and Fentanyl drips. Intubated. Pupils now 3mm bilaterally slight reaction bilaterally. Not following commands. Ventriculostomy drain in place ICP 8. 08/18/17: Pt sedated on Diprivan and Fentanyl drips. Intubated. Pupils 3mm bilaterally reactive bilaterally. Ventriculostomy drain in place draining well. 08/19/17: Pt sedated on Diprivan and Fentanyl drips. He is intubated. Pupils are 3mm bilaterally reactive bilaterally. Ventriculostomy drain at 20cm H20 ICP 15. 08/20/17: Pt sedated on Diprivan and Fentanyl drips being weaned and converted to Precedex. He is intubated on CPAP. 08/21/17: Pt sedated on Precedex. Follows simple commands right side. Pupils 4mm bilaterally. Not opening eyes to voice but does to pain. 08/22: intubated and mildly sedated on Precedex, new movement left toes/foot today. (Sarika Christianson) Labs, Micro, & Vital Signs Results Date Time Temp Pulse Resp B/P (MAP) Pulse Ox O2 Delivery O2 Flow Rate FiO2 08/22/17 10:00 98 08/22/17 08:22 97 50 08/22/17 08:00 50 08/22/17 08:00 106 08/22/17 08:00 100.0 87 21 139/63 (88) 97 08/22/17 07:00 97 Mechanical Ventilator 50 08/22/17 06:00 108 08/22/17 04:00 50 08/22/17 04:00 100.9 92 24 153/66 (95) 98 08/22/17 04:00 108 08/22/17 04:00 98 50 08/22/17 02:00 108 08/22/17 01:00 98 50 08/22/17 00:00 108 08/22/17 00:00 50 08/22/17 00:00 100.4 87 12 138/78 (98) 98 08/21/17 22:07 98 50 08/21/17 22:00 108 08/21/17 20:00 100.9 108 16 147/70 (95) 98 08/21/17 20:00 50 08/21/17 20:00 96 Mechanical Ventilator 50 08/21/17 20:00 108 08/21/17 18:00 105 08/21/17 17:50 96 50 08/21/17 16:00 100.8 102 21 137/65 (89) 98 08/21/17 16:00 50 08/21/17 16:00 102 08/21/17 14:00 107 08/21/17 12:45 50 08/21/17 12:00 100.8 98 30 94/50 (65) 97 08/21/17 12:00 50 08/21/17 12:00 98 08/21/17 11:24 98 50 08/23/17 07:00 Intake Total 52 ml Balance 52 ml Constitutional Vital Signs Date Time Temp Pulse Resp B/P (MAP) Pulse Ox O2 Delivery O2 Flow Rate FiO2 08/22/17 10:00 98 08/22/17 08:22 97 50 08/22/17 08:00 50 08/22/17 08:00 106 08/22/17 08:00 100.0 87 21 139/63 (88) 97 08/22/17 07:00 97 Mechanical Ventilator 50 08/22/17 06:00 108 08/22/17 04:00 50 08/22/17 04:00 100.9 92 24 153/66 (95) 98 08/22/17 04:00 108 08/22/17 04:00 98 50 08/22/17 02:00 108 08/22/17 01:00 98 50 08/22/17 00:00 108 08/22/17 00:00 50 08/22/17 00:00 100.4 87 12 138/78 (98) 98 08/21/17 22:07 98 50 08/21/17 22:00 108 08/21/17 20:00 100.9 108 16 147/70 (95) 98 08/21/17 20:00 50 08/21/17 20:00 96 Mechanical Ventilator 50 08/21/17 20:00 108 08/21/17 18:00 105 08/21/17 17:50 96 50 08/21/17 16:00 100.8 102 21 137/65 (89) 98 08/21/17 16:00 50 08/21/17 16:00 102 08/21/17 14:00 107 08/21/17 12:45 50 08/21/17 12:00 100.8 98 30 94/50 (65) 97 08/21/17 12:00 50 08/21/17 12:00 98 08/21/17 11:24 98 50 08/23/17 07:00 Intake Total 52 ml Balance 52 ml (Sarika Christianson) Review of Systems ROS Limitations: Intubated (Sarika Christianson) Physical Exam GENERAL: Pt is intubated. no apparent distress during examination. EYES: Sclera anicteric. CARDIOVASCULAR: Regular rate and rhythm RESPIRATORY: clear, mechanically vented SKIN: Incision clean and dry. No signs of infection. 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 Left dense hemiparesis. NEURO: mildly sedated, does not open eyes but had followed few simple command in ext. Pupils 4mm bilaterally with brisk reaction bilaterally. 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 Dense left upper paresis. Left Ventriculostomy drain in place, clamped. ICPs 8. site is clean and dry without evidence of infection Head: Right bone flap is full, slightly firm to palpate. (Sarika Christianson) Medications Current Medications Current Medications Medications (Trade) Dose Ordered Sig/Karina Route PRN Reason Start Time Stop Time Status Last Admin Dose Admin Clonidine (Catapres) 0.1 mg Q6H PRN PO SBP>180, DBP>110 08/14/17 22:30 08/15/17 21:19 Lacosamide (Vimpat) 150 mg BID PO 08/15/17 09:00 08/22/17 08:41 Levetriacetam (Keppra) 1,500 mg BID PO 08/15/17 09:00 08/22/17 08:41 Phenytoin (Dilantin) 300 mg BID PO 08/15/17 09:00 08/22/17 08:40 Sodium Chloride (NS Flush) 2 ml UNSCH PRN IV FLUSH FLUSH AFTER USING IV ACCESS 08/14/17 23:15 Sodium Chloride (NS Flush) 2 ml BID IV FLUSH 08/15/17 09:00 08/22/17 08:39 Famotidine (Pepcid Inj) 20 mg Q12HR IV PUSH 08/15/17 09:00 08/22/17 08:40 Ondansetron HCl (Zofran Inj) 4 mg Q6H PRN IV PUSH NAUSEA OR VOMITING 08/14/17 23:15 Temazepam (Restoril) 15 mg HS PRN PO INSOMNIA 08/14/17 23:15 08/15/17 21:19 Albuterol/ Ipratropium (Duoneb Neb) 1 ampule Q2HR NEB PRN INH WHEEZING 08/14/17 23:15 Miscellaneous Information 1 Q361D XX 08/14/17 23:15 Chlorhexidine Gluconate (Chlorhexidine 2% Cloth) Taper DAILY@04 TOP 08/15/17 04:00 08/11/18 03:59 Chlorhexidine Gluconate (Chlorhexidine 2% Cloth) 3 pack UNSCH PRN TOP HYGIENIC CARE 08/14/17 23:15 Senna/Docusate Sodium (Celena-Colace) 1 tab BID PO 08/15/17 09:00 08/21/17 20:08 Magnesium Hydroxide (Milk Of Magnesia Liq) 30 ml Q12H PRN PO Mild constipation 08/14/17 23:15 Sennosides (Senokot) 17.2 mg Q12H PRN PO Moderate constipation 08/14/17 23:15 Bisacodyl (Dulcolax Supp) 10 mg DAILY PRN RECTAL SEVERE CONSITIPATION 08/14/17 23:15 Lactulose (Lactulose Liq) 30 ml DAILY PRN PO SEVERE CONSITIPATION 08/14/17 23:15 Dexamethasone (Decadron) 6 mg Q6HR PO 08/15/17 18:00 08/22/17 05:20 Dexmedetomidine HCl 200 mcg/ Sodium Chloride 52 ml @ 4.62 mls/hr TITRATE PRN IV SEDATION 08/15/17 13:45 08/22/17 07:30 Tramadol HCl (Ultram) 50 mg Q6H PRN PO Pain 1-5 08/15/17 14:15 Tramadol HCl (Ultram) 100 mg Q6H PRN PO pain 6-10 08/15/17 14:15 08/16/17 05:33 Acetaminophen (Tylenol) 650 mg Q6H PRN PO FEVER >101F 08/15/17 14:15 08/20/17 11:29 Nicardipine HCl 25 mg/Sodium Chloride 250 ml @ 50 mls/hr TITRATE PRN IV Blood Pressure Management 08/15/17 23:15 08/20/17 09:19 Propofol 100 ml @ 2.667 mls/ hr TITRATE PRN IV Sedation 08/16/17 04:45 08/20/17 04:55 Chlorhexidine Gluconate (Peridex 0.12% Liq) 15 ml BID@08,20 MT 08/16/17 20:00 08/22/17 08:39 Fentanyl Citrate (fentaNYL INJ) 100 mcg Q2H PRN IV PUSH pain 1-10 08/16/17 14:45 Fentanyl Citrate 250 ml @ 5 mls/hr TITRATE PRN IV SEDATION 08/16/17 14:45 08/20/17 04:56 Potassium Chloride 100 ml @ 50 mls/hr Q2H PRN IV For Potassium 2.8 - 3.2 mEq/L 08/17/17 02:15 08/21/17 10:59 Potassium Chloride 100 ml @ 50 mls/hr Q2H PRN IV For Potassium 2.8 - 3.2 mEq/L 08/17/17 02:15 Potassium Bicarb/ Potassium Chloride (K-Lyte Cl Eff) 50 meq UNSCH PRN PO For Potassium 3.3 - 3.5 mEq/L 08/17/17 02:15 Potassium Chloride 100 ml @ 25 mls/hr UNSCH PRN IV For Potassium 3.3 - 3.5 mEq/L 08/17/17 02:15 08/18/17 05:06 Potassium Chloride 100 ml @ 50 mls/hr Q2H PRN IV For Potassium 3.3 - 3.5 mEq/L 08/17/17 02:15 Magnesium Sulfate 4 gm/Sodium Chloride 100 ml @ 50 mls/hr UNSCH PRN IV For Magnesium 0.9 - 1.1 mg/dL 08/17/17 02:15 Magnesium Oxide (Mag-Ox) 800 mg UNSCH PRN PO For Magnesium 1.2 - 1.6 mg/dL 08/17/17 02:15 Magnesium Sulfate 2 gm/Sodium Chloride 100 ml @ 50 mls/hr UNSCH PRN IV For Magnesium 1.2 - 1.6 mg/dL 08/17/17 02:15 Potassium Phosphate (K-Phos) 2,000 mg Q4H PRN PO For Phosphorus < 2.5 mg/dL 08/17/17 02:15 Sodium Phosphate 30 mmol/Sodium Chloride 250 ml @ 42 mls/hr UNSCH PRN IV For Phosphorus < 2.5 mg/dL 08/17/17 02:15 Potassium Phosphate (K-Phos) 2,000 mg UNSCH PRN PO/TUBE SEE LABEL COMMENTS 08/17/17 02:15 Potassium Phosphate 30 mmol/ Sodium Chloride 260 ml @ 42 mls/hr UNSCH PRN IV SEE LABEL COMMENTS 08/17/17 02:15 Phenylephrine HCl 40 mg/Sodium Chloride 500 ml @ 30 mls/hr TITRATE PRN IV Blood Pressure Management 08/17/17 05:45 Terbutaline Sulfate (Brethine Inj) 1 mg UNSCH PRN SQ FOR EXTRAVASATION PROTOCOL 08/17/17 05:45 Norepinephrine Bitartrate 4 mg/ Sodium Chloride 250 ml @ 7.5 mls/hr TITRATE PRN IV Blood pressure management 08/17/17 07:30 08/18/17 12:30 Terbutaline Sulfate (Brethine Inj) 1 mg UNSCH PRN SQ For Extravasation 08/17/17 07:30 Protein (Beneprotein Powder) 1 pack TID G-TUBE 08/19/17 09:00 08/22/17 08:39 Hydralazine HCl (Apresoline) 50 mg Q8HR PO 08/20/17 14:00 08/22/17 05:20 Metoprolol Tartrate (Lopressor) 50 mg Q12HR PO 08/20/17 09:00 08/22/17 08:41 Nicardipine HCl 25 mg/Sodium Chloride 250 ml @ 50 mls/hr TITRATE PRN IV Blood pressure management 08/20/17 08:45 Pharmacy Profile Note 0 ml @ 0 mls/hr UNSCH OTHER 08/21/17 10:30 Piperacillin Sod/ Tazobactam Sod 50 ml @ 100 mls/hr Q6H IV 08/21/17 11:00 08/22/17 04:37 Vancomycin HCl 2000 mg/Sodium Chloride 520 ml @ 250 mls/hr Q12H IV 08/22/17 00:00 08/21/17 23:32 Miscellaneous Information SPECIFIC LAB TO BE DRAWN:VANCO TROUGH DATE TO BE .. ONCE ONCE .XX 08/23/17 11:45 08/23/17 11:46 (Sarika Christianson) Medical Decision Making MDM Remarks 62-year-old gentleman with a history of right motor cortex metastatic melanoma resection in May 2016 at [facility] in [place] with subsequent radiation treatment and chemotherapy. left hemiplegia and recurrent seizures, controlled with antiepileptic medications. Postoperative imaging studies reveals a right small subdural hemorrhage with hematoma in the evacuation bed and possible residual/recurrent disease along with edema and mass effect/midline shift. acute pupillary changes with posturing - taken emergently to the OR for a right frontotemporal parietal craniotomy for cerebral and subdural hemorrhage evacuation; right decompressive hemicraniectomy with expansive patch graft duraplasty; right frontal ventriculostomy placement by Dr. Bland on 08/16/17. (Sarika Christianson) Plan Plan Remarks cont sedation and vent weaning serial neuro checks cont antiepileptics cont Decadron ventriculostomy drain dc'ed (Sarika Christianson) Attending Statement (Sarika Christianson) The exam, history, and the medical decision-making described in the above note were completed with the assistance of the mid-level provider. I reviewed and agree with the findings presented. I attest that I had a [id number] encounter with the patient on the same day, and personally performed and documented my assessment and findings in the medical record. (Connor Ro MD) Sarika Christianson Aug 22, 2017 10:56 Connor Ro MD Aug 23, 2017 21:13
[2017-08-22] MEDS: VANCOMYCIN INJ 2,000 MG in SODIUM CHLORID 0.9% 500 ML INJ 500 ML IV SCH (11:51)
[2017-08-22] MEDS ORDERED: MEROPENEM 1000 MG VIAL IV SCH (13:00)
[2017-08-22] MEDS: MEROPENEM 1000 MG/NS 100 ML IV SCH ×4 (15:58→22:59)
[2017-08-22] MEDS: ACETAMINOPHEN 325 MG TAB PO PRN (18:22)
[2017-08-22] MEDS: levETIRAcetam 500 MG/5 ML UDC OG-TUBE SCH (21:17)
[2017-08-22] MEDS: PHENYTOIN SUSP 100 MG/4 ML CUP OG-TUBE SCH (21:17)
[2017-08-23] VITALS (17 sets, daily range): BP systolic 142–170; BP diastolic 65–87; PULSE 94–112; RESP 17–36; TEMP 98.4–100; O2SAT 95–99
[2017-08-23] MEDS: ACETAMINOPHEN 325 MG TAB PO PRN (00:29)
[2017-08-23] MEDS: VANCOMYCIN INJ 2,000 MG in SODIUM CHLORID 0.9% 500 ML INJ 500 ML IV SCH ×2 (00:29→12:34)
[2017-08-23] MEDS: CHLORHEXIDINE GLUCONATE 2 % 1 PACK (2 CLOTHS) TOP SCH (03:53)
[2017-08-23] MEDS: hydrALAZINE HCL 50 MG TAB PO SCH ×2 (05:55→14:00)
[2017-08-23] MEDS: DEXAMETHASONE 6 MG TAB PO SCH (05:55)
[2017-08-23] MEDS: MEROPENEM 1000 MG/NS 100 ML IV SCH ×6 (05:56→21:37)
[2017-08-23] MEDS: PHENYTOIN SUSP 100 MG/4 ML CUP OG-TUBE SCH (08:04)
[2017-08-23] MEDS: CHLORHEXIDINE 0.12% (ORAL KIT) 15 ML CUP MT SCH ×2 (08:04→20:00)
[2017-08-23] MEDS: FAMOTIDINE 20 MG/2 ML VIAL IV PUSH SCH ×2 (08:05→21:37)
[2017-08-23] MEDS: SODIUM CHLORIDE 0.9% FLUSH 10 ML FLUSH IV FLUSH SCH ×2 (08:05→21:37)
[2017-08-23] MEDS: levETIRAcetam 500 MG/5 ML UDC OG-TUBE SCH (08:05)
[2017-08-23] MEDS: METOPROLOL TARTRATE 50 MG TAB PO SCH (08:05)
[2017-08-23] MEDS: BENEPROTEIN POWDER 1 PACK G-TUBE SCH ×3 (08:05→17:12)
[2017-08-23] MEDS: LACOSAMIDE 50 MG TAB PO SCH ×2 (08:05→21:00)
[2017-08-23] MEDS: DOCUSATE SODIUM 50 MG/SENNA 8.6 MG TAB PO SCH ×2 (08:06→21:00)
[2017-08-23] MEDS: RESP: ALBUTEROL 2.5 MG/IPRATROPIUM 0.5 MG NEB (PRN) INH ×2 (08:20→11:28)
--- NOTE | 2017-08-23 09:17 | HHI.CCPN ---
Subjective Remarks/Hospital Course 62-year-old male with a history of malignant melanoma metastasized to the brain status post right parietal craniectomy on June 09, 2017 at [facility] followed by 5 radiation treatments being followed by oncologist at [facility]. Patient was just evaluated at [facility] on 08/05/17 and received Ktruda. He developed worsening weakness involving the left lower extremity since then over the next 3 days and presented to the ER at [facility] on 08/[address] without contrast revealed intracerebral hemorrhage involving right frontal parietal region with right subdural hemorrhage and minimal midline shift. [facility] was contacted however did not have any beds hence patient was accepted for transfer at [facility] and patient was transferred to the ICU at [place]. He was treated non-surgically with decadron and was transferred to [facility]. Just after the transfer patient became more weak on the left side and the MRI brain was performed that showed postsurgical features of right high parietal craniotomy with enlarging hematoma in the operative bed now measuring approximately 5 cm in comparison to 3.4 cm on prior exam, and also interval development of small subdural collection measuring up to 8 mm in the anterior right frontal region. This results in increased panop-oo-gyxq subfalcine shift. For this the patient has been transferred back to the ICU under critical care service admission. 08/16: Clinical deterioration overnight requiring intubation and mechanical ventilation. Left pupil has dilated and right remains enlarged. He has known intraparenchymal hematoma/seroma which has expanded. He received mannitol bolus and was taken straight to the OR for decompression/evacuation hematoma. 08/17: Back from OR last night, seen on arrival. ICP well controlled. Due to neurological instability he will be kept sedated and ventilated for 48 hours while efforts continue to control edema and ICP. 08/18: S/P decompressive craniectomy right side and evacuation of parenchymal hematoma. Ventilator dependent. 08/19: ICP controlled. CSF drainage clear. Check ABG against EtCO2, confirm accuracy. 08/20: Tolerating SBTs with acceptable ICP. Will increase hydralazine and add lopressor for better BP control. 08/21: Good response to diuretic yesterday, continue today. ICP kev during SBTs on vent, proceed slowly while controlling BP.Moved right arm and leg to command, opened eyes. Small infiltrate/atelectasis and persistent fever. Will culture sputum and start abx. 08/22: Continued good diuresis. Some purposeful activity right side. Continue to wean vent. [facility] Oncology states patient is not a candidate for repeat Keytruda Rx at this time; no other options. 08/23: Clinically improving alertness and strength. Will try to extubate. Will ask ID Service to assess need to treat ESBL blood culture 06/25 bottles. Objective Vital Signs Date Time Temp Pulse Resp B/P (MAP) Pulse Ox O2 Delivery O2 Flow Rate FiO2 08/23/17 08:21 99 40 08/23/17 07:00 Mechanical Ventilator 08/23/17 06:00 98 08/23/17 04:00 100.0 20 162/80 (107) Intake and Output 08/23/17 08/23/17 08/24/17 08:00 16:00 00:00 Intake Total 1203 ml Output Total 1500 ml Balance -297 ml Result Diagram: 08/22/17 0508/22/17 05 Imaging 1. Redemonstration of postsurgical features of right high parietal craniotomy with enlarging hematoma in the operative bed now measuring approximately 5 cm in comparison to 3.4 cm on prior exam. There has also been interval development of small subdural collection measuring up to 8 mm in the anterior right frontal region. This results in increased wpcll-fa-lral subfalcine shift of approximately 1.4 cm in comparison to 8 cm in prior exam. No evidence for downward herniation at this time. Objective Remarks GENERAL: Calm, responds. SKIN: Warm and dry. HEAD: Normocephalic. EYES: No scleral icterus. No injection or drainage. NECK: Supple, trachea midline. Orally intubated. CARDIOVASCULAR: NL S1S2, regular rate and rhythm without murmurs, gallops, or rubs. No JVD. RESPIRATORY: Breath sounds equal bilaterally. Few mobile secretions, No adventitious sounds. GASTROINTESTINAL: Abdomen soft, non-tender, nondistended. No guarding. BS present. MUSCULOSKELETAL: No cyanosis, or edema. Well perfused. Warm. NEURO EXAM: Moves right side to command. Opens eyes. Vigorous during breathing trials. Lightly sedated, ventilated. A/P Assessment and Plan Subdural hematoma Intraparenchymal bleed Metastatic disease - Continue neuro checks per ICU protocol - Neurosurgery consulted and discussed - continue Decadron 4 mg IV every 6 hourly - Continue Keppra to 1500 mg IV every 12 hourly, Dilantin every 12 hourly, continue by mouth Vimpat. - Seizure precautions - Ativan when necessary for breakthrough seizures as needed Hypertension - Hydralazine 10 mg IV every 2 hourly when necessary for SBP greater than 150 mmHg - Add oral meds. Melanoma - Prostatic disease - Palliative care consultation ID - ESBL E. coli in blood, persistent fever - Switch to meropenem, consult ID. DVT GI prophylaxis - Teds SCDs - No pharmacological DVT prophylaxis due to ICH - Pepcid Overall impression: He remains critically ill following emergency craniotomy for decompression and evacuation of blood, but more stable; attempt to lighten sedation if we can control ICP, seizures. Prognosis poor, no options for treatment at this time. I think we can get him extubated, followed by discussions with Palliative Care team. Feliciano Guidry MD Aug 23, 2017 09:17
[2017-08-23] MEDS ORDERED: FOSPHENYTOIN SODIUM 100 MG PE/2 ML VIAL IV SCH (11:15)
[2017-08-23] MEDS ORDERED: PHARMACY ORDERED LAB ONE (11:45)
[2017-08-23] MEDS: POTASSIUM CHLOR 20 MEQ PREMIX 100 ML IV SCH ×2 (12:03→14:07)
[2017-08-23] MEDS: DEXAMETHASONE SOD PHOS 20 MG/5 ML VIAL IV PUSH SCH ×2 (12:03→17:12)
--- NOTE | 2017-08-23 12:24 | HHI.NSPN ---
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 He underwent right craniotomy for motor cortex metastatic melanoma resection at [facility] in [place] in May 2016 with subsequent 5 rounds of radiation treatment to the brain which he completed in early July. Transferred from [facility] because of intracranial hemorrhage patient reports increasing weakness on the left side. Patient has some seizure activity last night involving the legs. Controlled with Ativan and anticonvulsants with neurology following. Patient has had seizures in the past. Initially patient and wanted to be transferred to [facility] but they did not accept the patient and related that the he could be treated locally. He was transferred to acute rehabilitation facility but complained of nausea and worsening headaches with initiation of therapy. Follow-up MRI scan of the brain was obtained which reveals postoperative changes with a moderate right subdural hemorrhage as well as cystic hemorrhagic component and posterior frontal parietal lobe at the resection site. There has been increase in the intracerebral and subdural hemorrhage with edema and midline shift despite being on Decadron 4 mg every 6 since the MRI scan from last week. He was readmitted to the intensive surgical care unit to [facility] and the scanner operator and neurosurgical consultation requested. The patient and his relate that there would like to pursue further treatment locally. 08/16/17: Pt sedated and intubated. Pt now with acute pupil changes. Discussed with RN no new medication started that would cause pupillary changes and pupils had been 3 or 4 mm overnight. With pain in upper chest pt flexes right side and extending left side. Neurosurgeon called. Pt given Mannitol 50grams and instructed to get pt ready to go to OR for emergent right crani for hematoma evacuation. Called pts and updated her and she gave me consent over the phone that was witnessed by Anika Godwin RN. 08/17/17: Pt sedated on Diprivan and Fentanyl drips. Intubated. Pupils now 3mm bilaterally slight reaction bilaterally. Not following commands. Ventriculostomy drain in place ICP 8. 08/18/17: Pt sedated on Diprivan and Fentanyl drips. Intubated. Pupils 3mm bilaterally reactive bilaterally. Ventriculostomy drain in place draining well. 08/19/17: Pt sedated on Diprivan and Fentanyl drips. He is intubated. Pupils are 3mm bilaterally reactive bilaterally. Ventriculostomy drain at 20cm H20 ICP 15. 08/20/17: Pt sedated on Diprivan and Fentanyl drips being weaned and converted to Precedex. He is intubated on CPAP. 08/21/17: Pt sedated on Precedex. Follows simple commands right side. Pupils 4mm bilaterally. Not opening eyes to voice but does to pain. 08/22: intubated and mildly sedated on Precedex, new movement left toes/foot today. 08/23: remains intubated, CPAP trials?extubation today. follows simple commands (Sarika Christianson) Labs, Micro, & Vital Signs Results Date Time Temp Pulse Resp B/P (MAP) Pulse Ox O2 Delivery O2 Flow Rate FiO2 08/23/17 12:00 99.8 104 17 142/65 (90) 96 08/23/17 12:00 104 08/23/17 11:15 95 Nasal Cannula 5 08/23/17 10:00 98 08/23/17 08:21 99 40 08/23/17 08:21 40 08/23/17 08:00 40 08/23/17 08:00 99.5 104 30 153/75 (101) 97 08/23/17 08:00 104 08/23/17 07:00 96 Mechanical Ventilator 40 08/23/17 06:00 98 08/23/17 04:06 98 40 08/23/17 04:00 50 08/23/17 04:00 100.0 98 20 162/80 (107) 98 08/23/17 04:00 98 08/23/17 02:00 98 08/23/17 01:49 98 40 08/23/17 00:00 100.0 98 20 152/76 (101) 99 08/23/17 00:00 50 08/23/17 00:00 94 08/22/17 22:00 94 08/22/17 20:55 98 45 08/22/17 20:00 94 08/22/17 20:00 50 08/22/17 20:00 100.1 94 20 146/71 (96) 99 08/22/17 19:00 96 Mechanical Ventilator 50 08/22/17 18:00 102 08/22/17 16:44 98 50 08/22/17 16:00 99.4 94 10 132/69 (90) 98 08/22/17 16:00 50 08/22/17 16:00 94 08/22/17 14:00 99 08/24/17 07:00 Intake Total 100 ml Balance 100 ml Constitutional Vital Signs Date Time Temp Pulse Resp B/P (MAP) Pulse Ox O2 Delivery O2 Flow Rate FiO2 08/23/17 12:00 99.8 104 17 142/65 (90) 96 08/23/17 12:00 104 08/23/17 11:15 95 Nasal Cannula 5 08/23/17 10:00 98 08/23/17 08:21 99 40 08/23/17 08:21 40 08/23/17 08:00 40 08/23/17 08:00 99.5 104 30 153/75 (101) 97 08/23/17 08:00 104 08/23/17 07:00 96 Mechanical Ventilator 40 08/23/17 06:00 98 08/23/17 04:06 98 40 08/23/17 04:00 50 08/23/17 04:00 100.0 98 20 162/80 (107) 98 08/23/17 04:00 98 08/23/17 02:00 98 08/23/17 01:49 98 40 08/23/17 00:00 100.0 98 20 152/76 (101) 99 08/23/17 00:00 50 08/23/17 00:00 94 08/22/17 22:00 94 08/22/17 20:55 98 45 08/22/17 20:00 94 08/22/17 20:00 50 08/22/17 20:00 100.1 94 20 146/71 (96) 99 08/22/17 19:00 96 Mechanical Ventilator 50 08/22/17 18:00 102 08/22/17 16:44 98 50 08/22/17 16:00 99.4 94 10 132/69 (90) 98 08/22/17 16:00 50 08/22/17 16:00 94 08/22/17 14:00 99 08/24/17 07:00 Intake Total 100 ml Balance 100 ml (Sarika Christianson) Review of Systems ROS Limitations: Intubated (Sarika Christianson) Physical Exam GENERAL: Pt is intubated. no apparent distress during examination. CARDIOVASCULAR: Regular rate and rhythm RESPIRATORY: clear, mechanically vented SKIN: Incision clean and dry. No signs of infection. MUSCULOSKELETAL: Surveillance Dual Rate Officer hand and moves toes on right side. Left dense hemiparesis. NEURO: mildly sedated, does not open eyes but had followed few simple commands to ext. Pupils 4mm bilaterally with brisk reaction bilaterally. moving right arm purposefully, and moves b/l feet and toes to command, right greater than left. Dense left upper paresis. Left Ventriculostomy drain site clean and dry with stitch in place. Head: Right bone flap is full, slightly firm to palpate. (Sarika Christianson) Medications Current Medications Current Medications Medications (Trade) Dose Ordered Sig/Karina Route PRN Reason Start Time Stop Time Status Last Admin Dose Admin Clonidine (Catapres) 0.1 mg Q6H PRN PO SBP>180, DBP>110 08/14/17 22:30 08/15/17 21:19 Lacosamide (Vimpat) 150 mg BID PO 08/15/17 09:00 08/23/17 08:05 Sodium Chloride (NS Flush) 2 ml UNSCH PRN IV FLUSH FLUSH AFTER USING IV ACCESS 08/14/17 23:15 Sodium Chloride (NS Flush) 2 ml BID IV FLUSH 08/15/17 09:00 08/22/17 19:57 Famotidine (Pepcid Inj) 20 mg Q12HR IV PUSH 08/15/17 09:00 08/23/17 08:05 Ondansetron HCl (Zofran Inj) 4 mg Q6H PRN IV PUSH NAUSEA OR VOMITING 08/14/17 23:15 Temazepam (Restoril) 15 mg HS PRN PO INSOMNIA 08/14/17 23:15 08/15/17 21:19 Albuterol/ Ipratropium (Duoneb Neb) 1 ampule Q2HR NEB PRN INH WHEEZING 08/14/17 23:15 08/23/17 11:28 Miscellaneous Information 1 Q361D XX 08/14/17 23:15 Chlorhexidine Gluconate (Chlorhexidine 2% Cloth) Taper DAILY@04 TOP 08/15/17 04:00 08/11/18 03:59 Chlorhexidine Gluconate (Chlorhexidine 2% Cloth) 3 pack UNSCH PRN TOP HYGIENIC CARE 08/14/17 23:15 Senna/Docusate Sodium (Celena-Colace) 1 tab BID PO 08/15/17 09:00 08/21/17 20:08 Magnesium Hydroxide (Milk Of Magnesia Liq) 30 ml Q12H PRN PO Mild constipation 08/14/17 23:15 Sennosides (Senokot) 17.2 mg Q12H PRN PO Moderate constipation 08/14/17 23:15 Bisacodyl (Dulcolax Supp) 10 mg DAILY PRN RECTAL SEVERE CONSITIPATION 08/14/17 23:15 Lactulose (Lactulose Liq) 30 ml DAILY PRN PO SEVERE CONSITIPATION 08/14/17 23:15 Dexmedetomidine HCl 200 mcg/ Sodium Chloride 52 ml @ 4.62 mls/hr TITRATE PRN IV SEDATION 08/15/17 13:45 08/22/17 22:59 Tramadol HCl (Ultram) 50 mg Q6H PRN PO Pain 1-5 08/15/17 14:15 Tramadol HCl (Ultram) 100 mg Q6H PRN PO pain 6-10 08/15/17 14:15 08/16/17 05:33 Acetaminophen (Tylenol) 650 mg Q6H PRN PO FEVER >101F 08/15/17 14:15 08/23/17 00:29 Propofol 100 ml @ 2.667 mls/ hr TITRATE PRN IV Sedation 08/16/17 04:45 08/20/17 04:55 Chlorhexidine Gluconate (Peridex 0.12% Liq) 15 ml BID@08,20 MT 08/16/17 20:00 08/23/17 08:04 Fentanyl Citrate (fentaNYL INJ) 100 mcg Q2H PRN IV PUSH pain 1-10 08/16/17 14:45 Potassium Chloride 100 ml @ 50 mls/hr Q2H PRN IV For Potassium 2.8 - 3.2 mEq/L 08/17/17 02:15 08/21/17 10:59 Potassium Chloride 100 ml @ 50 mls/hr Q2H PRN IV For Potassium 2.8 - 3.2 mEq/L 08/17/17 02:15 Potassium Bicarb/ Potassium Chloride (K-Lyte Cl Eff) 50 meq UNSCH PRN PO For Potassium 3.3 - 3.5 mEq/L 08/17/17 02:15 Potassium Chloride 100 ml @ 25 mls/hr UNSCH PRN IV For Potassium 3.3 - 3.5 mEq/L 08/17/17 02:15 08/22/17 10:50 Potassium Chloride 100 ml @ 50 mls/hr Q2H PRN IV For Potassium 3.3 - 3.5 mEq/L 08/17/17 02:15 Magnesium Sulfate 4 gm/Sodium Chloride 100 ml @ 50 mls/hr UNSCH PRN IV For Magnesium 0.9 - 1.1 mg/dL 08/17/17 02:15 Magnesium Oxide (Mag-Ox) 800 mg UNSCH PRN PO For Magnesium 1.2 - 1.6 mg/dL 08/17/17 02:15 Magnesium Sulfate 2 gm/Sodium Chloride 100 ml @ 50 mls/hr UNSCH PRN IV For Magnesium 1.2 - 1.6 mg/dL 08/17/17 02:15 Potassium Phosphate (K-Phos) 2,000 mg Q4H PRN PO For Phosphorus < 2.5 mg/dL 08/17/17 02:15 Sodium Phosphate 30 mmol/Sodium Chloride 250 ml @ 42 mls/hr UNSCH PRN IV For Phosphorus < 2.5 mg/dL 08/17/17 02:15 Potassium Phosphate (K-Phos) 2,000 mg UNSCH PRN PO/TUBE SEE LABEL COMMENTS 08/17/17 02:15 Potassium Phosphate 30 mmol/ Sodium Chloride 260 ml @ 42 mls/hr UNSCH PRN IV SEE LABEL COMMENTS 08/17/17 02:15 Terbutaline Sulfate (Brethine Inj) 1 mg UNSCH PRN SQ FOR EXTRAVASATION PROTOCOL 08/17/17 05:45 Terbutaline Sulfate (Brethine Inj) 1 mg UNSCH PRN SQ For Extravasation 08/17/17 07:30 Protein (Beneprotein Powder) 1 pack TID G-TUBE 08/19/17 09:00 08/23/17 08:05 Hydralazine HCl (Apresoline) 50 mg Q8HR PO 08/20/17 14:00 08/23/17 05:55 Metoprolol Tartrate (Lopressor) 50 mg Q12HR PO 08/20/17 09:00 08/23/17 08:05 Nicardipine HCl 25 mg/Sodium Chloride 250 ml @ 50 mls/hr TITRATE PRN IV Blood pressure management 08/20/17 08:45 Pharmacy Profile Note 0 ml @ 0 mls/hr UNSCH OTHER 08/21/17 10:30 Vancomycin HCl 2000 mg/Sodium Chloride 520 ml @ 250 mls/hr Q12H IV 08/22/17 00:00 08/23/17 00:29 Meropenem 1000 mg/ Sodium Chloride 100 ml @ 200 mls/hr Q8H IV 08/22/17 15:00 08/23/17 05:56 Dexamethasone Sodium Phosphate (Decadron Inj) 6 mg Q6HR IV PUSH 08/23/17 12:00 08/23/17 12:03 Fosphenytoin Sodium (Cerebyx Inj) 300 mgpe Q12HR IV 08/23/17 11:15 UNV Levetriacetam 100 ml @ 400 mls/hr Q12HR IV 08/23/17 21:00 UNV Furosemide (Lasix Inj) 40 mg DAILY IV PUSH 08/23/17 12:00 Potassium Chloride 100 ml @ 50 mls/hr Q2H IV 08/23/17 11:30 08/23/17 15:29 08/23/17 12:03 (Sarika Christianson) Medical Decision Making MDM Remarks 62-year-old gentleman with a history of right motor cortex metastatic melanoma resection in May 2016 at [facility] in [place] with subsequent radiation treatment and chemotherapy. left hemiplegia and recurrent seizures, controlled with antiepileptic medications. Postoperative imaging studies reveals a right small subdural hemorrhage with hematoma in the evacuation bed and possible residual/recurrent disease along with edema and mass effect/midline shift. acute pupillary changes with posturing - taken emergently to the OR for a right frontotemporal parietal craniotomy for cerebral and subdural hemorrhage evacuation; right decompressive hemicraniectomy with expansive patch graft duraplasty; right frontal ventriculostomy placement by Dr. Bland on 08/16/17 (Sarika Christianson) Plan Plan Remarks cont sedation and vent weaning, CPAP, poss extubation today per critical care cont neuro checks cont antiepileptics cont Decadron (Sarika Christianson) Attending Statement The exam, history, and the medical decision-making described in the above note were completed with the assistance of the mid-level provider. I reviewed and agree with the findings presented. I attest that I had a [id number] encounter with the patient on the same day, and personally performed and documented my assessment and findings in the medical record. (Connor Ro MD) Sarika Christianson Aug 23, 2017 12:24 Connor Ro MD Aug 24, 2017 13:02
[2017-08-23] MEDS: FUROSEMIDE 40 MG/4 ML VIAL IV PUSH SCH (12:33)
[2017-08-23] MEDS: SODIUM CHLORIDE IV SCH (15:09)
[2017-08-23] MEDS: FOSPHENYTOIN IV SCH (15:09)
--- NOTE | 2017-08-23 15:54 | PD.ID.CON ---
History of Present Illness Service ID Consult Requested By Reason for Consult Evaluation and Mment of ESBL E.coli bacteremia and ESBL E.coli UTI Primary Care Physician Unknown Diagnoses: History of Present Illness Mr. Johnson is a 62-year-old male with past medical history significant for malignant melanoma metastasized to the brain status post right parietal craniectomy on June 09, 2017 at [facility]. This surgery was followed by 5 rounds of radiation treatments via an oncologist at [facility]. Patient was subsequently evaluated at [facility] on July and received "Ktruda". Subsequently patient developed worsening weakness involving the left lower extremity. Patient initially presented to the ER at [facility] on August [address] without contrast revealed intracerebral hemorrhage involving the right frontoparietal region. [facility] was contacted but due to lack of beds patient was transferred to [facility]. Patient remained in the ICU and was observed and then subsequently transferred to [facility] after nonsurgical treatment with Decadron. After transferred to [facility] patient continued to deteriorate and an MRI showed worsening hematoma and so patient was taken to the OR for decompression of the hematoma on August 16, 2017. Patient had an ICP monitor during this hospitalization. On August 21 patient had a small infiltrate noted on the chest x-ray that was ordered due to fevers. Sputum cultures were sent and antibiotics were started. An attempt was made to contact [facility] oncology and reportedly patient is not a candidate for repeat Keytruda treatment and currently there are no other options. Blood cultures drawn on August 21, 2017 is a part of new fever workup are now positive for ESBL E. coli. Patient's urine culture drawn at the same time is also positive for ESBL E. coli. Patient has a central line in place as well as a wade catheter placed on 08/16/2017. Infectious disease is consulted for evaluation and management of ESBL E. coli bacteremia as well as ESBL E. coli UTI. Review of Systems ROS Limitations: Clinical Condition Past Family Social History Allergies: Coded Allergies: No Known Drug Allergies (Verified Allergy, Unknown, 08/08/17) Past Medical History Malignant metastatic melanoma Intracranial hemorrhage, subdural hematoma History of glucose intolerance Seizures Past Surgical History * Lumbar disc surgery years ago * Right shoulder melanoma 2010 * Small bowel resection (melanoma) Axillary node excision of the middle normal Right craniotomy and subtotal resection of the tumor in May 2017 Craniotomy, craniectomy, ventriculostomy in August 16, 2017 for worsening hemorrhage. Reported Medications Reported Meds & Active Scripts Active Catapres (Clonidine) 0.1 Mg Tab 0.1 Mg PO Q6H PRN Hydralazine HCl 25 Mg Tablet 25 Mg PO Q8HR Gnp Senna Plus 8.6-50 mg (Sennosides-Docusate Sodium) 8.6 Mg-50 Mg Tab 1 Tab PO BID 1 Days Dexamethasone 4 Mg Tab 4 Mg PO Q6HR Famotidine 20 Mg Tab 20 Mg PO Q12HR Dilantin (Phenytoin Extended) 100 Mg Cap 300 Mg PO BID Ultram (Tramadol HCl) 50 Mg Tab 50 Mg PO Q6H PRN Reported Potassium Chloride ER (Potassium Chloride) 10 Meq Tab 10 Meq PO DAILY Levetiracetam 500 Mg Tab 1,500 Mg PO BID Vimpat (Lacosamide) 150 Mg Tab 150 Mg PO BID Active Ordered Medications Current Medications Medications (Trade) Dose Ordered Sig/Karina Route Start Time Stop Time Status Last Admin (Catapres) 0.1 mg Q6H PRN PO 08/14/17 22:30 08/15/17 21:19 (Vimpat) 150 mg BID PO 08/15/17 09:00 Future Hold 08/23/17 08:05 (NS Flush) 2 ml UNSCH PRN IV FLUSH 08/14/17 23:15 (NS Flush) 2 ml BID IV FLUSH 08/15/17 09:00 08/23/17 21:37 (Pepcid Inj) 20 mg Q12HR IV PUSH 08/15/17 09:00 08/23/17 21:37 (Zofran Inj) 4 mg Q6H PRN IV PUSH 08/14/17 23:15 (Restoril) 15 mg HS PRN PO 08/14/17 23:15 08/15/17 21:19 (Duoneb Neb) 1 ampule Q2HR NEB PRN INH 08/14/17 23:15 08/23/17 11:28 Miscellaneous Information 1 Q361D XX 08/14/17 23:15 (Chlorhexidine 2% Cloth) Taper DAILY@04 TOP 08/15/17 04:00 08/11/18 03:59 (Chlorhexidine 2% Cloth) 3 pack UNSCH PRN TOP 08/14/17 23:15 (Celena-Colace) 1 tab BID PO 08/15/17 09:00 08/21/17 20:08 (Milk Of Magnesia Liq) 30 ml Q12H PRN PO 08/14/17 23:15 (Senokot) 17.2 mg Q12H PRN PO 08/14/17 23:15 (Dulcolax Supp) 10 mg DAILY PRN RECTAL 08/14/17 23:15 (Lactulose Liq) 30 ml DAILY PRN PO 08/14/17 23:15 Dexmedetomidine HCl 200 mcg/ Sodium Chloride 52 ml @ 4.62 mls/hr TITRATE PRN IV 08/15/17 13:45 08/22/17 22:59 (Ultram) 50 mg Q6H PRN PO 08/15/17 14:15 (Ultram) 100 mg Q6H PRN PO 08/15/17 14:15 08/16/17 05:33 (Tylenol) 650 mg Q6H PRN PO 08/15/17 14:15 08/23/17 00:29 Propofol 100 ml @ 2.667 mls/ hr TITRATE PRN IV 08/16/17 04:45 08/20/17 04:55 (Peridex 0.12% Liq) 15 ml BID@08,20 MT 08/16/17 20:00 08/23/17 20:00 (fentaNYL INJ) 100 mcg Q2H PRN IV PUSH 08/16/17 14:45 08/23/17 16:54 Potassium Chloride 100 ml @ 50 mls/hr Q2H PRN IV 08/17/17 02:15 08/21/17 10:59 Potassium Chloride 100 ml @ 50 mls/hr Q2H PRN IV 08/17/17 02:15 (K-Lyte Cl Eff) 50 meq UNSCH PRN PO 08/17/17 02:15 Potassium Chloride 100 ml @ 25 mls/hr UNSCH PRN IV 08/17/17 02:15 08/22/17 10:50 Potassium Chloride 100 ml @ 50 mls/hr Q2H PRN IV 08/17/17 02:15 Magnesium Sulfate 4 gm/Sodium Chloride 100 ml @ 50 mls/hr UNSCH PRN IV 08/17/17 02:15 (Mag-Ox) 800 mg UNSCH PRN PO 08/17/17 02:15 Magnesium Sulfate 2 gm/Sodium Chloride 100 ml @ 50 mls/hr UNSCH PRN IV 08/17/17 02:15 (K-Phos) 2,000 mg Q4H PRN PO 08/17/17 02:15 Sodium Phosphate 30 mmol/Sodium Chloride 250 ml @ 42 mls/hr UNSCH PRN IV 08/17/17 02:15 (K-Phos) 2,000 mg UNSCH PRN PO/TUBE 08/17/17 02:15 Potassium Phosphate 30 mmol/ Sodium Chloride 260 ml @ 42 mls/hr UNSCH PRN IV 08/17/17 02:15 (Brethine Inj) 1 mg UNSCH PRN SQ 08/17/17 05:45 (Brethine Inj) 1 mg UNSCH PRN SQ 08/17/17 07:30 (Beneprotein Powder) 1 pack TID G-TUBE 08/19/17 09:00 08/23/17 08:05 (Apresoline) 50 mg Q8HR PO 08/20/17 14:00 Future Hold 08/23/17 05:55 (Lopressor) 50 mg Q12HR PO 08/20/17 09:00 Future Hold 08/23/17 08:05 Nicardipine HCl 25 mg/Sodium Chloride 250 ml @ 50 mls/hr TITRATE PRN IV 08/20/17 08:45 Pharmacy Profile Note 0 ml @ 0 mls/hr UNSCH OTHER 08/21/17 10:30 Vancomycin HCl 2000 mg/Sodium Chloride 520 ml @ 250 mls/hr Q12H IV 08/22/17 00:00 08/23/17 12:34 Meropenem 1000 mg/ Sodium Chloride 100 ml @ 200 mls/hr Q8H IV 08/22/17 15:00 08/23/17 21:37 (Decadron Inj) 6 mg Q6HR IV PUSH 08/23/17 12:00 08/23/17 17:12 Levetriacetam 1500 mg/Sodium Chloride 115 ml @ 345 mls/hr Q12HR IV 08/23/17 21:00 08/23/17 21:37 (Lasix Inj) 40 mg DAILY IV PUSH 08/23/17 12:00 08/23/17 12:33 Fosphenytoin Sodium 300 mgpe/ Sodium Chloride 106 ml @ 212 mls/hr Q12H IV 08/23/17 15:00 08/23/17 15:09 (Lopressor Inj) 5 mg Q6HR IV PUSH 08/23/17 18:00 08/23/17 18:02 Lacosamide 150 mg/ Sodium Chloride 115 ml @ 115 mls/hr Q12HR IV 08/23/17 21:15 08/23/17 21:39 Family History The patient's mother is alive at 87 years old, uses a walker for ambulation. His sister is living. The patient's father of complications of dementia. There is no family history of melanoma. Social History Tobacco: None Alcohol: None Prescription med abuse: None Illicits: None The patient was originally from [place], [place], and moved to [place] in 1957. He has been twice, currently for 29 years.Between the 2 of them they have 3 children, 2 of hers and one of his. 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 Physical Exam Vital Signs Vital Signs Date Time Temp Pulse Resp B/P (MAP) Pulse Ox O2 Delivery O2 Flow Rate FiO2 08/23/17 14:00 108 08/23/17 12:00 99.8 104 17 142/65 (90) 96 08/23/17 12:00 104 08/23/17 11:15 95 Nasal Cannula 5 08/23/17 10:00 98 08/23/17 08:21 99 40 08/23/17 08:21 40 08/23/17 08:00 40 08/23/17 08:00 99.5 104 30 153/75 (101) 97 08/23/17 08:00 104 08/23/17 07:00 96 Mechanical Ventilator 40 08/23/17 06:00 98 08/23/17 04:06 98 40 08/23/17 04:00 50 08/23/17 04:00 100.0 98 20 162/80 (107) 98 08/23/17 04:00 98 08/23/17 02:00 98 08/23/17 01:49 98 40 08/23/17 00:00 100.0 98 20 152/76 (101) 99 08/23/17 00:00 50 08/23/17 00:00 94 08/22/17 22:00 94 08/22/17 20:55 98 45 08/22/17 20:00 94 08/22/17 20:00 50 08/22/17 20:00 100.1 94 20 146/71 (96) 99 08/22/17 19:00 96 Mechanical Ventilator 50 08/22/17 18:00 102 08/22/17 16:44 98 50 08/22/17 16:00 99.4 94 10 132/69 (90) 98 08/22/17 16:00 50 08/22/17 16:00 94 Physical Exam GENERAL: This is a well-nourished, well-developed patient, in no apparent distress. SKIN: No rashes, ecchymoses or lesions. Cool and dry. HEAD: Craniotomy site with no e.o infection EYES: Pupils equal round and reactive. Extraocular motions intact. No scleral icterus. No injection or drainage. ENT: Nose without bleeding, purulent drainage or septal hematoma. Throat without erythema, tonsillar hypertrophy or exudate. Uvula midline. Airway patent. NECK: Trachea midline. Supple, nontender, no meningeal signs. CARDIOVASCULAR: Regular rate and rhythm without murmurs, gallops, or rubs. RESPIRATORY: Clear to auscultation. Breath sounds equal bilaterally. No wheezes , rales, or rhonchi. GASTROINTESTINAL: Abdomen soft, non-tender, nondistended. MUSCULOSKELETAL: Extremities without clubbing, cyanosis, or edema. NEUROLOGICAL: No response to deep verbal stimuli. Craniotomy site with no e.o infection Psych could not be assessed. IV line sites with no e.o infection. Laboratory Laboratory Tests Test 08/23/17 11:36 Vancomycin Level Trough 15.6 Date/Time Source Procedure Growth Status 08/21/17 12:10 Blood Peripheral Aerobic Blood Culture - Preliminary NO GROWTH IN 2 DAYS Resulted 08/21/17 12:10 Blood Peripheral Anaerobic Blood Culture - Preliminary NO GROWTH IN 2 DAYS Resulted 08/21/17 10:45 Sputum Endotracheal Gram Stain - Final Complete 08/21/17 10:45 Sputum Endotracheal Sputum Culture - Final HEAVY GROWTH NORMAL RESPIRATORY SHARRON Complete 08/21/17 13:15 Urine Catheterized Urine Urine Culture - Final Escherichia Coli Esbl Positive Complete Result Diagram: 08/22/17 0525 08/22/17 0525 Imaging Last Impressions Chest X-Ray 08/20/17 0000 Signed Impressions: Service Date/Time: August 15:07 - CONCLUSION: Middle atelectasis left lung base. Small posteromedial right lower lobe. ET tube in good position. Marcos Beard MD Head CT 08/17/17 0600 Signed Impressions: Service Date/Time: Thursday, August 17, 2017 09:49 - CONCLUSION: Interval right craniectomy with decreased amount of intra-axial blood products. There are persistent blood products and vasogenic edema in the right frontoparietal region. However, there is less midline shift currently measuring 7 mm compared to 16 mm previously. The right frontal ventricular catheter terminates in the region of the right thalamus. Omar Mariscal MD Assessment and Plan Assessment and Plan ESBL E.coli bacteremia ESBL E.coli UTI Wade in place ? cath associated UTI as cause for bacteremia. CL in place. Malignant melanoma with metastasis. s/p radiation therapy. S.p evacuation of hematoma for recurring hematoma. h/o seizure disorder. Recs: DC Meropenem IV (can precipitate seizures by reducing seizure threshold, given his neurosurgery and h/o seizures will switch to Zerbaxa IV) Start Zerbaxa IV DC vanco IV no Gram positives in sputum or blood. Repeat blood cultures x 2 Would recommend changing central line if possible. Recommend US abdomen kidney to look for pyelonephritis or obstructive etiology. Change wade cath. ayo RN No family in room. Jessie Carpenter MD Aug 23, 2017 15:54
[2017-08-23] MEDS: METOPROLOL TARTRATE 5 MG/5 ML VIAL IV PUSH SCH (18:02)
[2017-08-23] MEDS: levETIRAcetam INJ 1,500 MG in SODIUM CHLORIDE 0.9% INJ 100 ML IV SCH (21:37)
[2017-08-23] MEDS: LACOSAMIDE INJ 150 MG in SODIUM CHLORIDE 0.9% INJ 100 ML IV SCH (21:39)
[2017-08-23] MEDS ORDERED: CEFTOLOZANE-TAZOBACTAM INJ 1,500 MG in SODIUM CHLORIDE 0.9% INJ 100 ML IV SCH (22:15)
[2017-08-23] MEDS ORDERED: CEFTOLOZANE-TAZOBACTAM INJ 1,500 MG in SODIUM CHLORIDE 0.9% INJ 100 ML IV ONE (22:30)
--- NOTE | 2017-08-23 23:29 | RADRPT ---
EXAM DATE/TIME: 08/23/2017 22:55 [place] COMPARISON: No previous studies available for comparison. INDICATIONS : Abnormal lab values. MEDICAL HISTORY : Seizures. Confusion. Weakness. Malignant melanoma with metastases. Chemotherapy. Radiation therapy. SURGICAL HISTORY : Small bowel resection. ENCOUNTER: Initial ACUITY: 1 day PAIN SCORE: Nonresponsive. LOCATION: Bilateral flank MEASUREMENTS: RIGHT KIDNEY: 10.8 x 5.4 x 6.8 cm LEFT KIDNEY: 12.1 x 5.2 x 6.5 cm FINDINGS: RIGHT KIDNEY: Renal cortex is normal in thickness and echotexture. No hydronephrosis or mass is identified. There i s an echogenic non-shadowing structure in the mid renal collecting system measuring approximately 7 m m. LEFT KIDNEY: Renal cortex is normal in thickness and echotexture. No hydronephrosis, stone, or mass. BLADDER: Decompressed with a Phipps catheter present. Therefore, not adequately evaluated. CONCLUSION: 1. There is no hydronephrosis or other abnormality to explain the abnormal laboratory values. 2. Questionable 7 mm nonobstructing right renal stone. Omar Mariscal MD on August 23, 2017 at 23:25 Board Certified Radiologist. This report was verified electronically.
[2017-08-24] VITALS (15 sets, daily range): BP systolic 124–175; BP diastolic 64–78; PULSE 87–115; RESP 22–30; TEMP 98.9–99.7; O2SAT 96–99
[2017-08-24] MEDS: DEXAMETHASONE SOD PHOS 20 MG/5 ML VIAL IV PUSH SCH ×5 (00:07→23:07)
[2017-08-24] MEDS: METOPROLOL TARTRATE 5 MG/5 ML VIAL IV PUSH SCH ×5 (00:07→23:07)
[2017-08-24] MEDS: CHLORHEXIDINE GLUCONATE 2 % 1 PACK (2 CLOTHS) TOP SCH (03:04)
[2017-08-24] MEDS: FOSPHENYTOIN IV SCH ×2 (03:12→14:39)
[2017-08-24] MEDS: SODIUM CHLORIDE IV SCH ×2 (03:12→14:39)
[2017-08-24 04:31] LABS: AUTOMATED NEUTROPHIL # 11.4 TH/MM3 (1.8-7.7); BASOPHIL # 0.1 TH/MM3 (0-0.2); BASOPHIL % 0.4 % (0.0-2.0); EOSINOPHIL # 0.1 TH/MM3 (0-0.4); EOSINOPHIL % 0.4 % (0.0-4.0); HEMATOCRIT 30.9 % (39.0-51.0); HEMOGLOBIN 10.4 GM/DL (13.0-17.0); LYMPH % 8.4 % (9.0-44.0); LYMPHOCYTE # 1.1 TH/MM3 (1.0-4.8); MEAN CELL VOLUME 85.5 FL (80.0-100.0); MEAN CORPUSCULAR HEMOGLOBIN 28.8 PG (27.0-34.0); MEAN CORPUSCULAR HGB CONC 33.6 % (32.0-36.0); MONO % 7.2 % (0.0-8.0); NEUT % 83.6 % (16.0-70.0); PLATELET COUNT 337 TH/MM3 (150-450); RED BLOOD COUNT 3.62 MIL/MM3 (4.50-5.90); RED CELL DISTRIBUTION WIDTH 15.7 % (11.6-17.2); WHITE BLOOD COUNT 13.6 TH/MM3 (4.0-11.0)
[2017-08-24 05:00] LABS: BICARBONATE 29.5 MEQ/L (21.0-32.0); CALCIUM 8.4 MG/DL (8.5-10.1); CREATININE 0.36 MG/DL (0.60-1.30)
[2017-08-24] MEDS: CEFTOLOZANE-TAZOBACTAM INJ 1,500 MG in SODIUM CHLORIDE 0.9% INJ 100 ML IV SCH ×3 (06:19→21:39)
[2017-08-24] MEDS: DOCUSATE SODIUM 50 MG/SENNA 8.6 MG TAB PO SCH ×2 (09:00→20:45)
[2017-08-24] MEDS: BENEPROTEIN POWDER 1 PACK G-TUBE SCH ×3 (09:00→18:00)
[2017-08-24] MEDS: POTASSIUM CHLOR 40 MEQ PREMIX 100 ML IV PRN (09:26)
[2017-08-24] MEDS: FAMOTIDINE 20 MG/2 ML VIAL IV PUSH SCH ×2 (09:26→20:44)
[2017-08-24] MEDS: FUROSEMIDE 40 MG/4 ML VIAL IV PUSH SCH (09:26)
[2017-08-24] MEDS: SODIUM CHLORIDE 0.9% FLUSH 10 ML FLUSH IV FLUSH SCH ×2 (09:27→20:44)
[2017-08-24] MEDS: CHLORHEXIDINE 0.12% (ORAL KIT) 15 ML CUP MT SCH ×2 (09:28→20:44)
[2017-08-24] MEDS: LACOSAMIDE INJ 150 MG in SODIUM CHLORIDE 0.9% INJ 100 ML IV SCH ×2 (10:10→20:43)
[2017-08-24] MEDS: levETIRAcetam INJ 1,500 MG in SODIUM CHLORIDE 0.9% INJ 100 ML IV SCH ×2 (10:19→20:44)
--- NOTE | 2017-08-24 10:55 | HHI.HCPN ---
Reason for visit a. To assist with evaluation and management of symptoms including: Encephalopathy, pain, seizures b. To assist medical decision maker(s) with: better understanding of current medical conditions; weighing benefits/burdens of medical treatment options; making medical treatment decisions. . Subjective/Interval History INTERVAL NOTE: Pt was extubated yesterday. Pt tmax is 99. Pt sating well overall. Pt not opening eyes for me, but able to squeeze my hand on command. Could not follow more complex commands. Pt's did endorse he did open his eyes briefly today. . Family/friend interactions Pt's was able to speak/text with Dr. Covarrubias. She endorse that oncologist told her that he is far and could not overall evaluate, but we should take it one day at a time. She did not cancel his appointment for later on this month. I reviewed with about his risk of sudden decline, the scenerio of decompensation, and the need for reintubation. I also spoke with pt's daughter who is a nurse over the phone. Updated them on pt's current situation. Talked about peg/ and trach Plan of care is the following: == DNR, but they are amenable to bipap. == They want to continue aggressive care short of resucitation/and bipap. == They want to see in the next few days if neurologically he will/could improve , and continue antibiotics for now. == Family is aware overall prognosis is poor. == They are amenable for me to continue to update. == If pt does have another decline, family is open to transition to comfort measures. Advance Directives Living Will: Never completed Health Care Surrogate: Never completed Durable Power of Oyster Culturist: Never completed Objective Vital Signs Date Time Temp Pulse Resp B/P (MAP) Pulse Ox O2 Delivery O2 Flow Rate FiO2 08/24/17 07:24 98 Nasal Cannula 4.00 08/24/17 06:00 95 08/24/17 04:00 99.3 104 30 156/74 (101) 99 08/24/17 04:00 112 08/24/17 02:00 106 08/24/17 00:00 115 08/24/17 00:00 99.7 106 28 144/64 (90) 98 08/23/17 22:00 105 08/23/17 20:08 96 Nasal Cannula 5.00 08/23/17 20:00 112 08/23/17 20:00 98.4 112 32 170/87 (114) 96 08/23/17 19:00 96 Nasal Cannula 5.00 08/23/17 18:00 111 08/23/17 17:54 30 08/23/17 16:00 111 08/23/17 16:00 98.7 111 36 149/85 (106) 97 08/23/17 14:00 108 08/23/17 12:00 99.8 104 17 142/65 (90) 96 08/23/17 12:00 104 08/23/17 11:15 95 Nasal Cannula 5 Intake & Output 08/24/17 08/24/17 07:00 19:00 Intake Total 536 ml Output Total 950 ml Balance -414 ml IV Total 536 ml Output Urine Total 900 ml Stool Total 50 ml Physical Exam CONSTITUTIONAL/GENERAL: This is an adequately nourished patient, in no apparent distress. Squeezes with right hand and wiggles right toes on command. No spontaneous eye opening. Pt is extubated CARDIOVASCULAR: Regular rate and rhythm without murmurs, gallops, or rubs. No JVD. Peripheral pulses symmetric. RESPIRATORY/CHEST: Symmetric, unlabored respirations. Clear to auscultation. Breath sounds equal bilaterally. No wheezes, rales, or rhonchi. GASTROINTESTINAL: Abdomen soft, non-tender, nondistended. No hepato-splenomegaly , or palpable masses. No guarding. Bowel sounds present. GENITOURINARY: Without palpable bladder distension. Phipps catheter in place. MUSCULOSKELETAL: Extremities without clubbing, cyanosis. Left lower ext and left upper ext, edematous 2+. NEUROLOGICAL: Pupils are equal. Follows simple commands with right side, left side is flaccid. When eyes are held open he does not track or focus. PSYCHIATRIC: Pt calm on my visit. . Diagnostic Tests Laboratory Laboratory Tests Test 08/21/17 13:15 08/22/17 05:25 08/23/17 11:36 08/24/17 04:15 Urine Color YELLOW (YELLW/STRAW) Urine Turbidity HAZY (CLEAR) Urine pH 8.5 (5.0-8.5) Urine Specific [place] 1.021 (1.002-1.035) Urine Protein 30 mg/dL (NEG-TRACE) Urine Glucose (UA) NEG mg/dL (NEG) Urine Ketones 10 mg/dL (NEG) Urine Occult Blood NEG (NEG) Urine Nitrite NEG (NEG) Urine Bilirubin NEG (NEG) Urine Urobilinogen LESS THAN 2.0 MG/DL (LESS Urine Leukocyte Esterase TRACE (NEG) Urine RBC 1 /hpf (0-3) Urine WBC 5 /hpf (0-5) Urine Squamous Epithelial Cells 1 /hpf (0-5) Urine Amorphous Sediment RARE Urine Bacteria RARE /hpf (NONE) Urine Mucus FEW /lpf (OCC) Microscopic Urinalysis Comment CATH-CULTURE IND White Blood Count 12.4 TH/MM3 (4.0-11.0) 13.6 TH/MM3 (4.0-11.0) Red Blood Count 3.39 MIL/MM3 (4.50-5.90) 3.62 MIL/MM3 (4.50-5.90) Hemoglobin 9.9 GM/DL (13.0-17.0) 10.4 GM/DL (13.0-17.0) Hematocrit 28.8 % (39.0-51.0) 30.9 % (39.0-51.0) Mean Corpuscular Volume 85.1 FL (80.0-100.0) 85.5 FL (80.0-100.0) Mean Corpuscular Hemoglobin 29.3 PG (27.0-34.0) 28.8 PG (27.0-34.0) Mean Corpuscular Hemoglobin Concent 34.5 % (32.0-36.0) 33.6 % (32.0-36.0) Red Cell Distribution Width 15.5 % (11.6-17.2) 15.7 % (11.6-17.2) Platelet Count 227 TH/MM3 (150-450) 337 TH/MM3 (150-450) Mean Platelet Volume 7.4 FL (7.0-11.0) 7.0 FL (7.0-11.0) Neutrophils (%) (Auto) 80.2 % (16.0-70.0) 83.6 % (16.0-70.0) Lymphocytes (%) (Auto) 8.3 % (9.0-44.0) 8.4 % (9.0-44.0) Monocytes (%) (Auto) 9.8 % (0.0-8.0) 7.2 % (0.0-8.0) Eosinophils (%) (Auto) 1.3 % (0.0-4.0) 0.4 % (0.0-4.0) Basophils (%) (Auto) 0.4 % (0.0-2.0) 0.4 % (0.0-2.0) Neutrophils # (Auto) 9.9 TH/MM3 (1.8-7.7) 11.4 TH/MM3 (1.8-7.7) Lymphocytes # (Auto) 1.0 TH/MM3 (1.0-4.8) 1.1 TH/MM3 (1.0-4.8) Monocytes # (Auto) 1.2 TH/MM3 (0-0.9) 1.0 TH/MM3 (0-0.9) Eosinophils # (Auto) 0.2 TH/MM3 (0-0.4) 0.1 TH/MM3 (0-0.4) Basophils # (Auto) 0.1 TH/MM3 (0-0.2) 0.1 TH/MM3 (0-0.2) CBC Comment DIFF FINAL DIFF FINAL Differential Comment Blood Urea Nitrogen 11 MG/DL (7-18) 11 MG/DL (7-18) Creatinine 0.49 MG/DL (0.60-1.30) 0.36 MG/DL (0.60-1.30) Random Glucose 119 MG/DL (74-106) 91 MG/DL (74-106) Calcium Level 8.3 MG/DL (8.5-10.1) 8.4 MG/DL (8.5-10.1) Phosphorus Level 1.7 MG/DL (2.5-4.9) 2.0 MG/DL (2.5-4.9) Magnesium Level 2.0 MG/DL (1.5-2.5) 2.0 MG/DL (1.5-2.5) Sodium Level 143 MEQ/L (136-145) 141 MEQ/L (136-145) Potassium Level 3.5 MEQ/L (3.5-5.1) 3.4 MEQ/L (3.5-5.1) Chloride Level 108 MEQ/L (98-107) 105 MEQ/L (98-107) Carbon Dioxide Level 27.9 MEQ/L (21.0-32.0) 29.5 MEQ/L (21.0-32.0) Anion Gap 7 MEQ/L (5-15) 7 MEQ/L (5-15) Estimat Glomerular Filtration Rate 172 ML/MIN (>89) 245 ML/MIN (>89) Vancomycin Level Trough 15.6 MCG/ML (5.0-10.0) Result Diagram: 08/24/17 0415 08/24/17 0415 Microbiology Microbiology Date/Time Source Procedure Growth Status 08/24/17 05:00 Blood Line Aerobic Blood Culture Pending Received 08/24/17 05:00 Blood Line Anaerobic Blood Culture Pending Received 08/24/17 03:45 Blood Peripheral Aerobic Blood Culture Pending Received 08/24/17 03:45 Blood Peripheral Anaerobic Blood Culture Pending Received 08/21/17 12:10 Blood Peripheral Aerobic Blood Culture - Preliminary NO GROWTH IN 2 DAYS Resulted 08/21/17 12:10 Blood Peripheral Anaerobic Blood Culture - Preliminary NO GROWTH IN 2 DAYS Resulted 08/21/17 11:57 Blood Peripheral Aerobic Blood Culture - Preliminary NO GROWTH IN 2 DAYS Resulted 08/21/17 11:57 Anaerobic Blood Culture - Preliminary Escherichia Coli Esbl Positive Multi-Drug Resistant Gram Negative Darron Resulted 08/21/17 13:15 Urine Catheterized Urine Urine Culture - Final Escherichia Coli Esbl Positive Complete Imaging Last Impressions Renal Ultrasound 08/23/17 0000 Signed Impressions: Service Date/Time: Wednesday, August 23, 2017 22:55 - CONCLUSION: 1. There is no hydronephrosis or other abnormality to explain the abnormal laboratory values. 2. Questionable 7 mm nonobstructing right renal stone. Omar Mariscal MD Chest X-Ray 08/20/17 0000 Signed Impressions: Service Date/Time: August 15:07 - CONCLUSION: Middle atelectasis left lung base. Small posteromedial right lower lobe. ET tube in good position. Marcos Beard MD Head CT 08/17/17 0600 Signed Impressions: Service Date/Time: Thursday, August 17, 2017 09:49 - CONCLUSION: Interval right craniectomy with decreased amount of intra-axial blood products. There are persistent blood products and vasogenic edema in the right frontoparietal region. However, there is less midline shift currently measuring 7 mm compared to 16 mm previously. The right frontal ventricular catheter terminates in the region of the right thalamus. Omar Mariscal MD Procedures * INTUBATION 08/15/17 * Emergency craniotomy/craniectomy/ventriculostomy 08/16/17 . 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 Spiritual: Somewhat spiritual but not affiliated with any moravian or denomination Legal: At this time, the patient lacks capacity for decision-making, and it is uncertain as to whether he will regain that capacity. He had previously indicated that he would want his to be his surrogate decision maker, and she is serving as decision making proxy at this time. Ethical issues impacting care: None . Important Contacts : Yaima Johnson, . Prognosis Overall, the patient's prognosis is guarded, as he has ongoing metastatic melanoma. . Code Status: No Code Plan * DNR but amenable to bipap * DECISION-MAKING: At this time, the patient lacks capacity for decision-making , and it seems unlikely that he will regain that capacity. He had previously indicated that he would want his to be his surrogate decision maker, and she is serving as decision making proxy at this time. * GOALS: Pt's was able to speak/text with Dr. Covarrubias. She endorse that oncologist told her that he is far and could not overall evaluate, but we should take it one day at a time. She did not cancel his appointment for later on this month. I reviewed with about his risk of sudden decline, the scenario of decompensation, aspiration and the need for reintubation. I also spoke with pt' s daughter who is a nurse over the phone. Updated them on pt's current situation. Talked about peg/ and trach Plan of care is the following: == DNR, but they are amenable to bipap, so family can get here. == They want to continue aggressive care short of resucitation/and bipap. == They want to see in the next few days if neurologically he will/could improve , and continue antibiotics for now. == Family is aware overall prognosis is poor. == They are amenable for me to continue to update. == If pt does have another decline, family is open to transition to comfort measures. * SYMPTOMS: At this time, pain and dyspnea are being managed. I have no additional medication recommendations at this time. * Palliative Care will continue to follow the patient during this hospitalization. . Attestation To help prompt me to consider important information that might be impacting today's encounter and assessment, information from prior notes written by myself or my colleagues may have been "brought forward" into today's note. My signature on this note, however, is an attestation that I personally performed the exam, history, and/or decision-making noted today, and, unless otherwise indicated, the interactions with patient, family, and staff as well as the review of records all occurred today. I also attest that the listed assessment and stated plan reflect my best clinical judgment today based on the combination of historical information, prior notes, and today's exam/ interactions. When time spent is documented, it refers only to time spent today by the signer, or if indicated, combined time spent today by collaborating physician/nurse practitioner. Juan Marquis MD Aug 24, 2017 10:55
--- NOTE | 2017-08-24 10:56 | HHI.CCPN ---
Subjective Remarks/Hospital Course 62-year-old male with a history of malignant melanoma metastasized to the brain status post right parietal craniectomy on June 09, 2017 at [facility] followed by 5 radiation treatments being followed by oncologist at [facility]. Patient was just evaluated at [facility] on 08/05/17 and received Ktruda. He developed worsening weakness involving the left lower extremity since then over the next 3 days and presented to the ER at [facility] on 08/[address] without contrast revealed intracerebral hemorrhage involving right frontal parietal region with right subdural hemorrhage and minimal midline shift. [facility] was contacted however did not have any beds hence patient was accepted for transfer at [facility] and patient was transferred to the ICU at [place]. He was treated non-surgically with decadron and was transferred to [facility]. Just after the transfer patient became more weak on the left side and the MRI brain was performed that showed postsurgical features of right high parietal craniotomy with enlarging hematoma in the operative bed now measuring approximately 5 cm in comparison to 3.4 cm on prior exam, and also interval development of small subdural collection measuring up to 8 mm in the anterior right frontal region. This results in increased [id number]-[id number] subfalcine shift. For this the patient has been transferred back to the ICU under critical care service admission. 08/16: Clinical deterioration overnight requiring intubation and mechanical ventilation. Left pupil has dilated and right remains enlarged. He has known intraparenchymal hematoma/seroma which has expanded. He received mannitol bolus and was taken straight to the OR for decompression/evacuation hematoma. 08/17: Back from OR last night, seen on arrival. ICP well controlled. Due to neurological instability he will be kept sedated and ventilated for 48 hours while efforts continue to control edema and ICP. 08/18: S/P decompressive craniectomy right side and evacuation of parenchymal hematoma. Ventilator dependent. 08/19: ICP controlled. CSF drainage clear. Check ABG against EtCO2, confirm accuracy. 08/20: Tolerating SBTs with acceptable ICP. Will increase hydralazine and add lopressor for better BP control. 08/21: Good response to diuretic yesterday, continue today. ICP kev during SBTs on vent, proceed slowly while controlling BP.Moved right arm and leg to command, opened eyes. Small infiltrate/atelectasis and persistent fever. Will culture sputum and start abx. 08/22: Continued good diuresis. Some purposeful activity right side. Continue to wean vent. [facility] Oncology states patient is not a candidate for repeat Keytruda Rx at this time; no other options. 08/23: Clinically improving alertness and strength. Will try to extubate. Will ask ID Service to assess need to treat ESBL blood culture 06/25 bottles. 08/24: Extubated yesterday. Remains on nasal cannula. Drowsy Objective Vital Signs Date Time Temp Pulse Resp B/P (MAP) Pulse Ox O2 Delivery O2 Flow Rate FiO2 08/24/17 07:24 98 Nasal Cannula 4.00 08/24/17 06:00 95 08/24/17 04:00 99.3 30 156/74 (101) 08/23/17 08:21 40 Intake and Output 08/24/17 08/24/17 08/24/17 07:59 15:59 23:59 Intake Total 206 ml Output Total 950 ml Balance -744 ml Result Diagram: 08/24/17 0415 08/24/17 0415 Other Results Microbiology Date/Time Source Procedure Growth Status 08/21/17 13:15 Urine Catheterized Urine Urine Culture - Final Escherichia Coli Esbl Positive Complete Imaging 1. Redemonstration of postsurgical features of right high parietal craniotomy with enlarging hematoma in the operative bed now measuring approximately 5 cm in comparison to 3.4 cm on prior exam. There has also been interval development of small subdural collection measuring up to 8 mm in the anterior right frontal region. This results in increased [id number] subfalcine shift of approximately 1.4 cm in comparison to 8 cm in prior exam. No evidence for downward herniation at this time. Objective Remarks GENERAL: Calm, responds. SKIN: Warm and dry. HEAD: Normocephalic. EYES: No scleral icterus. No injection or drainage. NECK: Supple, trachea midline. CARDIOVASCULAR: NL S1S2, regular rate and rhythm without murmurs, gallops, or rubs. No JVD. RESPIRATORY: Breath sounds equal bilaterally. Few mobile secretions, No adventitious sounds. GASTROINTESTINAL: Abdomen soft, non-tender, nondistended. No guarding. BS present. MUSCULOSKELETAL: No cyanosis, or edema. Well perfused. Warm. NEURO EXAM: Drowsy, Moves right side to command. Opens eyes. A/P Assessment and Plan Subdural hematoma Intraparenchymal bleed Metastatic disease - Continue neuro checks per ICU protocol - Neurosurgery consulted and discussed - continue Decadron 4 mg IV every 6 hourly - Continue Keppra to 1500 mg IV every 12 hourly, Dilantin every 12 hourly, continue by mouth Vimpat. - Seizure precautions - Ativan when necessary for breakthrough seizures as needed Hypertension - Hydralazine 10 mg IV every 2 hourly when necessary for SBP greater than 150 mmHg - Add oral meds. Melanoma - Prostatic disease - Palliative care consultation ID - ESBL E. coli in blood and urine, persistent fever -ID following. Switched to Zerb[place]a on 08/24 DVT GI prophylaxis - Teds SCDs - No pharmacological DVT prophylaxis due to ICH - Pepcid Overall impression: He remains critically ill following emergency craniotomy for decompression and evacuation of blood, but more stable; attempt to lighten sedation if we can control ICP, seizures. Prognosis poor, no options for treatment at this time. followed by Palliative Care team. Raf Carpenter MD Aug 24, 2017 10:56
--- NOTE | 2017-08-24 13:03 | HHI.IDPN ---
Subjective Subjective Remarks Mr. 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 This surgery was followed by 5 rounds of radiation treatments via an oncologist at [facility]. Patient was subsequently evaluated at [facility] on July and received "Ktruda". Subsequently patient developed worsening weakness involving the left lower extremity. Patient initially presented to the ER at [facility] on August [address] without contrast revealed intracerebral hemorrhage involving the right frontoparietal region. [facility] was contacted but due to lack of beds patient was transferred to [facility]. Patient remained in the ICU and was observed and then subsequently transferred to [facility] after nonsurgical treatment with Decadron. After transferred to [facility] patient continued to deteriorate and an MRI showed worsening hematoma and so patient was taken to the OR for decompression of the hematoma on August 16, 2017. Patient had an ICP monitor during this hospitalization. On August 21 patient had a small infiltrate noted on the chest x-ray that was ordered due to fevers. Sputum cultures were sent and antibiotics were started. An attempt was made to contact [facility] oncology and reportedly patient is not a candidate for repeat Keytruda treatment and currently there are no other options. Blood cultures drawn on August 21, 2017 is a part of new fever workup are now positive for ESBL E. coli. Patient's urine culture drawn at the same time is also positive for ESBL E. coli. Patient has a central line in place as well as a wade catheter placed on 08/16/2017. Infectious disease is consulted for evaluation and management of ESBL E. coli bacteremia as well as ESBL E. coli UTI. Overnight events reviewed No fevers No rash Loose BMs but on a bowel regimen. Extubated and doing ok. RN and report he opens eyes and follows simple commands. Did not wake up for me. Antibiotics Zerbaxa IV Lines Line sites with no e.o infection Past Medical History Malignant metastatic melanoma Intracranial hemorrhage, subdural hematoma History of glucose intolerance Seizures * Lumbar disc surgery years ago * Right shoulder melanoma 2010 * Small bowel resection (melanoma) Axillary node excision of the middle normal Right craniotomy and subtotal resection of the tumor in May 2017 Craniotomy, craniectomy, ventriculostomy in August 16, 2017 for worsening hemorrhage. Allergies: Coded Allergies: No Known Drug Allergies (Verified Allergy, Unknown, 08/08/17) Objective . Vital Signs Date Time Temp Pulse Resp B/P (MAP) Pulse Ox O2 Delivery O2 Flow Rate FiO2 08/24/17 12:09 108 08/24/17 12:00 99.1 108 22 124/78 (93) 99 08/24/17 10:00 96 08/24/17 08:00 96 08/24/17 08:00 98.9 96 28 175/75 (108) 96 08/24/17 07:30 96 Nasal Cannula 5.00 08/24/17 07:24 98 Nasal Cannula 4.00 08/24/17 06:00 95 08/24/17 04:00 99.3 104 30 156/74 (101) 99 08/24/17 04:00 112 08/24/17 02:00 106 08/24/17 00:00 115 08/24/17 00:00 99.7 106 28 144/64 (90) 98 08/23/17 22:00 105 08/23/17 20:08 96 Nasal Cannula 5.00 08/23/17 20:00 112 08/23/17 20:00 98.4 112 32 170/87 (114) 96 08/23/17 19:00 96 Nasal Cannula 5.00 08/23/17 18:00 111 08/23/17 17:54 30 08/23/17 16:00 111 08/23/17 16:00 98.7 111 36 149/85 (106) 97 08/23/17 14:00 108 . Laboratory Tests Test 08/24/17 04:15 White Blood Count 13.6 TH/MM3 Red Blood Count 3.62 MIL/MM3 Hemoglobin 10.4 GM/DL Hematocrit 30.9 % Mean Corpuscular Volume 85.5 FL Mean Corpuscular Hemoglobin 28.8 PG Mean Corpuscular Hemoglobin Concent 33.6 % Red Cell Distribution Width 15.7 % Platelet Count 337 TH/MM3 Mean Platelet Volume 7.0 FL Neutrophils (%) (Auto) 83.6 % Lymphocytes (%) (Auto) 8.4 % Monocytes (%) (Auto) 7.2 % Eosinophils (%) (Auto) 0.4 % Basophils (%) (Auto) 0.4 % Neutrophils # (Auto) 11.4 TH/MM3 Lymphocytes # (Auto) 1.1 TH/MM3 Monocytes # (Auto) 1.0 TH/MM3 Eosinophils # (Auto) 0.1 TH/MM3 Basophils # (Auto) 0.1 TH/MM3 CBC Comment DIFF FINAL Differential Comment Laboratory Tests Test 08/24/17 04:15 Blood Urea Nitrogen 11 MG/DL Creatinine 0.36 MG/DL Random Glucose 91 MG/DL Calcium Level 8.4 MG/DL Phosphorus Level 2.0 MG/DL Magnesium Level 2.0 MG/DL Sodium Level 141 MEQ/L Potassium Level 3.4 MEQ/L Chloride Level 105 MEQ/L Carbon Dioxide Level 29.5 MEQ/L Anion Gap 7 MEQ/L Estimat Glomerular Filtration Rate 245 ML/MIN Microbiology Date/Time Source Procedure Growth Status 08/24/17 05:00 Blood Line Aerobic Blood Culture Pending Received 08/24/17 05:00 Blood Line Anaerobic Blood Culture Pending Received 08/24/17 03:45 Blood Peripheral Aerobic Blood Culture Pending Received 08/24/17 03:45 Blood Peripheral Anaerobic Blood Culture Pending Received 08/21/17 13:15 Urine Catheterized Urine Urine Culture - Final Escherichia Coli Esbl Positive Complete Imaging Last Impressions Renal Ultrasound 08/23/17 0000 Signed Impressions: Service Date/Time: Wednesday, August 23, 2017 22:55 - CONCLUSION: 1. There is no hydronephrosis or other abnormality to explain the abnormal laboratory values. 2. Questionable 7 mm nonobstructing right renal stone. Omar Mariscal MD Chest X-Ray 08/20/17 0000 Signed Impressions: Service Date/Time: August 15:07 - CONCLUSION: Middle atelectasis left lung base. Small posteromedial right lower lobe. ET tube in good position. Marcos Beard MD Head CT 08/17/17 0600 Signed Impressions: Service Date/Time: Thursday, August 17, 2017 09:49 - CONCLUSION: Interval right craniectomy with decreased amount of intra-axial blood products. There are persistent blood products and vasogenic edema in the right frontoparietal region. However, there is less midline shift currently measuring 7 mm compared to 16 mm previously. The right frontal ventricular catheter terminates in the region of the right thalamus. Omar Mariscal MD Physical Exam GENERAL: This is a well-nourished, well-developed patient, in no apparent distress. SKIN: No rashes, ecchymoses or lesions. Cool and dry. HEAD: Craniotomy site with no e.o infection EYES: Pupils equal round and reactive. Extraocular motions intact. No scleral icterus. No injection or drainage. ENT: Nose without bleeding, purulent drainage or septal hematoma. Throat without erythema, tonsillar hypertrophy or exudate. Uvula midline. Airway patent. NECK: Trachea midline. Supple, nontender, no meningeal signs. CARDIOVASCULAR: Regular rate and rhythm without murmurs, gallops, or rubs. RESPIRATORY: Clear to auscultation. Breath sounds equal bilaterally. No wheezes , rales, or rhonchi. GASTROINTESTINAL: Abdomen soft, non-tender, nondistended. MUSCULOSKELETAL: Extremities without clubbing, cyanosis, or edema. NEUROLOGICAL: No response to deep verbal stimuli. Craniotomy site with no e.o infection Psych could not be assessed. IV line sites with no e.o infection. Assessment & Plan Remarks ESBL E.coli bacteremia ESBL E.coli UTI Wade in place ? cath associated UTI as cause for bacteremia. CL in place. Malignant melanoma with metastasis. s/p radiation therapy. S.p evacuation of hematoma for recurring hematoma. h/o seizure disorder. Recs: Continue Zerbaxa IV Repeat blood cultures x 2 Would recommend changing central line if possible. Would recommend changing wade. RN informs me of change in code status and possibility of hospice. Some decisions expected tomorrow. US abdomen kidney no e/o pyelonephritis or obstructive etiology. dw [facility] MD Carpenter,Jessie DHILLON Aug 24, 2017 13:02
--- NOTE | 2017-08-24 23:09 | HHI.NSPN ---
History Chief Complaint: no complaints Interval History This 62-year-old male postop right craniotomy for intracranial hemorrhage 08/24/2017 extubated Exam Results Vital Signs Date Time Temp Pulse Resp B/P (MAP) Pulse Ox O2 Delivery O2 Flow Rate FiO2 08/24/17 22:00 104 08/24/17 20:00 98.9 26 165/72 (103) 98 08/24/17 19:00 Nasal Cannula 2.00 08/23/17 08:21 40 Intake and Output 08/24/17 08/24/17 08/25/17 08:00 16:00 00:00 Intake Total 206 ml 230 ml Output Total 950 ml 2300 ml Balance -744 ml -2070 ml Physical Examination GENERAL: Extubated, mildly labored breathing. CARDIOVASCULAR: Regular rate and rhythm RESPIRATORY: clear, mechanically vented SKIN: Right scalp Incision clean and dry. No signs of infection. 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 Left dense hemiparesis. NEURO: He opens his right eye partial. Positive right gaze-conjugate Limited left gaze Grasps the right upper extremity and moves the lower extremities to command. No movement left upper extremity spontaneous or pain or command. Lab, Micro, Other Results Laboratory Tests Test 08/24/17 04:15 White Blood Count 13.6 TH/MM3 Red Blood Count 3.62 MIL/MM3 Hemoglobin 10.4 GM/DL Hematocrit 30.9 % Mean Corpuscular Volume 85.5 FL Mean Corpuscular Hemoglobin 28.8 PG Mean Corpuscular Hemoglobin Concent 33.6 % Red Cell Distribution Width 15.7 % Platelet Count 337 TH/MM3 Mean Platelet Volume 7.0 FL Neutrophils (%) (Auto) 83.6 % Lymphocytes (%) (Auto) 8.4 % Monocytes (%) (Auto) 7.2 % Eosinophils (%) (Auto) 0.4 % Basophils (%) (Auto) 0.4 % Neutrophils # (Auto) 11.4 TH/MM3 Lymphocytes # (Auto) 1.1 TH/MM3 Monocytes # (Auto) 1.0 TH/MM3 Eosinophils # (Auto) 0.1 TH/MM3 Basophils # (Auto) 0.1 TH/MM3 CBC Comment DIFF FINAL Differential Comment Blood Urea Nitrogen 11 MG/DL Creatinine 0.36 MG/DL Random Glucose 91 MG/DL Calcium Level 8.4 MG/DL Phosphorus Level 2.0 MG/DL Magnesium Level 2.0 MG/DL Sodium Level 141 MEQ/L Potassium Level 3.4 MEQ/L Chloride Level 105 MEQ/L Carbon Dioxide Level 29.5 MEQ/L Anion Gap 7 MEQ/L Estimat Glomerular Filtration Rate 245 ML/MIN Medical Decision Making Impression and Plan Impression: 1. Stable neurologic examination, and extubated following right craniotomy for intracranial hemorrhage. Plan: Continue intensive care neurologic checks He will need inpatient rehabilitation. Okay for Kian Sin MD Aug 24, 2017 23:09
[2017-08-25] VITALS (15 sets, daily range): BP systolic 123–166; BP diastolic 63–95; PULSE 83–114; RESP 22–30; TEMP 98.8–99.5; O2SAT 93–98
[2017-08-25] MEDS: SODIUM CHLORIDE IV SCH ×2 (02:11→14:14)
[2017-08-25] MEDS: FOSPHENYTOIN IV SCH ×2 (02:11→14:14)
[2017-08-25] MEDS: CHLORHEXIDINE GLUCONATE 2 % 1 PACK (2 CLOTHS) TOP SCH (04:00)
[2017-08-25] MEDS: CEFTOLOZANE-TAZOBACTAM INJ 1,500 MG in SODIUM CHLORIDE 0.9% INJ 100 ML IV SCH ×3 (06:29→21:20)
[2017-08-25] MEDS: METOPROLOL TARTRATE 5 MG/5 ML VIAL IV PUSH SCH ×2 (06:29→10:02)
[2017-08-25] MEDS: DEXAMETHASONE SOD PHOS 20 MG/5 ML VIAL IV PUSH SCH ×3 (06:29→18:28)
[2017-08-25] MEDS: DOCUSATE SODIUM 50 MG/SENNA 8.6 MG TAB PO SCH ×2 (09:00→21:00)
[2017-08-25] MEDS: BENEPROTEIN POWDER 1 PACK G-TUBE SCH ×3 (09:00→18:00)
[2017-08-25] MEDS: CHLORHEXIDINE 0.12% (ORAL KIT) 15 ML CUP MT SCH ×2 (09:11→20:00)
[2017-08-25] MEDS: levETIRAcetam INJ 1,500 MG in SODIUM CHLORIDE 0.9% INJ 100 ML IV SCH ×2 (09:12→21:19)
[2017-08-25] MEDS: LACOSAMIDE INJ 150 MG in SODIUM CHLORIDE 0.9% INJ 100 ML IV SCH ×2 (09:12→21:18)
[2017-08-25] MEDS: FUROSEMIDE 40 MG/4 ML VIAL IV PUSH SCH (09:14)
[2017-08-25] MEDS: FAMOTIDINE 20 MG/2 ML VIAL IV PUSH SCH ×2 (09:14→21:20)
[2017-08-25] MEDS: SODIUM CHLORIDE 0.9% FLUSH 10 ML FLUSH IV FLUSH SCH ×2 (09:14→21:19)
--- NOTE | 2017-08-25 10:07 | HHI.NSPN ---
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 He underwent right craniotomy for motor cortex metastatic melanoma resection at [facility] in [place] in May 2016 with subsequent 5 rounds of radiation treatment to the brain which he completed in early July. Transferred from [facility] because of intracranial hemorrhage patient reports increasing weakness on the left side. Patient has some seizure activity last night involving the legs. Controlled with Ativan and anticonvulsants with neurology following. Patient has had seizures in the past. Initially patient and wanted to be transferred to [facility] but they did not accept the patient and related that the he could be treated locally. He was transferred to acute rehabilitation facility but complained of nausea and worsening headaches with initiation of therapy. Follow-up MRI scan of the brain was obtained which reveals postoperative changes with a moderate right subdural hemorrhage as well as cystic hemorrhagic component and posterior frontal parietal lobe at the resection site. There has been increase in the intracerebral and subdural hemorrhage with edema and midline shift despite being on Decadron 4 mg every 6 since the MRI scan from last week. He was readmitted to the intensive surgical care unit to [facility] and the raker buffing wheel and neurosurgical consultation requested. The patient and his relate that there would like to pursue further treatment locally. 08/16/17: Pt sedated and intubated. Pt now with acute pupil changes. Discussed with RN no new medication started that would cause pupillary changes and pupils had been 3 or 4 mm overnight. With pain in upper chest pt flexes right side and extending left side. Neurosurgeon called. Pt given Mannitol 50grams and instructed to get pt ready to go to OR for emergent right crani for hematoma evacuation. Called pts and updated her and she gave me consent over the phone that was witnessed by Anika Godwin RN. 08/17/17: Pt sedated on Diprivan and Fentanyl drips. Intubated. Pupils now 3mm bilaterally slight reaction bilaterally. Not following commands. Ventriculostomy drain in place ICP 8. 08/18/17: Pt sedated on Diprivan and Fentanyl drips. Intubated. Pupils 3mm bilaterally reactive bilaterally. Ventriculostomy drain in place draining well. 08/19/17: Pt sedated on Diprivan and Fentanyl drips. He is intubated. Pupils are 3mm bilaterally reactive bilaterally. Ventriculostomy drain at 20cm H20 ICP 15. 08/20/17: Pt sedated on Diprivan and Fentanyl drips being weaned and converted to Precedex. He is intubated on CPAP. 08/21/17: Pt sedated on Precedex. Follows simple commands right side. Pupils 4mm bilaterally. Not opening eyes to voice but does to pain. 08/22: intubated and mildly sedated on Precedex, new movement left toes/foot today. 08/23: remains intubated, CPAP trials?extubation today. follows simple commands 08/25: extubated, following simple commands (Sarika Christianson) Labs, Micro, & Vital Signs Results Date Time Temp Pulse Resp B/P (MAP) Pulse Ox O2 Delivery O2 Flow Rate FiO2 08/25/17 08:39 97 Nasal Cannula 4.00 08/25/17 06:00 110 08/25/17 04:00 99.2 101 24 145/95 (112) 98 08/25/17 04:00 104 08/25/17 02:15 98 Nasal Cannula 3.00 08/25/17 02:00 106 08/25/17 00:00 99.1 94 24 166/80 (108) 98 08/25/17 00:00 97 08/24/17 22:00 104 08/24/17 20:00 98 08/24/17 20:00 98.9 100 26 165/72 (103) 98 08/24/17 19:00 96 Nasal Cannula 2.00 08/24/17 18:00 87 08/24/17 16:48 95 08/24/17 16:00 99.1 95 24 124/78 (93) 99 08/24/17 14:00 95 08/24/17 12:09 108 08/24/17 12:00 99.1 108 22 124/78 (93) 99 Constitutional Vital Signs Date Time Temp Pulse Resp B/P (MAP) Pulse Ox O2 Delivery O2 Flow Rate FiO2 08/25/17 08:39 97 Nasal Cannula 4.00 3/6/18 06:00 110 08/25/17 04:00 99.2 101 24 145/95 (112) 98 08/25/17 04:00 104 08/25/17 02:15 98 Nasal Cannula 3.00 08/25/17 02:00 106 08/25/17 00:00 99.1 94 24 166/80 (108) 98 08/25/17 00:00 97 08/24/17 22:00 104 08/24/17 20:00 98 08/24/17 20:00 98.9 100 26 165/72 (103) 98 08/24/17 19:00 96 Nasal Cannula 2.00 08/24/17 18:00 87 08/24/17 16:48 95 08/24/17 16:00 99.1 95 24 124/78 (93) 99 08/24/17 14:00 95 08/24/17 12:09 108 08/24/17 12:00 99.1 108 22 124/78 (93) 99 (Sarika Christianson) Physical Exam GENERAL: Pt is resting comfortably, no apparent distress during examination. CARDIOVASCULAR: Regular rate and rhythm RESPIRATORY: clear SKIN: Incision clean and dry. No signs of infection. MUSCULOSKELETAL: Otr Flatbed Driver hand and moves toes on right side. Left dense hemiparesis. NEURO: does not open eyes but had followed few simple commands to ext. Pupils 4mm bilaterally with brisk reaction bilaterally. moving right arm purposefully , and moves b/l feet and toes to command, right greater than left. Dense left upper paresis. Left Ventriculostomy drain site clean and dry with stitch in place. Head: Right bone flap is full, soft. (Sarika Christianson) GENERAL: Pt is resting comfortably, no apparent distress during examination. CARDIOVASCULAR: Regular rate and rhythm RESPIRATORY: clear SKIN: Incision clean and dry. No signs of infection. MUSCULOSKELETAL: Otr Flatbed Driver hand and moves toes on right side. Left dense hemiparesis. NEURO: does not open eyes but had followed few simple commands to ext. Pupils 4mm bilaterally with brisk reaction bilaterally. moving right arm purposefully , and moves b/l feet and toes to command, right greater than left. Dense left upper paresis. Left Ventriculostomy drain site clean and dry with stitch in place. (Connor Ro MD) Medications Current Medications Current Medications Medications (Trade) Dose Ordered Sig/Karina Route PRN Reason Start Time Stop Time Status Last Admin Dose Admin Clonidine (Catapres) 0.1 mg Q6H PRN PO SBP>180, DBP>110 08/14/17 22:30 08/15/17 21:19 Lacosamide (Vimpat) 150 mg BID PO 08/15/17 09:00 Future Hold 08/23/17 08:05 Sodium Chloride (NS Flush) 2 ml UNSCH PRN IV FLUSH FLUSH AFTER USING IV ACCESS 08/14/17 23:15 Sodium Chloride (NS Flush) 2 ml BID IV FLUSH 08/15/17 09:00 08/25/17 09:14 Famotidine (Pepcid Inj) 20 mg Q12HR IV PUSH 08/15/17 09:00 08/25/17 09:14 Ondansetron HCl (Zofran Inj) 4 mg Q6H PRN IV PUSH NAUSEA OR VOMITING 08/14/17 23:15 Temazepam (Restoril) 15 mg HS PRN PO INSOMNIA 08/14/17 23:15 08/15/17 21:19 Albuterol/ Ipratropium (Duoneb Neb) 1 ampule Q2HR NEB PRN INH WHEEZING 08/14/17 23:15 08/23/17 11:28 Miscellaneous Information 1 Q361D XX 08/14/17 23:15 Chlorhexidine Gluconate (Chlorhexidine 2% Cloth) Taper DAILY@04 TOP 08/15/17 04:00 08/11/18 03:59 08/25/17 04:00 Chlorhexidine Gluconate (Chlorhexidine 2% Cloth) 3 pack UNSCH PRN TOP HYGIENIC CARE 08/14/17 23:15 Senna/Docusate Sodium (Celena-Colace) 1 tab BID PO 08/15/17 09:00 08/24/17 20:45 Magnesium Hydroxide (Milk Of Magnesia Liq) 30 ml Q12H PRN PO Mild constipation 08/14/17 23:15 Sennosides (Senokot) 17.2 mg Q12H PRN PO Moderate constipation 08/14/17 23:15 Bisacodyl (Dulcolax Supp) 10 mg DAILY PRN RECTAL SEVERE CONSITIPATION 08/14/17 23:15 Lactulose (Lactulose Liq) 30 ml DAILY PRN PO SEVERE CONSITIPATION 08/14/17 23:15 Dexmedetomidine HCl 200 mcg/ Sodium Chloride 52 ml @ 4.62 mls/hr TITRATE PRN IV SEDATION 08/15/17 13:45 08/22/17 22:59 Tramadol HCl (Ultram) 50 mg Q6H PRN PO Pain 1-5 08/15/17 14:15 Tramadol HCl (Ultram) 100 mg Q6H PRN PO pain 6-10 08/15/17 14:15 08/16/17 05:33 Acetaminophen (Tylenol) 650 mg Q6H PRN PO FEVER >101F 08/15/17 14:15 08/23/17 00:29 Propofol 100 ml @ 2.667 mls/ hr TITRATE PRN IV Sedation 08/16/17 04:45 08/20/17 04:55 Chlorhexidine Gluconate (Peridex 0.12% Liq) 15 ml BID@08,20 MT 08/16/17 20:00 08/25/17 09:11 Fentanyl Citrate (fentaNYL INJ) 100 mcg Q2H PRN IV PUSH pain 1-10 08/16/17 14:45 08/23/17 16:54 Potassium Chloride 100 ml @ 50 mls/hr Q2H PRN IV For Potassium 2.8 - 3.2 mEq/L 08/17/17 02:15 08/21/17 10:59 Potassium Chloride 100 ml @ 50 mls/hr Q2H PRN IV For Potassium 2.8 - 3.2 mEq/L 08/17/17 02:15 Potassium Bicarb/ Potassium Chloride (K-Lyte Cl Eff) 50 meq UNSCH PRN PO For Potassium 3.3 - 3.5 mEq/L 08/17/17 02:15 Potassium Chloride 100 ml @ 25 mls/hr UNSCH PRN IV For Potassium 3.3 - 3.5 mEq/L 08/17/17 02:15 08/24/17 09:26 Potassium Chloride 100 ml @ 50 mls/hr Q2H PRN IV For Potassium 3.3 - 3.5 mEq/L 08/17/17 02:15 Magnesium Sulfate 4 gm/Sodium Chloride 100 ml @ 50 mls/hr UNSCH PRN IV For Magnesium 0.9 - 1.1 mg/dL 08/17/17 02:15 Magnesium Oxide (Mag-Ox) 800 mg UNSCH PRN PO For Magnesium 1.2 - 1.6 mg/dL 08/17/17 02:15 Magnesium Sulfate 2 gm/Sodium Chloride 100 ml @ 50 mls/hr UNSCH PRN IV For Magnesium 1.2 - 1.6 mg/dL 08/17/17 02:15 Potassium Phosphate (K-Phos) 2,000 mg Q4H PRN PO For Phosphorus < 2.5 mg/dL 08/17/17 02:15 Sodium Phosphate 30 mmol/Sodium Chloride 250 ml @ 42 mls/hr UNSCH PRN IV For Phosphorus < 2.5 mg/dL 08/17/17 02:15 Potassium Phosphate (K-Phos) 2,000 mg UNSCH PRN PO/TUBE SEE LABEL COMMENTS 08/17/17 02:15 Potassium Phosphate 30 mmol/ Sodium Chloride 260 ml @ 42 mls/hr UNSCH PRN IV SEE LABEL COMMENTS 08/17/17 02:15 Terbutaline Sulfate (Brethine Inj) 1 mg UNSCH PRN SQ FOR EXTRAVASATION PROTOCOL 08/17/17 05:45 Terbutaline Sulfate (Brethine Inj) 1 mg UNSCH PRN SQ For Extravasation 08/17/17 07:30 Protein (Beneprotein Powder) 1 pack TID G-TUBE 08/19/17 09:00 08/23/17 08:05 Hydralazine HCl (Apresoline) 50 mg Q8HR PO 08/20/17 14:00 Future Hold 08/23/17 05:55 Metoprolol Tartrate (Lopressor) 50 mg Q12HR PO 08/20/17 09:00 Future Hold 08/23/17 08:05 Nicardipine HCl 25 mg/Sodium Chloride 250 ml @ 50 mls/hr TITRATE PRN IV Blood pressure management 08/20/17 08:45 Dexamethasone Sodium Phosphate (Decadron Inj) 6 mg Q6HR IV PUSH 08/23/17 12:00 08/25/17 06:29 Levetriacetam 1500 mg/Sodium Chloride 115 ml @ 345 mls/hr Q12HR IV 08/23/17 21:00 08/25/17 09:12 Furosemide (Lasix Inj) 40 mg DAILY IV PUSH 08/23/17 12:00 08/25/17 09:14 Fosphenytoin Sodium 300 mgpe/ Sodium Chloride 106 ml @ 212 mls/hr Q12H IV 08/23/17 15:00 08/25/17 02:11 Metoprolol Tartrate (Lopressor Inj) 5 mg Q6HR IV PUSH 08/23/17 18:00 08/25/17 10:02 Lacosamide 150 mg/ Sodium Chloride 115 ml @ 115 mls/hr Q12HR IV 08/23/17 21:15 08/25/17 09:12 Ceftolozane/ Tazobactam 1500 mg/Sodium Chloride 100 ml @ 100 mls/hr Q8H IV 08/24/17 06:00 08/25/17 06:29 (Sarika Christianson) Medical Decision Making MDM Remarks 62-year-old gentleman with a history of right motor cortex metastatic melanoma resection in May 2016 at [facility] in [place] with subsequent radiation treatment and chemotherapy. left hemiplegia and recurrent seizures, controlled with antiepileptic medications. Postoperative imaging studies reveals a right small subdural hemorrhage with hematoma in the evacuation bed and possible residual/recurrent disease along with edema and mass effect/midline shift. acute pupillary changes with posturing - taken emergently to the OR for a right frontotemporal parietal craniotomy for cerebral and subdural hemorrhage evacuation; right decompressive hemicraniectomy with expansive patch graft duraplasty; right frontal ventriculostomy placement by Dr. Bland on 08/16/17 (Sarika Christianson) Plan Plan Remarks cont current care therapy and rehab efforts (Sarika Christianson) Attending Statement As above Continue neuro checks. Pulmonary.. Continue aggressive pulmonary toilette, nasotracheal suction, and breathing treatments with nebulizers. Renal. monitor closely urine output, BUN and creatinine Endocrine. Monitor serial Acu checks and SSI as needed in detail ID monitor for signs of infection Protonix for stress ulcer prophylaxis Sen hose and SCD's for DVT prophylaxis The exam, history, and the medical decision-making described in the above note were completed with the assistance of the mid-level provider. I reviewed and agree with the findings presented. I attest that I had a [id number] encounter with the patient on the same day, and personally performed and documented my assessment and findings in the medical record. (Connor Ro MD) Sarika Christianson Aug 25, 2017 10:07 Connor Ro MD Aug 28, 2017 20:31
[2017-08-25 10:33] LABS: PROTHROMBIN TIME - PATIENT 10.6 SEC (9.8-11.6)
--- NOTE | 2017-08-25 11:04 | RADRPT ---
EXAM DATE/TIME: 08/25/2017 10:38 [place] COMPARISON: CT BRAIN W/O CONTRAST, August 17, 2017, 9:49. INDICATIONS : 3weeks post craniotomy for melanoma removal RADIATION DOSE: 56.35 CTDIvol (mGy) MEDICAL HISTORY : Seizures. SURGICAL HISTORY : Craniotomy. ENCOUNTER: Subsequent ACUITY: 3 weeks PAIN SCALE: Non-responsive LOCATION: cranial TECHNIQUE: Multiple contiguous axial images were obtained of the head. Using automated exposure control and adj ustment of the mA and/or kV according to patient size, radiation dose was kept as low as reasonably a chievable to obtain optimal diagnostic quality images. DICOM format image data is available electro nically for review and comparison. FINDINGS: Postsurgical changes are again demonstrated with a right-sided decompressive craniotomy. The previous ly noted ventricular shunt has been removed. The ventricles are normal in size. The previously noted left-sided midline shift has decreased. There is now proximally 5 mm of midline shift to the left com pared to the prior exam a 7 mm. There continues to be postsurgical changes of edema and blood product s in the right cerebral vertex. There has been resorption of the intra-parenchymal air. The edema and blood products appear to be about the same. No new areas of intraparenchymal hemorrhage are demonstr ated. The posterior fossa is unremarkable and stable. CONCLUSION: 1. There is been improvement of the mass effect and midline shift to the left compared to the prior s tudy. 2. The edema and acute blood products within the parenchyma along the high right cerebral vertex appe ars to be essentially stable compared to the prior examination. 3. The previously noted right ventricular catheter has been removed. Bryan Yates MD on August 25, 2017 at 10:59 Board Certified Radiologist. This report was verified electronically.
--- NOTE | 2017-08-25 13:58 | HHI.HCPN ---
Reason for visit a. To assist with evaluation and management of symptoms including: Encephalopathy, pain, seizures b. To assist medical decision maker(s) with: better understanding of current medical conditions; weighing benefits/burdens of medical treatment options; making medical treatment decisions. . Subjective/Interval History Pt remains extubated, reported increase in oral secretions requiring suction. Pt had CT today, whcih did show improvement of mass effect and midline shift compared to prior study. There is edema and acute blood products within parechyma, essentially stable. He is not opening eyes on my visit, but per , pt had open his eyes. Family/friend interactions Spoke with pt's . Reviewed head CT and discussed imaging. Reviewed the challenges that lays ahead for patient. Offered hospice services to . Given his aspiration risk, debility, infection, functional status I told family "I worry" that he cannot rebound to the level where he can have treatment for his cancer. is amenable to hospice consultation to find out more information. I spoke with patients daughter Ms Jordan and answered her question. She ask me to call neurosurgeon for his perspective. She is amenable to come down and hospice consultation as well. Advance Directives Living Will: Never completed Health Care Surrogate: Never completed Durable Power of [facility] Specialist: Never completed Objective Vital Signs Date Time Temp Pulse Resp B/P (MAP) Pulse Ox O2 Delivery O2 Flow Rate FiO2 08/25/17 12:00 99.5 114 27 151/78 (102) 98 08/25/17 12:00 114 08/25/17 10:00 83 08/25/17 08:39 97 Nasal Cannula 4.00 08/25/17 08:00 99.1 104 30 161/93 (115) 98 08/25/17 08:00 104 08/25/17 07:00 96 Nasal Cannula 5.00 08/25/17 06:00 110 08/25/17 04:00 99.2 101 24 145/95 (112) 98 08/25/17 04:00 104 08/25/17 02:15 98 Nasal Cannula 3.00 08/25/17 02:00 106 08/25/17 00:00 99.1 94 24 166/80 (108) 98 08/25/17 00:00 97 08/24/17 22:00 104 08/24/17 20:00 98 08/24/17 20:00 98.9 100 26 165/72 (103) 98 08/24/17 19:00 96 Nasal Cannula 2.00 08/24/17 18:00 87 08/24/17 16:48 95 08/24/17 16:00 99.1 95 24 124/78 (93) 99 08/24/17 14:00 95 Intake & Output 08/25/17 08/25/17 07:00 19:00 Intake Total 436 ml Output Total 1250 ml Balance -814 ml Intake Oral 0 ml IV Total 436 ml Output Urine Total 1200 ml Stool Total 50 ml Physical Exam CONSTITUTIONAL/GENERAL: This is an adequately nourished patient, in no apparent distress. . No spontaneous eye opening. Pt is extubated CARDIOVASCULAR: Regular rate and rhythm without murmurs, gallops, or rubs. No JVD. Peripheral pulses symmetric. RESPIRATORY/CHEST: Symmetric, unlabored respirations. Clear to auscultation. Breath sounds equal bilaterally. No wheezes, rales, or rhonchi. GASTROINTESTINAL: Abdomen soft, non-tender, nondistended. No hepato-splenomegaly , or palpable masses. No guarding. Bowel sounds present. GENITOURINARY: Without palpable bladder distension. Phipps catheter in place. MUSCULOSKELETAL: Extremities without clubbing, cyanosis. Left lower ext and left upper ext, edematous 2+. NEUROLOGICAL: Pupils are equal. Follows simple commands with right side, left side is flaccid, but some movement in left lower ext. When eyes are held open he does not track or focus. PSYCHIATRIC: Pt calm on my visit. . Diagnostic Tests Laboratory Laboratory Tests Test 08/23/17 11:36 08/24/17 04:15 08/25/17 09:55 Vancomycin Level Trough 15.6 MCG/ML (5.0-10.0) White Blood Count 13.6 TH/MM3 (4.0-11.0) Red Blood Count 3.62 MIL/MM3 (4.50-5.90) Hemoglobin 10.4 GM/DL (13.0-17.0) Hematocrit 30.9 % (39.0-51.0) Mean Corpuscular Volume 85.5 FL (80.0-100.0) Mean Corpuscular Hemoglobin 28.8 PG (27.0-34.0) Mean Corpuscular Hemoglobin Concent 33.6 % (32.0-36.0) Red Cell Distribution Width 15.7 % (11.6-17.2) Platelet Count 337 TH/MM3 (150-450) Mean Platelet Volume 7.0 FL (7.0-11.0) Neutrophils (%) (Auto) 83.6 % (16.0-70.0) Lymphocytes (%) (Auto) 8.4 % (9.0-44.0) Monocytes (%) (Auto) 7.2 % (0.0-8.0) Eosinophils (%) (Auto) 0.4 % (0.0-4.0) Basophils (%) (Auto) 0.4 % (0.0-2.0) Neutrophils # (Auto) 11.4 TH/MM3 (1.8-7.7) Lymphocytes # (Auto) 1.1 TH/MM3 (1.0-4.8) Monocytes # (Auto) 1.0 TH/MM3 (0-0.9) Eosinophils # (Auto) 0.1 TH/MM3 (0-0.4) Basophils # (Auto) 0.1 TH/MM3 (0-0.2) CBC Comment DIFF FINAL Differential Comment Blood Urea Nitrogen 11 MG/DL (7-18) Creatinine 0.36 MG/DL (0.60-1.30) Random Glucose 91 MG/DL (74-106) Calcium Level 8.4 MG/DL (8.5-10.1) Phosphorus Level 2.0 MG/DL (2.5-4.9) Magnesium Level 2.0 MG/DL (1.5-2.5) Sodium Level 141 MEQ/L (136-145) Potassium Level 3.4 MEQ/L (3.5-5.1) Chloride Level 105 MEQ/L (98-107) Carbon Dioxide Level 29.5 MEQ/L (21.0-32.0) Anion Gap 7 MEQ/L (5-15) Estimat Glomerular Filtration Rate 245 ML/MIN (>89) Prothrombin Time 10.6 SEC (9.8-11.6) Prothromb Time International Ratio 1.0 RATIO Activated Partial Thromboplast Time 26.2 SEC (24.3-30.1) Result Diagram: 08/24/17 0415 08/24/17 0415 Microbiology Microbiology Date/Time Source Procedure Growth Status 08/24/17 05:00 Blood Line Aerobic Blood Culture - Preliminary NO GROWTH IN 1 DAY Resulted 08/24/17 05:00 Blood Line Anaerobic Blood Culture - Preliminary NO GROWTH IN 1 DAY Resulted 08/24/17 03:45 Blood Peripheral Aerobic Blood Culture - Preliminary NO GROWTH IN 1 DAY Resulted 08/24/17 03:45 Blood Peripheral Anaerobic Blood Culture - Preliminary NO GROWTH IN 1 DAY Resulted Procedures * INTUBATION 08/15/17 * Emergency craniotomy/craniectomy/ventriculostomy 08/16/17 . 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 Spiritual: Somewhat spiritual but not affiliated with any orthodox or denomination Legal: At this time, the patient lacks capacity for decision-making, and it is uncertain as to whether he will regain that capacity. He had previously indicated that he would want his to be his surrogate decision maker, and she is serving as decision making proxy at this time. Ethical issues impacting care: None . Important Contacts : Yaima Johnson, . Prognosis Overall, the patient's prognosis is guarded, as he has ongoing metastatic melanoma. . Code Status: No Code Plan * DNR but amenable to bipap * DECISION-MAKING: At this time, the patient lacks capacity for decision-making , and it seems unlikely that he will regain that capacity. He had previously indicated that he would want his to be his surrogate decision maker, and she is serving as decision making proxy at this time. * GOALS: Pt's was able to speak/text with Dr. Covarrubias. She endorse that oncologist told her that he is far and could not overall evaluate, but we should take it one day at a time. * Today 08/25/2017 Spoke with pt's . Reviewed head CT and discussed imaging. Reviewed the challenges that lays ahead for patient. Offered hospice services to . Given his aspiration risk, debility, infection, functional status I told family "I worry" that he cannot rebound to the level where he can have treatment for his cancer. is amenable to hospice consultation to find out more information. I spoke with patients daughter Ms Jordan and answered her question. She ask me to call neurosurgeon for his perspective. She is amenable to come down and hospice consultation as well. == DNR, but they are amenable to bipap, so family can get here. == They are amenable to hospice consultation to find out more about hospice. == Family is aware overall prognosis is poor. == They are amenable for me to continue to update. * SYMPTOMS: At this time, pain and dyspnea are being managed. I have no additional medication recommendations at this time. * Palliative Care will continue to follow the patient during this hospitalization. . Attestation To help prompt me to consider important information that might be impacting today's encounter and assessment, information from prior notes written by myself or my colleagues may have been "brought forward" into today's note. My signature on this note, however, is an attestation that I personally performed the exam, history, and/or decision-making noted today, and, unless otherwise indicated, the interactions with patient, family, and staff as well as the review of records all occurred today. I also attest that the listed assessment and stated plan reflect my best clinical judgment today based on the combination of historical information, prior notes, and today's exam/ interactions. When time spent is documented, it refers only to time spent today by the signer, or if indicated, combined time spent today by collaborating physician/nurse practitioner. Juan Marquis MD Aug 25, 2017 13:58
--- NOTE | 2017-08-25 20:52 | HHI.CCPN ---
Subjective Remarks/Hospital Course 62-year-old male with a history of malignant melanoma metastasized to the brain status post right parietal craniectomy on June 09, 2017 at [facility] followed by 5 radiation treatments being followed by oncologist at [facility]. Patient was just evaluated at [facility] on 08/05/17 and received Ktruda. He developed worsening weakness involving the left lower extremity since then over the next 3 days and presented to the ER at [facility] on 08/[address] without contrast revealed intracerebral hemorrhage involving right frontal parietal region with right subdural hemorrhage and minimal midline shift. [facility] was contacted however did not have any beds hence patient was accepted for transfer at [facility] and patient was transferred to the ICU at [facility]. He was treated non-surgically with decadron and was transferred to [facility]. Just after the transfer patient became more weak on the left side and the MRI brain was performed that showed postsurgical features of right high parietal craniotomy with enlarging hematoma in the operative bed now measuring approximately 5 cm in comparison to 3.4 cm on prior exam, and also interval development of small subdural collection measuring up to 8 mm in the anterior right frontal region. This results in increased [id number] subfalcine shift. For this the patient has been transferred back to the ICU under critical care service admission. 08/16: Clinical deterioration overnight requiring intubation and mechanical ventilation. Left pupil has dilated and right remains enlarged. He has known intraparenchymal hematoma/seroma which has expanded. He received mannitol bolus and was taken straight to the OR for decompression/evacuation hematoma. 08/17: Back from OR last night, seen on arrival. ICP well controlled. Due to neurological instability he will be kept sedated and ventilated for 48 hours while efforts continue to control edema and ICP. 08/18: S/P decompressive craniectomy right side and evacuation of parenchymal hematoma. Ventilator dependent. 08/19: ICP controlled. CSF drainage clear. Check ABG against EtCO2, confirm accuracy. 08/20: Tolerating SBTs with acceptable ICP. Will increase hydralazine and add lopressor for better BP control. 08/21: Good response to diuretic yesterday, continue today. ICP kev during SBTs on vent, proceed slowly while controlling BP.Moved right arm and leg to command, opened eyes. Small infiltrate/atelectasis and persistent fever. Will culture sputum and start abx. 08/22: Continued good diuresis. Some purposeful activity right side. Continue to wean vent. [facility] Oncology states patient is not a candidate for repeat Keytruda Rx at this time; no other options. 08/23: Clinically improving alertness and strength. Will try to extubate. Will ask ID Service to assess need to treat ESBL blood culture 06/25 bottles. 08/24: Extubated yesterday. Remains on nasal cannula. Drowsy 08/25: palliative saw today. patient DNR. hospice consulted. hemodynamically stable and without need for ICU level care. Objective Vital Signs Date Time Temp Pulse Resp B/P (MAP) Pulse Ox O2 Delivery O2 Flow Rate FiO2 08/25/17 20:00 99.1 114 22 138/63 (88) 95 08/25/17 20:00 Nasal Cannula 2.00 08/23/17 08:21 40 Intake and Output 08/25/17 08/25/17 08/25/17 07:59 15:59 23:59 Intake Total 206 ml 0 ml Output Total 1250 ml 2300 ml Balance -1044 ml -2300 ml Result Diagram: 08/24/17 0415 08/24/17 0415 Imaging 1. Redemonstration of postsurgical features of right high parietal craniotomy with enlarging hematoma in the operative bed now measuring approximately 5 cm in comparison to 3.4 cm on prior exam. There has also been interval development of small subdural collection measuring up to 8 mm in the anterior right frontal region. This results in increased [id number] subfalcine shift of approximately 1.4 cm in comparison to 8 cm in prior exam. No evidence for downward herniation at this time. Objective Remarks GENERAL: Calm, responds. SKIN: Warm and dry. HEAD: Normocephalic. EYES: No scleral icterus. No injection or drainage. NECK: Supple, trachea midline. CARDIOVASCULAR: NL S1S2, regular rate and rhythm without murmurs, gallops, or rubs. No JVD. RESPIRATORY: Breath sounds equal bilaterally. equal chest rise. GASTROINTESTINAL: Abdomen soft, non-tender, nondistended. No guarding. MUSCULOSKELETAL: No cyanosis, or edema. Well perfused. Warm. NEURO EXAM: Drowsy, Moves right side to command. Opens eyes. A/P Assessment and Plan Subdural hematoma Intraparenchymal bleed Metastatic disease - Continue neuro checks per ICU protocol - Neurosurgery consulted and discussed - continue Decadron 4 mg IV every 6 hourly - Continue Keppra to 1500 mg IV every 12 hourly, Dilantin every 12 hourly, continue by mouth Vimpat. - Seizure precautions - Ativan when necessary for breakthrough seizures as needed Hypertension - Hydralazine 10 mg IV every 2 hourly when necessary for SBP greater than 150 mmHg - Add oral meds. Melanoma - Prostatic disease - Palliative care consultation ID - ESBL E. coli in blood and urine, persistent fever -ID following. Switched to Zerbaxa on 08/24 DVT GI prophylaxis - Teds SCDs - No pharmacological DVT prophylaxis due to ICH - Pepcid Overall impression: He remains critically ill following emergency craniotomy for decompression and evacuation of blood, but more stable; Prognosis poor, no options for treatment at this time. followed by Palliative Care team. transfer to floor with hospitalist while ongoing goals of care discussion continue. Oscar Carrasco MD Aug 25, 2017 20:52
[2017-08-26] MEDS: DEXAMETHASONE SOD PHOS 4 MG/ML VIAL IV PUSH SCH ×3 (00:48→12:00)
[2017-08-26] MEDS: CHLORHEXIDINE GLUCONATE 2 % 1 PACK (2 CLOTHS) TOP SCH (04:00)
[2017-08-26] MEDS: FOSPHENYTOIN IV SCH ×2 (04:27→15:00)
[2017-08-26] MEDS: SODIUM CHLORIDE IV SCH ×2 (04:27→15:00)
[2017-08-26 04:45] VITALS: BP 122/88; PULSE 120; RESP 25; TEMP 97.9; O2SAT 97
[2017-08-26] MEDS: CEFTOLOZANE-TAZOBACTAM INJ 1,500 MG in SODIUM CHLORIDE 0.9% INJ 100 ML IV SCH ×2 (05:03→14:00)
[2017-08-26 08:00] VITALS: BP 169/78; PULSE 122; RESP 16; TEMP 97.4; O2SAT 97
[2017-08-26] MEDS: CHLORHEXIDINE 0.12% (ORAL KIT) 15 ML CUP MT SCH (08:00)
[2017-08-26] MEDS: LACOSAMIDE INJ 150 MG in SODIUM CHLORIDE 0.9% INJ 100 ML IV SCH (08:51)
[2017-08-26] MEDS: levETIRAcetam INJ 1,500 MG in SODIUM CHLORIDE 0.9% INJ 100 ML IV SCH (08:52)
[2017-08-26] MEDS: DOCUSATE SODIUM 50 MG/SENNA 8.6 MG TAB PO SCH (09:00)
[2017-08-26] MEDS ORDERED: METOPROLOL TARTRATE 50 MG TAB PO SCH (09:00)
[2017-08-26] MEDS: BENEPROTEIN POWDER 1 PACK G-TUBE SCH ×3 (09:00→16:28)
[2017-08-26] MEDS: SODIUM CHLORIDE 0.9% FLUSH 10 ML FLUSH IV FLUSH SCH (09:04)
[2017-08-26] MEDS: FUROSEMIDE 40 MG/4 ML VIAL IV PUSH SCH (09:05)
[2017-08-26] MEDS: FAMOTIDINE 20 MG/2 ML VIAL IV PUSH SCH (09:07)
--- NOTE | 2017-08-26 11:23 | HHI.HCPN ---
Reason for visit a. To assist with evaluation and management of symptoms including: seizure , encephalopathy b. To assist medical decision maker(s) with: better understanding of current medical conditions; weighing benefits/burdens of medical treatment options; making medical treatment decisions. . Subjective/Interval History Pt remains extubated, transferred to another floor. Eyes remains close, sleeping remains, could not follow commands on my visit. Family/friend interactions Spoke with pt's spouse, and daughter this morning. They are amenable to hospice , and deciding weather to go with hospice at home or at a care center. I spoke with them about his decline and his condition, spoke a little about comfort measures. Family will meet with me later on today, when they arrive in the hospital. Advance Directives Living Will: Never completed Health Care Surrogate: Never completed Durable Power of Printer Slotter Feeder: Never completed Objective Vital Signs Date Time Temp Pulse Resp B/P (MAP) Pulse Ox O2 Delivery O2 Flow Rate FiO2 08/26/17 08:00 97.4 122 16 169/78 (108) 97 08/26/17 07:00 97 Nasal Cannula 6.00 08/26/17 04:45 97.9 120 25 122/88 (99) 97 08/26/17 00:00 98 Nasal Cannula 2.00 08/25/17 23:00 98.8 110 24 130/89 (103) 98 08/25/17 20:00 114 08/25/17 20:00 99.1 114 22 138/63 (88) 95 08/25/17 20:00 95 Nasal Cannula 2.00 08/25/17 19:22 93 Nasal Cannula 4.00 08/25/17 18:00 106 08/25/17 16:00 96 08/25/17 16:00 99.1 96 27 123/66 (85) 98 08/25/17 14:00 92 08/25/17 12:00 99.5 114 27 151/78 (102) 98 08/25/17 12:00 114 Intake & Output 08/26/17 08/26/17 07:00 19:00 Intake Total 0 ml Output Total 650 ml Balance -650 ml Intake Oral 0 ml Output Urine Total 550 ml Stool Total 100 ml Physical Exam CONSTITUTIONAL/GENERAL: This is an adequately nourished patient, in no apparent distress. . No spontaneous eye opening. Pt is extubated CARDIOVASCULAR: Regular rate and rhythm without murmurs, gallops, or rubs. No JVD. Peripheral pulses symmetric. RESPIRATORY/CHEST: Symmetric, unlabored respirations. Clear to auscultation. Breath sounds equal bilaterally. No wheezes, rales, or rhonchi. GASTROINTESTINAL: Abdomen soft, non-tender, nondistended. No hepato-splenomegaly , or palpable masses. No guarding. Bowel sounds present. GENITOURINARY: Without palpable bladder distension. Phipps catheter in place. MUSCULOSKELETAL: Extremities without clubbing, cyanosis. Left lower ext and left upper ext, edematous 2+. NEUROLOGICAL: Pupils are equal. Follows simple commands with right side, left side is flaccid, but some movement in left lower ext. When eyes are held open he does not track or focus. PSYCHIATRIC: Pt calm on my visit. . Diagnostic Tests Laboratory Laboratory Tests Test 08/23/17 11:36 08/24/17 04:15 08/25/17 09:55 Vancomycin Level Trough 15.6 MCG/ML (5.0-10.0) White Blood Count 13.6 TH/MM3 (4.0-11.0) Red Blood Count 3.62 MIL/MM3 (4.50-5.90) Hemoglobin 10.4 GM/DL (13.0-17.0) Hematocrit 30.9 % (39.0-51.0) Mean Corpuscular Volume 85.5 FL (80.0-100.0) Mean Corpuscular Hemoglobin 28.8 PG (27.0-34.0) Mean Corpuscular Hemoglobin Concent 33.6 % (32.0-36.0) Red Cell Distribution Width 15.7 % (11.6-17.2) Platelet Count 337 TH/MM3 (150-450) Mean Platelet Volume 7.0 FL (7.0-11.0) Neutrophils (%) (Auto) 83.6 % (16.0-70.0) Lymphocytes (%) (Auto) 8.4 % (9.0-44.0) Monocytes (%) (Auto) 7.2 % (0.0-8.0) Eosinophils (%) (Auto) 0.4 % (0.0-4.0) Basophils (%) (Auto) 0.4 % (0.0-2.0) Neutrophils # (Auto) 11.4 TH/MM3 (1.8-7.7) Lymphocytes # (Auto) 1.1 TH/MM3 (1.0-4.8) Monocytes # (Auto) 1.0 TH/MM3 (0-0.9) Eosinophils # (Auto) 0.1 TH/MM3 (0-0.4) Basophils # (Auto) 0.1 TH/MM3 (0-0.2) CBC Comment DIFF FINAL Differential Comment Blood Urea Nitrogen 11 MG/DL (7-18) Creatinine 0.36 MG/DL (0.60-1.30) Random Glucose 91 MG/DL (74-106) Calcium Level 8.4 MG/DL (8.5-10.1) Phosphorus Level 2.0 MG/DL (2.5-4.9) Magnesium Level 2.0 MG/DL (1.5-2.5) Sodium Level 141 MEQ/L (136-145) Potassium Level 3.4 MEQ/L (3.5-5.1) Chloride Level 105 MEQ/L (98-107) Carbon Dioxide Level 29.5 MEQ/L (21.0-32.0) Anion Gap 7 MEQ/L (5-15) Estimat Glomerular Filtration Rate 245 ML/MIN (>89) Prothrombin Time 10.6 SEC (9.8-11.6) Prothromb Time International Ratio 1.0 RATIO Activated Partial Thromboplast Time 26.2 SEC (24.3-30.1) Result Diagram: 08/24/17 0415 08/24/17 0415 Microbiology Microbiology Date/Time Source Procedure Growth Status 08/24/17 05:00 Blood Line Aerobic Blood Culture - Preliminary NO GROWTH IN 2 DAYS Resulted 08/24/17 05:00 Blood Line Anaerobic Blood Culture - Preliminary NO GROWTH IN 2 DAYS Resulted 08/24/17 03:45 Blood Peripheral Aerobic Blood Culture - Preliminary NO GROWTH IN 2 DAYS Resulted 08/24/17 03:45 Blood Peripheral Anaerobic Blood Culture - Preliminary NO GROWTH IN 2 DAYS Resulted Imaging Last Impressions Head CT 08/25/17 0000 Signed Impressions: Service Date/Time: Friday, August 25, 2017 10:38 - CONCLUSION: 1. There is been improvement of the mass effect and midline shift to the left compared to the prior study. 2. The edema and acute blood products within the parenchyma along the high right cerebral vertex appears to be essentially stable compared to the prior examination. 3. The previously noted right ventricular catheter has been removed. Bryan Yates MD Renal Ultrasound 08/23/17 0000 Signed Impressions: Service Date/Time: Wednesday, August 23, 2017 22:55 - CONCLUSION: 1. There is no hydronephrosis or other abnormality to explain the abnormal laboratory values. 2. Questionable 7 mm nonobstructing right renal stone. Omar Mariscal MD Chest X-Ray 08/20/17 0000 Signed Impressions: Service Date/Time: August 15:07 - CONCLUSION: Middle atelectasis left lung base. Small posteromedial right lower lobe. ET tube in good position. Marcos Beard MD Procedures * INTUBATION 08/15/17 * Emergency craniotomy/craniectomy/ventriculostomy 08/16/17 . 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 Spiritual: Somewhat spiritual but not affiliated with any evangelical or denomination Legal: At this time, the patient lacks capacity for decision-making, and it is uncertain as to whether he will regain that capacity. He had previously indicated that he would want his to be his surrogate decision maker, and she is serving as decision making proxy at this time. Ethical issues impacting care: None . Important Contacts : Yaima Johnson, . Prognosis Overall, the patient's prognosis is guarded, as he has ongoing metastatic melanoma. . Code Status: No Code Plan * DNR but amenable to bipap * DECISION-MAKING: At this time, the patient lacks capacity for decision-making , and it seems unlikely that he will regain that capacity. He had previously indicated that he would want his to be his surrogate decision maker, and she is serving as decision making proxy at this time. * GOALS:Spoke with pt's spouse, and daughter this morning. They are amenable to hospice, and deciding weather to go with hospice at home or at a care center. I spoke with them about his decline and his condition, spoke a little about comfort measures. Family will meet with me later on today, when they arrive in the hospital. * SYMPTOMS: encephalopathy- cancer burden s/p intracranial bleed. * seizure- talk to family, amenable to atc ativan. * Palliative Care will continue to follow the patient during this hospitalization. . Attestation To help prompt me to consider important information that might be impacting today's encounter and assessment, information from prior notes written by myself or my colleagues may have been "brought forward" into today's note. My signature on this note, however, is an attestation that I personally performed the exam, history, and/or decision-making noted today, and, unless otherwise indicated, the interactions with patient, family, and staff as well as the review of records all occurred today. I also attest that the listed assessment and stated plan reflect my best clinical judgment today based on the combination of historical information, prior notes, and today's exam/ interactions. When time spent is documented, it refers only to time spent today by the signer, or if indicated, combined time spent today by collaborating physician/nurse practitioner. Juan Marquis MD Aug 26, 2017 11:23
[2017-08-26 12:00] VITALS: BP 145/81; PULSE 112; RESP 16; TEMP 98.3; O2SAT 97
[2017-08-26] MEDS ORDERED: MORPHINE SULFATE 8 MG/ML INJ IV PUSH PRN (14:15)
[2017-08-26] MEDS ORDERED: MORPHINE SULFATE 4 MG/ML INJ IV PUSH PRN (14:15)
--- NOTE | 2017-08-26 14:22 | HHI.DS ---
Discharge Summary Admission Date Aug 14, 2017 at 20:25 Discharge Date: Aug 26, 2017 Admitting Diagnosis Brief History - From Admission 62-year-old male with a history of malignant melanoma metastasized to the brain status post right parietal craniectomy on June 09, 2017 at [facility] followed by 5 radiation treatments being followed by oncologist at [facility]. Patient was just evaluated at [facility] on 08/05/17 and received Ktruda. He developed worsening weakness involving the left lower extremity since then over the next 3 days and presented to the ER at [facility] on 08/[address] without contrast revealed intracerebral hemorrhage involving right frontal parietal region with right subdural hemorrhage and minimal midline shift. [facility] was contacted however did not have any beds hence patient was accepted for transfer at [facility] and patient was transferred to the ICU at [place]. He was treated neurosurgically with decompression and clot evacuation and was transferred to [facility]. Just after the transfer patient became more weak on the left side and the MRI brain was performed that showed postsurgical features of right high parietal craniotomy with enlarging hematoma in the operative bed now measuring approximately 5 cm in comparison to 3.4 cm on prior exam, and also interval development of small subdural collection measuring up to 8 mm in the anterior right frontal region. This results in increased [id number] subfalcine shift. For this the patient has been transferred back to the ICU under critical care service admission. CBC/BMP: 08/24/17 0415 08/24/17 0415 Significant Findings Laboratory Tests Test 08/24/17 04:15 08/25/17 09:55 White Blood Count 13.6 TH/MM3 (4.0-11.0) Red Blood Count 3.62 MIL/MM3 (4.50-5.90) Hemoglobin 10.4 GM/DL (13.0-17.0) Hematocrit 30.9 % (39.0-51.0) Neutrophils (%) (Auto) 83.6 % (16.0-70.0) Lymphocytes (%) (Auto) 8.4 % (9.0-44.0) Neutrophils # (Auto) 11.4 TH/MM3 (1.8-7.7) Monocytes # (Auto) 1.0 TH/MM3 (0-0.9) Creatinine 0.36 MG/DL (0.60-1.30) Calcium Level 8.4 MG/DL (8.5-10.1) Phosphorus Level 2.0 MG/DL (2.5-4.9) Potassium Level 3.4 MEQ/L (3.5-5.1) Imaging Last Impressions Head CT 08/25/17 0000 Signed Impressions: Service Date/Time: Friday, August 25, 2017 10:38 - CONCLUSION: 1. There is been improvement of the mass effect and midline shift to the left compared to the prior study. 2. The edema and acute blood products within the parenchyma along the high right cerebral vertex appears to be essentially stable compared to the prior examination. 3. The previously noted right ventricular catheter has been removed. Bryan Yates MD Renal Ultrasound 08/23/17 0000 Signed Impressions: Service Date/Time: Wednesday, August 23, 2017 22:55 - CONCLUSION: 1. There is no hydronephrosis or other abnormality to explain the abnormal laboratory values. 2. Questionable 7 mm nonobstructing right renal stone. Omar Mariscal MD Chest X-Ray 08/20/17 0000 Signed Impressions: Service Date/Time: August 15:07 - CONCLUSION: Middle atelectasis left lung base. Small posteromedial right lower lobe. ET tube in good position. Marcos Beard MD PE at Discharge GENERAL: Lethargic SKIN: Warm and dry. HEAD: Normocephalic. EYES: No scleral icterus. No injection or drainage. NECK: Supple, trachea midline. CARDIOVASCULAR: NL S1S2, regular rate and rhythm without murmurs, gallops, or rubs. No JVD. RESPIRATORY: Breath sounds equal bilaterally. equal chest rise. GASTROINTESTINAL: Abdomen soft, non-tender, nondistended. No guarding. MUSCULOSKELETAL: No cyanosis, or edema. Well perfused. Warm. NEURO EXAM: Drowsy, Moves right side to command. Opens eyes. Pt update on day of discharge Patient lethargic. Palliative care consulted. discussed case with Dr Marquis. After family meeting the family decided to take the patient to hospice at the [facility] in [place]. Pt Condition on Discharge: Deteriorating Discharge Disposition: Hospice/Med Facility Discharge Time: <= 30 minutes Discharge Instructions DIET: Follow Instructions for: Nothing By Mouth Activities you can perform: Continue Bedrest Da Vu MD Aug 26, 2017 14:22
[2017-08-26] MEDS ORDERED: LORazepam 2 MG/ML VIAL IV PUSH PRN ×3 (14:45)
[2017-08-26 16:41] VITALS: BP 136/45; PULSE 117; RESP 16; TEMP 98.4; O2SAT 95
== END 2017-08-26 16:49 | disposition hospice, inpatient (51) | DRG 23 ==
LOC: N03A 20:25 → N05B 08-25 22:31
PROVIDERS: ADMIT Hospitalist; ATTEND Hospitalist
PROC: 00C70ZZ Extirpation of Matter from Cerebral Hemisphere, Open Approach (ICD-10-PCS; 2017-08-16)
PROC: 00U20JZ Supplement Dura Mater with Synthetic Substitute, Open Approach (ICD-10-PCS; 2017-08-16)
PROC: 009600Z Drainage of Cerebral Ventricle with Drainage Device, Open Approach (ICD-10-PCS; 2017-08-16)
PROC: 0HD0XZZ Extraction of Scalp Skin, External Approach (ICD-10-PCS; 2017-08-16)
PROC: 00C40ZZ Extirpation of Matter from Intracranial Subdural Space, Open Approach (ICD-10-PCS; principal; 2017-08-16 09:10)
DX: I61.1 Nontraumatic intracerebral hemorrhage in hemisphere, cortical (principal); G93.6 Cerebral edema; G93.40 Encephalopathy, unspecified; Z99.11 Dependence on respirator [ventilator] status; R78.81 Bacteremia; G81.94 Hemiplegia, unspecified affecting left nondominant side; T81.30XA Disruption of wound, unspecified, initial encounter; J98.11 Atelectasis; C79.31 Secondary malignant neoplasm of brain; N39.0 Urinary tract infection, site not specified; I10 Essential (primary) hypertension; Z51.5 Encounter for palliative care; G40.909 Epilepsy, unspecified, not intractable, without status epilepticus; Z16.12 Extended spectrum beta lactamase (ESBL) resistance; B96.20 Unspecified Escherichia coli [E. coli] as the cause of diseases classified elsewhere; I62.00 Nontraumatic subdural hemorrhage, unspecified; N42.9 Disorder of prostate, unspecified; E74.39 Other disorders of intestinal carbohydrate absorption; R09.02 Hypoxemia; Z66 Do not resuscitate; R06.00 Dyspnea, unspecified; Z85.820 Personal history of malignant melanoma of skin; Z92.3 Personal history of irradiation
CPT/HCPCS: 31500; 36600; 70450; 71045; 76775; 80048; 80053; 80185; 80186; 80202; 81001; 82805; 83735; 83930; 84100; 84132; 84295; 85025; 85610; 85730; 86850; 86900; 86901; 87040; 87070; 87077; 87086; 87186; 87205; 87641; 88307; 88341; 88342; 94002; 94003; 94640; 94664; 94770; 95819; C1713; C9254; J0330; J0695; J1100; J1165; J1170; J1580; J1885; J1940; J1953; J2150; J2185; J2250; J2370; J2543; J3010; J3370; J3480; J7030; J7040; J7050; J8540; P9047; Q2009